=== PATIENT | female | born 1975 | race Two or more races ===

== ENCOUNTER 2020-03-10 12:48 | Outpatient (REF) | payer MEDICAID, SELFPAY ==
--- NOTE | 2020-03-10 | US_ITS ---
EXAMINATION:US pelvic complete, US transvaginal CLINICAL INFORMATION: Reason for Exam PMB / fibroids COMPARISON: No priors available. LMP: Postmenopausal 2019 FINDINGS: UTERUS: The uterus is anteverted. Size: 8.7 x 2.9 x 6.1 cm. Uterine mass: Intramural uterine mass likely fibroid 2.1 x 2.2 x 2.8 cm, second mass likely fibroid 2.7 x 1.2 x 2.4 cm. Cervix: Grossly unremarkable. Endometrium: No ultrasound evidence of endometrial lesion. endometrial thickness measures 0.2 cm ADNEXA: Normal Right ovary: Normal in size. Left ovary: Normal in size. FREE FLUID: Trace amount of free fluid. OTHER FINDINGS: None IMPRESSION: 1. Fibroid uterus. 2 uterine masses likely fibroids measuring up to 2.8 and 2.7 cm. 2. Endometrium is normal 0.2 cm.
== END 2020-03-10 12:49 | disposition home or self-care (01) ==
LOC: HO.US 12:48
PROVIDERS: Visit Provider Advanced Practice Midwife
DX: N92.4 Excessive bleeding in the premenopausal period (principal)
CPT/HCPCS: 76830; 76856

== ENCOUNTER → 2020-03-24 09:49 | Outpatient (BNVA) | payer MEDICAID, SELFPAY | PROVIDERS: PCP Pediatrics; Visit Provider Advanced Practice Midwife | DX: N95.0 Postmenopausal bleeding (principal); D25.9 Leiomyoma of uterus, unspecified; N89.8 Other specified noninflammatory disorders of vagina | CPT/HCPCS: 99212 ==

== ENCOUNTER → 2020-04-16 10:10 | Outpatient (BNVA) | payer MEDICAID, SELFPAY | PROVIDERS: Visit Provider Orthopaedic Surgery | DX: S83.242D Other tear of medial meniscus, current injury, left knee, subsequent encounter (principal) | CPT/HCPCS: 99212 ==

== ENCOUNTER 2020-06-16 06:53 | Day surgery (SDC) | payer MEDICAID, SELFPAY ==
[2020-06-10 12:13] VITALS: BMI 35.5
--- NOTE | 2020-06-15 08:35 | P.CONAN_ITS ---
Documented by User: Annel Howard 06/15/20 08:35 HPI - Anesthesia Eval Consult details Narrative: 44yo F for Knee Arthroscopy COUNTS INCLUDE 234 BEDS AT THE [facility] Past Medical History Medical History Arthritis Depression GERD (gastroesophageal reflux disease) Hypothyroidism Family History Family History Father TIA (transient ischemic attack) Surgical History Surgical History History of carpal tunnel release Hx of section Social History Social History Alcohol intake: never Smoking Status: Never smoker Advance Directives: No Advance Directives Information Provided: No Advance Directives on File: No Current occupational status: disabled Current occupation: Left Handed Gender identity: female Meds Allergies Allergy/AdvReac Type Severity Reaction Status Date / Time No Known Allergies Allergy Verified 06/10/20 12:11 Home Medications Medication Instructions Recorded Confirmed Type pantoprazole 40 mg tablet,delayed 40 mg PO DAILY tab 04/16/20 06/10/20 History release duloxetine [Cymbalta] 60 mg PO DAILY 06/10/20 06/10/20 History gabapentin 300 mg PO BID 06/10/20 06/10/20 History levothyroxine [Tirosint] 112 mcg PO DAILY 06/10/20 06/10/20 History Exam Exam Date and Time: June 15, 2020 0835 Height,Weight and Vital Signs: Height 5 ft 6 in Weight 99.79 kg Assessment and Plan Assessment Anesthesia Assessment: Chart Reviewed Documented by User: Ilya Nelson MD 06/16/20 07:47 COUNTS INCLUDE 234 BEDS AT THE [facility] Past Medical History Medical History Arthritis Depression GERD (gastroesophageal reflux disease) Hypothyroidism Family History Family History Father TIA (transient ischemic attack) Surgical History Surgical History History of carpal tunnel release Hx of section Social History Social History Alcohol intake: never Smoking Status: Never smoker Advance Directives: No Advance Directives Information Provided: No Advance Directives on File: No Current occupational status: disabled Current occupation: Left Handed Gender identity: female Meds Allergies Allergy/AdvReac Type Severity Reaction Status Date / Time No Known Allergies Allergy Verified 06/10/20 12:11 Home Medications Medication Instructions Recorded Confirmed Type pantoprazole 40 mg tablet,delayed 40 mg PO DAILY tab 04/16/20 06/10/20 History release duloxetine [Cymbalta] 60 mg PO DAILY 06/10/20 06/10/20 History gabapentin 300 mg PO BID 06/10/20 06/10/20 History levothyroxine [Tirosint] 112 mcg PO DAILY 06/10/20 06/10/20 History Exam Airway Mallampati Class: III TM Dist: >3cm Neck ROM: Full Loose/Missing/Broken Teeth: No Heart: RRR Lungs: NL Other: AO Assessment and Plan Assessment Anesthesia Assessment: Anesthesia Plan Discussed and Chart Reviewed Final Anesthetic Review NPO: Yes ASA Class: III Final Preanesthetic Review: No Changes in Pt Med Stat, Meds/Allgs Chart Reviewed, Consent Obtained/Reviewed and Anes Risks/Benef Reviewed Patient Risk: Intermediate Procedure Risk: Low Anesthetic Plan Anesthetic Plan: GA Disposition: Standard PACU
[2020-06-16] VITALS (10 sets, daily range): BP systolic 116–135; BP diastolic 76–87; PULSE 68–82; RESP 12–18; TEMP 36.2; O2SAT 95–99
[2020-06-16 07:14] LABS: UPreg QC Valid YES; Urine Pregnancy NEGATIVE (NEGATIVE)
--- NOTE | 2020-06-16 07:20 | MHC.SHP ---
Pre-Procedural Eval Section A The patient is an INPATIENT: No Changes since office visit: Yes Patient answered all questions; No Cold of Flu in the past 2 weeks, No New Medical Problems and No Changes in Medication The History & Physical has been completed within 30 days and I have reviewed it.: Yes Section B Chief Complaint: Medial Meniscus Tear Allergies: Allergies Allergy/AdvReac Type Severity Reaction Status Date / Time No Known Allergies Allergy Verified 06/10/20 12:11 Plan I have reviewed the history and physical and performed a pertinent physical examination on my patient. No changes have occurred unless specified.
[2020-06-16] MEDS: HYDROmorphone HCl 0.5 MG/0.5 ML SYRINGE 0.25 MG IVPUSH ×2 (09:15→09:20)
[2020-06-16] MEDS: Acetaminophen 325 MG TABLET 650 MG PO (09:16)
[2020-06-16] MEDS: oxyCODONE HCl Immed Release 5 MG TABLET PO (09:16)
--- NOTE | 2020-06-16 09:20 | P.BOP_ITS ---
Brief Operative Note Date of Service: 06/16/20 Pre-op diagnosis: left knee mmt Post-op diagnosis: same Procedure: left knee partial medial meniscectomy Implants: none Surgeon: Willian Irene MD Anesthesia: GETA and local [place] Supervisor: Olga Luke Estimated blood loss (mL): 0 Tourniquet time (min): 19 IV fluids (mL): 500 Pathology: none sent Condition: stable Disposition: PACU
--- NOTE | 2020-06-16 10:09 | HO.POSTANES ---
Post Anesthesia Evaluation Post Anesthesia Evaluation Vital Signs: Vital Signs Temp Pulse Resp BP Pulse Ox 06/16/20 09:49 97.1 F 70 18 99 06/16/20 09:40 69 16 135/87 96 06/16/20 09:25 72 16 116/78 96 06/16/20 09:20 68 16 131/79 98 06/16/20 09:15 82 18 127/81 98 06/16/20 09:10 75 16 124/78 95 06/16/20 09:05 72 18 133/81 96 06/16/20 09:00 68 14 121/76 98 06/16/20 08:55 97.1 F 69 12 129/78 97 06/16/20 07:18 97.2 F 76 16 132/85 99 Anesthesia: General LMA Mental Status: Awake Pain Control: Satisfactory Nausea/Vomiting: None Hydration: Adequate Anesthesia-Related Issues: No Anes. Related Issues
--- NOTE | 2020-06-18 13:48 | OP_ITS ---
SURGEON: Willian Irene MD INDICATIONS: 44-year-old woman with a painful medial meniscus tear, refractory to conservative measures, who was consented to undergo operative intervention. PREOPERATIVE DIAGNOSIS: Left knee medial meniscus tear. POSTOPERATIVE DIAGNOSIS: Left knee medial meniscus tear. PROCEDURE PERFORMED: Left knee partial medial meniscectomy. ESTIMATED BLOOD LOSS: None. COMPLICATIONS: ANESTHESIA: General and local. ASSISTANTS: SPECIMENS: TOURNIQUET TIME: 19 minutes. FLUIDS: 500. PROCEDURE IN DETAIL: The patient was brought to the operating room, placed supine on the operative table and prepped and draped in standard sterile fashion. Time-out was called to identify proper site, proper procedure, proper surgeon. IV antibiotics per weight were administered. I began by exsanguinating the limb and insufflating tourniquet to 300 mmHg. I then made a standard anterolateral stab incision and placed my blunt trocar atraumatically into the patellofemoral joint. I insufflated the joint and placed my 30-degree arthroscope. She had an old injury to the medial patellar facet with fibrocartilage and no evidence of acute inflammation. Gutters were clean. I descended into the medial compartment, where I made by medial portal under direct visualization. She had an obvious tear of the posterior horn of the medial meniscus. I used a combination of biter, shaver, and cautery to remove the unstable edges. I removed approximately 30% of the volume of the posterior horn. Cartilaginous surfaces were pristine. ACL was intact. In the lateral compartment, there was a pristine cartilage, meniscus, and surfaces. Once I had completed my meniscectomy, I removed all instrumentation. Portals were closed with nylon, and I injected 30 mL of 0.25% Marcaine with epinephrine in the joint and the soft tissue portals. The patient was then extubated and brought to recovery room in stable condition. There were no known complications. ENGLISH TUTOR: ALE Longoria. MD ENOCH Mooney/MICHAEL / [phone]
== END 2020-06-16 11:00 | disposition home or self-care (01) ==
PROVIDERS: Nurse Practitioner; Visit Provider Orthopaedic Surgery
PROC: (CPT 29870; principal; 2020-06-16 08:30)
DX: S83.242A Other tear of medial meniscus, current injury, left knee, initial encounter (principal); X58.XXXA Exposure to other specified factors, initial encounter; F32.9 Major depressive disorder, single episode, unspecified; Y93.9 Activity, unspecified; Y92.9 Unspecified place or not applicable; Y99.8 Other external cause status; M47.816 Spondylosis without myelopathy or radiculopathy, lumbar region; Z79.899 Other long term (current) drug therapy
CPT/HCPCS: 29881; 81025; J0171; J0690; J1100; J1170; J2250; J2405; J3010

== ENCOUNTER 2020-06-25 09:03 | Outpatient (REF) | payer MEDICAID, SELFPAY | END 2020-06-25 09:04 | disposition home or self-care (01) | LOC: HO.HAP 09:03 | PROVIDERS: Visit Provider Pediatrics | DX: Z46.1 Encounter for fitting and adjustment of hearing aid (principal); H90.3 Sensorineural hearing loss, bilateral | CPT/HCPCS: 92593; 99499; V5266 ==

== ENCOUNTER → 2020-07-01 13:16 | Outpatient (BNVA) | payer MEDICAID, SELFPAY | PROVIDERS: Visit Provider Physician Assistant | DX: Z13.89 Encounter for screening for other disorder (principal) | CPT/HCPCS: 99212 ==

== ENCOUNTER 2020-07-05 10:19 | Outpatient (REF) | payer MEDICAID, SELFPAY ==
--- NOTE | ~2020-07-05 | MR_ITS ---
EXAMINATION: MR LUMBAR SPINE WITHOUT CONTRAST CLINICAL INFORMATION: Lower back pain, difficulty walking. Bilateral leg weakness, numbness, and pain, right greater than left. Lumbar radiculopathy. COMPARISON: None. TECHNIQUE: MRI of the lumbar spine was obtained using routine sequences without contrast. FINDINGS: VERTEBRAL BODIES AND PARASPINAL STRUCTURES: The lumbar lordosis is maintained. Minimal grade 1 retrolisthesis of L5 on S1. No acute fracture. No loss of vertebral body height. Loss of intervertebral disc height with disc desiccation at T12-L1 and L5-S1. Modic type II degenerative endplate changes at L5-S1. No abnormal marrow signal. The visualized paraspinal soft tissues are unremarkable. CONUS MEDULLARIS AND CAUDA EQUINA: Normal, terminating at the level of L2. SPINAL LEVELS: T12-L1: Small left paracentral disc protrusion which measures 0.9 cm in ML dimension and partially effaces the ventral thecal sac. No significant central canal or neural foraminal stenosis. L1-L2: No significant disc bulge. No central canal or neural foraminal stenosis. L2-L3: Mild degenerative disc disease with small anterior endplate osteophytes. Bilateral facet arthropathy without significant central canal or neural foraminal stenosis. L3-L4: No significant disc bulge. Bilateral facet arthropathy and thickening of the ligamentum flavum with mild bilateral neural foraminal stenosis. L4-L5: Shallow left subarticular disc protrusion which contacts the exiting left L4 nerve root. Bilateral facet arthropathy and thickening of the ligamentum flavum with mild left neural foraminal stenosis. L5-S1: Minimal grade 1 retrolisthesis of L5 on S1 with a shallow broad-based disc bulge, asymmetric to the right. This appears to contact the exiting right S1 nerve root. Bilateral facet arthropathy with moderate right and [id number] left neural foraminal stenosis. MR/MR lumbar spine wo con IMPRESSION: 1. Degenerative disc disease with minimal grade 1 retrolisthesis of L5 on S1. Broad-based disc bulge, asymmetric to the right which appears to contact the exiting right S1 nerve root. Bilateral facet arthropathy with moderate right and iqij-so-bjgrhofd left neural foraminal stenosis. 2. L4-L5 shallow left subarticular disc protrusion which contacts the exiting left L4 nerve root. Bilateral facet arthropathy and thickening of the ligamentum flavum with mild left neural foraminal stenosis. 3. L3-L4 bilateral facet arthropathy and thickening of the ligamentum flavum with mild bilateral neural foraminal stenosis. 4. T12-L1 small left paracentral disc protrusion which partially effaces the ventral thecal sac. No significant central canal or neural foraminal stenosis.
== END 2020-07-05 10:20 | disposition home or self-care (01) ==
LOC: HO.MRI 10:19
PROVIDERS: Visit Provider Pediatrics
DX: M54.16 Radiculopathy, lumbar region (principal)
CPT/HCPCS: 72148

== ENCOUNTER 2020-07-21 09:27 | Outpatient (REF) | payer MEDICAID, SELFPAY ==
[2020-07-22 17:01] LABS: C. trachomatis RNA TMA NOT DETECTED (NOT DETECTED); N. gonorrhoeae RNA TMA NOT DETECTED (NOT DETECTED)
[2020-07-24 06:37] LABS: HPV mRNA E6/E7 rflx Not Detected (Not Detected)
== END 2020-07-21 09:28 | disposition home or self-care (01) ==
LOC: HO.LAB 09:27
PROVIDERS: Visit Provider Advanced Practice Midwife
DX: Z01.411 Encounter for gynecological examination (general) (routine) with abnormal findings (principal); Z11.51 Encounter for screening for human papillomavirus (HPV); R82.90 Unspecified abnormal findings in urine; E66.9 Obesity, unspecified; Z68.36 Body mass index [BMI] 36.0-36.9, adult; Z20.2 Contact with and (suspected) exposure to infections with a predominantly sexual mode of transmission
CPT/HCPCS: 36415; 81003; 87491; 87591; 87624; 88142

== ENCOUNTER 2020-07-23 10:43 | Outpatient (REF) | payer MEDICAID, SELFPAY ==
--- NOTE | ~2020-07-23 | MM_ITS ---
EXAMINATION: MM DIAGNOSTIC DIGITAL BREAST TOMOSYNTHESIS, LEFT CLINICAL INFORMATION: Left breast architecture distortion The lifetime risk of breast cancer based on the Tyrer-Cuzick Model is 14.7%. COMPARISON: Mammography: December 19, 2019 and studies dating back to July 16, 2017 TECHNIQUE: Digital breast tomosynthesis is performed in both the craniocaudal and mediolateral oblique views along with computer-aided detection (CAD). Synthesized 2D images are generated from the tomosynthesis. FINDINGS: There are scattered areas of fibroglandular density (ACR BI-RADS breast composition Category b). There is a stable region of architectural distortion seen on craniocaudal view medially. No associated suspicious calcifications identified. Results are provided to the patient at time of visit by the technologist. MM/MM tomosynthesis diagnostic LT IMPRESSION: There are no significant changes from prior study. ASSESSMENT: BI-RADS 2: Benign RECOMMENDATION: Routine annual mammography screening, due in 6 months. This patient's information was entered into a reminder system with a target due date for their next mammogram.
== END 2020-07-23 10:44 | disposition home or self-care (01) ==
LOC: HO.MAMMO 10:43
PROVIDERS: PCP Pediatrics; Visit Provider Pediatrics
DX: N64.89 Other specified disorders of breast (principal)
CPT/HCPCS: 77061; 77065

== ENCOUNTER 2021-01-20 10:51 | Outpatient (REF) | payer MEDICAID, SELFPAY ==
--- NOTE | ~2021-01-20 | MM_ITS ---
EXAMINATION: MM SCREENING DIGITAL BREAST TOMOSYNTHESIS, BILATERAL CLINICAL INFORMATION: Screening. Asymptomatic. The lifetime risk of breast cancer based on the Tyrer-Cuzick Model is 13.8%. COMPARISON: Mammography: 07/23/2020 and studies dating back to 07/16/2017. TECHNIQUE: Digital breast tomosynthesis is performed in both the craniocaudal and mediolateral oblique views along with computer-aided detection (CAD). Synthesized 2D images are generated from the tomosynthesis. FINDINGS: The breasts are heterogeneously dense, which may obscure small masses (ACR BI-RADS breast composition Category c). There is a stable parenchymal pattern of the right breast with no new abnormal dominant mass or suspicious grouping of microcalcifications. Within the left breast, there is a stable region of architectural distortion medially. Laterally, approximately 6 cm from nipple, there is a region of questioned spiculated density for which I do not definitely see a correlate on mediolateral oblique projection. Recommend spot compression tomosynthesis. MM/MM tomosynthesis screening BI IMPRESSION: 1. Stable region of architectural distortion seen about the medial aspect of the left breast. 2. Question density with irregular margins about the lateral aspect of the left breast for which spot compression view is recommended. ASSESSMENT: BI-RADS 0: Incomplete - Need Additional Imaging Evaluation RECOMMENDATION: 1. Additional views of the left breast 2. Targeted ultrasound if warranted after review of the additional views. 3. Radiology department staff will contact the patient for additional imaging. This patient's information was entered into a reminder system with a target due date for their next mammogram.
== END 2021-01-20 10:52 | disposition home or self-care (01) ==
LOC: HO.MAMMO 10:51
PROVIDERS: PCP Pediatrics; Visit Provider Pediatrics
DX: Z12.31 Encounter for screening mammogram for malignant neoplasm of breast (principal)
CPT/HCPCS: 77063; 77067

== ENCOUNTER 2021-02-03 13:54 | Outpatient (REF) | payer MEDICAID, SELFPAY ==
--- NOTE | ~2021-02-03 | MM_ITS ---
EXAMINATION: MM DIAGNOSTIC DIGITAL BREAST TOMOSYNTHESIS, LEFT CLINICAL INFORMATION: Recall from screening for question of new architectural changes mid outer left breast on CC view. COMPARISON: Mammography: 01/20/2021, 07/23/2020, 12/19/2019 TECHNIQUE: Digital breast tomosynthesis is performed. 2D images are generated from the tomosynthesis. The following views are obtained: 3-D spot CC x2, 3-D rolled CC x2. FINDINGS: The breasts are heterogeneously dense, which may obscure small masses (ACR BI-RADS breast composition Category c). Breast tissue composition borders on average fibroglandular. The additional views show no architectural abnormality in the area recent concern mid outer left breast. There is no interval developing density or mass. Results are discussed with the patient at time of visit. MM/MM tomosynthesis added views L IMPRESSION: Additional views show no architectural abnormality or developing density in the area of recent concern mid outer left breast. No significant changes from prior studies. ASSESSMENT: BI-RADS 1: Negative RECOMMENDATION: Routine annual mammography screening. This patient's information was entered into a reminder system with a target due date for their next mammogram.
== END 2021-02-03 13:55 | disposition home or self-care (01) ==
LOC: HO.MAMMO 13:54
PROVIDERS: Visit Provider Pediatrics
DX: R92.2 Inconclusive mammogram (principal)
CPT/HCPCS: 77061; 77065

== ENCOUNTER 2021-02-11 10:18 | Outpatient (REF) | payer MEDICAID, SELFPAY ==
--- NOTE | 2021-02-11 16:37 | MHC.AU.AHA ---
Adult Audiological Evaluation Date of Visit: 02/11/21 Chair Car Attendant Used: [place]er- In Person Reason for Appointment: Audiological re-evaluation due to concern for decreased hearing. Ms. Mayo has a known bilateral sensorineural hearing loss and uses hearing aids binaurally. She feels her hearing has decreased and she has had to put more effort into hearing and listening lately. She notes difficulty understanding speech in background noise. Previous Hearing Test Results: [facility] [place], 02/06/2019- Mild to moderate sensorineural hearing loss bilaterally. 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: [employer] Model: Eltechs M50-312 Serial Number: [id number] Battery Size: 312 Repair Warranty: 05/07/2022 Loss and Damage Warranty: 05/07/2022 Dispensed By: [facility] Date of Fittin02/20/2019 Hearing Instrument History- Left Ear: Tile Presser: [employer] Model: AudeStratopy M50-312 Serial Number: [id number] Battery Size: 312 Warranty: 05/07/2022 Loss and Damage Warranty: 05/07/2022 Dispensed By: [facility] Date of Fittin02/20/2019 Otoscopy: Right Ear: Unremarkable Left Ear: Unremarkable Tympanometry: Tympanometry performed due to: To assess integrity of the middle ear system Right Ear: Normal Middle Ear System (Type A) Left Ear: Normal Middle Ear System (Type A) Hearing Evaluation: Transducer(s) Used: Insert Earphones, Bone Conduction Method: Conventional Audiometry Stimuli Used: Pure Tones Right Ear: Description of Hearing: Normal hearing at 250 Hz, sloping to a mild sensorineural hearing loss from 500-6000 Hz, and a moderate hearing loss at 8000 Hz. Left Ear: Description of Hearing: Mild sensorineural hearing loss from 250-6000 Hz and a moderate hearing loss at 8000 Hz. Speech Recognition Threshold (SRT): Method Used: Recorded Lists Stimuli Used: Spondee Words Right Ear: 35 dBHL Left Ear: 35 dBHL Word Discrimination: Method: Recorded Lists Word Lists Used: Lista Bisil?bica (H[place] Konger) Right Ear: 92% at 75 dBHL Left Ear: 100% at 75 dBHL Comparison: Compared to the most recent evaluation: Hearing is stable. Recommendations: Audiological re-evaluation in one year. Hearing aid maintenance performed today. Hearing aid(s) reprogrammed with updated test results. Diagnosis: Primary Diagnosis: H90.3 Bilateral Sensorineural Hearing Loss Services Performed: Comprehensive Audiological Evaluation (CPT 82617) Tympanometry (CPT 61086) Signature: Provider: Jami Keyes, CCC-A
== END 2021-02-11 10:19 | disposition home or self-care (01) ==
LOC: HO.SH 10:18
PROVIDERS: Visit Provider Pediatrics
DX: Z46.1 Encounter for fitting and adjustment of hearing aid (principal); H90.3 Sensorineural hearing loss, bilateral
CPT/HCPCS: 92557; 92567; 92593

== ENCOUNTER → 2021-05-26 09:16 | Outpatient (BNVA) | payer MEDICAID, SELFPAY | PROVIDERS: PCP Pediatrics; Visit Provider Orthopaedic Surgery | DX: Z98.890 Other specified postprocedural states (principal) | CPT/HCPCS: 99212 ==

== ENCOUNTER 2021-07-27 09:27 | Outpatient (REF) | payer MEDICAID, SELFPAY ==
[2021-07-27 14:38] LABS: CT PCR NOT DETECTED (Not Detect.); NG PCR NOT DETECTED (Not Detect.)
== END 2021-07-27 09:28 | disposition home or self-care (01) ==
LOC: HO.LAB 09:27
PROVIDERS: Visit Provider Advanced Practice Midwife
DX: Z01.419 Encounter for gynecological examination (general) (routine) without abnormal findings (principal); Z20.2 Contact with and (suspected) exposure to infections with a predominantly sexual mode of transmission
CPT/HCPCS: 87491; 87591

== ENCOUNTER 2021-09-08 14:56 | Outpatient (REF) | payer MEDICAID, SELFPAY | END 2021-09-08 14:57 | disposition home or self-care (01) | LOC: HO.HAP 14:56 | PROVIDERS: Visit Provider Pediatrics | DX: Z13.89 Encounter for screening for other disorder (principal) ==

== ENCOUNTER → 2021-09-21 07:30 | Outpatient (BNVA) | payer MEDICAID, SELFPAY | PROVIDERS: PCP Pediatrics; Referring Provider Pediatrics; Visit Provider Physician Assistant | DX: Z01.818 Encounter for other preprocedural examination (principal); K21.9 Gastro-esophageal reflux disease without esophagitis; Z79.899 Other long term (current) drug therapy | CPT/HCPCS: 99202 ==

== ENCOUNTER 2021-09-29 10:24 | Outpatient (REF) | payer MEDICAID, SELFPAY | END 2021-09-29 10:25 | disposition home or self-care (01) | LOC: HO.HAP 10:24 | PROVIDERS: Visit Provider Pediatrics | DX: Z46.1 Encounter for fitting and adjustment of hearing aid (principal); H90.3 Sensorineural hearing loss, bilateral | CPT/HCPCS: V5266 ==

== ENCOUNTER 2021-10-06 07:42 | Outpatient (REF) | payer MEDICAID, SELFPAY ==
--- NOTE | ~2021-10-06 | XR_ITS ---
EXAMINATION: XR pelvis 1-2V, XR hip LT min 2V CLINICAL INFORMATION: Reason for Exam M25.559 - Pain in unspecified hip COMPARISON: None. TECHNIQUE: Single AP view of the pelvis and AP and frog-leg lateral views of the left FINDINGS: No acute fracture or dislocation. Femoral heads are spherical. Small bilateral acetabular marginal osteophytes. Mild sacroiliac arthrosis and degenerative change of the symphysis pubis. No suspicious osseous lesions. Soft tissues unremarkable. XR/XR pelvis 1-2V IMPRESSION: Mild bilateral acetabular marginal osteophytosis
--- NOTE | ~2021-10-06 | XR_ITS ---
EXAMINATION: XR pelvis 1-2V, XR hip LT min 2V CLINICAL INFORMATION: Reason for Exam M25.559 - Pain in unspecified hip COMPARISON: None. TECHNIQUE: Single AP view of the pelvis and AP and frog-leg lateral views of the left FINDINGS: No acute fracture or dislocation. Femoral heads are spherical. Small bilateral acetabular marginal osteophytes. Mild sacroiliac arthrosis and degenerative change of the symphysis pubis. No suspicious osseous lesions. Soft tissues unremarkable. XR/XR hip LT min 2V IMPRESSION: Mild bilateral acetabular marginal osteophytosis
== END 2021-10-06 07:43 | disposition home or self-care (01) ==
LOC: HO.HOSX 07:42
PROVIDERS: Visit Provider Physician Assistant
DX: M25.552 Pain in left hip (principal); M54.32 Sciatica, left side; M76.899 Other specified enthesopathies of unspecified lower limb, excluding foot
CPT/HCPCS: 72170; 73502; 99202

== ENCOUNTER → 2021-12-30 13:00 | Outpatient (BNVA) | payer MEDICAID, SELFPAY | PROVIDERS: PCP Pediatrics; Visit Provider Advanced Practice Midwife | DX: N95.1 Menopausal and female climacteric states (principal) | CPT/HCPCS: 99212 ==

== ENCOUNTER 2022-02-02 14:51 | Outpatient (REF) | payer MEDICAID, SELFPAY | END 2022-02-02 14:52 | disposition home or self-care (01) | LOC: HO.HAP 14:51 | PROVIDERS: Visit Provider Pediatrics | DX: Z46.1 Encounter for fitting and adjustment of hearing aid (principal); H90.3 Sensorineural hearing loss, bilateral | CPT/HCPCS: V5266 ==

== ENCOUNTER 2022-02-03 11:20 | Outpatient (REF) | payer MEDICAID, SELFPAY ==
--- NOTE | ~2022-02-03 | MM_ITS ---
EXAMINATION: MM SCREENING DIGITAL BREAST TOMOSYNTHESIS, BILATERAL CLINICAL INFORMATION: Screening. Asymptomatic. The lifetime risk of breast cancer based on the Tyrer-Cuzick Model is 8%. COMPARISON: Mammography: 02/03/2021, 01/20/2021, 07/23/2020, 12/19/2019, 06/04/2019, 11/25/2018, 11/16/2018, 07/16/2017; targeted left breast ultrasound 11/25/2018. TECHNIQUE: Digital breast tomosynthesis is performed in both the craniocaudal and mediolateral oblique views along with computer-aided detection (CAD). Synthesized 2D images are generated from the tomosynthesis. FINDINGS: The breasts are heterogeneously dense, which may obscure small masses (ACR BI-RADS breast composition Category c). Breast tissue composition borders on average fibroglandular. There are no significant masses, abnormal calcifications, or other abnormalities. Parenchymal pattern is similar to prior studies. There is no developing density or architectural abnormality. Intramammary node again seen posterior upper outer left breast. The axilla and skin contours are unremarkable. No significant changes. MM/MM tomosynthesis screening BI IMPRESSION: No significant changes from prior studies. ASSESSMENT: BI-RADS 2: Benign RECOMMENDATION: Routine annual mammography screening. This patient's information was entered into a reminder system with a target due date for their next mammogram.
== END 2022-02-03 11:21 | disposition home or self-care (01) ==
LOC: HO.MAMMO 11:20
PROVIDERS: PCP Pediatrics; Visit Provider Pediatrics
DX: Z12.31 Encounter for screening mammogram for malignant neoplasm of breast (principal)
CPT/HCPCS: 77063; 77067

== ENCOUNTER 2022-07-21 10:11 | Day surgery (SDC) | payer MEDICAID, SELFPAY ==
[2022-03-07 12:45] VITALS: BMI 37.3
[2022-07-21 11:36] VITALS: BP 133/83; PULSE 70; RESP 18; TEMP 36.7; O2SAT 100
--- NOTE | 2022-07-21 11:39 | MHC.SHP ---
Pre-Procedural Eval Section A Date of Service: 07/21/22 The patient is an INPATIENT: No The History & Physical has been completed within 30 days and I have reviewed it.: No Section B Chief Complaint: screening,reflux Details of Present Illness: Colon cancer screening, GERD, nausea Relevant Family History (Specify if Yes): Yes Relevant Social History: None Present Medications: see Short Stay Collaborative assessment Medical History: Significant History (Arthritis Depression GERD (gastroesophageal reflux disease) Hypothyroidism Obesity with body mass index (BMI) of 30.0 to 39.9) History of Previous Operations: Relevant previous surgery/procedure and date(s) (History of carpal tunnel release History of endoscopy Hx of section) Allergies: Allergies Allergy/AdvReac Type Severity Reaction Status Date / Time No Known Allergies Allergy Verified 07/19/22 16:16 Review of Systems Sugical H&P ROS: Negative: Constitution, Cardiovascular and Respiratory and Yes, Specify: Gastrointestinal (GERD) Exam Surgical H&P Exam: Normal: Heart, Normal: Lungs, Normal: Extremities and Normal: Abdomen Plan Diagnosis/Plan: Unchanged I have reviewed the history and physical and performed a pertinent physical examination on my patient. No changes have occurred unless specified. Time Spent With Patient Time: Total time managing care of this patient today ____ minutes.
--- NOTE | 2022-07-21 11:52 | P.BOP_ITS ---
Brief Operative Note Date of Service: 07/21/22 Pre-op diagnosis: colon cancer screening, GERD, nausea Post-op diagnosis: other (GERD, gastritis, gastric polyps, diverticulosis) Procedure: FLEXIBLE TRANSORAL UPPER GASTROINTESTINAL ENDOSCOPY WITH BIOPSIES AND COLONOSCOPY TILL CECUM Surgeon: Robert Rosas MD Anesthesia: MAC Was an Insurance Account Representative used for this Procedure?: Yes Insurance Account Representative: Kip Wilkerson Estimated blood loss (mL): 1 Pathology: other (A) BX Gastric Antrum (R/O H.Pylori) B) BX Gastric Antrum Nodule C) Gastric Polyp) Condition: stable Disposition: PACU
[2022-07-21 11:53] LABS: UPreg QC Valid YES; Urine Pregnancy NEGATIVE (NEGATIVE)
--- NOTE | 2022-07-21 11:53 | W.PM.OPN ---
Operative Note Operative Note Date of Service: 07/21/22 Narrative: Pre-op diagnosis: colon cancer screening, GERD, nausea Post-op diagnosis:?other (GERD, gastritis, gastric polyps, diverticulosis) Surgeon: Robert Rosas MD Anesthesia:?MAC FLEXIBLE TRANSORAL UPPER GASTROINTESTINAL ENDOSCOPY WITH BIOPSIES AND COLONOSCOPY TILL CECUM UPPER ENDOSCOPY Consent: Indications for the procedure and potential complications of bleeding, perforation, reaction to medications and missed diagnosis were discussed with the patient and informed consent was obtained. Instrument: Olympus GIF H 190 mid size upper endoscope Monitoring: Vital signs and clinical assessment, continuous EKG monitoring, Pulse oximetry, Carbon Dioxide monitoring and blood pressure monitoring were done throughout the procedure. Procedure: The patient was placed in the left lateral decubitis position and pre-procedure medications were administered and a bite block was placed. The endoscope was inserted into the mouth and advanced under direct vision to the third part of duodenum. A careful inspection was made as the upper endoscope was withdrawn including a retroflexed examination of the proximal stomach; Findings and interventions are described below. Findings: Larynx: Normal Esophagus: GE junction at 36 cms. No esophagitis or Davis's. Stomach: Mild gastric erythema. Antral biopsies were obtained to check for H pylori. A 3-4 mm benign appearing nodule in the antrum - biopsied. A few 3-4 mm benign appearing polyps in the gastric body - biopsied Grade 2 flap valve on retroflexed examination of the cardia. Duodenum: Normal bulb and descending duodenum Intervention: Biopsies as noted above COLONOSCOPY PROCEDURE NOTE Consent: Indications for the procedure and potential complications of bleeding, perforation, reaction to medications and missed diagnosis were discussed with the patient and informed consent was obtained. Instrument: Olympus PCF H 190 L variable stiffness pediatric colonoscope Monitoring: Vital signs and clinical assessment, intermittent blood pressure monitoring, continuous EKG monitoring, Pulse oximetry and Carbon Dioxide monitoring were done throughout the procedure. Colon withdrawl time was 14 minutes. Procedure: The patient was placed in the left lateral decubitis position and pre-procedure medications were administered. After a digital rectal examination of the ano-rectum, the video colonoscope was inserted into the rectum and advanced through the colon to the cecum. The colonoscope was slowly withdrawn in a retrograde panoramic fashion and the colon mucosa was carefully examined including a retroflexed view of the rectum. Findings and interventions are described below. Procedure Difficulty: : Without difficulty Findings: Terminal Ileum: Not evaluated Cecum: Normal Ascending Colon: Normal Transverse Colon: Normal Descending Colon: Normal Sigmoid Colon: Moderate diverticulosis Rectum: Normal Ano-rectum: Normal Colon preparation: Good Impression and Post Procedure Diagnosis: Endoscopy Findings: STOMACH: Mild gastric erythema. Antral biopsies were obtained to check for H pylori. A 3-4 mm benign appearing nodule in the antrum - biopsied. A few 3-4 mm benign appearing polyps in the gastric body - biopsied Colonoscopy Findings: No polyps were detected Moderate diverticulosis seen in the sigmoid colon Plan: Await pathology results Patient has an appointment on 08/03/22 in the [facility] with ALE King . Repeat Colonoscopy in 5 years (pt reports her Mon has a hx of colon polyps). Above findings were reviewed with the patient and GERD, gastric polyps and diverticulosis handouts were given in the discharge area
[2022-07-21 12:48] VITALS: BP 112/77; PULSE 66; RESP 17; TEMP 36.2; O2SAT 99
--- NOTE | 2022-07-21 12:49 | HO.ANESPROP2 ---
HPI - Anesthesia Eval Consult details Narrative: morbidly obesept for endo and colon screen PMFSH Active Problems Active Problems: All Active Problems (Updated 03/07/22 @ 12:45 by Kristan Shaw RN) Uterine fibroid (Acute) S/P left knee arthroscopy (Acute) Encounter for screening colonoscopy (Acute) Sciatica of left side (Acute) Hip flexor tendonitis (Acute) GERD (gastroesophageal reflux disease) (Acute) Past Medical History Medical History Arthritis Depression GERD (gastroesophageal reflux disease) History of COVID-19 Hypothyroidism Obesity with body mass index (BMI) of 30.0 to 39.9 Family History Family History Father TIA (transient ischemic attack) Maternal Aunt Stomach cancer Vaginal cancer Maternal Aunt Vaginal cancer Mother Vaginal cancer Family history of problems with anesthesia: No Surgical History Surgical History (Updated 03/07/22 @ 12:45 by Kristan Shaw RN) History of carpal tunnel release History of endoscopy History of meniscectomy of left knee Hx of section Social History Social History Household Members: Family Alcohol intake: never Patient Tobacco Use Status: Former Tobacco user Use of substances other than those prescribed or required for medical reasons: No Are you DNR?: No Advance Directives: No Advance Directives Information Provided: Yes Current occupational status: disabled Current occupation: Left Handed Gender identity: Female Meds Allergies Allergy/AdvReac Type Severity Reaction Status Date / Time No Known Allergies Allergy Verified 07/19/22 16:16 Home Medications Medication Instructions Recorded Confirmed Last Taken Type pantoprazole 40 mg tablet,delayed 40 mg PO DAILY 04/16/20 03/07/22 Unknown History release (Protonix) gabapentin 300 mg tablet 300 mg PO BID 06/10/20 03/07/22 Unknown History levothyroxine 112 mcg capsule 112 mcg PO DAILY 06/10/20 03/07/22 06/16/20 06:30 History (Tirosint) bupropion HCl 300 mg 24 hr tablet, 300 mg PO QAM 07/21/20 03/07/22 Unknown History extended release (Wellbutrin XL) hydroxyzine pamoate 25 mg capsule 25 mg PO BID PRN Anxiety 07/27/21 03/07/22 Unknown History aripiprazole 2 mg tablet 4 mg PO DAILY 09/21/21 03/07/22 Unknown History escitalopram oxalate 20 mg tablet 20 mg PO DAILY 09/21/21 03/07/22 Unknown History sumatriptan succinate 50 mg tablet 0 mg PO 10/06/21 Unknown History albuterol sulfate 2.5 mg/3 mL mg inhalation Q4H 12/30/21 Unknown History (0.083 %) solution for nebulization amlodipine 5 mg tablet 1 tab PO DAILY 03/07/22 03/07/22 Unknown History Exam Exam Date and Time: July 21, 2022 1249 Height,Weight and Vital Signs: Height 5 ft 6 in Weight 104.78 kg Last Vital Signs Temp 98.1 F 07/21/22 11:36 Pulse 70 07/21/22 11:36 Resp 18 07/21/22 11:36 BP 133/83 07/21/22 11:36 Pulse Ox 100 07/21/22 11:36 O2 Del Method 07/21/22 11:36 Pertinent Lab Results Pertinent Lab Results: Laboratory Tests 07/21/22 11:05 Urine Test NEGATIVE Airway Mallampati Class: II TM Dist: >3cm Neck ROM: Full Heart: rrr Lungs: cta Assessment and Plan Assessment Anesthesia Assessment: Anesthesia Plan Discussed and Chart Reviewed Final Anesthetic Review Family History of Problems with Anesthesia: No NPO: Yes ASA Class: II Final Preanesthetic Review: No Changes in Pt Med Stat, Meds/Allgs Chart Reviewed, Consent Obtained/Reviewed and Anes Risks/Benef Reviewed Patient Risk: Low Procedure Risk: Low Anesthetic Plan Anesthetic Plan: MAC: Disposition: Standard PACU
[2022-07-21 13:03] VITALS: BP 125/74; PULSE 74; RESP 18; TEMP 36.7; O2SAT 99
== END 2022-07-21 13:47 | disposition home or self-care (01) ==
PROVIDERS: Anesthesiology; PCP Pediatrics; Visit Provider Internal Medicine Gastroenterology
PROC: (CPT 45378; principal; 2022-07-21 11:40)
DX: Z12.11 Encounter for screening for malignant neoplasm of colon (principal); K57.30 Diverticulosis of large intestine without perforation or abscess without bleeding; K21.9 Gastro-esophageal reflux disease without esophagitis; K29.50 Unspecified chronic 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; K31.7 Polyp of stomach and duodenum; E66.9 Obesity, unspecified; Z68.37 Body mass index [BMI] 37.0-37.9, adult; E03.9 Hypothyroidism, unspecified; F32.A Depression, unspecified; Z79.899 Other long term (current) drug therapy
CPT/HCPCS: 45378; 43239; 81025; 88305; 88342

== ENCOUNTER → 2022-08-03 10:25 | Outpatient (BNVA) | payer MEDICAID, SELFPAY | PROVIDERS: PCP Pediatrics; Visit Provider Physician Assistant | DX: K57.30 Diverticulosis of large intestine without perforation or abscess without bleeding (principal); K21.9 Gastro-esophageal reflux disease without esophagitis; D13.1 Benign neoplasm of stomach; Z79.899 Other long term (current) drug therapy; Z83.71 Family history of colonic polyps | CPT/HCPCS: 99212 ==

== ENCOUNTER 2022-09-04 14:43 | Outpatient (REF) | payer MEDICAID, SELFPAY | END 2022-09-04 14:44 | disposition home or self-care (01) | LOC: HO.HAP 14:43 | PROVIDERS: Visit Provider Pediatrics | DX: Z46.1 Encounter for fitting and adjustment of hearing aid (principal); H90.3 Sensorineural hearing loss, bilateral | CPT/HCPCS: V5266 ==

== ENCOUNTER 2022-11-03 08:12 | Outpatient (REF) | payer MEDICAID, SELFPAY ==
[2022-11-03 14:12] LABS: CT PCR NOT DETECTED (Not Detect.); NG PCR NOT DETECTED (Not Detect.)
[2022-11-04 14:51] LABS: BV Int Neg Control Negative (Negative); BV Int Pos Control Positive (Positive)
== END 2022-11-03 08:13 | disposition home or self-care (01) ==
LOC: HO.LNP 08:12
PROVIDERS: PCP Pediatrics; Visit Provider Advanced Practice Midwife
DX: N95.0 Postmenopausal bleeding (principal)
CPT/HCPCS: 0353U; 87480; 87510; 87660; 99212

== ENCOUNTER 2022-11-15 10:44 | Outpatient (REF) | payer MEDICAID, SELFPAY ==
--- NOTE | ~2022-11-15 | US_ITS ---
EXAMINATION: US PELVIS CLINICAL INFORMATION: Postmenopausal bleeding COMPARISON: 03/10/2020 TECHNIQUE: Ultrasound of the pelvis is performed using both transabdominal and transvaginal transducers along with Doppler. Transvaginal imaging is performed due to inadequate visualization transabdominally. FINDINGS: Uterus: The uterus is anteverted and measures 6.9 x 4.6 x 4.4 cm. The IUD and fibroids seen in the lower uterine segment measured 2.3 x 2.2 x 2.6 cm, growing mildly since previous study in the body measured 1.3 x 1.3 x 1.5 cm, diminished in size since previous study, there is a fundal subserosal new measured 1.4 x 1.3 x 1.1 cm. The double wall endometrial thickness is 0.2 mm. The uterus is smooth in contour and has normal myometrial echogenicity. No visible fibroid. Adnexa: Both ovaries are visualized. There is normal color flow to the adnexa. There is no ovarian torsion. There is no pelvic ascites or fluid collection. Right ovary measures 2.2 x 1.1 x 1.2 cm. With a volume of 1.5 mL Left ovary measures 2.0 x 2.1 x 1.4 cm. With a volume of 3.1 mL US/US pelvic and transvaginal IMPRESSION: Small uterine fibroids
== END 2022-11-15 10:45 | disposition home or self-care (01) ==
LOC: HO.US 10:44
PROVIDERS: PCP Pediatrics; Visit Provider Advanced Practice Midwife
DX: N95.0 Postmenopausal bleeding (principal)
CPT/HCPCS: 76830; 76856

== ENCOUNTER 2022-12-08 14:34 | Outpatient (AMB) | payer MEDICAID, SELFPAY ==
[2022-12-08 14:37] VITALS: BP 106/58; BMI 29.4
--- NOTE | 2022-12-08 14:37 | MHC.OFFVIS ---
Intake Vital Signs 12/08/22 14:37 Height 5 ft 6 in Weight 182 lb BMI 29.4 BP 106/58 L Intake Visit Reasons: EMB/US Follow up/45 mins Intake Note: The patient agreed to use of a senior medical billing specialist during this encounter. Scribed for JUNAID Lopez by Tejal Moore senior medical billing specialist, on 12/08/2022 at 3:00 pm EST Welding Machine Operator/Tender Required: Yes Welding Machine Operator/Tender Language: Vessel Specialist Name: Sherry Information Interpreted: non-clinical & clinical Pairer Odds: Pairer Odds Present (Sherry) Allergies No Known Allergies Allergy (Verified 12/08/22 14:45) Is last menstrual period known: No Patient : No HPI HPI Comments History of Present Illness Details She presents to discuss test results secondary to PMB. Reported 2 weeks of bleeding in October after stopping HRT. Her provider [place] prescribing HRT. Denies any bleeding since that one episode. She denies having an IUD. [facility] Medical History Arthritis Depression GERD (gastroesophageal reflux disease) History of COVID-19 Hypothyroidism Obesity with body mass index (BMI) of 30.0 to 39.9 PMB (postmenopausal bleeding) Surgical History History of carpal tunnel release History of endoscopy History of meniscectomy of left knee Hx of section Family History Father TIA (transient ischemic attack) Maternal Aunt Stomach cancer Vaginal cancer Maternal Aunt Vaginal cancer Mother Vaginal cancer Social History Household Members: Family Alcohol intake: never Patient Tobacco Use Status: Former Tobacco user Current occupational status: disabled Current occupation: Left Handed Gender identity: Female Female Reproductive History Menstrual Date of last pap smear: 07/22/20 (negative) Review of Systems Const All systems reviewed & are unremarkable except as noted in HPI and below Physical Exam Vital Signs: Last Vital Signs BP 106/58 L 12/08/22 14:37 BMI result Body Mass Index 29.4 Const General: cooperative, healthy appearing, no acute distress, well developed and alert Results AMB Test Urine AMB Test Urine Negative Last Edit by KAYLAH Frye on 12/08/22 14:49 Results Reviewed Results Reviewed: Laboratory Last Values [facility]st Clinic Negative 12/08/22 14:49 Laboratory Tests 01/16/19 15:50 FSH 63.8 11/15/22 US FINDINGS: Uterus: The uterus is anteverted and measures 6.9 x 4.6 x 4.4 cm.? The IUD and fibroids seen in the lower uterine segment measured 2.3 x 2.2 x 2.6 cm, growing mildly since previous study in the body measured 1.3 x 1.3 x 1.5 cm, diminished in size since previous study, there is a fundal subserosal new measured 1.4 x 1.3 x 1.1 cm. The double wall endometrial thickness is 0.2 mm.? The uterus is smooth in contour and has normal myometrial echogenicity. No visible fibroid. Adnexa: Both ovaries are visualized. There is normal color flow to the adnexa. There is no ovarian torsion.? There is no pelvic ascites or fluid collection. Right ovary measures 2.2 x 1.1 x 1.2 cm. With a volume of 1.5 mL Left ovary measures 2.0 x 2.1 x 1.4 cm. With a volume of 3.1 mL IMPRESSION: Small uterine fibroids Assessment & Plan Assessment & Plan (1) Uterine fibroid: Code(s): D25.9 - Leiomyoma of uterus, unspecified Qualifiers: Uterine leiomyoma location: unspecified location Qualified Code(s): D25.9 - Leiomyoma of uterus, unspecified Plan: Reviewed test results with patient. Discussed possible PMB due to discontinuing HRT, other causes. Counseled on fibroids. Leiomyoma: common pelvic neoplasm. Differential diagnosis-may include leiomyosarcoma which is a rare uterine sarcoma 3-7/100,000, difficult to distinguish from fibroids on ultrasound from uterine sarcoma's. Unlikely any single test will have a highly positive predictive value. Hysterectomy is not recommended for sole purpose of excluding malignant neoplasm. Recommended MD consult for new onset fibroid-subserosal, possible hysteroscopy/EMB. Contact office with any bleeding for sooner evaluation. All of her questions and concerns were addressed to the best of my ability and she is agreeable to plan of care. RTO for MD consult. (2) Encounter to discuss test results: Code(s): Z71.2 - Person consulting for explanation of examination or test findings Orders: Orders AMB HCG Urine Test Today Z32.02 - Encounter for test, result negative Coding Level of Care Code Est Pt Level 3 (79800) Diagnoses Uterine fibroid D25.9 Uterine leiomyoma location: unspecified location Encounter to discuss test results Z71.2
== END 2022-12-08 15:42 | disposition home or self-care (01) ==
LOC: HO.HWS 14:34
PROVIDERS: PCP Pediatrics; Visit Provider Advanced Practice Midwife
DX: D25.9 Leiomyoma of uterus, unspecified (principal); Z71.2 Person consulting for explanation of examination or test findings; Z32.02 Encounter for pregnancy test, result negative
CPT/HCPCS: 99213

== ENCOUNTER → 2022-12-08 14:34 | Outpatient (BNVA) | payer MEDICAID, SELFPAY | PROVIDERS: PCP Pediatrics; Visit Provider Advanced Practice Midwife | DX: Z71.2 Person consulting for explanation of examination or test findings (principal); D25.9 Leiomyoma of uterus, unspecified | CPT/HCPCS: 81025; 99213 ==

== ENCOUNTER 2023-01-15 11:17 | Outpatient (AMB) | payer MEDICAID, SELFPAY ==
--- NOTE | 2023-01-15 11:18 | A.OFFVIS_ITS ---
Intake Vital Signs 01/15/23 11:20 Height 5 ft 6 in Weight 180 lb 12.465 oz BMI 29.2 BP 118/74 Intake Visit Reasons: Fibroids/PMB consults per Tatiana Farm Product Purchaser Required: Yes Farm Product Purchaser Language: Fertilizer Processing Supervisor Name: Sherry ADRIAN Information Interpreted: non-clinical & clinical Server Security Administrator: Server Security Administrator Present (Sherry ADRIAN) Accompanied by: Self / Same As Patient Allergies No Known Allergies Allergy (Verified 01/15/23 11:21) Post menopausal: Yes HPI HPI Comments History of Present Illness Details Presenting referred from Tatiana Graff CNM. The patient had an episode of postmenopausal bleeding after which ultrasound was done. No other complaints no pelvic pressure, pain any other additional episodes of postmenopausal bleeding. Pelvic ultrasound done in 11/17 showed the following compared to previous ultrasound done in 2019 Uterus: The uterus is anteverted and measures 6.9 x 4.6 x 4.4 cm.? The IUD and fibroids seen in the lower uterine segment measured 2.3 x 2.2 x 2.6 cm, growing mildly since previous study in the body measured 1.3 x 1.3 x 1.5 cm, diminished in size since previous study, there is a fundal subserosal new measured 1.4 x 1.3 x 1.1 cm. The double wall endometrial thickness is 0.2 mm.? The uterus is smooth in contour and has normal myometrial echogenicity. ? No visible fibroid. Adnexa: Both ovaries are visualized. There is normal color flow to the adnexa. There is no ovarian torsion.? There is no pelvic ascites or fluid collection. Right ovary measures 2.2 x 1.1 x 1.2 cm. With a volume of 1.5 mL Left ovary measures 2.0 x 2.1 x 1.4 cm. With a volume of 3.1 mL PFSH Medical History Arthritis Depression GERD (gastroesophageal reflux disease) History of COVID-19 Hypothyroidism Obesity with body mass index (BMI) of 30.0 to 39.9 PMB (postmenopausal bleeding) Surgical History History of carpal tunnel release History of endoscopy History of meniscectomy of left knee Hx of section Family History Father TIA (transient ischemic attack) Maternal Aunt Stomach cancer Vaginal cancer Maternal Aunt Vaginal cancer Mother Vaginal cancer Social History Household Members: Family Alcohol intake: never Patient Tobacco Use Status: Former Tobacco user Current occupational status: disabled Current occupation: Left Handed Gender identity: Female Review of Systems Const All systems reviewed & are unremarkable except as noted in HPI and below Reports as per HPI and Reports no additional complaints GI Reports no additional complaints Reports no additional complaints Physical Exam Vital Signs: Last Vital Signs BP 118/74 01/15/23 11:20 BMI result Body Mass Index 29.2 Assessment & Plan Assessment & Plan (1) PMB (postmenopausal bleeding): Code(s): N95.0 - Postmenopausal bleeding Plan: Discussed with the patient the results of the pelvic ultrasound showing an endometrial stripe thickness of 2 mm. Explained to the patient with an endometrial stripe of 4 mm &/or less, there is a high negative predictive value in detecting endometrial pathology including endometrial hyperplasia, polyps or malignancy. Therefore, there is no indication for endometrial sampling. Discussed with the patient the sensitivity, specificity, and positive and the negative predictive value of using ultrasound in detecting endometrial pathology. The patient was instructed to call if bleeding recurs, will proceed with endometrial sampling out endometrial pathology. All questions were answered and the patient verbalized understanding and agreed with the plan. (2) Uterine fibroid: Code(s): D25.9 - Leiomyoma of uterus, unspecified Qualifiers: Uterine leiomyoma location: unspecified location Qualified Code(s): D25.9 - Leiomyoma of uterus, unspecified Plan: Discussed with the patient the findings on pelvic ultrasound & the risk of myosarcoma; discussed with the patient the options of treatment including expectant management versus hysterectomy; the pros and cons, risks benefits of each approach were discussed with the patient including the fact that in cases of myosarcoma, surgical treatment can lead to early diagnosis and positively affects the prognosis; after further discussion, the patient decided to proceed with expectant management. Will repeat pelvic ultrasound in 3 my. Instructions given to patient to call in case any of the following occurs: pressure symptoms, abnormal uterine bleeding, pelvic pain; and to schedule an ultrasound follow-up appointment for reassessment . All questions answered, the patient verbalized understanding and agreed with the plan . (3) IUD migration: Code(s): T83.32XA - Displacement of intrauterine contraceptive device, initial encounter Plan: Discussed with the patient the report mentioning that the IUD is in the lower segment of the uterus, the patient gives history of no IUD insertion, review of the technical sheet of the ultrasound report there is no mention of any IUD present, suspect dictation her, message was sent to the Radiology Department through the human resources designate for the radiologist to review the ultrasound amend the report in case IUD is not present in the lower segment of the uterus as suspected. Orders: Orders US pelvic and transvaginal Today D25.9 - Leiomyoma of uterus, unspecified Coding Level of Care Code Est Pt Level 3 (27580) Diagnoses PMB (postmenopausal bleeding) N95.0 Uterine fibroid D25.9 Uterine leiomyoma location: unspecified location IUD migration T83.32XA
[2023-01-15 11:20] VITALS: BP 118/74; BMI 29.2
== END 2023-01-15 11:48 | disposition home or self-care (01) ==
LOC: HO.HWS 11:17
PROVIDERS: PCP Pediatrics; Visit Provider Obstetrics & Gynecology
DX: N95.0 Postmenopausal bleeding (principal); D25.9 Leiomyoma of uterus, unspecified; T83.32XA Displacement of intrauterine contraceptive device, initial encounter
CPT/HCPCS: 99213

== ENCOUNTER → 2023-01-15 11:17 | Outpatient (BNVA) | payer MEDICAID, SELFPAY | PROVIDERS: PCP Pediatrics; Visit Provider Obstetrics & Gynecology | DX: D25.9 Leiomyoma of uterus, unspecified (principal); N95.0 Postmenopausal bleeding | CPT/HCPCS: 99212 ==

== ENCOUNTER 2023-02-27 10:19 | Outpatient (REF) | payer MEDICAID, SELFPAY | END 2023-02-27 10:20 | disposition home or self-care (01) | LOC: HO.MAMMO 10:19 | PROVIDERS: PCP Pediatrics; Visit Provider Pediatrics | DX: Z12.31 Encounter for screening mammogram for malignant neoplasm of breast (principal) | CPT/HCPCS: 77063; 77067 ==

== ENCOUNTER → 2023-02-27 10:30 | Outpatient (BNV) | payer MEDICAID, SELFPAY | PROVIDERS: PCP Pediatrics; Visit Provider Radiology Diagnostic Radiology | DX: Z12.31 Encounter for screening mammogram for malignant neoplasm of breast (principal) | CPT/HCPCS: 77063; 77067 ==

== ENCOUNTER 2023-04-12 11:39 | Outpatient (REF) | payer MEDICAID, SELFPAY ==
[2023-04-12 14:26] LABS: MANUAL DIFF FLAG NO
[2023-04-12 14:34] LABS: Basophils Percent Auto 0.8 % (0-2); Eosinophils Absolute Auto 0.2 X10*3/uL (0.0-0.4); Eosinophils Percent Auto 4.2 % (0-4); Hematocrit 38.6 % (37.0-47.0); Hemoglobin 12.9 g/dl (12.0-16.0); Imm Gran Abs Auto 0.01 X10*3/uL (0.00-0.03); Imm Gran Pct Auto 0.2 % (0.0-0.4); Lymphocytes Absolute Auto 1.8 X10*3/uL (1.2-4.9); Lymphocytes Percent Auto 33.8 % (20-40); Mean Corpuscular HGB Conc 33.4 g/dl (31.0-35.0); Mean Corpuscular Hemoglobin 31.4 pg (27.0-33.0); Mean Corpuscular Volume 93.9 fL (80.0-98.0); Mean Platelet Volume 10.8 fL (9.4-12.3); Monocytes Absolute Auto 0.4 X10*3/uL (0.1-1.2); Monocytes Percent Auto 7.5 % (2-11); Neutrophils Absolute Auto 2.8 x10*3/uL (2.0-8.3); Neutrophils Percent Auto 53.5 % (45-73); Platelet Count 311 X10*3/uL (160-400); Red Blood Count 4.11 X10*6/uL (4.20-5.50); Red Cell Distribution Width 12.5 % (11.0-16.0); White Blood Count 5.2 X10*3/uL (4.8-10.8)
[2023-04-12 14:49] LABS: Alanine Aminotransferase 42 U/L (0-31); Albumin Level 4.1 g/dL (3.5-5.0); Alkaline Phosphatase 84 U/L (39-117); Anion Gap 11 (12-20); Aspartate Amino Transferase 35 U/L (5-31); Bilirubin Direct 0.2 mg/dL (0.0-0.5); Bilirubin Total 0.4 mg/dL (0.0-1.0); Blood Urea Nitrogen 14 mg/dL (9-16); Calcium 9.2 mg/dL (8.4-10.2); Carbon Dioxide 28 mmol/L (22-29); Chloride 106 mmol/L (96-108); Estimated Glomerular Filt Rate > 60; Glucose Random 79 mg/dL (60-115); Potassium 3.9 mmol/L (3.3-5.1); Sodium 141 mmol/L (135-145); Total Protein 6.8 g/dL (6.5-8.0)
[2023-04-12 15:00] LABS: Syphilis Screen Nonreactive (Nonreactive)
[2023-04-12 15:04] LABS: TSH reflex Free T4 0.83 uIU/mL (0.32-4.0); Vitamin D 25-OH Total 58.8 ng/mL (>30)
[2023-04-12 15:08] LABS: Vitamin B12 1528 pg/mL (200-900)
== END 2023-04-12 11:40 | disposition home or self-care (01) ==
LOC: HO.CHCLDS 11:39
PROVIDERS: Visit Provider Pediatrics
DX: Z01.84 Encounter for antibody response examination (principal); R41.3 Other amnesia; Z98.84 Bariatric surgery status
CPT/HCPCS: 36415; 80048; 80076; 82306; 82607; 84443; 85025; 86780

== ENCOUNTER 2023-04-13 10:46 | Outpatient (REF) | payer MEDICAID, SELFPAY ==
--- NOTE | ~2023-04-13 | US_ITS ---
EXAMINATION: US PELVIS CLINICAL INFORMATION: Leiomyomatous uterus. Unknown last menstrual period. COMPARISON: 11/15/2022. TECHNIQUE: Ultrasound of the pelvis is performed using both transabdominal and transvaginal transducers along with Doppler. Transvaginal imaging is performed due to inadequate visualization transabdominally. FINDINGS: The uterus is anteverted, heterogeneous and measures 6.1 x 3.7 x 4.2 cm, volume 49.6 mL. A 1.6 x 1.2 x 1.5 cm hypoechoic lesion in the cervix, previously 2.3 x 2.2 x 2.6 cm. Right uterine 1.5 x 1.1 x 1.5 cm fibroid, similar in size. 0.4 x 0.4 x 0.5 cm possible small left fibroid. Endometrial thickness is 0.2 cm. Nabothian cysts present. No significant free fluid in the cul-de-sac. Right ovary measures 2.4 x 1.3 x 1.4 cm, volume 2.3 mL. Left ovary measures 2.0 x 1.5 x 1.9 cm, volume 3.0 mL. Bilateral ovaries are unremarkable. US/US pelvic and transvaginal IMPRESSION: 1. Enlarged fibroid uterus. 2. Endometrial thickness is 0.2 cm. Limited visualization of endometrium due to fibroids. 3. Unremarkable bilateral ovaries. 4. No significant free fluid.
== END 2023-04-13 10:47 | disposition home or self-care (01) ==
LOC: HO.US 10:46
PROVIDERS: PCP Pediatrics; Visit Provider Obstetrics & Gynecology
DX: D25.9 Leiomyoma of uterus, unspecified (principal)
CPT/HCPCS: 76830; 76856

== ENCOUNTER 2023-04-26 10:24 | Outpatient (AMB) | payer MEDICAID, SELFPAY ==
--- NOTE | 2023-04-26 10:24 | A.OFFVIS_ITS ---
Intake Vital Signs 04/26/23 10:26 Height 5 ft 6 in Weight 180 lb 12.465 oz BMI 29.2 BP 110/76 Intake Visit Reasons: US Follow up Drug Abuse Program Coordinator Required: Yes Drug Abuse Program Coordinator Language: Boarder Machine Name: Sherry ADRIAN Information Interpreted: non-clinical & clinical Allergies No Known Allergies Allergy (Verified 04/26/23 10:27) Post menopausal: Yes HPI HPI Comments History of Present Illness Details Presenting for follow-up. Addendum was added to the previous ultrasound report done in 11/17 , it states the following: . Addendum: In the body of the report IUD is in mistake. The sentence supposed to be: There are 3 uterine fibroids seen, such as in the lower uterine segment measured 2.3 x 2.2 x 2.6 cm, growing mildly since previous study, in the body measured 1.3 x 1.3 x 1.5 cm, diminished in size since previous study, and there is new fundal subserosal fibroid new measured 1.4 x 1.3 x 1.1 cm. Repeat ultrasound done in 04/19 showed the following: The uterus is anteverted, heterogeneous and measures 6.1 x 3.7 x 4.2 cm, volume 49.6 mL. A 1.6 x 1.2 x 1.5 cm hypoechoic lesion in the cervix, previously 2.3 x 2.2 x 2.6 cm. Right uterine 1.5 x 1.1 x 1.5 cm fibroid, similar in size. 0.4 x 0.4 x 0.5 cm possible small left f ibroid. Endometrial thickness is 0.2 cm. Nabothian cysts present. No significant free fluid in the cul-de-sac. Right ovary measures 2.4 x 1.3 x 1.4 cm, volume 2.3 mL. Left ovary measures 2.0 x 1.5 x 1.9 cm, volume 3.0 mL. Bilateral ovaries are unremarkable. The patient is doing well with no complaints no pelvic pain or pressure or vaginal bleed PENDING SALE TO [facility] Medical History PMB (postmenopausal bleeding) History of COVID-19 Obesity with body mass index (BMI) of 30.0 to 39.9 Depression Arthritis GERD (gastroesophageal reflux disease) Hypothyroidism Surgical History History of meniscectomy of left knee History of endoscopy History of carpal tunnel release Hx of section Family History Father TIA (transient ischemic attack) Maternal Aunt Stomach cancer Vaginal cancer Maternal Aunt Vaginal cancer Mother Vaginal cancer Social History Household Members: Family Alcohol intake: never Patient Tobacco Use Status: Former Tobacco user Current occupational status: disabled Current occupation: Left Handed Gender identity: Female Review of Systems Const All systems reviewed & are unremarkable except as noted in HPI and below Reports as per HPI and Reports no additional complaints GI Reports no additional complaints Reports no additional complaints Physical Exam Vital Signs: Last Vital Signs BP 110/76 04/26/23 10:26 BMI result Body Mass Index 29.2 Assessment & Plan Assessment & Plan (1) IUD migration: Code(s): T83.32XA - Displacement of intrauterine contraceptive device, initial encounter Plan: Discussed with the patient the addendum corrected report of previous ultrasound done in 11/17 mentioning that there is no IUD seen. The patient was reassured. (2) Uterine fibroid: Code(s): D25.9 - Leiomyoma of uterus, unspecified Qualifiers: Uterine leiomyoma location: unspecified location Qualified Code(s): D25.9 - Leiomyoma of uterus, unspecified Plan: Discussed with the patient the results the ultrasound, myoma size are stable in size. Discussed with the patient the risk of myosarcoma; discussed with the patient the options of treatment including expectant management versus hysterectomy; the pros and cons, risks benefits of each approach were discussed with the patient including the fact that in cases of myosarcoma, surgical treatment can lead to early diagnosis and positively affects the prognosis; after further discussion, the patient decided to proceed with expectant management. Will repeat pelvic ultrasound periodically. Instructions given to patient to call in case any of the following occurs: pressure symptoms, abnormal uterine bleeding, pelvic pain; and to schedule a future office follow-up appointment for reassessment and to order a repeat ultrasound . All questions answered, the patient verbalized understanding and agreed with the plan . Coding Level of Care Code Est Pt Level 3 (27849) Diagnoses IUD migration T83.32XA Uterine leiomyoma, unspecified location D25.9 Uterine leiomyoma location: unspecified location
[2023-04-26 10:26] VITALS: BP 110/76; BMI 29.2
== END 2023-04-26 10:39 | disposition home or self-care (01) ==
PROVIDERS: PCP Pediatrics; Visit Provider Obstetrics & Gynecology
DX: T83.32XA Displacement of intrauterine contraceptive device, initial encounter (principal); D25.9 Leiomyoma of uterus, unspecified
CPT/HCPCS: 99213

== ENCOUNTER → 2023-04-26 10:27 | Outpatient (BNVA) | payer MEDICAID, SELFPAY | PROVIDERS: PCP Pediatrics; Visit Provider Obstetrics & Gynecology | DX: D25.9 Leiomyoma of uterus, unspecified (principal); T83.32XD Displacement of intrauterine contraceptive device, subsequent encounter | CPT/HCPCS: 99212 ==

== ENCOUNTER 2023-05-15 11:21 | Outpatient (REF) | payer MEDICAID, SELFPAY ==
[2023-05-15 15:08] LABS: Alanine Aminotransferase 79 U/L (0-31); Albumin Level 4.2 g/dL (3.5-5.0); Alkaline Phosphatase 98 U/L (39-117); Aspartate Amino Transferase 52 U/L (5-31); Bilirubin Direct 0.2 mg/dL (0.0-0.5); Bilirubin Total 0.4 mg/dL (0.0-1.0)
[2023-05-16 04:41] LABS: HBS Num1 6.36 mIU/mL (0-7.99); HBc Num1 0.11 S/CO (0.00-0.79); HBsAGNum1 0.32 S/CO (0.00-0.99); Hepatitis B Core Antibody Nonreactive (Nonreactive); Hepatitis B Surface Antigen Negative (Negative); ~HepC Num1 0.16 S/CO (0.00-0.79); ~Hepatitis A Antibody IgM Nonreactive (Nonreactive); ~Hepatitis B Surface Antibody NONREACTIVE (Nonreactive); ~Hepatitis C Antibody Nonreactive (Nonreactive)
== END 2023-05-15 11:22 | disposition home or self-care (01) ==
LOC: HO.CHCLDS 11:21
PROVIDERS: Visit Provider Pediatrics
DX: R74.8 Abnormal levels of other serum enzymes (principal)
CPT/HCPCS: 36415; 80076; 86704; 86706; 86709; 86803; 87340

== ENCOUNTER 2023-06-05 13:05 | Outpatient (AMB) | payer MEDICAID, SELFPAY ==
[2023-06-05 14:04] VITALS: BP 94/60; BMI 29.0
--- NOTE | 2023-06-05 14:04 | A.OFFVIS_ITS ---
Intake Vital Signs 06/05/23 14:04 Height 5 ft 6 in Weight 180 lb BMI 29.0 BP 94/60 Intake Visit Reasons: Annual/ 30min Behavioral Modification Assistant Required: Yes Behavioral Modification Assistant Language: Transport Pilot Name: Roxy [email or web address] Information Interpreted: non-clinical & clinical Powder Press Operator: Powder Press Operator Present (Mervatyn) Allergies No Known Allergies Allergy (Verified 06/05/23 14:07) Is last menstrual period known: No Post menopausal: Yes HPI HPI Comments History of Present Illness Details She is a premenopausal woman presenting for annual examination. Doing well with no concerns. She tries to eat healthy and stays active with exercise. Regular monthly menses. Currently is not sexually active. She denies vaginal itching and irritation. STI screening offered; she accepts, cultures only, no bloodwork. Denies family history of breast, ovarian or colon cancer. Last pap smear 2020, negative. Mammogram: 2022. LMP approximately 2011. [facility] Medical History PMB (postmenopausal bleeding) History of COVID-19 Obesity with body mass index (BMI) of 30.0 to 39.9 Depression Arthritis GERD (gastroesophageal reflux disease) Hypothyroidism Surgical History (Updated 06/05/23 @ 14:11 by KAYLAH Frye) Hx of gastric bypass History of meniscectomy of left knee History of endoscopy History of carpal tunnel release Hx of section Family History Father TIA (transient ischemic attack) Maternal Aunt Stomach cancer Vaginal cancer Maternal Aunt Vaginal cancer Mother Vaginal cancer Social History Household Members: Family Alcohol intake: never Patient Tobacco Use Status: Former Tobacco user Current occupational status: disabled Current occupation: Left Handed Gender identity: Female Female Reproductive History Menstrual Age of Menarche: 9 control method: none Total pregnancies: 2 Full term: 2 Number of Living Children: 2 Date of last pap smear: 07/22/20 (negative) Date of Mammogram: 02/27/23 Review of Systems Const All systems reviewed & are unremarkable except as noted in HPI and below Reports as per HPI Eyes Reports no additional complaints ENT Reports no additional complaints Card Reports no additional complaints Resp Reports no additional complaints GI Reports as per HPI and Reports no additional complaints Reports as per HPI Musc Reports no additional complaints Skin/Breast Reports as per HPI Neuro Reports no additional complaints Psych Reports no additional complaints Endo Reports no additional complaints Skinny/Lymph Reports no additional complaints Aller/Immun Reports no additional complaints Physical Exam Vital Signs: Last Vital Signs BP 94/60 06/05/23 14:04 BMI result Body Mass Index 29.0 Const General: cooperative, healthy appearing, no acute distress, well developed and alert Orientation/consciousness: patient oriented x3 HEENT Head: Yes normal to inspection Eyes General: appearance normal, both eyes and all related structures Neck Neck: Yes normal visual inspection Thyroid: Thyroid normal Chest Chest palpation & inspection: normal inspection of the chest and other (no puckering, dimpling, peau de orange, retraction, discharge, masses) Breast/axilla inspection: normal inspection of the breasts Breast/axilla palpation: normal palpation of the breasts Resp Effort & Inspection: normal respiratory effort GI Inspection: Yes normal to inspection Palpation (GI): Soft to palpation Rectal Exam - Female: deferred General: Yes bladder normal to palpation External Female Exam: normal external appearance and normal appearance of the urethra Speculum Exam - Vagina: normal appearance of the vagina, normal palpation, normal vaginal discharge (Thick pale yellow) and vagina atrophic Speculum Exam - Cervix: normal appearance of the cervix and normal palpation Bimanual exam- vagina & uterus: normal bimanual exam, normal palpation, uterine size normal, bladder normal to palpation, normal palpation and non-tender Bimanual Exam- Adnexa, other: no masses Skin General skin exam: no rashes or lesions noted Rashes: no rashes Neuro General: patient oriented x3 Cognition (Neuro): normal cognition Extrem General: Yes normal to inspection Psych Attitude: cooperative Thought process: Normal thought process present Assessment & Plan Assessment & Plan (1) Encounter for well woman exam with routine gynecological exam: Code(s): Z01.419 - Encounter for gynecological examination (general) (routine) without abnormal findings (2) Vaginal discharge: Code(s): N89.8 - Other specified noninflammatory disorders of vagina Plan Discussed: Current recommendations for pap smears per ASCCP guidelines. Breast awareness and periodic breast exams. Maintain a healthy lifestyle including a well balanced diet and routine exercise. Call with any postmenopausal bleeding for urgent workup. Mammogram yearly. Colonoscopy >45, or at risk sooner. All of her questions and concerns were addressed to the best of my ability. RTO in one year for annual explosive operator bomb examination. This note is constructed using voice recognition software. While every effort has been made to ensure accuracy, locum tenens psychiatrist errors may have been included. Coding Level of Care Code Est Pt Prev Care 40-64y(10435) Diagnoses Encounter for well woman exam with routine gynecological exam Z01.419 Vaginal discharge N89.8
== END 2023-06-05 14:28 | disposition home or self-care (01) ==
LOC: HO.HWS 13:05
PROVIDERS: PCP Pediatrics; Visit Provider Advanced Practice Midwife
DX: Z01.419 Encounter for gynecological examination (general) (routine) without abnormal findings (principal); N89.8 Other specified noninflammatory disorders of vagina
CPT/HCPCS: 99396

== ENCOUNTER 2023-06-05 13:05 | Outpatient (REF) | payer MEDICAID, SELFPAY ==
[2023-06-06 03:30] LABS: CT PCR NOT DETECTED (Not Detect.); NG PCR NOT DETECTED (Not Detect.)
[2023-06-06 09:53] LABS: BV Int Neg Control Negative (Negative); BV Int Pos Control Positive (Positive)
== END 2023-06-05 13:06 | disposition home or self-care (01) ==
LOC: HO.LNP 13:05
PROVIDERS: PCP Pediatrics; Visit Provider Advanced Practice Midwife
DX: Z01.419 Encounter for gynecological examination (general) (routine) without abnormal findings (principal); N89.8 Other specified noninflammatory disorders of vagina
CPT/HCPCS: 0353U; 87480; 87510; 87660; 99396

== ENCOUNTER 2023-06-15 07:45 | Outpatient (REF) | payer MEDICAID, SELFPAY ==
--- NOTE | ~2023-06-15 | US_ITS ---
EXAMINATION: US ABDOMEN LIMITED CLINICAL INFORMATION: Elevated liver enzymes. Evaluate liver disease. COMPARISON: None available. TECHNIQUE: Real-time imaging of the right upper quadrant abdominal viscera. Limited visualization due to bowel gas. FINDINGS: PANCREAS: Limited visualization of pancreatic tail and head. Imaged portion of pancreatic body is unremarkable. LIVER: Borderline mild hepatic parenchymal heterogeneity and echogenicity, could be associated with hepatocellular disease/hepatic steatosis, and substantially limits visualization. Correlation with liver function tests, and clinical exam recommended, to determine further management. GALLBLADDER: No gallstones. Gallbladder wall thickness of 0.28 cm. COMMON BILE DUCT: Imaged portion of common duct measures 0.6 cm in diameter. RIGHT KIDNEY: Mild fullness right renal pelvis. No renal calculi. Limited visualization. The kidney measures 10.8 cm in maximum dimension. FREE FLUID: None. US/US abdomen limited IMPRESSION: 1. Borderline mild hepatic parenchymal heterogeneity and echogenicity could be associated with hepatocellular disease/hepatic steatosis and substantially limits visualization. Correlation with liver function tests and clinical exam recommended to determine further management. 2. Mild fullness right renal pelvis. No renal calculi. Limited visualization. CT urogram without intravenous contrast could be considered for further evaluation, if clinically indicated.
== END 2023-06-15 07:46 | disposition home or self-care (01) ==
LOC: HO.US 07:45
PROVIDERS: PCP Pediatrics; Visit Provider Pediatrics
DX: R74.8 Abnormal levels of other serum enzymes (principal)
CPT/HCPCS: 76705

== ENCOUNTER 2023-07-24 08:33 | Outpatient (REF) | payer MEDICAID, SELFPAY ==
--- NOTE | 2023-07-24 09:48 | MHC.AU.HA3 ---
Hearing Instrument Follow-Up- Binaural Date of Visit: 07/24/23 Aligning Checker Used: [facility] in-person. Right Ear: Make, Model, Color, Serial Number: [id number] Cut And Print Machine Operator Repair Warranty: 05/07/2022 Cut And Print Machine Operator Loss and Damage Warranty: 05/07/2022 [facility] Service Plan: none Battery Size: 312 Shaper Set Up Operator/Slim Tube: Size 1M Earmold/Dome/CShell/SlimTip: Type of Wax Guard: Cerushield Dispensed By: [facility] Date of Fittin02/20/2019 Left Ear: Make, Model, Color, Serial Number: [id number] Cut And Print Machine Operator Repair Warranty: 05/07/2022 Cut And Print Machine Operator Loss and Damage Warranty: 05/07/2022 [facility] Service Plan: none Battery Size: 312 Shaper Set Up Operator/Slim Tube: 1 M Earmold/Dome/CShell/SlimTip: Type of Wax Guard: Cerushield Dispensed By: [facility] Date of Fittin02/20/2019 Follow-Up Summary: Here for evaluation. Cleaned and checked aids, replaced domes, wax guards, tails. Mics had notable debris. Listening check positive after cleaning. Recommendations: Recommendations: Hearing instrument follow-up or maintenance as needed. Diagnosis Code(s): Primary Diagnosis: H90.3 Bilateral Sensorineural Hearing Loss Signature: Provider: Artie Hagen, [facility]
== END 2023-07-24 08:34 | disposition home or self-care (01) ==
LOC: HO.SH 08:33
PROVIDERS: Visit Provider Pediatrics
DX: H90.3 Sensorineural hearing loss, bilateral (principal)
CPT/HCPCS: 92552; 92556; 92593; 99499

== ENCOUNTER 2023-08-08 09:32 | Outpatient (REF) | payer MEDICAID, SELFPAY ==
[2023-08-08 14:18] LABS: MANUAL DIFF FLAG NO
[2023-08-08 14:22] LABS: Basophils Absolute Auto 0.1 X10*3/uL (0.0-0.2); Eosinophils Absolute Auto 0.2 X10*3/uL (0.0-0.4); Eosinophils Percent Auto 3.1 % (0-4); Hematocrit 37.6 % (37.0-47.0); Hemoglobin 12.5 g/dl (12.0-16.0); Imm Gran Abs Auto 0.01 X10*3/uL (0.00-0.03); Imm Gran Pct Auto 0.2 % (0.0-0.4); Lymphocytes Absolute Auto 1.6 X10*3/uL (1.2-4.9); Lymphocytes Percent Auto 30.8 % (20-40); Mean Corpuscular HGB Conc 33.2 g/dl (31.0-35.0); Mean Corpuscular Hemoglobin 31.4 pg (27.0-33.0); Mean Corpuscular Volume 94.5 fL (80.0-98.0); Mean Platelet Volume 10.6 fL (9.4-12.3); Monocytes Absolute Auto 0.4 X10*3/uL (0.1-1.2); Monocytes Percent Auto 6.8 % (2-11); Neutrophils Percent Auto 58.1 % (45-73); Platelet Count 290 X10*3/uL (160-400); Red Blood Count 3.98 X10*6/uL (4.20-5.50); Red Cell Distribution Width 12.6 % (11.0-16.0); White Blood Count 5.1 X10*3/uL (4.8-10.8)
[2023-08-08 15:06] LABS: Estimated Average Glucose 103 mg/dL; Hemoglobin A1c % 5.2 % (<6.0)
[2023-08-08 15:16] LABS: Insulin 4 uU/mL (2-29); TSH reflex Free T4 1.57 uIU/mL (0.32-4.0)
[2023-08-08 15:21] LABS: Magnesium 1.9 mg/dL (1.6-2.6)
[2023-08-09 12:45] LABS: Follicle Stimulating Hormone 87.7 mIU/mL
[2023-08-14 00:18] LABS: Estradiol Ultra Sensitive 3 pg/mL
== END 2023-08-08 09:33 | disposition home or self-care (01) ==
LOC: HO.CHCLDS 09:32
PROVIDERS: Visit Provider Pediatrics
DX: R42 Dizziness and giddiness (principal)
CPT/HCPCS: 36415; 82670; 83001; 83036; 83525; 83735; 84443; 85025

== ENCOUNTER 2023-08-21 10:23 | Outpatient (REF) | payer MEDICAID, SELFPAY ==
[2023-08-21 14:42] LABS: C Reactive Protein < 0.04 mg/dL (< or = 0.50); Rheumatoid Factor < 13.0 IU/mL (<15.0); Uric Acid 3.4 mg/dL (2.4-5.7)
[2023-08-21 16:07] LABS: Erythrocyte Sedimentation Rate 4 MM/HR (0-20)
== END 2023-08-21 10:24 | disposition home or self-care (01) ==
LOC: HO.CHCLDS 10:23
PROVIDERS: Visit Provider Pediatrics
DX: M25.50 Pain in unspecified joint (principal)
CPT/HCPCS: 36415; 84550; 85652; 86140; 86431

== ENCOUNTER 2023-10-17 11:31 | Emergency (ER) | payer MEDICAID, SELFPAY ==
--- NOTE | ~2023-10-17 | CT_ITS ---
[facility]#: [id number] : 1975 Name: Saundra Mayo PID: [id number] EXAMINATION: CT ABDOMEN AND PELVIS WITHOUT CONTRAST CLINICAL INFORMATION: Flank pain COMPARISON: Ultrasound abdomen 06/15/2023 TECHNIQUE: Multidetector volumetric imaging was performed from the superior aspect of the liver through the pubic symphysis without intravenous contrast. Sagittal and coronal reformatted images were obtained on the technologist's workstation. This CT examination was performed using dose optimization techniques as appropriate, variously including the following: *Automated exposure control *Adjustment of mA and/or kV according to patient size (this includes techniques or standardized protocols for targeted exams where dose is matched to indication/reason for exam; i.e. extremities or head) *Use of iterative reconstruction technique DLP: 408 mGy-cm FINDINGS: LUNG BASES: The visualized lung bases are unremarkable. LIVER, GALLBLADDER, AND BILIARY TREE: The liver is normal in size, shape, and attenuation. No focal hepatic lesion or biliary ductal dilatation is present. The gallbladder is unremarkable with no evidence of radiopaque gallstones, gallbladder wall thickening, or obvious pericholecystic inflammatory changes. PANCREAS: Unremarkable. SPLEEN: Unremarkable. ADRENAL GLANDS: Unremarkable. KIDNEYS AND URETERS: The kidneys are normal in size, shape, and attenuation. No hydronephrosis, hydroureter, or calculi seen. No perinephric stranding. BLADDER: Unremarkable. GASTROINTESTINAL TRACT: Status post gastric bypass. The small and large bowel are otherwise unremarkable. The appendix is most likely normal but there is certainly no evidence of appendicitis. ABDOMINAL WALL: No significant hernia is appreciated. LYMPH NODES: No retroperitoneal lymphadenopathy. VASCULAR: Unremarkable. PELVIC VISCERA: The uterus and adnexa are unremarkable. OSSEOUS STRUCTURES: Mild degenerative changes are present in the spine. There is grade 1 retrolisthesis of L5 upon S1. CT/CT abdomen pelvis wo IV con IMPRESSION: A cause for the patient's flank pain has not been found. No renal calculi are seen. Incidental findings as described above. Fleischner guidelines were followed.
[2023-10-17 11:36] VITALS: BP 110/71; PULSE 66; RESP 16; TEMP 37; O2SAT 100; BMI 23.9
--- NOTE | 2023-10-17 11:42 | ED.GENADULT ---
HPI - General Adult General Chief complaint: Back Pain/Injury Stated complaint: whole R side in pain and back pain Time Seen by Provider: 10/17/23 12:16 Source: patient and court interpreter (all interactions with this patient were facilitated with an [facility] japanese interpreter) Mode of arrival: ambulatory Limitations: language barrier (all interactions with this patient were facilitated with an [facility] japanese interpreter) History of Present Illness ED Provider: Shannan Guadalupe PA-C HPI narrative: Patient is a 48 year old assigned female at with a history of GERD presenting to the emergency department today with right flank pain. Patient states that over the last few days she has had right sided flank pain that is not improving. Patient denies any dizziness, lightheadedness, abdominal pain, nausea, vomiting, fever, chills, blurry vision, double vision, loss of vision, chest pain, difficulty breathing, shortness of breath, back pain, night sweats, pain with urination, increased urinary frequency, increased urinary urgency, blood in her urine or stool, syncope or a near syncopal episode, recent trauma or falls, bowel incontinence, bladder incontinence, bowel retention, bladder retention, or any other complaints at this time. Onset (ago): day(s) Location: right (flank) Severity: mild Severity scale (1-10): 3 Quality: aching and dull Pain Consistency: constant Relieving factors: none Exacerbating factors: none Associated symptoms: denies other symptoms Treatments prior to arrival: none Related Data Home Medications ?Medication ?Instructions ?Recorded ?Confirmed pantoprazole 40 mg tablet,delayed 40 mg PO DAILY 04/16/20 03/07/22 release (Protonix) levothyroxine 112 mcg capsule 112 mcg PO DAILY 06/10/20 03/07/22 (Tirosint) bupropion HCl 300 mg 24 hr tablet, 300 mg PO QAM 07/21/20 03/07/22 extended release (Wellbutrin XL) hydroxyzine pamoate 25 mg capsule 25 mg PO BID PRN Anxiety 07/27/21 03/07/22 aripiprazole 2 mg tablet 4 mg PO DAILY 09/21/21 03/07/22 escitalopram oxalate 20 mg tablet 20 mg PO DAILY 09/21/21 03/07/22 sumatriptan succinate 50 mg tablet 0 mg PO 10/06/21 amlodipine 5 mg tablet 1 tab PO DAILY 03/07/22 03/07/22 Previous Rx's ?Medication ?Instructions ?Recorded metronidazole 500 mg tablet 500 mg PO BID 7 days #14 tabs 06/06/23 Allergies Allergy/AdvReac Type Severity Reaction Status Date / Time No Known Allergies Allergy Verified 10/17/23 11:37 Review of Systems Constitutional: Constitutional: Reports no additional constitutional complaints, Denies chills, Denies fever(s) and Denies night sweats Eyes: Eyes: Reports no additional eye complaints, Denies blurry vision, Denies change in vision, Denies diplopia, Denies eye discharge, Denies loss of vision and Denies eye pain ENT: Denies dizziness Cardiovascular: Cardiovascular: Reports no additional cardiovascular complaints, Denies chest pain, Denies lightheadedness, Denies Loss of Consciousness and Denies dyspnea Respiratory: Respiratory: Reports no additional respiratory complaints and Denies dyspnea Gastrointestinal: Gastrointestinal: Reports no additional gastrointestinal complaints, Denies abdominal pain, Denies melena, Denies hematochezia, Denies change in bowel habits and Denies change in stool character Genitourinary: Genitourinary: Denies hematuria, Denies urinary frequency, Denies dysuria, Denies urinary incontinence, Denies urinary hesitancy and Denies urinary urgency Comments: right flank pain Musculoskeletal: Musculoskeletal: Reports no additional musculoskeletal complaints, Denies numbness and Denies tingling Neurologic: Denies dizziness, Denies loss of vision, Denies numbness and Denies tingling Psychiatric: Psychiatric: Reports no additional psychiatric complaints Endocrine: Endocrine: Reports no additional endocrine complaints Hematologic/Lymphatic: Hematologic/Lymphatic: Reports no additional hematologic/lymphatic complaints Allergic/Immunologic: Allergic/Immunologic: Reports no additional allergic/immunologic complaints [facility] Past Medical History Attestation statement: The following information was validated with the patient. Source: old records reviewed and nursing notes reviewed Medical History PMB (postmenopausal bleeding) History of COVID-19 Obesity with body mass index (BMI) of 30.0 to 39.9 Depression Arthritis GERD (gastroesophageal reflux disease) Hypothyroidism Surgical History Hx of gastric bypass History of meniscectomy of left knee History of endoscopy History of carpal tunnel release Hx of section Family History Family History Father TIA (transient ischemic attack) Maternal Aunt Stomach cancer Vaginal cancer Maternal Aunt Vaginal cancer Mother Vaginal cancer Social History Social History Household Members: Family Alcohol intake: never Patient Tobacco Use Status: Former Tobacco user Advance Directives: No Current occupational status: disabled Current occupation: Left Handed Gender identity: Female Physical Exam ED Vital Signs: Vital Signs - 24 hr 10/17/23 11:36 10/17/23 12:37 10/17/23 18:45 Temperature 98.6 F 97 F 98.9 F Pulse Rate 66 66 58 Respiratory Rate 16 18 18 Blood Pressure 110/71 103/71 113/77 Pulse Oximetry 100 97 Oxygen Delivery Method Room Air Room Air Oxygen Flow Rate 100 10/17/23 20:11 Temperature 98.9 F Pulse Rate 58 Respiratory Rate 18 Blood Pressure 113/77 Pulse Oximetry 97 Oxygen Delivery Method Room Air Oxygen Flow Rate BMI result Body Mass Index 23.9 Const General: cooperative, no acute distress, alert and awake Nutritional Appearance: well nourished Orientation/consciousness: patient oriented x3 Limitations: no limitations HENMT Head: Yes normal to inspection and Yes atraumatic Ears: hearing grossly normal bilaterally and external ears normal General nose exam: Normal external nose present, no nasal discharge noted and no epistaxis Face and sinus: Yes normal facial exam, No abrasion and No laceration Mouth: Normal oral and palatal mucosa present, no drooling and no muffled voice Eyes General: appearance normal, both eyes and all related structures Periorbital: periorbital findings normal Eyelids: Yes eyelids normal Conjunctivae: conjunctivae normal Pupils: Equal, round and reactive pupils present EOM: EOMs intact bilaterally Neck Neck: Yes normal visual inspection, Yes full ROM and Yes no lymphadenopathy Chest Chest palpation & inspection: normal inspection of the chest Resp Effort & Inspection: normal respiratory effort and able to speak in complete sentences GI Inspection: Yes normal to inspection Neuro General: patient oriented x3 and moves all extremities Cranial nerves: Yes Equal, round and reactive pupils present Cognition (Neuro): normal cognition Motor exam (neuro): 5/5 motor strength present throughout Sensory Exam: Normal double simultaneous stimulation for sensation Coordination: [id number] test normal Extrem General: Yes normal to inspection, Yes full ROM and Yes capillary refill normal Psych Appearance: grossly normal Mental Status: mental status grossly normal Affect: normal affect Attitude: cooperative Thought process: Normal thought process present Thought content: Normal thought content present Insight: Good insight present (Psych) Course Course Course Narrative: RME- 48 year old female presents for evaluation of right armpain, right hip pain, and right lower back pain. She reports getting injections in her right arm 2 weeks ago and she believes this did not help Medications Administered Discontinued Medications Generic Name Dose Route Start Last Admin Trade Name Rayray PRN Reason Stop Dose Admin Sodium Chloride 1,000 mls @ 999 mls/hr 10/17/23 13:45 10/17/23 14:01 Ns IV 10/17/23 14:45 999 mls/hr .Q1H1M ALONZO Administration Ketorolac Tromethamine 15 mg 10/17/23 13:32 10/17/23 14:01 Ketorolac Tromethamine 15 Mg/Ml Vial IVPUSH 10/17/23 13:33 15 mg ONCE ONE Administration Medical Decision Making Medical Decision Making [facility] Narrative: Patient is a 48 year old assigned female at with a history of GERD and gastric bypass presenting to the emergency department today with right sided flank pain. Patient's physical exam was unremarkable. Patient's blood work was unremarkable. Patient's urine showed calcium oxalate crystal but was otherwise unremarkable. Patient's abdomen/pelvis CT showed no acute process. I explained my physical exam findings as well as all test results to the patient. I answered all questions asked by the patient. Patient received IV fluids and toradol which she stated helped her symptoms significantly. I stressed the importance of the patient taking her medication as prescribed. I stressed the importance of the patient following up with her primary care provider. I stressed the importance of the patient returning to the emergency department immediately if her symptoms were to worsen or if she were to develop any dizziness, shortness of breath, difficulty breathing, chest pain, blurry vision, loss of vision, nausea, vomiting, abdominal pain, fever, chills, back pain, or any other complaints. Patient verbalized agreement and understanding with this treatment plan and discharge. Differential Diagnosis Differential Diagnoses: The differential diagnosis associated with the presentation includes Flank pain Kidney stone Passing of kidney stone UTI Admission/Observation Consideration of admission/observation: Escalation of care including admission/observation considered Patient would have been admitted to the hospital had her work up had any findings where hospital admission was appropriate and her clinical presentation warranted hospital admission. Lab Data [facility] Lab Attestation statement: I reviewed the patient's lab results. My interpretation of these results are in the MDM Rationale portion of this note. 10/17/23 12:37 10/17/23 12:37 Labs: Lab Results 10/17/23 10/17/23 Range/Units 12:37 12:43 WBC 6.9 (4.8-10.8) X10*3/uL RBC 4.22 (4.20-5.50) X10*6/uL Hgb 13.1 (12.0-16.0) g/dl Hct 40.5 (37.0-47.0) % MCV 96.0 (80.0-98.0) fL MCH 31.0 (27.0-33.0) pg MCHC 32.3 (31.0-35.0) g/dl RDW 12.7 (11.0-16.0) % Plt Count 290 (160-400) X10*3/uL MPV 10.0 (9.4-12.3) fL Immature Gran % (Auto) 0.1 (0.0-0.4) % Neut % (Auto) 59.5 (45-73) % Lymph % (Auto) 30.8 (20-40) % [place] % (Auto) 6.2 (2-11) % Eos % (Auto) 2.2 (0-4) % Baso % (Auto) 1.2 (0-2) % Lymph # (Auto) 2.1 (1.2-4.9) X10*3/uL [place] # (Auto) 0.4 (0.1-1.2) X10*3/uL Eos # (Auto) 0.2 (0.0-0.4) X10*3/uL Baso # (Auto) 0.1 (0.0-0.2) X10*3/uL Abs Immat Gran (auto) 0.01 (0.00-0.03) X10*3/uL Absolute Neuts (auto) 4.1 (2.0-8.3) x10*3/uL Absolute Nucleated RBC 0.000 (0.0-0.012) X10*3/uL Nucleated RBC % (auto) 0.0 (0.0-0.2) /100WBC Sodium 141 (135-145) mmol/L Potassium 4.1 (3.3-5.1) mmol/L Chloride 104 (96-108) mmol/L Carbon Dioxide 28 (22-29) mmol/L Anion Gap 13 (12-20) BUN 17 H (9-16) mg/dL Creatinine 0.91 (0.5-1.4) mg/dL Estim Creat Clear Calc 69.2 Estimated GFR > 60 Random Glucose 85 (60-115) mg/dL Calcium 9.7 (8.4-10.2) mg/dL Total Bilirubin 0.4 (0.0-1.0) mg/dL AST 35 H (5-31) U/L ALT 47 H (0-31) U/L Alkaline Phosphatase 91 (39-117) U/L Total Protein 7.2 (6.5-8.0) g/dL Albumin 4.4 (3.5-5.0) g/dL Urine Color Yellow Urine Appearance Clear Urine pH 5.5 (5.0-9.0) Ur Specific [place] 1.025 (1.005-1.025) Urine Protein Negative (Neg-Trace) mg/dL Urine Glucose (UA) Negative (Negative) mg/dL Urine Ketones Trace (Negative) mg/dL Urine Blood Negative (Negative) Urine Nitrite Negative (Negative) Ur Leukocyte Esterase Trace H (Negative) Urine RBC 0-2 (0-2) /HPF Urine WBC 0-5 (0-5) /HPF Ur Squamous Epith Cells 0-2 (0-2) /HPF Calcium Oxalate Crystal Present Urine Bacteria None Seen (None Seen) Hyaline Casts 0-2 (0-2) /LPF Independent Interpretation I performed an independent interpretation of an: CT Scan Interpretation: My interpretation is in agreement with the radiologist's impression of this imaging study. EXAMINATION: CT ABDOMEN AND PELVIS WITHOUT CONTRAST CLINICAL INFORMATION: Flank pain COMPARISON: Ultrasound abdomen 06/15/2023 TECHNIQUE: Multidetector volumetric imaging was performed from the superior aspect of the liver through the pubic symphysis without intravenous contrast. Sagittal and coronal reformatted images were obtained on the technologist's workstation. This CT examination was performed using dose optimization techniques as appropriate, variously including the following: *Automated exposure control *Adjustment of mA and/or kV according to patient size (this includes techniques or standardized protocols for targeted exams where dose is matched to indication/reason for exam; i.e. extremities or head) *Use of iterative reconstruction technique DLP: 408 mGy-cm FINDINGS: LUNG BASES: The visualized lung bases are unremarkable. LIVER, GALLBLADDER, AND BILIARY TREE: The liver is normal in size, shape, and attenuation. No focal hepatic lesion or biliary ductal dilatation is present. The gallbladder is unremarkable with no evidence of radiopaque gallstones, gallbladder wall thickening, or obvious pericholecystic inflammatory changes. PANCREAS: Unremarkable. SPLEEN: Unremarkable. ADRENAL GLANDS: Unremarkable. KIDNEYS AND URETERS: The kidneys are normal in size, shape, and attenuation. No hydronephrosis, hydroureter, or calculi seen. No perinephric stranding. BLADDER: Unremarkable. GASTROINTESTINAL TRACT: Status post gastric bypass. The small and large bowel are otherwise unremarkable. The appendix is most likely normal but there is certainly no evidence of appendicitis. ABDOMINAL WALL: No significant hernia is appreciated. LYMPH NODES: No retroperitoneal lymphadenopathy. VASCULAR: Unremarkable. PELVIC VISCERA: The uterus and adnexa are unremarkable. OSSEOUS STRUCTURES: Mild degenerative changes are present in the spine. There is grade 1 retrolisthesis of L5 upon S1. CT/CT abdomen pelvis wo IV con IMPRESSION: A cause for the patient's flank pain has not been found. No renal calculi are seen. Incidental findings as described above. Fleischner guidelines were followed. Dictated By: Roger Santos MD Signed By: Electronically signed by Roger Santos MD 10/17/23 0855 Radiology Impression Discussion of test interpretation with radiology: I have reviewed the radiologist's reading. Critical Care Time Critical Care Time Critical Care Time: Yes Total Critical Care Time: 61 Attestation: I spent 61 minutes of Critical Care Time with this patient. This does not include time spent on separately reported billable procedures. Discharge Plan Discharge Clinical Impression: Acute flank pain Patient Disposition: Home, Self-Care Instructions: Flank Pain (ED) Additional Instructions: Follow up with your primary care provider. Return to the emergency department immediately if your symptoms worsen or if you develop any dizziness, shortness of breath, difficulty breathing, chest pain, blurry vision, loss of vision, nausea, vomiting, abdominal pain, fever, chills, back pain, or any other complaints. Prescriptions: No Action metronidazole 500 mg tablet 500 mg PO BID 7 Days Qty: 14 0RF levothyroxine [Tirosint] 112 mcg Capsule 112 mcg PO DAILY amlodipine 5 mg tablet 1 tab PO DAILY pantoprazole [Protonix] 40 mg tablet,delayed release (DR/EC) 40 mg PO DAILY bupropion HCl [Wellbutrin XL] 300 mg tablet extended release 24 hr 300 mg PO QAM hydroxyzine pamoate 25 mg capsule 25 mg PO BID PRN (Reason: Anxiety) sumatriptan succinate 50 mg tablet 0 mg PO aripiprazole 2 mg tablet 4 mg PO DAILY escitalopram oxalate 20 mg tablet 20 mg PO DAILY Referrals: Zeinab Carey MD [Primary Care Provider] - Stand Alone Forms: Work/School Release Interventions: ED Discharge Assessment Last Done: 10/17/23 20:11 Discharge Date/Time: 10/17/23 20:12 Print Language: Argentine
[2023-10-17 12:37] VITALS: BP 103/71; PULSE 66; RESP 18; TEMP 36.1; O2SAT 97
[2023-10-17 12:40] LABS: MANUAL DIFF FLAG NO
[2023-10-17 12:45] LABS: Basophils Absolute Auto 0.1 X10*3/uL (0.0-0.2); Basophils Percent Auto 1.2 % (0-2); Eosinophils Absolute Auto 0.2 X10*3/uL (0.0-0.4); Eosinophils Percent Auto 2.2 % (0-4); Hematocrit 40.5 % (37.0-47.0); Hemoglobin 13.1 g/dl (12.0-16.0); Imm Gran Abs Auto 0.01 X10*3/uL (0.00-0.03); Imm Gran Pct Auto 0.1 % (0.0-0.4); Lymphocytes Absolute Auto 2.1 X10*3/uL (1.2-4.9); Lymphocytes Percent Auto 30.8 % (20-40); Mean Corpuscular HGB Conc 32.3 g/dl (31.0-35.0); Monocytes Absolute Auto 0.4 X10*3/uL (0.1-1.2); Monocytes Percent Auto 6.2 % (2-11); Neutrophils Absolute Auto 4.1 x10*3/uL (2.0-8.3); Neutrophils Percent Auto 59.5 % (45-73); Platelet Count 290 X10*3/uL (160-400); Red Blood Count 4.22 X10*6/uL (4.20-5.50); Red Cell Distribution Width 12.7 % (11.0-16.0); White Blood Count 6.9 X10*3/uL (4.8-10.8)
[2023-10-17 13:01] LABS: Alanine Aminotransferase 47 U/L (0-31); Albumin Level 4.4 g/dL (3.5-5.0); Alkaline Phosphatase 91 U/L (39-117); Anion Gap 13 (12-20); Aspartate Amino Transferase 35 U/L (5-31); Bilirubin Total 0.4 mg/dL (0.0-1.0); Blood Urea Nitrogen 17 mg/dL (9-16); Calcium 9.7 mg/dL (8.4-10.2); Carbon Dioxide 28 mmol/L (22-29); Chloride 104 mmol/L (96-108); Creatinine Clr Calc Pharmacy 69.2; Estimated Glomerular Filt Rate > 60; Glucose Random 85 mg/dL (60-115); Potassium 4.1 mmol/L (3.3-5.1); Sodium 141 mmol/L (135-145); Total Protein 7.2 g/dL (6.5-8.0)
[2023-10-17 13:01] LABS: Appearance Urine Clear; Color Urine Yellow; Glucose Urine UA Negative (Negative); Leukocyte Esterase Urine Trace (Negative); Nitrite Urine Negative (Negative); PH 5.5 (5.0-9.0); Specific Gravity - Urine 1.025 (1.005-1.025); UMIC TRIGGER UACC YES; Urine Blood Negative (Negative); Urine Ketones Trace mg/dL (Negative); Urine Protein Negative (Neg-Trace)
[2023-10-17 13:15] LABS: Bacteria Urine None Seen (None Seen); Calcium Oxalate Crystals Urine Present; Hyaline Casts Urine 0-2 /LPF (0-2); RBC Urine 0-2 /HPF (0-2); Squamous Epithelial Cell Urine 0-2 /HPF (0-2); WBC Urine 0-5 /HPF (0-5)
[2023-10-17] MEDS: Ketorolac Tromethamine 15 MG/ML VIAL IVPUSH (14:01)
[2023-10-17] MEDS: 0.9 % Sodium Chloride 1,000 ML 999 ML IV (14:01)
[2023-10-17 18:45] VITALS: BP 113/77; PULSE 58; RESP 18; TEMP 37.2
[2023-10-17 20:11] VITALS: BP 113/77; PULSE 58; RESP 18; TEMP 37.2; O2SAT 97
== END 2023-10-17 20:12 | disposition home or self-care (01) ==
PROVIDERS: Physician Assistant Medical; Emergency Provider Emergency Medicine; PCP Pediatrics
DX: R10.9 Unspecified abdominal pain (principal); K21.9 Gastro-esophageal reflux disease without esophagitis; E03.9 Hypothyroidism, unspecified; Z79.899 Other long term (current) drug therapy
CPT/HCPCS: 36415; 74176; 80053; 81001; 81003; 85025; 96374; 99284; J1885

== ENCOUNTER 2023-10-31 12:11 | Outpatient (REF) | payer MEDICAID, SELFPAY ==
--- NOTE | ~2023-10-31 | US_ITS ---
EXAMINATION: US THYROID CLINICAL INFORMATION: History of thyroid nodules. COMPARISON: None available. TECHNIQUE: Linear transducer francis-scale and color Doppler examination with attention to the region of the thyroid. FINDINGS: SIZE: Measurements of the thyroid lobes and nodules are given in sagittal, anteroposterior and transverse dimensions respectively. Right Thyroid Lobe: 3.7 x 1.9 x 1.4 cm, volume 4.8 mL. Parenchyma: The gland echotexture is homogeneous. Thyroid vascularity is increased. Left Thyroid Lobe: 3.6 x 1.6 x 1.3 cm, volume 3.7 mL. Parenchyma: The gland echotexture is homogeneous. Thyroid vascularity is increased. Isthmus: 0.19 cm in maximum AP dimension. No focal thyroid nodule is seen. NODES: No lymphadenopathy is seen in the tissue surrounding the thyroid gland. US/US thyroid IMPRESSION: Unremarkable examination. ACR TI-RADS RECOMMENDATION REFERENCE: Ultrasound-guided fine-needle aspiration, followup ultrasound, no further follow up. * TR1 (0 point) and TR2 (2 points): No FNA or follow up. * TR3 (3 points): FNA if more than or equal to 2.5 cm in maximum dimension, followup ultrasound in 1, 3 and 5 years if 1.5 to 2.4 cm in maximum dimension. * TR4 (4-6 points): FNA if more than or equal to 1.5 cm in maximum dimension, followup ultrasound in 1, 2, 3 and 5 years if 1 to 1.4 cm in maximum dimension. * TR5 (more than or equal to 7 points): FNA if more than or equal to 1 cm in maximum dimension, followup ultrasound every year for 5 years if 0.5 to 0.9 cm in maximum dimension. * TR3, TR4 or TR5 nodules that are below the size threshold for followup receive no follow up.
== END 2023-10-31 12:12 | disposition home or self-care (01) ==
LOC: HO.US 12:11
PROVIDERS: PCP Pediatrics; Visit Provider Pediatrics
DX: E04.1 Nontoxic single thyroid nodule (principal); E03.9 Hypothyroidism, unspecified
CPT/HCPCS: 76536

== ENCOUNTER 2023-12-25 07:37 | Outpatient (REF) | payer MEDICAID, SELFPAY ==
--- NOTE | ~2023-12-25 | CT_ITS ---
EXAMINATION: CT HEAD WITHOUT CONTRAST CLINICAL INFORMATION: History of multiple head trauma, current memory impairment. Hsgi-tcto-hgd female. COMPARISON: None available. TECHNIQUE: Contiguous axial imaging was performed from the skull base to vertex without intravenous administration of contrast. This CT examination was performed using dose optimization techniques as appropriate, variously including the following: *Automated exposure control *Adjustment of mA and/or kV according to patient size (this includes techniques or standardized protocols for targeted exams where dose is matched to indication/reason for exam; i.e. extremities or head) *Use of iterative reconstruction technique DLP: 771 mGy-cm FINDINGS: There is no evidence of intracranial hemorrhage or extra-axial fluid collection. There is no mass effect, or edema. No CT evidence of acute territorial infarct. Ventricles, sulci, and cisterns are normal in size and configuration for patient age. No hydrocephalus. No midline shift. No significant white matter abnormalities. Empty sella noted. Mild atheromatous calcification of the bilateral carotid siphons. Globes and orbital contents image normally. No extracranial soft tissue abnormalities. The paranasal sinuses, mastoid air cells, and tympanic cavities are normally aerated. No suspicious bony abnormalities. No fractures are appreciated. CT/CT head/brain wo IV con IMPRESSION: 1. No acute intracranial abnormalities. 2. No CT sequela of trauma identified.
== END 2023-12-25 07:38 | disposition home or self-care (01) ==
LOC: HO.CT 07:37
PROVIDERS: Visit Provider Pediatrics
DX: R41.3 Other amnesia (principal); Z87.828 Personal history of other (healed) physical injury and trauma
CPT/HCPCS: 70450

== ENCOUNTER → 2023-12-25 07:39 | Outpatient (BNV) | payer MEDICAID, SELFPAY | PROVIDERS: Visit Provider Radiology Diagnostic Radiology | DX: R41.3 Other amnesia (principal) | CPT/HCPCS: 70450 ==

== ENCOUNTER 2024-02-04 13:13 | Outpatient (AMB) | payer MEDICAID, SELFPAY ==
--- NOTE | 2024-02-04 13:28 | A.OFFVIS_ITS ---
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 Present Allergies No Known Allergies Allergy (Verified 02/04/24 13:31) Medication List - Last Reconciled 02/04/24 by Charley Cochran CNM escitalopram oxalate 20 mg PO DAILY hydroxyzine pamoate 25 mg PO BID PRN levothyroxine (Tirosint) 112 mcg PO DAILY pantoprazole (Protonix) 40 mg PO DAILY Is last menstrual period known: No Post menopausal: Yes HPI HPI vag discharge: Details: Is a problem visit she called today because she had some vaginal discharge that looked a little greenish when she wiped additionally she had sex this morning which was disclosed during the exam and it hurt and she suspects it was that. She said she was on Prempro before and was discontinued off of it she had been on it for 4 or 5 years originally from a doctor in [place]. It did sort of help with her menopausal symptoms she does complain of lots of dryness with relations and it hurts. She used water-based lubricant that she gotten the drug store but it burned at her vagina. She lost a lot a weight from gastric bypass surgery that she had done at [facility]. She says she eats very well and she takes calcium for her bones does exercise. [facility] Medical History PMB (postmenopausal bleeding) History of COVID-19 Obesity with body mass index (BMI) of 30.0 to 39.9 Depression Arthritis GERD (gastroesophageal reflux disease) Hypothyroidism Surgical History Hx of gastric bypass History of meniscectomy of left knee History of endoscopy History of carpal tunnel release Hx of section Family History Father TIA (transient ischemic attack) Maternal Aunt Stomach cancer Vaginal cancer Maternal Aunt Vaginal cancer Mother Vaginal cancer Social History Household Members: Family Alcohol intake: never Patient Tobacco Use Status: Former Tobacco user Current occupational status: disabled Current occupation: Left 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 Vagina is also atrophic cervix pink somewhat atrophic as well no abnormal discharge seen whatsoever testing done for gonorrhea chlamydia trichomoniasis Claire and Gardnerella. Suspect that there will be no abnormal findings and the the greenish discharge is resulting from tinge of blood from the abrasions. Results Reviewed Results Reviewed: I reviewed previous visits with BM and MZ previous ultrasounds previous findings of fibroids previous Pap smear from 2020 which was negative. Additionally there was a plan to do an endometrial biopsy last year and she had some postmenopausal bleeding but that did not happen and she has not had any bleeding since. Assessment & Plan Assessment & Plan (1) Dyspareunia in female: Code(s): N94.10 - Unspecified dyspareunia Category: Medical (2) Post-menopausal atrophic vaginitis: Code(s): N95.2 - Postmenopausal atrophic vaginitis Category: Medical Plan Discussed her history and her past use of the Prempro and the effects of hormones and the risks which is why she was discontinued. Discussed her postmenopausal vaginal atrophy and the symptoms and the dryness and discomfort with intercourse. Discussed water-based lubricants in other natural possible solutions. Discussed that these changes are in fact normal though they are very uncomfortable. Testing done for infections and normal mykel as noted suspect nothing will be found I recommend just plain cool water and pelvic rest for least a week before attempting again at her own discretion. Discussed possible use of vaginal estrogen cream but when records were again reviewed and there have been a question of postmenopausal bleeding last year that did not get further investigated I am declining to prescribe this. Orders: Orders CT NG by PCR Today N89.8 - Other specified noninflammatory disorders of vagina Bacterial Vaginosis Panel Today N89.8 - Other specified noninflammatory disorders of vagina Coding Level of Care Code Est Pt Level 3 (65280) Diagnoses Dyspareunia in female N94.10 Post-menopausal atrophic vaginitis N95.2
[2024-02-04 13:30] VITALS: BP 100/60; BMI 24.9
== END 2024-02-04 14:36 | disposition home or self-care (01) ==
PROVIDERS: Visit Provider Advanced Practice Midwife
DX: N94.10 Unspecified dyspareunia (principal); N95.2 Postmenopausal atrophic vaginitis
CPT/HCPCS: 99213

== ENCOUNTER 2024-02-04 13:13 | Outpatient (REF) | payer MEDICAID, SELFPAY ==
[2024-02-05 06:01] LABS: CT PCR NOT DETECTED (Not Detect.); NG PCR NOT DETECTED (Not Detect.)
[2024-02-05 10:31] LABS: Bacterial Vaginosis PCR NEGATIVE (Negative); Candida Group PCR NOT DETECTED (Not Detect); Candida glab krusei PCR NOT DETECTED (Not Detect); Trichomonas vaginalis PCR NOT DETECTED (Not Detect)
== END 2024-02-04 13:14 | disposition home or self-care (01) ==
LOC: HO.LAB 13:13
PROVIDERS: Visit Provider Advanced Practice Midwife
DX: N94.10 Unspecified dyspareunia (principal); N95.2 Postmenopausal atrophic vaginitis
CPT/HCPCS: 0352U; 87491; 87591; 99212

== ENCOUNTER 2024-03-01 07:32 | Emergency (ER) | payer MEDICAID, SELFPAY ==
[2024-03-01 07:32] VITALS: BP 103/71; PULSE 62; RESP 18; TEMP 36.8; O2SAT 100; BMI 24.6
--- NOTE | 2024-03-01 08:41 | ED_ITS ---
HPI - General Adult General Chief complaint: General Medical Stated complaint: headache Time Seen by Provider: 03/01/24 08:41 Source: patient Mode of arrival: ambulatory Limitations: no limitations History of Present Illness ED Provider: brittnee SALEEM narrative: Patient has no history of migraine complaining of sharp electric-like pain on the left temporal area for last 4- 5 days light sensitivity no nausea no vomiting no head injury patient does have history of same headache for several months seen PCP head CT scan which was negative plan for MRI no history of migraines does have poor sleep with increased stress Related Data Home Medications ?Medication ?Instructions ?Recorded ?Confirmed pantoprazole 40 mg tablet,delayed 40 mg PO DAILY 04/16/20 02/04/24 release (Protonix) levothyroxine 112 mcg capsule 112 mcg PO DAILY 06/10/20 02/04/24 (Tirosint) hydroxyzine pamoate 25 mg capsule 25 mg PO BID PRN Anxiety 07/27/21 02/04/24 escitalopram oxalate 20 mg tablet 20 mg PO DAILY 09/21/21 02/04/24 Previous Rx's ?Medication ?Instructions ?Recorded [id number] 1 tab PO Q6H PRN haeadace #20 tabs 03/01/24 50 mg-325 mg-40 mg tablet sumatriptan succinate 50 mg tablet 50 mg PO Q2H PRN migraine headache 03/01/24 (Imitrex) #10 tabs Allergies Allergy/AdvReac Type Severity Reaction Status Date / Time No Known Allergies Allergy Verified 03/01/24 07:37 Review of Systems Review of Systems: Yes all other systems are reviewed and are negative PMFSH Past Medical History Medical History PMB (postmenopausal bleeding) History of COVID-19 Obesity with body mass index (BMI) of 30.0 to 39.9 Depression Arthritis GERD (gastroesophageal reflux disease) Hypothyroidism Surgical History Hx of gastric bypass History of meniscectomy of left knee History of endoscopy History of carpal tunnel release Hx of section Family History Family History Father TIA (transient ischemic attack) Maternal Aunt Stomach cancer Vaginal cancer Maternal Aunt Vaginal cancer Mother Vaginal cancer Social History Social History Household Members: Family Alcohol intake: never Patient Tobacco Use Status: Former Tobacco user Smoked in Last 30 Days: No Use of substances other than those prescribed or required for medical reasons: No Advance Directives: No Advance Directives Information Provided: No Do you have a plan to hurt others: No Plan Current occupational status: disabled Current occupation: Left Handed Gender identity: Female Physical Exam ED Vital Signs: Vital Signs - 24 hr 03/01/24 07:32 03/01/24 09:36 Temperature 98.3 F Pulse Rate 62 53 Respiratory Rate 18 16 Blood Pressure 103/71 106/62 Pulse Oximetry 100 98 Oxygen Delivery Method Room Air Room Air BMI result Body Mass Index 24.6 Appearance: Alert. Oriented X3. No acute distress. Eyes: PERRLA, No Nystagmus ENT: Pharynx normal. Oral Mucosa moist no temporal artery tenderness Neck: Normal inspection. Neck supple. CVS: Normal heart rate and rhythm. Pulses normal. Respiratory: No respiratory distress. Equal air entry bilateral, no wheezing/rales/rhonchi Abdomen: Soft and nontender. Bowel sounds are present, no mass palpable, no CVA tenderness Skin: Skin warm and dry. Normal skin color. Normal skin turgor. Extremities: No lower extremity edema. No calf tenderness Neuro: Oriented X 3. No motor deficit. No sensory deficit.No cerebellar signs , cranial nerves II-XII intact Medications Administered Discontinued Medications Generic Name Dose Route Start Last Admin Trade Name Freq PRN Reason Stop Dose Admin Sumatriptan Succinate 6 mg 03/01/24 08:52 03/01/24 09:34 Sumatriptan Succinate 6 Mg/0.5 Ml Vial SUBCUT 03/01/24 08:53 6 mg ONCE ONE Administration Medical Decision Making Medical Decision Making MDM Narrative: Patient felt better after Imitrex likely patient has complex migraine discharge patient home on Imitrex and to Fioricet also will give a prescription for lorazepam because patient has a unable to sleep lately Discharge Plan Discharge Clinical Impression: Headache, migraine Patient Disposition: Home, Self-Care Instructions: Migraine Headache (ED) Additional Instructions: Likely have migraine headache Take Imitrex 1 tablet at onset of headache may repeat in 2 hours not more than 2 tablets in 24 hours Take Fioricet 1 tablet every 6 hours as needed Prescriptions: New sumatriptan succinate [Imitrex] 50 mg tablet 50 mg PO Q2H PRN (Reason: migraine headache) Qty: 10 0RF Rx Instructions: do not exceed 2 doses per 24 hrs ephceyoies-seisxyrtdgfzx-lpyt 50-325-40 mg tablet 1 tab PO Q6H PRN (Reason: haeadace) Qty: 20 0RF No Action levothyroxine [Tirosint] 112 mcg Capsule 112 mcg PO DAILY pantoprazole [Protonix] 40 mg tablet,delayed release (DR/EC) 40 mg PO DAILY hydroxyzine pamoate 25 mg capsule 25 mg PO BID PRN (Reason: Anxiety) escitalopram oxalate 20 mg tablet 20 mg PO DAILY Print Language: Ukrainian
[2024-03-01] MEDS: SUMAtriptan succinate 6 MG/0.5 ML VIAL SUBCUT (09:34)
[2024-03-01 09:36] VITALS: BP 106/62; PULSE 53; RESP 16; O2SAT 98
[2024-03-01 10:30] VITALS: BP 128/77; PULSE 53; RESP 16; TEMP -17.7; TEMP 0; O2SAT 99
== END 2024-03-01 10:31 | disposition home or self-care (01) ==
PROVIDERS: Emergency Provider Internal Medicine; PCP Pediatrics
DX: G43.909 Migraine, unspecified, not intractable, without status migrainosus (principal)
CPT/HCPCS: 96372; 99284; J3030

== ENCOUNTER 2024-03-05 10:15 | Outpatient (REF) | payer MEDICAID, SELFPAY ==
--- NOTE | ~2024-03-05 | MM_ITS ---
EXAMINATION: MM SCREENING DIGITAL BREAST TOMOSYNTHESIS, BILATERAL CLINICAL INFORMATION: Screening. Asymptomatic. COMPARISON: Mammography: Comparison is made with available priors TECHNIQUE: Digital breast mammography with tomosynthesis is performed in both the craniocaudal and mediolateral oblique views along with computer-aided detection (CAD). FINDINGS: The breasts are heterogeneously dense, which may obscure small masses (ACR BI-RADS breast composition Category c). There are no significant masses, abnormal calcifications, or other abnormalities. MM/MM tomosynthesis screening BI IMPRESSION: No mammographic evidence of malignancy. ASSESSMENT: BI-RADS BI-RADS 1 - Negative RECOMMENDATION: Routine annual mammography screening. 1 year F/U This examination should not preclude the clinical evaluation of a suspicious palpable abnormality. This patient's information was entered into a reminder system with a target due date for their next mammogram. Electronically signed by: Lenore Daniels DO 03/17/2024 05:58 PM EDT
== END 2024-03-05 10:16 | disposition home or self-care (01) ==
LOC: HO.MAMMO 10:15
PROVIDERS: PCP Pediatrics; Visit Provider Pediatrics
DX: Z12.31 Encounter for screening mammogram for malignant neoplasm of breast (principal)
CPT/HCPCS: 77063; 77067

== ENCOUNTER → 2024-03-05 10:30 | Outpatient (BNV) | payer MEDICAID, SELFPAY | PROVIDERS: PCP Pediatrics; Visit Provider Internal Medicine | DX: Z12.31 Encounter for screening mammogram for malignant neoplasm of breast (principal) | CPT/HCPCS: 77063; 77067 ==

== ENCOUNTER → 2024-03-15 12:41 | Outpatient (BNV) | payer MEDICAID, SELFPAY | PROVIDERS: PCP Pediatrics; Visit Provider Radiology Diagnostic Radiology | DX: G44.029 Chronic cluster headache, not intractable (principal) | CPT/HCPCS: 70553 ==

== ENCOUNTER 2024-03-15 12:50 | Outpatient (REF) | payer MEDICAID, SELFPAY ==
--- NOTE | ~2024-03-15 | MR_ITS ---
EXAMINATION: MR BRAIN WITHOUT AND WITH CONTRAST CLINICAL INFORMATION: Chronic headache. Dizziness. COMPARISON: No prior MRI. Correlated to CT dated December 25, 2023. TECHNIQUE: Multiplanar, multisequence MRI of the brain was obtained before and after the intravenous administration of 6.5 mL gadolinium without reported immediate complications. FINDINGS: Submitted for interpretation on April 29, 2024. No restricted diffusion. No acute intracranial hemorrhage, mass effect, midline shift, hydrocephalus or herniation. Sr-white matter differentiation is normal. Posterior cranial fossa contents demonstrated no acute intracranial hemorrhage or mass effect. Nonspecific hyperintense T2 FLAIR signal foci deep white matter both hemispheres, supratentorial compartment. Sellar/suprasellar region demonstrated CSF prominence of the sella likely related to diaphragmatic sellae sufficiency. Prominence of the CSF Meckel's cave more conspicuous on the left side. Craniocervical junction is intact and normal. No signal abnormality or enhancing lesion at the cochlear or vestibular components, 8th cranial nerves. Flow-void signal within the main cerebral vessels is normal. Polypoid mucosal thickening, maxillary sinuses and mucosal thickening of the ethmoid air cells and sphenoid sinus. No enhancing lesion within the intra-axial or the extra-axial compartment of the cranium. MR/MR head/brain wo/w con IMPRESSION: No enhancing mass. No acute brain abnormality. Polypoid paranasal sinus disease. Recommend direct inspection.. Electronically signed by: Zain Hawk MD 04/29/2024 03:44 PM ELÍAS
[2024-03-15] MEDS: gadobutroL 7.5 ML VIAL IVPUSH (14:13)
== END 2024-03-15 12:51 | disposition home or self-care (01) ==
LOC: HO.MRI 12:50
PROVIDERS: PCP Pediatrics; Visit Provider Pediatrics
DX: G44.029 Chronic cluster headache, not intractable (principal); R42 Dizziness and giddiness; R41.3 Other amnesia
CPT/HCPCS: 70553; A9585

== ENCOUNTER 2024-03-25 12:13 | Outpatient (REF) | payer MEDICAID, SELFPAY | END 2024-03-25 12:14 | disposition home or self-care (01) | LOC: HO.HAP 12:13 | PROVIDERS: Visit Provider Pediatrics | DX: Z46.1 Encounter for fitting and adjustment of hearing aid (principal); H90.3 Sensorineural hearing loss, bilateral | CPT/HCPCS: V5266 ==

== ENCOUNTER 2024-07-07 10:02 | Outpatient (REF) | payer MEDICAID, SELFPAY ==
--- OUTSIDE RECORDS SUMMARY | 2024-07-07 11:55 | XMS_ITS | Encounter Summary ---
Author Organization [employer] Address [address] [facility] [address] [place] [address] Care Team Providers Care Acoustical Carpenter Name Role Phone Zeinab Carey MD Primary Care Provider [phone] Reason for Visit * Reason Onset Date Comments Results 09/05/2023 Encounter Details Date Type Department Care Team ([facility] st Contact Info) Description 09/05/2023 Telephone [facility] [address] [place] [address] Zeinab Carey MD [address] [place] [address] Results Social History Tobacco Use Types Packs/Day [...] pt requesting lab results. Please contact at [phone] documented in this encounter Plan of Treatment Upcoming Encounters Date Type Department Care Team (Late st Contact Info) Description 07/16/2024 9:00 AM EST Telemedicine [facility] [address] [place] [address] Zeinab Carey MD [address] [place] [address] documented as of this encounter Visit Diagnoses Not on filedocumented in this encounter Additional Health Concerns Assessment Noted Time PHQ-9 Depression Total Score: 8 05/15/20 23 11:18 AM EST documented as of this encounter Care Teams Acoustical Carpenter Relationship Specialty Start Date End Date Zeinab Carey MD [address] [place] [address] PCP - General Family Medicine 05/16/17 documented as of this encounter
--- OUTSIDE RECORDS SUMMARY | 2024-07-07 11:55 | XMS_ITS | Encounter Summary ---
Author Organization [employer] Address [address] [facility] [address] [place] [address] Care Team Providers Care Senior Cost Analyst Name Role Phone Zeinab Carey MD Primary Care Provider [phone] Reason for Visit * Reason Onset Date Comments Appointment Request 09/07/2023 Encounter Details Date Type Department Care Team ([facility] st Contact Info) Description 09/07/2023 Telephone [facility] [address] [place] [address] Zeinab Carey MD [address] [place] [address] Appointment Request Social History Tobacco Use Types [...] Description 07/16/2024 9:00 AM EST Telemedicine [facility] [address] [place] [address] Zeinab Carey MD [address] [place] [address] documented as of this encounter Visit Diagnoses Not on filedocumented in this encounter Additional Health Concerns Assessment Noted Time PHQ-9 Depression Total Score: 8 05/15/20 23 11:18 AM EST documented as of this encounter Care Teams Senior Cost Analyst Relationship Specialty Start Date End Date Zeinab Carey MD [address] [place] [address] PCP - General Family Medicine 05/16/17 documented as of this encounter
--- OUTSIDE RECORDS SUMMARY | 2024-07-07 11:55 | XMS_ITS | Encounter Summary ---
Author Organization [employer] Address 75 [facility] [address] [place] [address] Care Team Providers Care Lint Cleaner Name Role Phone Zeinab Carey MD Primary Care Provider [phone] Reason for Visit * Reason Onset Date Comments Referral 06/27/2023 Encounter Details Date Type Department Care Team ([facility] st Contact Info) Description 06/27/[address] [facility] MED[facility]INE [address] [place] [address] Zeinab Carey MD 505 [place] [address] Referral Social History Tobacco Use Types Packs/Day [...] advise. Pt is requesting a referral to [facility] for thyroid management. * Telephone Encounter - Catherine Fitch - 06/27/2023 3:34 PM EST Fax number [phone] * Telephone Encounter - Catherine Ficth - 06/27/2023 3:32 PM EST Tc from pt requesting a new referral for [facility] at [address] [place] [address]. documented in this encounter Plan of Treatment Upcoming Encounters Date Type Department Care Team (Late st Contact Info) Description 07/16/2024 9:[address] [facility] MED & PEDS 505 [place] [address] Zeinab Carey MD [address] [place] [address] documented as of this encounter Visit Diagnoses Not on filedocumented in this encounter Additional Health Concerns Assessment Noted Time PHQ-9 Depression Total Score: 8 05/15/20 23 11:18 AM EST documented as of this encounter Care Teams Lint Cleaner Relationship Specialty Start Date End Date Zeinab Carey MD [address] [place] [address] PCP - General Family Medicine 05/16/17 documented as of this encounter
--- OUTSIDE RECORDS SUMMARY | 2024-07-07 11:55 | XMS_ITS | Encounter Summary ---
Author Organization [employer] Address [address] [place] [address] Care Team Providers Care Telegraphic Service Dispatcher Name Role Phone Zeinab Carey MD Primary Care Provider [phone] Reason for Visit * Reason Onset Date Comments Results 04/27/2023 Encounter Details Date Type Department Care Team ([facility] st Contact Info) Description 04/27/2023 Telephone [facility] MEDICINE [address] [place] [address] Zeinab Carey MD 505 [place] [address] Results Social History Tobacco Use Types Packs/Day [...] Info) Description 07/16/2024 9:00 AM EST Telemedicine [facility] MED & PEDS 505 [place] [address] Zeinab Carey MD 505 [place] [address] documented as of this encounter Visit Diagnoses Not on filedocumented in this encounter Additional Health Concerns Assessment Noted Time PHQ-9 Depression Total Score: 17 023 10:03 AM EST documented as of this encounter Care Teams Telegraphic Service Dispatcher Relationship Specialty Start Date End Date Zeinab Carey MD [address] [place] [address] PCP - General Family Medicine 05/16/17 documented as of this encounter
--- OUTSIDE RECORDS SUMMARY | 2024-07-07 11:55 | XMS_ITS | Clinical Summary ---
Author Organization [employer] Address 75 [facility] 7 [place] [address] Care Team Providers Care Salesperson Hearing Aids Name Role Phone Zeinab Carey MD Primary Care Provider [phone] Allergies No known active allergies Medications SUMAtriptan [...] MOUTH TWICE A DAY NEEDED SIG IN [place] 3 Active escitalopram (Lexapro) 20 MG tablet TAKE 1 1/2 TABLET BY MOUTH ONCE A DAY SIG IN [place] 3 Active buPROPion XL (Wellbutrin XL) 150 MG 24 hr tablet TAKE 1 TABLET BY MOUTH ONCE A DAY TAKE WITH 300MG XL DOSE TOTAL 450MG XL 3 Active buPROPion XL (Wellbutrin XL) 300 MG 24 hr tablet TAKE 1 TABLET BY MOUTH ONCE A DAY SIG IN [place] 3 Active lidocaine-priloc west (Emla) 2.5-2.5 % [...] Department Care Team Description 06/30/2024 Orders Only [facility] MED & PEDS [address] [place] [address] ProviderLou MD 06/25/2024 Telephone [facility] MED & PEDS [address] [place] [address] Zeinab Carey MD Nurse Triage 05/13/2024 9:45 AM EST Office Visit [facility] MED & PEDS [address] [place] [address] Zeinab Carey MD Acquired hypothyroidism (Primary Dx); Bariatric surgery status; Dietary counseling; Exercise counseling; Memory deficit 05/13/2024 Travel 04/30/2024 Telephone [facility] [address] [place] [address] Zeinab Carey MD Results 04/18/2024 Refill [facility] MED [facility] PEDS [address] [place] [address] Zeinab Carey MD Chronic superficial gastritis without [...] Upcoming Encounters Date Type Department Care Team ([facility] st Contact Info) Description 07/16/2024 9:00 AM EST Telemedicine [facility] MED & PEDS 505 [place] [address] Zeinab Carey MD 505 [place] [address] Health Maintenance Due Date Last Done Comments [...] EDT Narrative 03/17/2024 6:01 PM EDT ? [facility] ? [address] ?[place] [address] ? Mammography Report ? Signed ? Patient: GaelSaundra Gomez ?MR#: M ?? [id number] ? : 1975 ?Acct:[id number] ? Age/Sex: 48 / F ?ADM Date: 03/05/ ? Loc: HO.MAMMO ? Attending Dr: Zeinab Carey MD ? Ordering Physician: Zeinab Carey MD ?Results: 1Ne ?? gative ? Date of Service: 03/05/24 ?Follow Up: 1 Year From Orig ?? inal Mammogram ? Procedure(s): MM tomosynthesis screening BI ?? Accession Number(s): [id number] ? cc: Zeinab Carey MD ? EXAMINATION: [...] DD/ 1025 ? TD/TT: 03/05/24 1035 ? Shuttle Fitting Supervisor: ? Procedure Note Chanelle, Jack - 03/17/2024 [facility] [address] [place] [address] Mammography Report Signed Patient: Saundra MayoMR#: [id number] : 1975Acct:[id number] Age/Sex: 48 / FADM Date: 03/05/24 Loc: HO.MAMMO Attending Dr: Zeinab Carey MD Ordering Physician: Zeinab Carey MDResults: 1Ne gative Date of Service: 03/05/24Follow Up: 1 Year From Orig ina Mammogram Procedure(s): MM tomosynthesis screening BI Accession Number(s): [id number] cc: Zeinab Carey MD EXAMINATION: MM SCREENING [...] 03/17/24 1758 DD/ 1025 TD/TT: 03/05/24 1035 Shuttle Fitting Supervisor: us Zeinab Carey MD IMG BI PROCEDURES Edited Resu lt - Final * Hepatitis A,B,C Profile (05/15/2023 11:12 AM EST) Hepatitis A IgM Nonreactive Nonreactive [facility] Comment:IgM antibodies to ANDERSEN V not detected; does not exclude earlyacute or recovered HAV infection. ~Hepatitis B Surface Antibody NONREACTIVE Nonreactive [facility] Comment:Nonreactive: < 8.00 mIU/mL Hepatitis B Core Antibody Nonreactive Nonreactive [facility] Hepatitis C Antibody Nonreactive Nonreactive [facility] Comment:Antibodies to HCV no t detected; does not exclude early acuteHCV infection. Hepatitis B Surface Ag Negative Negative [facility] Blood Venous blood specimen / Unknown 05/15/2023 11:12 AM EST 05/15/2023 2:20 PM EST us Zeinab Carey MD LAB BLOOD ORDERABLES Final Re sult [facility] [address] [place] [phone] * HIV 1/2 ANTIGEN/ANTIBODY,FOURTH GENERATION W/RFL (02/06/2022 9:57 AM EDT) [facility] HIV-1/2 ANTIGEN AND ANTIBODIES, 4TH GENERATION W/ REFLEX NON-REACT HARRY NON-REACT HARRY [facility] Comment: HIV-1 antigen and HIV-1/HIV-2 [...] ? For additional information please refer to http://education.[employer]/faq/MQK752 (This link is being provided for informational/ educational purposes only.) ? The performance of this assay has not been clinically validated in patients less than 2 years old. ?? 02/06/2022 9:57 AM EDT us Tarik Sommers MD LAB BLOOD ORDERABL ES Final Result Performing Organization Address [facility] [address]/[facility] Co de Phone Number [facility] [address] [place] [address], * (ABNORMAL) LIPID PANEL, STANDARD (02/06/2022 9:57 [...] ?? Abimael GONZALES et al. JUAN. 2013;310(19): 1029-4835 ?? (http://education.[employer]/faq/RSB410) Non-HDL Cholesterol 125 <130 mg/dL (calc) [facility] Comment: For patients with diabetes plus 1 major ASCVD risk ?? factor, treating to a non-HDL-C goal of <100 mg/dL ?? (LDL-C of <70 mg/dL) is considered a therapeutic ?? option. Triglycerides 178(H) <150 mg/dL [facility] 02/06/2022 9:57 AM EDT Tarik Sommers MD LAB BLOOD ORDERABL ES Final Result Performing Organization Address [facility] Co de Phone Number [facility] [address] [place] [address], [place] * Hm Pap Smear (07/21/2020) Pap Negative for intraephithelial lesion or malignancy Negative for intraephithelial lesion or malignancy, Other HPV Undetected Undetected, Indeterminate, Quantitative, Not Detected Historical Provider HEALTH MAINTENANCE Final Result from Last 3 Months or Most Recently Relevant to Health Maintenance Insurance [facility] C3 Care Teams Salesperson Hearing Aids Relationship Specialty Start Date End Date Zeinab Carey MD [address] [place] [address] PCP - General Family Medicine 05/16/17
--- OUTSIDE RECORDS SUMMARY | 2024-07-07 11:55 | XMS_ITS | Encounter Summary ---
Author Organization [employer] Address 75 [facility] [place] [address] Care Team Providers Care Loft Worker Apprentice Name Role Phone Zeinab Carey MD Primary Care Provider [phone] Reason for Visit * Reason Onset Date Comments Results 03/26/2024 Encounter Details Date Type Department Care Team ([facility] st Contact Info) Description 03/26/2024 Telephone [facility] MED[facility]INE [address] [place] [address] Zeinab Carey MD 505 [place] [address] Results Social History Tobacco Use Types Packs/Day [...] results: Labs Date when done: 03/15/24 Facility: [facility] Labs documented in this encounter Plan of Treatment Upcoming Encounters Date Type Department Care Team (Late st Contact Info) Description 07/16/2024 9:00 AM EST Telemedicine [facility] MED & PEDS [address] [place] [address] Zeinab Carey MD [address] [place] [address] documented as of this encounter Visit Diagnoses Not on filedocumented in this encounter Additional Health Concerns Assessment Noted Time PHQ-9 Depression Total Score: 8 05/15/20 23 11:18 AM EST documented as of this encounter Care Teams Loft Worker Apprentice Relationship Specialty Start Date End Date Zeinab Carey MD [address] [place] [address] PCP - General Family Medicine 05/16/17 documented as of this encounter
--- OUTSIDE RECORDS SUMMARY | 2024-07-07 11:55 | XMS_ITS | Clinical Summary ---
Author Organization [facility] Address [address] [place] [address] Phone Care Team Providers Care Shaping Machine Operator Name Role Phone Zeinab Carey MD Primary Care Provider [phone] Allergies No known active allergies Medications ondansetron [...] EST - 06/28/2024 4:12 AM EST Emergency [facility] Emergency [address] [place] [address] Discharge Disposition: Left Against Medical [...] AM EDT Office Visit Bariatric Surgery - [place] [address] [facility] [address] [place] [phone] Omer Saha MD [address] [facility] [address] [place] [address] Health Maintenance Due Date Last Done Comments [...] GEMUSE QTc 426 ms GEMUSE P Wave [place] 53 degrees GEMUSE R [place] 19 degrees GEMUSE T [place] 39 degrees GEMUSE ECG Interpretation Sinus bradycardia [...] Maintenance Insurance MEDICAID - [place] Care Teams Shaping Machine Operator Relationship Specialty Start Date End Date Zeinab Carey MD [address] [place] [address] PCP - General 07/29/21
--- OUTSIDE RECORDS SUMMARY | 2024-07-07 11:55 | XMS_ITS | Encounter Summary ---
Author Organization [employer] Address 75 [facility] [address] [place] [address] Care Team Providers Care Scuba Diving Instructor Name Role Phone Zeinab Carey MD Primary Care Provider [phone] Reason for Visit * Reason Onset Date Comments Results 08/20/2023 Encounter Details Date Type Department Care Team ([facility] st Contact Info) Description 08/20/2023 Telephone [facility] MEDICINE [address] [place] [address] Zeinab Carey MD 505 [place] [address] Results Social History Tobacco Use Types Packs/Day [...] included. Message Received: Today MD Chris Cumm[facility] Med & Peds Nurses Caller: Unspecified (Today, [...] for permission to call back with the card cleaner line and patient agreed. TC placed to patient via [facility] Steam Train Driver and patient explained that she has recently had pain throughout her body, including in her joints and at the surgical site from recent gastric bypass. She is also getting frequent headaches. She states that she has had insomnia and worsening pain with head aches for about one week. Denies other symptoms. Agreeable to [facility] appointment for tomorrow, 08/21/23. Scheduled for 10:20am. Advised to go to ED sooner if her symptoms worsen and/or she develops othernew symptoms, such as fever, etc. Expressed understanding. Routing to PCP so she is aware and for review. Tc from pt requesting lab results. Please contact at [phone] Cambodian * Telephone Encounter - Sheri Fallon - 08/20/2023 10:09 AM EDT Tc from pt requesting lab results. Please contact at [phone] Cambodian documented in this encounter Plan of Treatment Upcoming Encounters Date Type Department Care Team ([facility] st Contact Info) Description 07/16/2024 9:00 AM EST Telemedicine [facility] MED & PEDS [address] [place] [address] Zeinab Carey MD 505 [place] [address] documented as of this encounter Visit Diagnoses Not on filedocumented in this encounter Additional Health Concerns Assessment Noted Time PHQ-9 Depression Total Score: 8 05/15/20 23 11:18 AM EST documented as of this encounter Care Teams Scuba Diving Instructor Relationship Specialty Start Date End Date Zeinab Carey MD 505 [place] [address] PCP - General Family Medicine 05/16/17 documented as of this encounter
--- OUTSIDE RECORDS SUMMARY | 2024-07-07 11:55 | XMS_ITS | Encounter Summary ---
Author Organization [employer] Address 75 [facility] 7 [place] [address] Care Team Providers Care Assembler Gold Frame Name Role Phone Zeinab Carey MD Primary Care Provider [phone] Reason for Visit * Reason Onset Date Comments ER Follow-up 10/18/2023 Encounter Details Date Type Department Care Team ([facility] st Contact Info) Description 10/18/2023 Telephone [facility] MEDICINE 230 [place] [address] Zeinab Carey MD [address] [place] [address] ER Follow-up Social History Tobacco Use Types [...] ED visit on : Date: 10/17/23 Hospital: [facility] Seen for: back pain, pt states has pain and would like sick visit for today. Called pt via [employer] supervisor aircraft maintenance [phone] Jemal. Pt. States that she was in the [facility] ED 10/17/23 for back pain. Pain is [...] note to clinical care coordinators to get [facility] ED note from 10/17/23 in pt. Chart [...] ED visit on : Date: 10/17/23 Hospital: [facility] Seen for: back pain, pt states has pain and would like sick visit for today. Patient advised will forward to team nurse for follow up. Please contact at [phone] Yakut documented in this encounter Plan of Treatment Upcoming Encounters Date Type Department Care Team ([facility] st Contact Info) Description 07/16/2024 9:00 AM EST Telemedicine [facility] MED & PEDS 505 [place] [address] Zeinab Carey MD [address] [place] [address] documented as of this encounter Visit Diagnoses Not on filedocumented in this encounter Additional Health Concerns Assessment Noted Time PHQ-9 Depression Total Score: 8 05/15/20 23 11:18 AM EST documented as of this encounter Care Teams Assembler Gold Frame Relationship Specialty Start Date End Date Zeinab Carey MD [address] [place] [address] PCP - General Family Medicine 05/16/17 documented as of this encounter
--- OUTSIDE RECORDS SUMMARY | 2024-07-07 11:55 | XMS_ITS | Encounter Summary ---
Author Organization [employer] Address 75 [facility] 7 [place] [address] Care Team Providers Care Electrolytic De Scaler Name Role Phone Zeinab Carey MD Primary Care Provider [phone] Reason for Visit * Reason Onset Date Comments Medication Question 10/24/2023 Referral 10/24/2023 Encounter Details Date Type Department Care Team ([facility] st Contact Info) Description 10/24/2023 Telephone [facility] MEDICINE [address] [place] [address] Zeinab Carey MD 505 [place] [address] Medication Question; Referral Social History Tobacco Use [...] and would like to be sent to [address] [place] [address] and is request for a stronger medication than the cyclobenzaprine (Flexeril) 10 MG tablet patient stated this medication is not helping with pain documented in this encounter Plan of Treatment Upcoming Encounters Date Type Department Care Team (Late st Contact Info) Description 07/16/2024 9:00 AM EST Telemedicine [facility] MED & PEDS 505 [place] [address] Zeinab Carey MD [address] [place] [address] documented as of this encounter Visit Diagnoses Not on filedocumented in this encounter Additional Health Concerns Assessment Noted Time PHQ-9 Depression Total Score: 8 05/15/20 23 11:18 AM EST documented as of this encounter Care Teams Electrolytic De Scaler Relationship Specialty Start Date End Date Zeinab Carey MD 505 [place] [address] PCP - General Family Medicine 05/16/17 documented as of this encounter
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
--- OUTSIDE RECORDS SUMMARY | 2024-07-07 11:55 | XMS_ITS | Encounter Summary ---
Author Organization [employer] Address 75 [facility] 7 [place] [address] Care Team Providers Care Forest Biometrics Professor Name Role Phone Zeinab Carey MD Primary Care Provider [phone] Reason for Visit * Reason Onset Date Comments Nurse Triage 06/25/2024 Encounter Details Date Type Department Care Team ([facility] st Contact Info) Description 06/25/2024 Telephone [facility] MED & PEDS [address] [place], [place] [phone] Zeinab Carey MD 505 [place] [address] Nurse Triage Social History Tobacco Use Types [...] 06/25/2024 10:50 AM EST Triage call [place] [facility] [id number] Jose. Called x2, unable to make connectiion. [...] Info) Description 07/16/2024 9:00 AM EST Telemedicine [facility] MED & PEDS [address] [place] [address] Zeinab Carey MD [address] [place] [address] documented as of this encounter Visit Diagnoses Not on filedocumented in this encounter Additional Health Concerns Assessment Noted Time PHQ-9 Depression Total Score: 8 05/15/20 23 11:18 AM EST documented as of this encounter Care Teams Forest Biometrics Professor Relationship Specialty Start Date End Date Zeinab Carey MD [address] [place] [address] PCP - General Family Medicine 05/16/17 documented as of this encounter
--- OUTSIDE RECORDS SUMMARY | 2024-07-07 11:55 | XMS_ITS | Encounter Summary ---
Author Organization [employer] Address [address] [facility] [address] 7[address] [place] [address] Care Team Providers Care Emergency Management Consultant Name Role Phone Zeinab Carey MD Primary Care Provider [phone] Encounter Details Date Type Department Care Team ([facility] st Contact Info) Description 06/30/2024 Orders Only [facility] CHC MED & PEDS [address] [place] [address] ProviderLou MD Social History Tobacco Use Types [...] Info) Description 07/16/2024 9:00 AM EST Telemedicine [facility] CHC MED & PEDS 505 [place] [address] Zeinab Carey MD 505 [place] [address] documented as of this encounter Procedures Procedure [...] documented as of this encounter Care Teams Emergency Management Consultant Relationship Specialty Start Date End Date Zeinab Carey MD 505 [place] [address] PCP - General Family Medicine 05/16/17 documented as of this encounter
--- OUTSIDE RECORDS SUMMARY | 2024-07-07 11:55 | XMS_ITS | Encounter Summary ---
Author Organization [employer] Address 75 [facility] [address] [place] [address] Care Team Providers Care Sheet Combining Operator Name Role Phone Zeinab Carey MD Primary Care Provider [phone] Reason for Visit * Reason Onset Date Comments Results 06/26/2023 Encounter Details Date Type Department Care Team ([facility] st Contact Info) Description 06/26/2023 Telephone [facility] MEDICINE [address] [place] [address] Zeinab Carey MD 505 [place] [address] Results Social History Tobacco Use Types Packs/Day [...] Pt also informed of referral placement to [facility] Endo but advised on wait list. Pt verbalized understanding and agrees with plan. * Telephone Encounter - Petra Pagan RN - 06/27/2023 4:13 PM EST Please review pt US results and advise. * Telephone Encounter - Allan Quiroz - 06/26/2023 10:28 AM EST TC from pt requesting call back regarding Results. Type of results: Sonogram Date when done: 06/15 Facility: [facility] documented in this encounter Plan of Treatment Upcoming Encounters Date Type Department Care Team ([facility] st Contact Info) Description 07/16/2024 9:00 AM EST Telemedicine [facility] MED & PEDS [address] [place] [address] Zeinab Carey MD [address] [place], [place] [phone] documented as of this encounter Visit Diagnoses Not on filedocumented in this encounter Additional Health Concerns Assessment Noted Time PHQ-9 Depression Total Score: 8 05/15/20 23 11:18 AM EST documented as of this encounter Care Teams Sheet Combining Operator Relationship Specialty Start Date End Date Zeinab Carey MD [address] [place] [address] PCP - General Family Medicine 05/16/17 documented as of this encounter
--- OUTSIDE RECORDS SUMMARY | 2024-07-07 11:56 | XMS_ITS | Encounter Summary ---
Author Organization [employer] Address 75 [facility] 7 [place] [address] Care Team Providers Care Ladler Name Role Phone Zeinab Carey MD Primary Care Provider [phone] Reason for Visit * Reason Onset Date Comments Request For Order(s) 10/30/2023 Encounter Details Date Type Department Care Team ([facility] Contact Info) Description 10/30/2023 Telephone [facility] MED & PEDS [address] [place] [address] Zeinab Carey MD [address] [place] [address] Request For Order(s) Social History Tobacco Use [...] surgery. Please contact pt for questions/clarification at [phone] documented in this encounter Plan of Treatment Upcoming Encounters Date Type Department Care Team ([facility] st Contact Info) Description 07/16/2024 9:00 AM EST Telemedicine [facility] MED & PEDS [address] [place] [address] Zeinab Carey MD [address] [place] [address] documented as of this encounter Visit Diagnoses Not on filedocumented in this encounter Additional Health Concerns Assessment Noted Time PHQ-9 Depression Total Score: 8 05/15/20 23 11:18 AM EST documented as of this encounter Care Teams Ladler Relationship Specialty Start Date End Date Zeinab Carey MD [address] [place] [address] PCP - General Family Medicine 05/16/17 documented as of this encounter
--- OUTSIDE RECORDS SUMMARY | 2024-07-07 11:56 | XMS_ITS | Encounter Summary ---
Author Organization [employer] Address 75 [facility] 7 [place] [address] Care Team Providers Care Senior Reservoir Engineer Name Role Phone Zeinab Carey MD Primary Care Provider Reason for Visit * Reason Onset Date Comments Referral 10/29/2023 Encounter Details Date Type Department Care Team ([facility] st Contact Info) Description 10/29/2023 Telephone [facility] MED & PEDS [address] [place], [place] [phone] Zeinab Carey MD [address] [place] [address] Referral Social History Tobacco Use Types Packs/Day [...] regards to referral. Please contact pt at [phone] * Telephone Encounter - Sruthi Rodriguez - 10/29/2023 12:43 PM EDT Tc from pt requesting a referral to neurologist. Pt states forgetfulness is becoming more consistent and would like testing. Please contact pt at [phone] (Equatorial Guinean) documented in this encounter Plan of Treatment Upcoming Encounters Date Type Department Care Team (Late st Contact Info) Description 07/16/2024 9:00 AM EST Telemedicine [facility] MED & PEDS [address] [place], [place] [phone] Zeinab Carey MD [address] [place] [address] documented as of this encounter Visit Diagnoses Not on filedocumented in this encounter Additional Health Concerns Assessment Noted Time PHQ-9 Depression Total Score: 8 05/15/20 23 11:18 AM EST documented as of this encounter Care Teams Senior Reservoir Engineer Relationship Specialty Start Date End Date Zeinab Carey MD [address] [place] [address] PCP - General Family Medicine 05/16/17 documented as of this encounter
--- OUTSIDE RECORDS SUMMARY | 2024-07-07 11:56 | XMS_ITS | Encounter Summary ---
Author Organization [employer] Address 75 [facility] [place] [address] Care Team Providers Care Marketing Area Manager Name Role Phone Zeinab Carey MD Primary Care Provider [phone] Reason for Visit * Reason Onset Date Comments Results 01/18/2024 Encounter Details Date Type Department Care Team ([facility] st Contact Info) Description 01/18/2024 Telephone [facility] MEDICINE [address] [place] [address] Zeinab Carey MD [address] [place] [address] Results Social History Tobacco Use Types Packs/Day [...] CT Scan Date when done: 12/05 Facility: [facility] documented in this encounter Plan of Treatment Upcoming Encounters Date Type Department Care Team (Late st Contact Info) Description 07/16/2024 9:00 AM EST Telemedicine [facility] MED & PEDS [address] [place] [address] Zeinab Carey MD [address] [place] [address] documented as of this encounter Visit Diagnoses Not on filedocumented in this encounter Additional Health Concerns Assessment Noted Time PHQ-9 Depression Total Score: 8 05/15/20 11:18 AM EST documented as of this encounter Care Teams Marketing Area Manager Relationship Specialty Start Date End Date Zeinab Carey MD [address] [place] [address] PCP - General Family Medicine 05/16/17 documented as of this encounter
--- OUTSIDE RECORDS SUMMARY | 2024-07-07 11:56 | XMS_ITS | Encounter Summary ---
Author Organization [employer] [facility] Address [address] [place] [address] Care Team Providers Care Pocket Creaser Name Role Phone Zeinab Carey MD Primary Care Provider [phone] Reason for Referral * Imaging (Routine) - Closed Specialty Diagnoses / Procedures Referred By Contac t Referred To Contact Radiology Diagnoses Thyroid nodule Acquired hypothyroidism Procedures US Thyroid Zeinab Carey MD [address] [place] [address] Phone: tel: fax: [address] Phone: tel: fax: Referral ID Status Reason Start Date Expiration Date Visits Re quested Visits Authorized [id number] Closed 10/24/2023 10/23/2024 1 1 Encounter Details Date Type Department Care Team (Late st Contact Info) Description 10/24/2023 Orders Only [facility] MED & PEDS [address] [place] [address] Zeinab Carey MD [address] [place], [place] [phone] Thyroid nodule (Primary Dx); Acquired hypothyroidism Social [...] Upcoming Encounters Date Type Department Care Team ([facility] st Contact Info) Description 07/16/2024 9:00 AM EST Telemedicine [facility] MED & PEDS [address] [place] [address] Zeinab Carey MD [address] [place] [address] documented as of this encounter Procedures Procedure Name Priority Date/Time Associated Diagnosis Comments US THYROID Routine 10/31/2023 12:38 PM EDT Thyroid nodule Acquired hypothyroidism documented in this encounter Results * US Thyroid (10/31/2023 12:38 PM EDT) Anatomical Region Laterality Modality Head, Neck Ultrasound 10/31/2023 12:3 8 PM EDT Narrative 11/23/2023 12:26 PM EDT ? [facility] ?[address] ?[place] [address] ? Ultrasound Report ? Signed ? Patient: Gael,Saundra ?MR#: [id number] ?? [birth year] ? : 1975 ?Acct:[id number] ? Age/Sex: 48 / F ?ADM Date: 10/31/23 ? Loc: HO.US ? Attending Dr: Zeinab Carey MD ? Ordering Physician: Zeinab Carey MD ?? Date of Service: 10/31/23 ?? Procedure(s): US thyroid ?? Accession Number(s): [id number] ? cc: Zeinab Carey MD ? EXAMINATION: [...] 1222 ? DD/ 1238 ? TD/TT: ? Fish Conservationist: TRUNG ? Procedure Note Chanelle, Image - 11/23/2023 [place] [address] Ultrasound Report Signed Patient: Lesvia Mayo#: [id number] [birth year] : 1975Acct:[id number] Age/Sex: 48 / FADM Date: 10/31/23 Loc: HO.US Attending Dr: Zeinab Carey MD Ordering Physician: Zeinab Carey MD Date of Service: 10/31/23 Procedure(s): US thyroid Accession Number(s): [id number] cc: Zeinab Carey MD EXAMINATION: US THYROID [...] in OV> 11/23/23 1222 DD/ 1238 TD/TT: Fish Conservationist: TRUNG us Zeinab Carey MD IMG US PROCEDURES Final Resul t documented in this encounter Visit Diagnoses Diagnosis Thyroid nodule- Primary Nontoxic uninodular goiter Acquired hypothyroidism Unspecified hypothyroidism documented in this encounter Additional Health Concerns Assessment Noted Time PHQ-9 Depression Total Score: 8 05/15/20 23 11:18 AM EST documented as of this encounter Care Teams Pocket Creaser Relationship Specialty Start Date End Date Zeinab Carey MD [address] [place] [address] PCP - General Family Medicine 05/16/17 documented as of this encounter
--- OUTSIDE RECORDS SUMMARY | 2024-07-07 11:56 | XMS_ITS | Encounter Summary ---
Author Organization [employer] Address 75 [facility] 7 [place] [address] Care Team Providers Care Library Manager Name Role Phone Zeinab Carey MD Primary Care Provider [phone] Encounter Details Date Type Department Care Team (Late st Contact Info) Description 01/11/2024 Orders Only [facility] [address] [place] [address] ProviderLou MD Social History Tobacco Use Types [...] t he electric, gas, oil or water [employer] threatened to shut off services in your [...] Description 07/16/2024 9:00 AM EST Telemedicine [facility] MED & PEDS [address] [place] [address] Zeinab Carey MD [address] [place] [address] documented as of this encounter Procedures Procedure [...] documented as of this encounter Care Teams Library Manager Relationship Specialty Start Date End Date Zeinab Carey MD [address] [place] [address] PCP - General Family Medicine 05/16/17 documented as of this encounter
--- OUTSIDE RECORDS SUMMARY | 2024-07-07 11:56 | XMS_ITS | Encounter Summary ---
Author Organization [employer] Address [address] [place] [address] Care Team Providers Care Electrician Helper Automotive Name Role Phone Zeinab Carey MD Primary Care Provider [phone] Reason for Visit * Reason Onset Date Comments MR ORDER 10/23/2023 Encounter Details Date Type Department Care Team ([facility] st Contact Info) Description 10/23/2023 Telephone [facility] MEDICINE [address] [place] [address] Zeinab Carey MD [address] [place] [address] MR ORDER Social History Tobacco Use Types [...] 07/16/2024 9:00 AM EST Telemedicine [facility] MED & PEDS [address] [place] [address] Zeinab Carey MD [address] [place] [address] documented as of this encounter Visit Diagnoses Not on filedocumented in this encounter Additional Health Concerns Assessment Noted Time PHQ-9 Depression Total Score: 8 05/15/20 23 11:18 AM EST documented as of this encounter Care Teams Electrician Helper Automotive Relationship Specialty Start Date End Date Zeinab Carey MD [address] [place] [address] PCP - General Family Medicine 05/16/17 documented as of this encounter
[2024-07-08 06:03] LABS: CT PCR NOT DETECTED (Not Detect.); NG PCR NOT DETECTED (Not Detect.)
[2024-07-08 13:14] LABS: Bacterial Vaginosis PCR NEGATIVE (Negative); Candida Group PCR NOT DETECTED (Not Detect); Candida glab krusei PCR NOT DETECTED (Not Detect); Trichomonas vaginalis PCR NOT DETECTED (Not Detect)
== END 2024-07-07 10:03 | disposition home or self-care (01) ==
LOC: HO.LAB 10:02
PROVIDERS: PCP Pediatrics; Visit Provider Advanced Practice Midwife
DX: Z01.419 Encounter for gynecological examination (general) (routine) without abnormal findings (principal); N89.8 Other specified noninflammatory disorders of vagina; Z20.2 Contact with and (suspected) exposure to infections with a predominantly sexual mode of transmission; N94.10 Unspecified dyspareunia
CPT/HCPCS: 81515; 87491; 87591; 99396; 99459

== ENCOUNTER 2024-07-07 10:02 | Outpatient (AMB) | payer MEDICAID, SELFPAY ==
[2024-07-07 10:06] VITALS: BP 118/70; BMI 25.8
--- NOTE | 2024-07-07 10:06 | A.OFFVIS_ITS ---
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: No Information Interpreted: clinical only Mother'S Helper: Mother'S Helper Present Allergies No Known Allergies Allergy (Verified 07/07/24 10:07) Medication List - Last Reconciled 07/07/24 by Charley Cochran CNM bupropion HCl SR (Wellbutrin SR) 200 mg PO BID ehtzsdnbzt-chyltuaivorbh-xdgy 50-325-40 mg 1 tab PO Q6H PRN escitalopram oxalate 20 mg PO DAILY hydroxyzine pamoate 25 mg PO BID PRN levothyroxine 125 mcg PO DAILY pantoprazole (Protonix) 40 mg PO DAILY sumatriptan succinate (Imitrex) 50 mg PO Q2H PRN Post menopausal: Yes (2016) 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 It still is uncomfortable when she does have sex she only somewhat recently became sexually active and that was the complaint at the visit last January. In the past there had been notations of postmenopausal bleeding and it had been recommended to her that she really needed to have an endometrial biopsy but she did not pursue that and she has had no bleeding since for at least a couple of years. She had been on hormones for HRT in the past as well but they had been discontinued for medical reasons. Her health is good otherwise and she is up-to-date on her mammogram she gets them in february. Her primary care provider's here at the [facility]. [facility] Medical History PMB (postmenopausal bleeding) History of COVID-19 Obesity with body mass index (BMI) of 30.0 to 39.9 Depression Arthritis GERD (gastroesophageal reflux disease) Hypothyroidism Surgical History Hx of gastric bypass History of meniscectomy of left knee History of endoscopy History of carpal tunnel release Hx of section Family History Father TIA (transient ischemic attack) Maternal Aunt Stomach cancer Vaginal cancer Maternal Aunt Vaginal cancer Mother Vaginal cancer Social History Household Members: Family Alcohol intake: never Patient Tobacco Use Status: Former Tobacco user Current occupational status: disabled Current occupation: Left Handed Gender identity: Female Female Reproductive History Menstrual Age of Menarche: 9 control method: none Total pregnancies: 2 Full term: 2 Date of last pap smear: 07/21/20 (negative) History of abnormal pap smear: No Date of Mammogram: 03/05/24 (neg.) Physical Exam Vital Signs: Last Vital Signs BP 118/70 07/07/24 10:06 BMI result Body Mass Index 25.8 Const General: healthy appearing, comfortable, no acute distress, well developed and alert Nutritional Appearance: average body habitus Orientation/consciousness: patient oriented x3 Limitations: no limitations HEENT Head: Yes normocephalic Neck Neck: Yes normal visual inspection Chest Chest palpation & inspection: normal inspection of the chest Breast/axilla inspection: normal inspection of the breasts and normal inspection of the axillae Breast/axilla palpation: normal palpation of the breasts and normal palpation of the axillae Resp Effort & Inspection: normal respiratory effort GI Inspection: Yes normal to inspection, No Abdominal wall edema and No distended Palpation (GI): Soft to palpation and nontender Other: Normal external exam vagina is pink slightly moist healthy appearing but it does tear even with the stretch of the small Paul speculum tiny streaks of blood where it stretched torn during the exam mildly friable with Q-tips for testing. No abnormal discharge seen. Atrophic changes only. Cervix nulliparous pink smooth healthy appearing as noted above uterus small midposition mobile nontender difficult for patient to do Kegel but once she figured it out she had good tone. General: Yes bladder normal to palpation External Female Exam: normal external appearance and normal appearance of the urethra Speculum Exam - Vagina: normal appearance of the vagina, normal palpation and normal vaginal discharge Speculum Exam - Cervix: normal appearance of the cervix, normal palpation and nontender Bimanual exam- vagina & uterus: normal bimanual exam, normal palpation, uterine size normal, bladder normal to palpation, consistency normal, normal palpation, uterine mobility normal, uterine shape normal, No Cervical tenderness present, non-tender and no cervical motion tenderness Bimanual Exam- Adnexa, other: normal adnexae, no masses, normal and No adnexal tenderness Neuro General: patient oriented x3 Results Reviewed Results Reviewed: Name: Saundra Mayo Age/Sex: 45/F Attending: Tatiana Graff CNM : 1975 Submitted by: Tatiana Graff CNM Copies to: MR #: [id number] Status: DEP REF Collected: 07/21/20 Location: .LAB Received: 07/22/20 Interpretation Satisfactory for evaluation. No endocervical cells seen. Negative for intraepithelial lesion or malignancy. HPV mRNA E6/E7: NOT DETECTED This assay detects E6/E7 viral messenger RNA (mRNA) from 14 high-risk HPV types (16, 18, 31, 33, 35, 39, 45, 51, 52, 56, 58, 59, 66, 68) HPV testing performed by [facility], [place], [place]. See reference laboratory portion of the EMR for entire report. Clinical Information LMP: menopausal Previous PAP test: yrs, WNL Material Received ThinPrep Cervical Electronically Signed By: Rosey Benitez 07/26/20 1227 The Pap Test is a screening procedure with the inherent possibility of both false negative and false positive results. Results should be interpreted in the context of historic and current clinical findings. Reliability of the Pap Test is enhanced by performing the test on a regular repetitive basis. Patient: Saundra Mayo Age/Sex: 45/F MR#: [id number] Page 1 of 1 Assessment & Plan Assessment & Plan (1) Dyspareunia in female: Code(s): N94.10 - Unspecified dyspareunia Category: Medical (2) Post-menopausal atrophic vaginitis: Code(s): N95.2 - Postmenopausal atrophic vaginitis Category: Medical (3) Well woman exam with routine gynecological exam: Code(s): Z01.419 - Encounter for gynecological examination (general) (routine) without abnormal findings Category: Medical (4) Encounter for screening examination for sexually transmitted disease: Code(s): Z11.3 - Encounter for screening for infections with a predominantly sexual mode of transmission Category: Medical (5) Cervical cancer screening: Code(s): Z12.4 - Encounter for screening for malignant neoplasm of cervix Category: Medical Plan -----Discussed in this visit the following: healthy balanced diet, regular and consistent exercise, getting recommended health screens, doing the best she can for her particular health concerns, kegel exercises, pap smear screening and followup recommendations, mammography screening and SBE, normal changes in cycles in her life stage--- . Discussed postmenopausal changes as evident today with the mild stretching of the vaginal mucosa with the thin Paul speculum showed the patient with a mirror how even that mild stretching tore the mucosa today discussed how the mixing of a couple of drops of blood with any vaginal discharge can turn green as it dries on underwear. Discussed that unfortunately the vaginal atrophic changes are what comes with the menopausal changes discussed the order based dasd-mss-wqeyhtp lubrication that she is using an some of them do help more than others she is also taking vitamin supplements for menopausal support discussed the need to check ingredients but these in general are multivitamin formulas. Discussed her other history that her hormones had been discontinued for some reason and that unless she was willing to investigate and do the testing that was recommended in the past it would not be something that I would be prescribing. Discussed that currently she has not had any abnormal bleeding and the discoloration to the discharge might very well be simply because of the atrophic changes and stretching and micro tears of the vagina. Discussed ways of ameliorating the malodor that sometimes occurs after intercourse and suggested that some women find success with occasional use of a boric acid capsule after intercourse but she would have to see and I would not recommend frequent use. RTC 1 year Orders: Orders CT NG by PCR Today N89.8 - Other specified noninflammatory disorders of vagina, Z20.2 - Contact with and (suspected) exposure to infections with a predominantly sexual mode of transmission Bacterial Vaginosis Panel Today N89.8 - Other specified noninflammatory disorders of vagina Coding Level of Care Code Est Pt Prev Care 40-64y(05889) Diagnoses Dyspareunia in female N94.10 Post-menopausal atrophic vaginitis N95.2 Well woman exam with routine gynecological exam Z01.419 Encounter for screening examination for sexually transmitted disease Z11.3 Cervical cancer screening Z12.4
--- OUTSIDE RECORDS SUMMARY | 2024-07-07 10:53 | XMS_ITS | Encounter Summary ---
Author Organization [employer] Address [address] [place] [address] Care Team Providers Care Forge Shop Machine Repairer Name Role Phone Zeinab Carey MD Primary Care Provider [phone] Encounter Details Date Type Department Care Team ([facility] st Contact Info) Description 06/30/2024 Orders Only [facility] [address] [place] [address] ProviderLou MD Social History Tobacco Use Types Packs/Day Years Used Date Smoking Tobacco: Never Passive Smoke Exposure: Never Smokeless Tobacco: Never Depression Answer Date Recorded Patient Health Questionnaire-9 Score 8 05/15/2023 Patient Health Questionnaire-9 Score 8 05/15/2023 Last PHQ-9: Questionnaire Data Not on file 1 07/16/2022 Housing Stability Answer Date Recorded What is your housing situation today? I have bensonmanuel lee 02/12/[address] you li ve. Do you have problems with any of the following? None of the above 02/12/2024 Food Insecurity Answer Date Recorded Within the past 12 months, y ou worried that your food would run out before you got money to buy more: Often true 02/12/2024 Within the past 12 months,th e food you bought just didn't last and you didn't have enough money to get more: Often true Transportation Answer Date Recorded In the past 12 months, has l ack of transportation kept you from medical appts, meetings, work or from getting things needed for daily living? Yes, it has kept me from medical appointments or getting medications. 02/12/2024 Utilities Answer Date Recorded In the past 12 months, has t he electric, gas, oil or water company threatened to shut off services in your home? No 02/12/2024 Depression Answer Date Recorded Patient Health Questionnaire-2 Score 3 05/15/2023 Internet Access Answer Date Recorded Internet Access Q1 Yes 02/12/2024 Internet Access Q2 Not on file 02/12/2024 Comments Unknown Sex and Gender Information Value Date Recorded Sex Assigned at Female 03/27/2022 10:32 AM EDT Legal Sex Female 10:32 AM EDT Gender Identity Female 03/27/2022 10:32 AM EDT Sexual Orientation Straight 03/27/2022 10 :32 AM EDT documented as of this encounter Plan of Treatment Upcoming Encounters Date Type Department Care Team (Late st Contact Info) Description 07/16/2024 9:00 AM EST Telemedicine [facility] [address] [place] [address] Zeinab Carey MD [address] [place] [address] documented as of this encounter Procedures Procedure Name Priority Date/Time Associated Diagnosis Comments ECG 12-LEAD Routine 06/27/2024 12:04 PM EST documented in this encounter Results * ECG 12 lead (06/27/2024 12:04 PM EST) us Historical Provider ECG ORDERABLES Final Res ult documented in this encounter Visit Diagnoses Not on filedocumented in this encounter Additional Health Concerns Assessment Noted Time PHQ-9 Depression Total Score: 8 05/15/20 23 11:18 AM EST documented as of this encounter Care Teams Forge Shop Machine Repairer Relationship Specialty Start Date End Date Zeinab Carey MD [address] [place] [address] PCP - General Family Medicine 05/16/17 documented as of this encounter
--- OUTSIDE RECORDS SUMMARY | 2024-07-07 10:53 | XMS_ITS | Encounter Summary ---
Author Organization [employer] Address [address] [facility] [address] [facility] [place] [address] Care Team Providers Care Parcel Post Clerk Name Role Phone Zeinab Carey MD Primary Care Provider [phone] Reason for Visit * Reason Onset Date Comments Results 03/26/2024 Encounter Details Date Type Department Care Team ([facility] st Contact Info) Description 03/26/2024 Telephone [facility] MED[facility]INE [address] [place] [address] Zeinab Carey MD [address] [place] [address] Results Social History Tobacco Use Types Packs/Day Years Used Date Smoking Tobacco: Never Passive Smoke Exposure: Never Smokeless Tobacco: Never Depression Answer Date Recorded Patient Health Questionnaire-9 Score 8 05/15/2023 Patient Health Questionnaire-9 Score 8 05/15/2023 Last PHQ-9: Questionnaire Data Not on file 1 07/16/2022 Housing Stability Answer Date Recorded What is your housing situation today? I have benson lee 02/12/[address] you [...] AM EDT documented as of this encounter Miscellaneous Notes * Telephone Encounter - Petra Pagan RN - 03/26/2024 4:03 PM EDT Labs ordered by bariatric surgeon Dr Saha. No records found for labs he ordered. Pt needs to contact ordering provider. * Telephone Encounter - Valdemar Rutherford - 03/26/2024 9:40 AM EDT TC from pt requesting call back regarding Results. Type of results: Labs Date when done: 03/15/24 [place] [facility] [place] documented in this encounter Plan of Treatment Upcoming Encounters Date Type Department Care Team (Late st Contact Info) Description 07/16/2024 9:00 AM EST Telemedicine [facility] [address] [place] [address] Zeinab Carey MD [address] [place] [address] documented as of this encounter Visit Diagnoses Not on filedocumented in this encounter Additional Health Concerns Assessment Noted Time PHQ-9 Depression Total Score: 8 05/15/20 23 11:18 AM EST documented as of this encounter Care Teams Parcel Post Clerk Relationship Specialty Start Date End Date Zeinab Carey MD [address] [place] [address] PCP - General Family Medicine 05/16/17 documented as of this encounter
--- OUTSIDE RECORDS SUMMARY | 2024-07-07 10:53 | XMS_ITS | Encounter Summary ---
Author Organization [employer] Address [address] [facility] [address] [place] [address] Care Team Providers Care Budget Clerk Name Role Phone Zeinab Carey MD Primary Care Provider [phone] Reason for Visit * Reason Onset Date Comments Nurse Triage 06/25/2024 Encounter Details Date Type Department Care Team ([facility] st Contact Info) Description 06/25/2024 Telephone [facility] MED & PEDS [address] [place], [place] [id number] Zeinab Carey MD [address] [place] [address] Nurse Triage Social History Tobacco Use Types Packs/Day Years [...] encounter Miscellaneous Notes * Telephone Encounter - Darleen Storey RN - 06/25/2024 10:50 AM EST Triage call [place] [facility] [place] [id number] Jose. Called x2, unable to make connectiion. * Telephone Encounter - Светлана Murray - 06/25/2024 9:41 AM EST Symptom: Back Pain,shoulder pain and hip pain - Not From Injury Outcome: Schedule an appointment to be seen within 3 days Reason: Caller denied all higher acuity questions The caller accepted this outcome. documented in this encounter Plan of Treatment Upcoming Encounters Date Type Department Care Team (Late st Contact Info) Description 07/16/2024 9:00 AM EST Telemedicine [facility]EDS [address] [place] [address] Zeinab Carey MD [address] [place] [address] documented as of this encounter Visit Diagnoses Not on filedocumented in this encounter Additional Health Concerns Assessment Noted Time PHQ-9 Depression Total Score: 8 05/15/20 23 11:18 AM EST documented as of this encounter Care Teams Budget Clerk Relationship Specialty Start Date End Date Zeinab Carey MD [address] [place] [address] PCP - General Family Medicine 05/16/17 documented as of this encounter
--- OUTSIDE RECORDS SUMMARY | 2024-07-07 10:54 | XMS_ITS | Encounter Summary ---
Author Organization [employer] Address [address] [facility] [address] [facility] [place] [address] Care Team Providers Care Bag Filler Machine Operator Name Role Phone Zeinab Carey MD Primary Care Provider [phone] Reason for Visit * Reason Onset Date Comments Appointment Request 09/07/2023 Encounter Details Date Type Department Care Team ([facility] st Contact Info) Description 09/07/2023 Telephone [facility] MEDICINE [address] [place] [address] Zeinab Carey MD [address] [place] [address] Appointment Request Social History Tobacco Use Types Packs/Day Years Used Date Smoking Tobacco: Never Passive Smoke Exposure: Never Smokeless Tobacco: Never Depression Answer Date Recorded Patient Health Questionnaire-9 Score 8 05/15/2023 Patient Health Questionnaire-9 Score 8 05/15/2023 Last PHQ-9: Questionnaire Data Not on file 1 07/16/2022 Housing Stability Answer Date Recorded What is your housing situation today? I have benson lee 03/18/[address] you li ve. Do you have problems with any of the following? None of the above 03/18/2023 Food Insecurity Answer Date Recorded Within the past 12 months, y ou worried that your food would run out before you got money to buy more: Never True 03/18/2023 Within the past 12 months,th e food you bought just didn't last and you didn't have enough money to get more: Never True Transportation Answer Date Recorded In the past 12 months, has l ack of transportation kept you from medical appts, meetings, work or from getting things needed for daily living? No 03/18/2023 Utilities Answer Date Recorded In the past 12 months, has t he electric, gas, oil or water company threatened to shut off services in your home? No 03/18/2023 Depression Answer Date Recorded Patient Health Questionnaire-2 Score 3 05/15/2023 Comments Unknown Sex and Gender Information Value Date Recorded Sex Assigned at Female 03/27/2022 10:32 AM EDT Legal Sex Female 10:32 AM EDT Gender Identity Female 03/27/2022 10:32 AM EDT Sexual Orientation Straight 03/27/2022 10 :32 AM EDT documented as of this encounter Miscellaneous Notes * Telephone Encounter - Catherine Fitch - 09/07/2023 10:59 AM EDT Tc from pt requesting appt with PCP stated wanted discuss joint pain. documented in this encounter Plan of Treatment Upcoming Encounters Date Type Department Care Team (Late st Contact Info) Description 07/16/2024 9:00 AM EST Telemedicine [facility] MED & PEDS [address] [place] [address] Zeinab Carey MD [address] [place] [address] documented as of this encounter Visit Diagnoses Not on filedocumented in this encounter Additional Health Concerns Assessment Noted Time PHQ-9 Depression Total Score: 8 05/15/20 23 11:18 AM EST documented as of this encounter Care Teams Bag Filler Machine Operator Relationship Specialty Start Date End Date Zeinab Carey MD [address] [place] [address] PCP - General Family Medicine 05/16/17 documented as of this encounter
--- OUTSIDE RECORDS SUMMARY | 2024-07-07 10:54 | XMS_ITS | Data Portability ---
Author Organization [facility] Pain Managem ent, PAIN OFFICE Address [address] [facility] [facility] [address] [place] [address] Care Team Providers Care Field Scout Name Role Phone MALENA TOMLIN Referring Provider LINDA DE LUNA Primary Care Provider Assessment Encounter Date Assessment Date Assessment LastModified by Organization Details LastModified Time 08/05/2020 08/05/2020 Saundra Mayo i s a 44 year old woman with complaints of low back pain radiating into right lower extremity with numbness. Her worse pain is in her low back and radiates into her right lower extremity for the past one month. She has done physical therapy with persistent pain. On exam, she has pain on flexion and a positive straight leg raising test on the right. MRI Lumbar spine shows degenerative disc disease with grade 1 retrolisthesis at L5-S1 . Broad based disc bulge , asymmetric to the right which appears to contact the existing right S1 nerve root . Bilateral facet arthropathy with moderate right and moderate left neural foraminal stenosis. Trial of Lumbar epidural steroid injections under fluoroscopic guidance was recommended. The risks and benefits of the procedure? ? ? were discussed in detail. She wishes to proceed. An appointment has been booked for the same. She needs a pickup driver on the day of the procedure. I will start her on Lyrica 75 mg bid. She also has neck pain radiating into right upper extremity. MRI shows moderate central canal stenosis at C6-7 level. I do not recommend a trial of cervical epidural steroid injection under fluoroscopic guidance. I have advised her to follow up with Dr. Bravo. [email or web address] Not available 08/05/2020 15:59:13 08/11/2020 08/11/2020 Saundra Mayo i s a 44 year old woman with complaints of low back pain radiating into right lower extremity with numbness. Her worse pain is in her low back and radiates into her right lower extremity for the past one month. She has done physical therapy with persistent pain. On exam, she has pain on flexion and a positive straight leg raising test on the right. MRI Lumbar spine shows degenerative disc disease with grade 1 retrolisthesis at L5-S1 . Broad based disc bulge , asymmetric to the right which appears to contact the existing right S1 nerve root . Bilateral facet arthropathy with moderate right and moderate left neural foraminal stenosis. She is here for a trial of Lumbar epidural steroid injections under fluoroscopic guidance . The risks and benefits of the procedure? ? ? were discussed in detail. She wishes to proceed. She needs to follow up in four weeks. [email or web address] Not available 08/11/2020 11:33:55 09/06/2020 09/06/2020 Saundra Mayo i s a 44 year old woman with complaints of low back pain radiating into right lower extremity with numbness. Her worse pain is in her low back and radiates into her right lower extremity for the past one month. She has done physical therapy with persistent pain. On exam, she has pain on flexion and a positive straight leg raising test on the right. MRI Lumbar spine shows degenerative disc disease with grade 1 retrolisthesis at L5-S1 . Broad based disc bulge , asymmetric to the right which appears to contact the existing right S1 nerve root . Bilateral facet arthropathy with moderate right and moderate left neural foraminal stenosis. She is here for a follow up after a trial of Lumbar epidural steroid injections under fluoroscopic guidance . She reports good pain benefit which is ongoing. She is having cervical spine surgery with Dr. Bravo and will call if she has return of pain. [email or web address] Not available 09/06/2020 11:21:47 01/19/2021 01/19/2021 Saundra Mayo i s a 45 year old woman with complaints of low back pain radiating into right lower extremity with numbness. Her worse pain is in her low back and radiates into her right lower extremity for the past one month. She has done physical therapy with persistent pain. On exam, she has pain on flexion and a positive straight leg raising test on the right. MRI Lumbar spine shows degenerative disc disease with grade 1 retrolisthesis at L5-S1 . Broad based disc bulge , asymmetric to the right which appears to contact the existing right S1 nerve root . Bilateral facet arthropathy with moderate right and moderate left neural foraminal stenosis. She is here for a Lumbar epidural steroid injections under fluoroscopic guidance . The risks and benefits of the procedure? ? ? were discussed in detail. She wishes to proceed. She needs to follow up in four weeks. [email or web address] Not available 01/19/2021 14:58:37 02/28/2021 02/28/2021 Saundra Mayo i s a 45 year old woman with complaints of low back pain radiating into right lower extremity with numbness. Her worse pain is in her low back and radiates into her right lower extremity for the past one month. She has done physical therapy with persistent pain. On exam, she has pain on flexion and a positive straight leg raising test on the right. MRI Lumbar spine shows degenerative disc disease with grade 1 retrolisthesis at L5-S1 . Broad based disc bulge , asymmetric to the right which appears to contact the existing right S1 nerve root . Bilateral facet arthropathy with moderate right and moderate left neural foraminal stenosis. She is here for a follow up after a trial of Lumbar epidural steroid injections under fluoroscopic guidance . She reports good pain benefit which is ongoing. Repeat Lumbar epidural steroid injection in three months under fluoroscopic guidance was recommended. The risks and benefits of the procedure were discussed in detail. She wishes to proceed. An appointment has been booked for the same. She needs a pickup driver on the day of the procedure. I also recommend physical therapy [email or web address] Not available 02/28/2021 09:55:17 Plan of Treatment Reminders Order Date Submit Date Provider Last Modified By Organization Details Last Modified Time Details Appointments None recorded. Lab None recorded. Referral physical therapist referral 2020 021 SERGO Not available 15:24:38 Procedures None recorded. Surgeries None recorded. Imaging None recorded. Medication Orders Lyrica 75 mg capsule 2020 021 [email or web address] [facility] #[id number], [address] [place], [address], 11:06:49 Patient TargetsNo targets recorded. Patient Instructions Encounter Date Encounter Id Patient Instructions Last Modified By Organization Details Last Modified Time 08/05/2020 [id number] She was advised against bed rest lasting longer than four days and to continue activities as tolerated. [email or web address] Not available 08/05/2020 15:56:57 Reason for Referral Physical Therapist Referral for Lumbosacral radiculopathy Referring Physician: Alba Fermin, Pain Management, Encounter Date: 02/28/2021 Problems Name Problem SNOMED Code Status Onset Date Resolution Date Notes Provider Name and Address Organization Details Recorded Time Degeneration of lumbar intervertebral disc 15601707 Active Alba manjarrez MD [address] [facility] [address], [place], [address], [place] [facility] 13:04:51 Lumbosacral radiculopathy 1412924 Active Alba manjarrez MD [address] [facility] , [address], [place], [address], [place] [facility] 16:34:00 Problem Notes None recorded. Procedures Surgical History Date Name Laterality Status Provider Name and Address Organization Details Recorded Time 01/20/20 21 Lumbar Epidural steroid injection under fluoroscopic guidance completed Alba Fermin MD [address] [facility] , [address], [place], [address], [place] [facility] 01/19/2021 14:57:24 08/12/19 21 Lumbar Epidural steroid injection under fluoroscopic guidance completed Alba Fermin MD [address] [facility] , [address], [place], [address], [place] [facility] 08/11/2020 11:32:05 classical section completed Alba Fermin MD [address] [facility] [facility] [address], [place], [address], [place] [facility] 05/31/2020 13:23:56 Carpal tunnel surgery completed Alba Fermin MD [address] [facility] , [address], [place], [address], [place] [facility] 05/31/2020 13:24:50 Imaging Results None recorded. Procedure Notes None recorded. Medical Equipment None Reported. Allergies No known drug allergies Medications Name Sig Start Date Stop Date Status Note LastModified by Organization Details LastModified Time m cal5 ketoprofen 10% APPLY 3 TO 5 GRAMS (3-5 PUMPS) TOPICALLY TO AFFECTED AREA TWICE A DAY 09/06 completed Not Available Not Available Not Available m nathan ketoprofen 10% pain APPLY 4-5 GRAMS (4-5 PUMPS) TOPICALLY TO AFFECTED AREA TWICE DAILY 09/06 completed Not Available Not Available Not Available cyclobenzap rine 10 mg tablet TAKE 1 TABLET BY MOUTH EVERY 8 HOURS FOR MUSCLE SPASMS active Not Available Not Available No t Available trazodone 50 mg tablet TAKE 1 TABLET BY MOUTH EVERY DAY 09/06 completed Not Available Not Available Not Available hydrocodone 5 mg-acetamin ophen 325 mg tablet TAKE 1 TABLET BY MOUTH EVERY 8 HOURS 09/06 completed Not Available Not Available Not Available metronidazo le 0.75 % (37.5 mg/5 gram) vaginal gel INSERT 1 APPLICATO RFUL VAGINALLY FOR 5 DAYS 09/06 completed Not Available Not Available Not Available terconazole 0.8 % vaginal cream 1 APPICATIO N VAGINALLY AT BEDTIME FOR 3 DAYS active Not Available Not Available No t Available sumatriptan 50 mg tablet TAKE 1 TABLET BY MOUTH AFTER ONSET OF MIGRAINE ATTACK. MAY REPEAT IN 2 HOURS NEEDED. active Not Available Not Available No t Available tramadol 50 mg tablet TAKE 1 2 TABLETS BY MOUTH EVERY 6 HOURS NEEDED FOR PAIN. MAX 8 TABS/DAY active Not Available Not Available No t Available acetaminoph en 500 mg tablet active Not Available Not Available Not Available levothyroxi ne 100 mcg tablet TAKE 1 TABLET BY MOUTH EVERY DAY 05/31 completed Not Available Not Available Not Available pantoprazol e 40 mg tablet,juan yed release TAKE 1 TABLET BY MOUTH EVERY DAY active Not Available Not Available No t Available gabapentin 300 mg capsule TAKE 1 CAPSULE BY MOUTH TWICE A DAY 08/05 completed Not Available Not Available Not Available lorazepam 1 mg tablet TAKE 1 TABLET BY MOUTH TWICE A DAY NEEDED AVOID COMBING WITH PRESCRIPT ION PAIN MEDS OR ALCOHOL active Not Available Not Available No t Available ibuprofen 600 mg tablet 05/31 completed Not Available Not Available Not Available methylpredn isolone 4 mg tablets in a dose pack TAKE 6 TABLETS ON DAY 1 DIRECTED ON PACKAGE AND DECREASE BY 1 TAB EACH DAY FOR A TOTAL OF 6 DAYS 02/28 completed Not Available Not Available Not Available levothyroxi ne 112 mcg tablet TAKE 1 TABLET BY MOUTH EVERY DAY active Not Available Not Available No t Available amoxicillin 875 mg-potassiu m clavulanate 125 mg tablet TAKE 1 TABLET BY MOUTH TWICE A DAY FOR 10 DAYS 05/31 completed Not Available Not Available Not Available oxycodone 5 mg tablet TAKE 1 TO 2 TABLETS BY MOUTH EVERY 6 HOURS NEEDED FOR SEVERE PAIN 02/28 completed Not Available Not Available Not Available escitalopra m 10 mg tablet TAKE 1 TABLET BY MOUTH EVERY DAY 02/28 completed Not Available Not Available Not Available escitalopra m 20 mg tablet TAKE 1 TABLET BY MOUTH EVERY DAY active Not Available Not Available No t Available Prempro 0.45 mg-1.5 mg tablet TAKE 1 TABLET BY MOUTH EVERY DAY active Not Available Not Available No t Available bupropion HCl XL 300 mg 24 hr tablet, extended release TAKE 1 TABLET BY MOUTH EVERY DAY active Not Available Not Available No t Available bupropion HCl XL 150 mg 24 hr tablet, extended release TAKE 1 TABLET BY MOUTH EVERY DAY 05/31 completed Not Available Not Available Not Available duloxetine 20 mg capsule,del ayed release TAKE 1 CAPSULE BY MOUTH EVERY DAY 09/06 completed Not Available Not Available Not Available duloxetine 30 mg capsule,del ayed release TAKE 1 CAPSULE BY MOUTH EVERY DAY 08/05 completed Not Available Not Available Not Available duloxetine 60 mg capsule,del ayed release TAKE 1 CAPSULE BY MOUTH EVERY DAY 09/06 completed Not Available Not Available Not Available Lyrica 75 mg capsule Take 1 capsule twice a day by oral route for 30 days. 09/06 completed Not Available Not Available Not Available Tirosint 112 mcg capsule TAKE 1 CAPSULE BY MOUTH EVERY DAY active Not Available Not Available No t Available Vitals Date Recorded Body height Heart rate Oxygen saturation Oxygen saturation in Arterial blood by Pulse oximetry Systolic blood pressure Diastolic blood pressure Provider Name and Address Organization Details Last Updated DateTime 1 167.64 cm 77 /min 95 % 95 % 128 mm[Hg] 68 mm[Hg] Lina Andrade [place] - [facility] 1 09:56:11 Date Recorded Body mass index (BMI) Body weight Provider Name and Address Organization Details Last Updated DateTime 08/05/2020 35.5 kg/m2 86955.32 g Alba Fermin MD [address] , [address], [place], [address], [place] [facility] 08/05/2020 10:28:17 Date Recorded Body height Heart rate Oxygen saturation Oxygen saturation in Arterial blood by Pulse oximetry Systolic blood pressure Diastolic blood pressure Provider Name and Address Organization Details Last Updated DateTime 1 167.64 cm 82 /min 98 % 98 % 141 mm[Hg] 92 mm[Hg] Taco O'Sulliva n [place] - [facility] 11:01:26 Date Recorded Body height Heart rate Oxygen saturation Oxygen saturation in Arterial blood by Pulse oximetry Systolic blood pressure Diastolic blood pressure Provider Name and Address Organization Details Last Updated DateTime 1 167.64 cm 70 /min 99 % 99 % 138 mm[Hg] 77 mm[Hg] Lina Andrade [place] - [facility] 11:13:32 Date Recorded Body height Heart rate Oxygen saturation Oxygen saturation in Arterial blood by Pulse oximetry Systolic blood pressure Diastolic blood pressure Provider Name and Address Organization Details Last Updated DateTime 1 167.64 cm 68 /min 99 % 99 % 138 mm[Hg] 83 mm[Hg] Taco Cheney'Sulliva n [place] - [facility] 13:03:51 Date Recorded Body height Body mass index (BMI) Body weight Heart rate Oxygen saturation Oxygen saturation in Arterial blood by Pulse oximetry Systolic blood pressure Diastolic blood pressure Provider Name and Address Organization Details Last Updated DateTime 1 167.64 cm 35.5 kg/m2 01091.3 2 g 65 /min 99 % 99 % 126 mm[Hg] 81 mm[Hg] Alba manjarrez MD [address] , [address], [place], [address], [place] [facility] 09:51:59 Social History Question Answer Notes LastModified by Organizat ion Details LastModified Time Tobacco Smoking Status Never Smoker Alba Fermin MD [address] , [address], [place], [address], [facility] Pain Management 05/31/2020 13:22:16 What Is Your Level Of Alcohol Consumption? None Information not available 05/31/2020 Which Illicit Or Recreational Drugs Have You Used? None Information not available 05/31/2020 Education 4 Year [employer] Information not available 05/31/2020 What Is Your Occupation? 0 Not Working Information not available 05/31/2020 Live Alone Or With Others? With Others With Children Information not available 05/31/2020 Marital Status Single Informati on not available 05/31/2020 Sex: Unknown Functional Status None recorded. Mental Status None recorded. Family History Relationship Description Onset Age of this Age Resolved Age Notes LastModified by Organization Details LastModified Time Mother Arthritis [email or web address] Not avail able 05/31/2020 13:20:31 Mother Endometrial carcinoma [email or web address] Not available 08/2020 13:21:32 Mother Malignant tumor of colon [email or web address] Not available 08/2020 13:22:01 Maternal Aunt Malignant neoplasm of skin [email or web address] Not available 08/2020 13:20:59 Medical History Condition Response Fibromyalgia Y Arthritis Y Depression Y Hypothyroidism Y Gynecological HistoryNo gynecological history recorded. Obstetrics History GPAL:G 0 P 0 0 0 0 Past Encounters Encounter ID Performer Location Encounter Start Date Encounter Closed Date Diagnosis/Indication Diagnosis SNOMED-CT Code Diagnosis ICD10 Code Diagnosis Note [id number] Alba Fermin MD PAIN OFFICE [address] [facility] [place] [address] 05/31/2020 13:00:06 06/09/2020 14:01:06 Degeneration of lumbar intervertebral disc 50107671 M51.36 Lumbosacra l radiculopathy 1529866 M54.17 [id number] Alba Fermin MD PAIN OFFICE [address] [place] [address] 08/05/2020 09:46:02 08/05/2020 16:06:45 Lumbosacral radiculopathy 8418985 M54.17 Degenerati on of lumbar intervertebral disc 40580967 M51.36 [id number] Alba Fermin MD [facility] PAIN OFFICE [address] [facility] [place] [address] 08/11/2020 10:53:36 08/11/2020 15:31:14 Lumbosacral radiculopathy 4225591 M54.17 Degenerati on of lumbar intervertebral disc 12690222 M51.36 [id number] Alba Fermin MD [facility] PAIN OFFICE [address] [facility] [place] [address] 09/06/2020 11:00:03 09/06/2020 11:22:45 Lumbosacral radiculopathy 7473913 M54.17 Degenerati on of lumbar intervertebral disc 57362521 M51.36 [id number] Alba Fermin MD [facility] PAIN OFFICE [address] [facility] [place] [address] 01/19/2021 13:00:43 01/19/2021 15:00:32 Lumbosacral radiculopathy 6785266 M54.17 Degenerati on of lumbar intervertebral disc 78553335 M51.36 [id number] Alba Fermin MD [facility] PAIN OFFICE [address] [facility] [place] [address] 02/28/2021 09:18:31 02/28/2021 10:35:25 Lumbosacral radiculopathy 8858916 M54.17 Degenerati on of lumbar intervertebral disc 83219037 M51.36 Health Concerns Section Related Observation LastModified by Organization Detai ls LastModified Time None Recorded Concern Status LastModified by Organization Details LastModified Time None Recorded Advance Directives Directive None Recorded Payers Encounter Date Sequence Insurance Name Policy Number Policy Cardenas Covered Member ID Cardenas Member ID Guarantor Name 08/05/2020 1 [place] [id number] Saundra Mayo 08/11/2020 1 [place] Saundra Mayo [id number] Saundra Mayo 09/06/2020 1 [place]undra Mayo [id number] Saundra Mayo 01/19/2021 1 [place] [facility] Saundra Mayo [id number] Saundra Andradez 02/28/2021 1 [place] [facility] Saundra Mayo [id number] Saundra Andradez Notes Date Note Type Note Provider Name and Address Organization Details Recorded Time 08/05/2020 text/html This is a follow up. She is complaining of low back pain radiating into right lower extremity. MRI Lumbar spine shows degenerative disc disease with grade 1 retrolisthesis at L5-S1 . Broad based disc bulge , asymmetric to the right which appears to contact the existing right S1 nerve root . Bilateral facet arthropathy with moderate right and moderate left neural foraminal stenosis.She is also complaining of neck pain radiating into right upper extremity. She has seen Dr. Bravo, neurosurgeon at [facility] and had a MRI cervical spine which shows C6-C7: Concentric disc osteophyte complex with left paracentral protrusion, along with right greater than left uncovertebral spurring. Moderate central stenosis. Mild right and no significant left neural foraminal narrowing. She has had physical therapy with no pain benefit. Alba Fermin MD [address] [place] [address], [place], [address], [facility] Pain Management 08/06/2020 08:36:35 08/11/2020 text/html She is here for a trial of lumbar epidural steroid injection under fluoroscopic guidance. Alba Fermin MD [address] [facility] [address] [facility] [address], [place], [address], [facility] Pain Management 08/12/2020 08:42:07 09/06/2020 text/html She is here for a follow up after a lumbar epidural steroid injection under fluoroscopic guidance. She reports 90% pain relief which is ongoing. She is walking better and has been walking one mile a day or more. She is complaining of occasionally achiness in her low back . She has no history of bladder or bowel incontinence.She is having neck surgery with Dr. Bravo on 09/09/2020. Alba Fermin MD [address] [place] [address] [address], [place], [address], [place] - [facility] 09/07/2020 10:03:30 01/19/2021 text/html She is here for a lumbar epidural steroid injection under fluoroscopic guidance. Alba Fermin MD [address] [facility] , [address], [place], [address], [facility] - Pain Management 01/20/2021 08:54:35 02/28/2021 text/html She is here for a follow up after a lumbar epidural steroid injection under fluoroscopic guidance. She reports 90% pain relief which is ongoing. She is walking better and has been walking one mile a day or more. She is complaining of occasionally achiness in her low back . She has no history of bladder or bowel incontinence.She is S/P ACDF with Dr. Bravo on 09/09/2020 and is doing well. Cold days causing her pain in her neck but no arm pain. Alba Fermin MD [address] [facility] , [address], [place], [address], [facility] - Pain Management 03/01/2021 08:55:58 OBGyn Episode No OBEpisode recorded.
--- OUTSIDE RECORDS SUMMARY | 2024-07-07 10:54 | XMS_ITS | Encounter Summary ---
Author Organization [employer] Address [address] [facility] [address] [place] [address] Care Team Providers Care Front Counter Attendant Name Role Phone Zeinab Carey MD Primary Care Provider [phone] Reason for Visit * Reason Onset Date Comments Referral 06/27/2023 Encounter Details Date Type Department Care Team ([facility] st Contact Info) Description 06/27/2023 Telephone [facility] MEDIC[facility] [address] [place] [address] Zeinab Carey MD [address] [place] [address] Referral Social History Tobacco Use Types Packs/Day Years [...] Telephone Encounter - Petra Pagan RN - 06/27/2023 4:14 PM EST Please review and advise. Pt is requesting a referral to [facility] for thyroid management. * Telephone Encounter - Catherine Fitch - 06/27/2023 3:34 PM EST Fax number [phone] * Telephone Encounter - Catherine Fitch - 06/27/2023 3:32 PM EST Tc from pt requesting a new referral for [facility] at [address] [place] [address]. documented in this encounter Plan of Treatment Upcoming Encounters Date Type Department Care Team (Late st Contact Info) Description 07/16/2024 9:00 AM EST Telemedicine [facility] [address] [place] [address] Zeinab Carey MD [address] [place] [address] documented as of this encounter Visit Diagnoses Not on filedocumented in this encounter Additional Health Concerns Assessment Noted Time PHQ-9 Depression Total Score: 8 05/15/20 23 11:18 AM EST documented as of this encounter Care Teams Front Counter Attendant Relationship Specialty Start Date End Date Zeinab Carey MD [address] [place] [address] PCP - General Family Medicine 05/16/17 documented as of this encounter
--- OUTSIDE RECORDS SUMMARY | 2024-07-07 10:54 | XMS_ITS | Encounter Summary ---
Author Organization [employer] Address 75 [facility] [place] [address] Care Team Providers Care Scuba Diving Teacher Name Role Phone Zeinab Carey MD Primary Care Provider [phone] Reason for Visit * Reason Onset Date Comments Results 06/26/2023 Encounter Details Date Type Department Care Team ([facility] st Contact Info) Description 06/26/2023 Telephone [facility] MEDICINE [address] [place] [address] Zeinab Carey MD [address] [place] [address] Results Social History Tobacco Use Types Packs/Day [...] Telephone Encounter - Petra Pagan RN - 06/28/2023 9:41 AM EST Returned call to pt regarding message below. Pt informed of US results and PCP recommendations. Pt also informed of referral placement to [facility] Endo but advised on wait list. Pt verbalized understanding and agrees with plan. * Telephone Encounter - Petra Pagan RN - 06/27/2023 4:13 PM EST Please review pt US results and advise. * Telephone Encounter - Allan Quiroz - 06/26/2023 10:28 AM EST TC from pt requesting call back regarding Results. Type of results: Sonogram Date when done: 06/15 Facility: [facility] documented in this encounter Plan of Treatment Upcoming Encounters Date Type Department Care Team ([facility] st Contact Info) Description 07/16/2024 9:00 AM EST Telemedicine [facility] MED & PEDS [address] [place] [address] Zeinab Carey MD [address] [place], [place] [phone] documented as of this encounter Visit Diagnoses Not on filedocumented in this encounter Additional Health Concerns Assessment Noted Time PHQ-9 Depression Total Score: 8 05/15/20 23 11:18 AM EST documented as of this encounter Care Teams Scuba Diving Teacher Relationship Specialty Start Date End Date Zeinab Carey MD [address] [place] [address] PCP - General Family Medicine 05/16/17 documented as of this encounter
--- OUTSIDE RECORDS SUMMARY | 2024-07-07 10:54 | XMS_ITS | Encounter Summary ---
Author Organization [employer] Address [address] [place] [address] Care Team Providers Care Web Communications Specialist Name Role Phone Zeinab Carey MD Primary Care Provider [phone] Reason for Visit * Reason Onset Date Comments Results 04/27/2023 Encounter Details Date Type Department Care Team ([facility] st Contact Info) Description 04/27/2023 Telephone [facility] MEDICINE [address] [place] [address] Zeinab Carey MD [address] [place] [address] Results Social History Tobacco Use Types Packs/Day Years Used Date Smoking Tobacco: Never Passive Smoke Exposure: Never Smokeless Tobacco: Never Depression Answer Date Recorded Patient Health Questionnaire-9 Score 17 06/01/2022 Housing Stability Answer Date Recorded What is your housing situation today? I have bensonmanuel lee 03/18/[address] you [...] Date Recorded Patient Health Questionnaire-2 Score 3 06/01/2022 Comments Unknown Sex and Gender Information Value Date Recorded Sex Assigned at Female 03/27/2022 10:32 AM EDT Legal Sex Female 10:32 AM EDT Gender Identity Female 03/27/2022 10:32 AM EDT Sexual Orientation Straight 03/27/2022 10 :32 AM EDT documented as of this encounter Miscellaneous Notes * Telephone Encounter - Petra Pagan RN - 04/30/2023 1:06 PM EST Returned call to pt regarding message below. Pt informed of normal blood work and to f/u with PCP as scheduled on 05/15/23 * Telephone Encounter - Gilmar Gooden RN - 04/27/2023 12:20 PM EST Pt requesting lab results from 04/12/23. Please review and advise nurse's. Thanks. * Telephone Encounter - Catherine Fitch - 04/27/2023 11:09 AM EST Tc from pt requesting a call back in regards results on labs done 04/12/2023 documented in this encounter Plan of Treatment Upcoming Encounters Date Type Department Care Team (Late st Contact Info) Description 07/16/2024 9:00 AM EST Telemedicine [facility] MED & PEDS [address] [place] [address] Zeinab Carey MD [address] [place] [address] documented as of this encounter Visit Diagnoses Not on filedocumented in this encounter Additional Health Concerns Assessment Noted Time PHQ-9 Depression Total Score: 17 023 10:03 AM EST documented as of this encounter Care Teams Web Communications Specialist Relationship Specialty Start Date End Date Zeinab Carey MD [address] [place] [id number] PCP - General Family Medicine 05/16/17 documented as of this encounter
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
--- OUTSIDE RECORDS SUMMARY | 2024-07-07 10:55 | XMS_ITS | Encounter Summary ---
Author Organization [employer] Address [address] [place] [address] Care Team Providers Care Feeder Operator Name Role Phone Zeinab Carey MD Primary Care Provider [phone] Reason for Visit * Reason Onset Date Comments MR ORDER 10/23/2023 Encounter Details Date Type Department Care Team ([facility] st Contact Info) Description 10/23/2023 Telephone [facility] MEDICINE [address] [place] [address] Zeinab Carey MD [address] [place] [address] MR ORDER Social History Tobacco Use Types Packs/Day Years [...] * Telephone Encounter - Catherine Fitch - 10/23/2023 3:43 PM EDT Tc from pt requesting MRI order due to back pain. Seen for this last . documented in this encounter Plan of Treatment Upcoming Encounters Date Type Department Care Team (Late st Contact Info) Description 07/16/2024 9:00 AM EST Telemedicine [facility] MED & PEDS [address] [place] [address] Zeinab Carey MD [address] [place] [address] documented as of this encounter Visit Diagnoses Not on filedocumented in this encounter Additional Health Concerns Assessment Noted Time PHQ-9 Depression Total Score: 8 05/15/20 23 11:18 AM EST documented as of this encounter Care Teams Feeder Operator Relationship Specialty Start Date End Date Zeinab Carey MD [address] [place] [address] PCP - General Family Medicine 05/16/17 documented as of this encounter
--- OUTSIDE RECORDS SUMMARY | 2024-07-07 10:55 | XMS_ITS | Encounter Summary ---
Author Organization [employer] Address 75 [facility] 7 [place] [address] Care Team Providers Care Bench Assembly Inspector Name Role Phone Zeinab Carey MD Primary Care Provider [phone] Reason for Visit * Reason Onset Date Comments Medication Question 10/24/2023 Referral 10/24/2023 Encounter Details Date Type Department Care Team ([facility] st Contact Info) Description 10/24/2023 Telephone [facility] MEDICINE [address] [place] [address] Zeinab Carey MD [address] [place] [address] Medication Question; Referral Social History Tobacco Use Types Packs/Day [...] encounter Miscellaneous Notes * Telephone Encounter - Allan Quiroz - 10/24/2023 10:15 AM EDT Tc from patient calling to request a referral for Endocrinology and would like to be sent to [address] [place] [address] and is request for a stronger medication than the cyclobenzaprine (Flexeril) 10 MG tablet patient stated this medication is not helping with pain documented in this encounter Plan of Treatment Upcoming Encounters Date Type Department Care Team (Late st Contact Info) Description 07/16/2024 9:00 AM EST Telemedicine [facility] MED & PEDS [address] [place] [address] Zeinab Carey MD [address] [place] [address] documented as of this encounter Visit Diagnoses Not on filedocumented in this encounter Additional Health Concerns Assessment Noted Time PHQ-9 Depression Total Score: 8 05/15/20 23 11:18 AM EST documented as of this encounter Care Teams Bench Assembly Inspector Relationship Specialty Start Date End Date Zeinab Carey MD [address] [place] [address] PCP - General Family Medicine 05/16/17 documented as of this encounter
--- OUTSIDE RECORDS SUMMARY | 2024-07-07 10:55 | XMS_ITS | Encounter Summary ---
Author Organization [facility] Address [address] [place] [address] Care Team Providers Care Beater Room Supervisor Name Role Phone Zeinab Carey MD Primary Care Provider Reason for Referral * Imaging (Routine) - Closed Specialty Diagnoses / Procedures Referred By Contac t Referred To Contact Radiology Diagnoses Thyroid nodule Acquired hypothyroidism Procedures US Thyroid Zeinab Carey MD [address] [place] [address] Phone: tel: fax: [address] Phone: tel: fax: Referral ID Status Reason Start Date Expiration Date Visits Re quested Visits Authorized [id number] Closed 10/24/2023 10/23/2024 1 1 Encounter Details Date Type Department Care Team (Late st Contact Info) Description 10/24/2023 Orders Only [facility] MED & PEDS [address] [place] [address] Zeinab Carey MD [address] [place], [place] [phone] Thyroid nodule (Primary Dx); Acquired hypothyroidism Social History Tobacco Use Types Packs/Day Years [...] Upcoming Encounters Date Type Department Care Team ([facility] st Contact Info) Description 07/16/2024 9:00 AM EST Telemedicine [facility] MED & PEDS [address] [place] [address] Zeinab Carey MD [address] [place] [address] documented as of this encounter Procedures Procedure Name Priority Date/Time Associated Diagnosis Comments US THYROID Routine 10/31/2023 12:38 PM EDT Thyroid nodule Acquired hypothyroidism documented in this encounter Results * US Thyroid (10/31/2023 12:38 PM EDT) Anatomical Region Laterality Modality Head, Neck Ultrasound 10/31/2023 12:3 8 PM EDT Narrative 11/23/2023 12:26 PM EDT ? [facility] ?[address] ?[place] [address] ? Ultrasound Report ? Signed ? Patient: Gael,Saundra ?MR#: [id number] ?? 05 ? : 1975 ?Acct:[id number] ? Age/Sex: 48 / F ?ADM Date: 10/31/23 ? Loc: HO.US ? Attending Dr: Zeinab Carey MD ? Ordering Physician: Zeinab Carey MD ?? Date of Service: 10/31/23 ?? Procedure(s): US thyroid ?? Accession Number(s): [id number] ? cc: Zeinab Carey MD ? EXAMINATION: ?? US THYROID ? CLINICAL INFORMATION: ?? History of thyroid nodules. ? COMPARISON: ?? None available. ? TECHNIQUE: ?? Linear transducer francis-scale and color Doppler examination with ?? attention to the region of the thyroid. ? FINDINGS: ? SIZE: Measurements of the thyroid lobes and nodules are given in ?? sagittal, anteroposterior and transverse dimensions respectively. ? Right Thyroid Lobe: 3.7 x 1.9 x 1.4 cm, volume 4.8 mL. ?? Parenchyma: The gland echotexture is homogeneous. Thyroid vascularity ?? is increased. ? Left Thyroid Lobe: 3.6 x 1.6 x 1.3 cm, volume 3.7 mL. ?? Parenchyma: The gland echotexture is homogeneous. Thyroid vascularity ?? is increased. ? Isthmus: 0.19 cm in maximum AP dimension. ? No focal thyroid nodule is seen. ? NODES: No lymphadenopathy is seen in the tissue surrounding the thyroid ?? gland. ? US/US thyroid ?? IMPRESSION: ?? Unremarkable examination. ? ACR TI-RADS RECOMMENDATION REFERENCE: ?? Ultrasound-guided fine-needle aspiration, followup ultrasound, no ?? further follow up. ? * TR1 (0 point) and TR2 (2 points): No FNA or follow up. ? * TR3 (3 points): FNA if more than or equal to 2.5 cm in maximum ?? dimension, followup ultrasound in 1, 3 and 5 years if 1.5 to 2.4 cm in ?? maximum dimension. ? * TR4 (4-6 points): FNA if more than or equal to 1.5 cm in maximum ?? dimension, followup ultrasound in 1, 2, 3 and 5 years if 1 to 1.4 cm in ?? maximum dimension. ? * TR5 (more than or equal to 7 points): FNA if more than or equal to 1 ?? cm in maximum dimension, followup ultrasound every year for 5 years if ?? 0.5 to 0.9 cm in maximum dimension. ? * TR3, TR4 or TR5 nodules that are below the size threshold for ?? followup receive no follow up. ? Dictated By: ?Emmanuel Aldrich MD ? Signed By: ?<Electronically signed by Emmanuel Aldrich MD in OV> ? 11/23/23 1222 ? DD/ 1238 ? TD/TT: ? Rotary Engine Assembler: TRUNG ? Procedure Note Chanelle, Image - 11/23/2023 [place] [address] Ultrasound Report Signed Patient: Lesvia Mayo#: [id number] [birth year] : 1975Acct:[id number] Age/Sex: 48 / FADM Date: 10/31/23 Loc: HO.US Attending Dr: Zeinab Carey MD Ordering Physician: Zeinab Carey MD Date of Service: 10/31/23 Procedure(s): US thyroid Accession Number(s): [id number] cc: Zeinab Carey MD EXAMINATION: US THYROID CLINICAL INFORMATION: History of thyroid nodules. COMPARISON: None available. TECHNIQUE: Linear transducer francis-scale and color Doppler examination with attention to the region of the thyroid. FINDINGS: SIZE: Measurements of the thyroid lobes and nodules are given in sagittal, anteroposterior and transverse dimensions respectively. Right Thyroid Lobe: 3.7 x 1.9 x 1.4 cm, volume 4.8 mL. Parenchyma: The gland echotexture is homogeneous. Thyroid vascularity is increased. Left Thyroid Lobe: 3.6 x 1.6 x 1.3 cm, volume 3.7 mL. Parenchyma: The gland echotexture is homogeneous. Thyroid vascularity is increased. Isthmus: 0.19 cm in maximum AP dimension. No focal thyroid nodule is seen. NODES: No lymphadenopathy is seen in the tissue surrounding the thyroid gland. US/US thyroid IMPRESSION: Unremarkable examination. ACR TI-RADS RECOMMENDATION REFERENCE: Ultrasound-guided fine-needle aspiration, followup ultrasound, no further follow up. * TR1 (0 point) and TR2 (2 points): No FNA or follow up. * TR3 (3 points): FNA if more than or equal to 2.5 cm in maximum dimension, followup ultrasound in 1, 3 and 5 years if 1.5 to 2.4 cm in maximum dimension. * TR4 (4-6 points): FNA if more than or equal to 1.5 cm in maximum dimension, followup ultrasound in 1, 2, 3 and 5 years if 1 to 1.4 cm in maximum dimension. * TR5 (more than or equal to 7 points): FNA if more than or equal to 1 cm in maximum dimension, followup ultrasound every year for 5 years if 0.5 to 0.9 cm in maximum dimension. * TR3, TR4 or TR5 nodules that are below the size threshold for followup receive no follow up. Dictated By: Emmanuel Aldrich MD Signed By: <Electronically signed by Emmanuel Aldrich MD in OV> 11/23/23 1222 DD/ 1238 TD/TT: Rotary Engine Assembler: TRUNG us Zeinab Carey MD IMG US PROCEDURES Final Resul t documented in this encounter Visit Diagnoses Diagnosis Thyroid nodule- Primary Nontoxic uninodular goiter Acquired hypothyroidism Unspecified hypothyroidism documented in this encounter Additional Health Concerns Assessment Noted Time PHQ-9 Depression Total Score: 8 05/15/20 23 11:18 AM EST documented as of this encounter Care Teams Beater Room Supervisor Relationship Specialty Start Date End Date Zeinab Carey MD [address] [place] [address] PCP - General Family Medicine 05/16/17 documented as of this encounter
--- OUTSIDE RECORDS SUMMARY | 2024-07-07 10:55 | XMS_ITS | Encounter Summary ---
Author Organization [employer] Address 75 [facility] [place] [address] Care Team Providers Care Tool Dispatcher Name Role Phone Zeinab Carey MD Primary Care Provider [phone] Reason for Visit * Reason Onset Date Comments Results 01/18/2024 Encounter Details Date Type Department Care Team ([facility] st Contact Info) Description 01/18/2024 Telephone [facility] MEDICINE [address] [place] [address] Zeinab Carey MD [address] [place] [address] Results Social History Tobacco Use Types Packs/Day [...] * Telephone Encounter - Allan Quiroz - 01/18/2024 9:34 AM EDT TC from pt requesting call back regarding Results. Type of results: CT Scan Date when done: 12/05 Facility: [facility] documented in this encounter Plan of Treatment Upcoming Encounters Date Type Department Care Team (Late st Contact Info) Description 07/16/2024 9:00 AM EST Telemedicine [facility] MED & PEDS [address] [place] [address] Zeinab Carey MD [address] [place] [address] documented as of this encounter Visit Diagnoses Not on filedocumented in this encounter Additional Health Concerns Assessment Noted Time PHQ-9 Depression Total Score: 8 05/15/20 11:18 AM EST documented as of this encounter Care Teams Tool Dispatcher Relationship Specialty Start Date End Date Zeinab Carey MD [address] [place] [address] PCP - General Family Medicine 05/16/17 documented as of this encounter
--- OUTSIDE RECORDS SUMMARY | 2024-07-07 10:55 | XMS_ITS | Encounter Summary ---
Author Organization [employer] Address [address] [facility] 7 [place] [address] Care Team Providers Care Gas Brazer Name Role Phone Zeinab Carey MD Primary Care Provider [phone] Reason for Visit * Reason Onset Date Comments Request For Order(s) 10/30/2023 Encounter Details Date Type Department Care Team ([facility] Contact Info) Description 10/30/2023 Telephone [facility] MED & PEDS [address] [place] [address] Zeinab Carey MD [address] [place] [address] Request For Order(s) Social History Tobacco Use Types Packs/Day Years [...] encounter Miscellaneous Notes * Telephone Encounter - Wing Kody RN - 11/27/2023 3:00 PM EDT Please advise, pt walked in requesting for status of MRI of C-spine and referral to [facility] originally requested on 11/01. * Telephone Encounter - Sruthi Rodriguez - 11/27/2023 11:13 AM EDT Tc from pt requesting calling in regards to message above. * Telephone Encounter - Petra Pagan RN - 11/22/2023 1:20 PM EDT Awaiting response from PCP regarding request. * Telephone Encounter - Светлана Murray - 11/22/2023 10:01 AM EDT Tc from pt requesting status regarding last messages . Pt would like to schedule an appt. * Telephone Encounter - Sheri Fallon - 11/13/2023 2:56 PM EDT Tc from pt requesting status for CT scan and referral. Please see previous notes. * Telephone Encounter - Sruthi Rodriguez - 10/30/2023 4:02 PM EDT Tc from pt requesting a CT scan to cervical spine. Was advised by office of MD ricardo Bravo to requesting a CT scan. States he is the MD who performed cervical spine surgery. Please contact pt for questions/clarification at [phone] documented in this encounter Plan of Treatment Upcoming Encounters Date Type Department Care Team ([facility] st Contact Info) Description 07/16/2024 9:00 AM EST Telemedicine [facility] MED & PEDS [address] [place] [address] Zeinab Carey MD [address] [place] [address] documented as of this encounter Visit Diagnoses Not on filedocumented in this encounter Additional Health Concerns Assessment Noted Time PHQ-9 Depression Total Score: 8 05/15/20 23 11:18 AM EST documented as of this encounter Care Teams Gas Brazer Relationship Specialty Start Date End Date Zeinab Carey MD [address] [place] [address] PCP - General Family Medicine 05/16/17 documented as of this encounter
--- OUTSIDE RECORDS SUMMARY | 2024-07-07 10:55 | XMS_ITS | Clinical Summary ---
Author Organization [facility] Address [address] [place] [address] Phone Care Team Providers Care Cabinet Finisher Name Role Phone Zeinab Carey MD Primary Care Provider [phone] Allergies No known active allergies Medications ondansetron ODT (ZOFRAN-ODT) 4 mg disintegrating tablet Ondansetron 4 MG FILM Take 4 mg by mouth every 8 hours as needed (nausea). 08/19/19 23 Active hydrOXYzine HCL (ATARAX) 25 mg tablet Take 25 mg by mouth 3 times daily as needed. Active pantoprazole (PROTONIX) 40 mg EC tablet pantoprazole 40 mg tablet,delayed release TAKE 1 TABLET BY MOUTH EVERY DAY Active levothyroxine (SYNTHROID, LEVOTHROID) 112 mcg tablet levothyroxine 112 mcg tablet TAKE 1 TABLET BY MOUTH EVERY DAY Active estrogen, conjugated,-medrox yPROGESTERone (PREMPRO) 0.45-1.5 mg per tablet Prempro 0.45 mg-1.5 mg tablet TAKE 1 TABLET BY MOUTH EVERY DAY Active BUPROPION HCL ORAL Take by mouth. Active SUMAtriptan (IMITREX) 50 mg tablet sumatriptan 50 mg tablet TAKE 1 TABLET BY MOUTH AFTER ONSET OF MIGRAINE ATTACK. MAY REPEAT IN 2 HOURS NEEDED. Active gabapentin (NEURONTIN) 300 mg capsule Take 300 mg by mouth 2 times daily. Active traMADoL (ULTRAM) 50 mg tablet tramadol 50 mg tablet TAKE 1 2 TABLETS BY MOUTH EVERY 6 HOURS NEEDED FOR PAIN. MAX 8 TABS/DAY Active escitalopram (LEXAPRO) 20 mg tablet escitalopram 20 mg tablet TAKE 1 TABLET BY MOUTH EVERY DAY Active naproxen (NAPROSYN) 500 mg tablet Take 500 mg by mouth 2 times daily (with meals). Active Encounters Date Type Department Care Team Description 06/27/2024 10:12 PM EST - 06/28/2024 4:12 AM EST Emergency [facility] Emergency [address] [place] [address] Discharge Disposition: Left Against Medical Advice from Last 3 Months Surgical History Surgery Date Site/Laterality Comments CERVICAL DISC SURGERY Medical History Medical History Date Comments Thyroid activity decreased Social History Tobacco Use Types Packs/Day Years [...] on file Sexual Orientation Not on file Obstetrics History Last Filed Vital Signs Vital Sign Reading [...] Mass Index 25.02 06/27/2024 10:40 PM EST Plan of Treatment Upcoming Encounters Date Type Department Care Team (Late st Contact Info) Description 09/04/2024 10:15 AM EDT Office Visit Bariatric Surgery - [place] [address] [facility] [address] [place] [id number] Omer Saha MD [address] [facility] [address] [facility] [address] [place] [address] Health Maintenance Due Date Last Done Comments Breast Cancer Screening 1973 Cervical Cancer Screening: Pap Smear 1994 DTaP,Tdap,and Td Vaccines (2 - Td or Tdap) 06/14/2017 05/17/2017 Colorectal Cancer Screening: Colonoscopy 05/07/2022 Hepatitis C Screening 05/07/2022 Social Influencers of Health Screening 05/07/2022 Pneumococcal Vaccine: 50+ Years (1 of 1 - PCV) 2023 COVID-19 Vaccine (4 - season) 2024 07/05/2022, 11/10/2020, 10/13/2020 Depression Screening 05/15/2024 05/15/2023 Zoster Vaccines (2 of 2) 07/08/2024 05/13/2024 Cholesterol Screening (Lipid Panel) 03/06/2029 03/06/2024, 03/06/2024, 02/06/2022 HIV Screening Completed 02/06/2022 Hepatitis B Vaccines Completed 09/13/2023, 06/21/2023, 05/24/2023 Influenza Vaccine Completed 02/29/2024, , 03/03/2021, Additional history exists HIB Vaccines Aged Out No longer eligi ble based on patient's age to complete this topic HPV Vaccines Aged Out No longer eligi ble based on patient's age to complete this topic Hepatitis A Vaccines Aged Out No long er eligible based on patient's age to complete this topic IPV Vaccines Aged Out No longer eligi ble based on patient's age to complete this topic MMR Vaccines Aged Out No longer eligi ble based on patient's age to complete this topic Meningococcal ACWY Vaccine Aged Out N o longer eligible based on patient's age to complete this topic Meningococcal B Vacine Aged Out No lo nger eligible based on patient's age to complete this topic Pneumococcal Vaccine: Pediatrics (0 to 5 Years) and At-Risk Patients (6 to 64 Years) Aged Out No longer eligible based on patient's age to complete this topic RSV Immunization Patients Under 20 months Aged Out No longer eligible based on patient's age to complete this topic Varicella Vaccines Aged Out No longer eligible based on patient's age to complete this topic Procedures Procedure Name Priority Date/Time Associated Diagnosis Comments ECG 12-LEAD STAT 06/27/2024 10:34 PM EST ECG ANNOTATED 06/27/2024 LIPID PANEL Routine 03/06/2024 from Last 3 Months or Most Recently Relevant to Health Maintenance Results * ECG 12 lead (06/27/2024 10:34 PM EST) Ventricular Rate ECG 56 BPM GEMUSE Atrial Rate 56 BPM GEMUSE P-R Interval 126 ms GEMUSE QRS Duration 80 ms GEMUSE Q-T Interval 442 ms GEMUSE QTc 426 ms GEMUSE P Wave [place] 53 degrees GEMUSE R [place] 19 degrees GEMUSE T [place] 39 degrees GEMUSE ECG Interpretation Sinus bradycardia Otherwise normal ECG When compared with ECG of 14-AUG-2022 09:58, No significant change was found Confirmed by JACQUE AMBROSIO ([id number]) on 06/29/2024 2:29:04 PM GEMUSE 06/27/2024 10:3 4 PM EST 06/29/2024 2:29 PM EST Johnson Stewart DO ECG ORDERABLES Final Result GEMUSE * ECG-Annotated (06/27/2024) Provider Onbase MD ECG ORDERABLES Final Result * Lipid panel (03/06/2024) LDL/HDL Ratio 2 0 - 4 Triglycerides 64 0 - 150 mg/dL Cholesterol 147 0 - 200 mg/dL HDL 65 >=40 mg/dL LDL Cholesterol 70 0 - 100 mg/dL Blood Venous blood specimen / Unknown Historical Provider LAB BLOOD ORDERABLES Emili l Result from Last 3 Months or Most Recently Relevant to Health Maintenance Insurance MEDICAID - [place] Care Teams Cabinet Finisher Relationship Specialty Start Date End Date Zeinab Carey MD [address] [place] [address] PCP - General 07/29/21
--- OUTSIDE RECORDS SUMMARY | 2024-07-07 10:55 | XMS_ITS | Encounter Summary ---
Author Organization [employer] Address [address] [facility] [address] [place] [address] Care Team Providers Care Neck Band Maker Name Role Phone Zeinab Carey MD Primary Care Provider [phone] Reason for Visit * Reason Onset Date Comments Results 08/20/2023 Encounter Details Date Type Department Care Team ([facility] st Contact Info) Description 08/20/2023 Telephone [facility] MEDICINE [address] [place] [address] Zeinab Carey MD [address] [place] [address] Results Social History Tobacco Use Types Packs/Day [...] encounter Miscellaneous Notes * Telephone Encounter - Gabbie Gregory RN - 08/20/2023 3:26 PM EDT Images from the original note were not included. Message Received: Today MD Chris Cummingsyoke [facility] P[facility] Nurses Caller: Unspecified (Today, 10:09 AM) Please let her know that her labs are stable.Her hemoglobin is slightly lower 12.5 from 12.9 but this isnt low enough to cause dizziness and is normal as she has lost lots of weight after bariatric surgery.She can start taking a multivitamin daily if she would like.Thanks TC placed to patient regarding above message from PCP. Patient expressed understanding of lab results. Patient then asked for a f/u visit with PCP and began speaking in detail about not being able tosleep and having pain throughout her whole body for the past week. Asked for permission to call back with the copy coordinator line and patient agreed. TC placed to patient via [facility] [employer] and patient explained that she has recently had pain throughout her body, including in her joints and at the surgical site from recent gastric bypass. She is also getting frequent headaches. She states that she has had insomnia and worsening pain with head aches for about one week. Denies other symptoms. Agreeable to [facility] appointment for tomorrow, 08/21/23. Scheduled for 10:20am. Advised to go to ED sooner if her symptoms worsen and/or she develops othernew symptoms, such as fever, etc. Expressed understanding. Routing to PCP so she is aware and for review. Tc from pt requesting lab results. Please contact at [phone] Armenian * Telephone Encounter - Sheri Fallon - 08/20/2023 10:09 AM EDT Tc from pt requesting lab results. Please contact at [phone] Armenian documented in this encounter Plan of Treatment Upcoming Encounters Date Type Department Care Team ([facility] st Contact Info) Description 07/16/2024 9:00 AM EST Telemedicine [facility] MED & PEDS [address] [place] [address] Zeinab Carey MD [address] [place] [address] documented as of this encounter Visit Diagnoses Not on filedocumented in this encounter Additional Health Concerns Assessment Noted Time PHQ-9 Depression Total Score: 8 05/15/20 23 11:18 AM EST documented as of this encounter Care Teams Neck Band Maker Relationship Specialty Start Date End Date Zeinab Carey MD [address] [place] [address] PCP - General Family Medicine 05/16/17 documented as of this encounter
--- OUTSIDE RECORDS SUMMARY | 2024-07-07 10:55 | XMS_ITS | Encounter Summary ---
Author Organization [employer] Address [address] [facility] [address] [place] [address] Care Team Providers Care Doctor Chiropractic Name Role Phone Zeinab Carey MD Primary Care Provider Reason for Visit * Reason Onset Date Comments Results 09/05/2023 Encounter Details Date Type Department Care Team ([facility] st Contact Info) Description 09/05/2023 Telephone [facility] MEDICINE [address] [place] [address] Zeinab Carey MD [address] [place] [address] Results Social History Tobacco Use Types Packs/Day [...] Telephone Encounter - Petra Pagan RN - 09/07/2023 10:39 AM EDT TC X1 to inform of normal lab results. LVM to return call PRN. * Telephone Encounter - Sheri Fallon - 09/05/2023 11:23 AM EDT Tc from pt requesting lab results. Please contact at [phone] documented in this encounter Plan of Treatment Upcoming Encounters Date Type Department Care Team (Late st Contact Info) Description 07/16/2024 9:00 AM EST Telemedicine [facility] MED & PEDS [address] [place] [address] Zeinab Carey MD [address] [place] [address] documented as of this encounter Visit Diagnoses Not on filedocumented in this encounter Additional Health Concerns Assessment Noted Time PHQ-9 Depression Total Score: 8 05/15/20 23 11:18 AM EST documented as of this encounter Care Teams Doctor Chiropractic Relationship Specialty Start Date End Date Zeinab Carey MD [address] [place] [address] PCP - General Family Medicine 05/16/17 documented as of this encounter
--- OUTSIDE RECORDS SUMMARY | 2024-07-07 10:55 | XMS_ITS | Clinical Summary ---
Author Organization [employer] Address [address] [facility] 7 [place] [address] Care Team Providers Care Audit Senior Associate Name Role Phone Zeinab Carey MD Primary Care Provider [phone] Allergies No known active allergies Medications SUMAtriptan (Imitrex) 50 MG tabletIndication s:Chronic superficial 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,Chronic migraine without aura without status migrainosus, not intractable TAKE 1 TABLET BY ORAL ROUTE ONCE WITH FLUIDS EARLY POSSIBLE AFTER THE ONSET OF A MIGRAINE ATTACK MAY REPEAT AFTER 2 HOURS IF HEADACHE RETURNS, NOT TO EXCEED 200MG IN 24HRS NEEDED 9 tablet 3 3 Active hydrOXYzine pamoate (Vistaril) 25 MG capsule TAKE 1 CAPSULE BY MOUTH TWICE A DAY NEEDED SIG IN ROMANIAN 3 Active escitalopram (Lexapro) 20 MG tablet TAKE 1 1/2 TABLET BY MOUTH ONCE A DAY SIG IN ROMANIAN 3 Active buPROPion XL (Wellbutrin XL) 150 MG 24 hr tablet TAKE 1 TABLET BY MOUTH ONCE A DAY TAKE WITH 300MG XL DOSE TOTAL 450MG XL 3 Active buPROPion XL (Wellbutrin XL) 300 MG 24 hr tablet TAKE 1 TABLET BY MOUTH ONCE A DAY SIG IN ROMANIAN 3 Active lidocaine-priloc west (Emla) 2.5-2.5 % cream Apply prn topically to affected area tid as needed 60 g 2 4 Active acetaminophen (Tylenol) 500 MG tablet Take 1 tablet (500 mg) by mouth every 6 (six) hours if needed for mild pain. 90 tablet 2 4 Active cyclobenzaprine (Flexeril) 10 MG tablet Take 1 tablet (10 mg) by mouth 3 times daily. 30 tablet 4 Active Diclofenac Sodium 1 % gel Apply topically to affected area bid prn pain 100 g 5 4 Active Tirosint 125 MCG capsule TAKE 1 CAPSULE (125 MCG) BY MOUTH BEFORE BREAKFAST. 30 capsule 5 4 Active pantoprazole (ProtoNix) 40 MG EC tabletIndication s:Chronic superficial 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,Chronic migraine without aura without status migrainosus, not intractable TAKE 1 TABLET BY MOUTH EVERY DAY 90 tablet 1 4 Active butalbital-aceta minophen-caffein e 50-325-40 MG tablet TAKE 1 TAB ORALLY EVERY 6 HOURS NEEDED FOR HEADACHE 4 Active ibuprofen 600 MG tablet TOME MELISSA TABLETA POR V A ORAL FUENTES VECES AL D A CUANDO SEA NECESARIO PARA EL DOLOR 4 Active Active Problems Problem Noted Date Diagnosed Date Trigger finger of left thumb 09/18/2023 Lumbosacral radiculopathy 06/01/2022 Degeneration of lumbar intervertebral disc 05/31 Acquired hypothyroidism 05/31/2022 Thyroid nodule 05/31/2022 Class 2 obesity 05/31/2022 Obesity 05/31/2022 Tear of medial meniscus of knee 02/28/2018 Gastritis 06/29/2017 Recurrent anxiety 05/17/2017 Encounters Date Type Department Care Team Description 06/30/2024 Orders Only [facility] [address] [place] [address] ProviderLou MD 06/25/2024 Telephone [facility] [address] [place] [address] Zeinab Carey MD Nurse Triage 05/13/2024 9:45 AM EST Office Visit [facility] [address] [place] [address] Zeinab Carey MD Acquired hypothyroidism (Primary Dx); Bariatric surgery status; Dietary counseling; Exercise counseling; Memory deficit 05/13/2024 Travel 04/30/2024 Telephone [facility] [address] [place] [address] Zeinab Carey MD Results 04/18/2024 Refill [facility] [address] [place] [address] Zeinab Carey MD Chronic superficial 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; Chronic migraine without aura without status migrainosus, not intractable from Last 3 Months Immunizations Name Administration Dates Next Due Hep B, adult 09/13/2023,06/21/2023,05/24/2023 Influenza injectable quadriv alent IIV4 with preservative 06/26/2019,05/17/2017 Influenza injectable quadriv alent preservative free 04/12/2023,03/03/2021 Influenza, seasonal, injecta ble, preservative free 02/29/2024 Moderna Covid-19 Vaccine 6+ Bivalent 07/05/2022 Tdap 05/17/2017 Zoster, Recombinant 05/13/2024 Social History Tobacco Use Types Packs/Day Years Used Date Smoking Tobacco: Never Passive Smoke Exposure: Never Smokeless Tobacco: Never Tobacco Cessation:Counseling Given: Not Answered Depression Answer Date Recorded Patient Health Questionnaire-9 [...] Orientation Straight 03/27/2022 10 :32 AM EDT Last Filed Vital Signs Vital Sign Reading Time Taken Comments Blood Pressure 120/74 05/13/2024 9:37 AM EST Pulse 62 05/13/2024 9:37 AM EST Temperature 36.1 ??C (97 ??F) 05/13/2024 9:37 AM EST Respiratory Rate 16 05/13/2024 9:37 AM EST Oxygen Saturation 98% 05/13/2024 9:37 AM EST Inhaled Oxygen Concentration - - Weight 70.8 kg (156 lb) 05/13/2024 9:37 AM EST Height 167.6 cm (5' 6 ) 05/13/2024 9:37 AM EST Body Mass Index 25.18 05/13/2024 9:37 AM EST Plan of Treatment Upcoming Encounters Date Type Department Care Team ([facility] st Contact Info) Description 07/16/2024 9:00 AM EST Telemedicine [facility] [address] [place] [address] Zeinab Carey MD [address] [place] [address] Health Maintenance Due Date Last Done Comments CT Colonography 1973 Colonoscopy 1973 Colorectal Cancer Screening 1973 FIT DNA/Cologuard 1973 FIT 1973 FOBT 1973 Sigmoidoscopy 1973 Alcohol/Substance Use Screening 1985 Family Planning (PISQ) 1988 Pneumococcal Vaccine: 50+ Years (1 of 1 - PCV) 2023 COVID-19 Vaccine ( season) 2024 07/05/2022, 11/10/2020, 10/13/2020 Depression Screening 05/15/2024 05/15/2023, 05/15/20 23 Zoster Vaccines (2 of 2) 07/08/2024 05/13/2024 SDOH Screening 02/11/2025 02/12/2024 Tobacco Screening 05/13/2025 05/13/2024 Cervical Cancer Screening 07/21/2025 HPV/Cotest 07/21/2025 07/21/2020 Pap Smear 07/21/2025 07/21/2020 Mammogram 03/05/2026 03/05/2024, 1007/2022, 02/03/2022, Additional history exists Lipid Panel 02/06/2027 02/06/2022 DTaP/Tdap/Td Vaccines (2 - Td or Tdap) 05/17/2027 05/17/2017 RSV Patients and Patients Aged 60 years or older (1 - 1-dose 75+ series) 2048 HIV Screening Completed 02/06/2022 Hepatitis C Screening Completed 05/15/2023, 022 Hepatitis B Vaccines Completed 09/13/2023, 06/21/2023, 05/24/2023 [...] patient's age to complete this topic Meningococcal Vaccine Aged Out No curly kayleigh eligible based on patient's age to complete this topic RSV under 20 months Aged Out No longe r eligible based on patient's age to complete this topic Rotavirus Vaccines Aged Out No longer eligible based on patient's age to complete this topic Procedures Procedure Name Priority Date/Time Associated Diagnosis Comments ECG 12-LEAD Routine 06/27/2024 12:04 PM EST BI MAMMOGRAM SCREENING TOMOSYNTHESIS BILATERAL Routine 03/05/2024 10:25 AM EDT HEPATITIS PANEL, GENERAL Routine 05/15/2023 11:12 AM EST Elevated liver enzymes HIV 1/2 ANTIGEN/ANTIBODY, FOURTH GENERATION W/RFL Routine 02/06/2022 9:57 AM EDT LIPID PANEL, STANDARD Routine 02/06/2022 9:57 AM EDT HM PAP/HPV Routine 07/21/2020 from Last 3 Months or Most Recently Relevant to Health Maintenance Results * ECG 12 lead (06/27/2024 12:04 PM EST) us Historical Provider ECG ORDERABLES Final Res ult * BI Mammogram Screening Tomosynthesis Bilateral (03/05/2024 10:25 AM EDT) Anatomical Region Laterality Modality Breast Bilateral Mammography 03/05/2024 10:2 5 AM EDT Narrative 03/17/2024 6:01 PM EDT ? [facility] [place] ? [address] ?[place] [address] ? Mammography Report ? Signed ? Patient: GaelSaundra Gomez ?MR#: M ?? [id number] ? : 1975 ?Acct:[id number] ? Age/Sex: 48 / F ?ADM Date: 03/05/ ? Loc: HO.MAMMO ? Attending Dr: Zeinab Carey MD ? Ordering Physician: Zeinab Carey MD ?Results: 1Ne ?? gative ? Date of Service: 03/05/24 ?Follow Up: 1 Year From Orig ?? inal Mammogram ? Procedure(s): MM tomosynthesis screening BI ?? Accession Number(s): [id number] ? cc: Zeinab Carey MD ? EXAMINATION: ?? MM SCREENING DIGITAL BREAST TOMOSYNTHESIS, BILATERAL ? CLINICAL INFORMATION: ? Screening. Asymptomatic. ? COMPARISON: ?? Mammography: Comparison is made with available priors ? TECHNIQUE: ?? Digital breast mammography with tomosynthesis is performed in both the ?? craniocaudal and mediolateral oblique views along with computer-aided ?? detection (CAD). ? FINDINGS: ?? The breasts are heterogeneously dense, which may obscure small masses ?? (ACR BI-RADS breast composition Category c). ? There are no significant masses, abnormal calcifications, or other ?? abnormalities. ? MM/MM tomosynthesis screening BI ?? IMPRESSION: ?? No mammographic evidence of malignancy. ? ASSESSMENT: ? BI-RADS BI-RADS 1 - Negative ? RECOMMENDATION: ?? Routine annual mammography screening. ? 1 year F/U ? This examination should not preclude the clinical evaluation of a ?? suspicious palpable abnormality. ? This patient's information was entered into a reminder system with a ?? target due date for their next mammogram. ? Electronically signed by: ??Lenore Daniels DO ??03/17/2024 05:58 PM EDT ?? RP ? Dictated By: ?Lenore Daniels DO ? Signed By: ?<Electronically signed by Lenore Daniels, DO in OV> ? 03/17/24 1758 ? DD/ 1025 ? TD/TT: 03/05/24 1035 ? Communications Technologist: ? Procedure Note Chanelle, Jack - 03/17/2024 [facility] [address] [place] [address] Mammography Report Signed Patient: Saundra MayoMR#: M [id number] : 1975Acct:[id number] Age/Sex: 48 / FADM Date: 03/05/24 Loc: HO.MAMMO Attending Dr: Zeinab Carey MD Ordering Physician: Zeinab Carey MDResults: 1Ne gative Date of Service: 03/05/24Follow Up: 1 Year From Orig ina Mammogram Procedure(s): MM tomosynthesis screening BI Accession Number(s): [id number] cc: Zeinab Carey MD EXAMINATION: MM SCREENING DIGITAL BREAST TOMOSYNTHESIS, BILATERAL CLINICAL INFORMATION: Screening. Asymptomatic. COMPARISON: Mammography: Comparison is made with available priors TECHNIQUE: Digital breast mammography with tomosynthesis is performed in both the craniocaudal and mediolateral oblique views along with computer-aided detection (CAD). FINDINGS: The breasts are heterogeneously dense, which may obscure small masses (ACR BI-RADS breast composition Category c). There are no significant masses, abnormal calcifications, or other abnormalities. MM/MM tomosynthesis screening BI IMPRESSION: No mammographic evidence of malignancy. ASSESSMENT: BI-RADS BI-RADS 1 - Negative RECOMMENDATION: Routine annual mammography screening. 1 year F/U This examination should not preclude the clinical evaluation of a suspicious palpable abnormality. This patient's information was entered into a reminder system with a target due date for their next mammogram. Electronically signed by: Lenore Daniels DO 03/17/2024 05:58 PM EDT Dictated By: Lenore Daniels DO Signed By: <Electronically signed by Lenore Daniels DO in OV> 03/17/24 1758 DD/ 1025 TD/TT: 03/05/24 1035 Communications Technologist: us Zeinab Carey MD IMG BI PROCEDURES Edited Resu lt - Final * Hepatitis A,B,C Profile (05/15/2023 11:12 AM EST) Hepatitis A IgM Nonreactive Nonreactive [facility] Comment:IgM antibodies to ANDERSEN V not detected; does not exclude earlyacute or recovered HAV infection. ~Hepatitis B Surface Antibody NONREACTIVE Nonreactive [facility] Comment:Nonreactive: < 8.00 mIU/mL Hepatitis B Core Antibody Nonreactive Nonreactive [facility] Hepatitis C Antibody Nonreactive Nonreactive [facility] Comment:Antibodies to HCV no t detected; does not exclude early acuteHCV infection. Hepatitis B Surface Ag Negative Negative [facility] Blood Venous blood specimen / Unknown 05/15/2023 11:12 AM EST 05/15/2023 2:20 PM EST us Zeinab Carey MD LAB BLOOD ORDERABLES Final Re sult [facility] [address] [place] [phone] * HIV 1/2 ANTIGEN/ANTIBODY,FOURTH GENERATION W/RFL (02/06/2022 9:57 AM EDT) [facility] HIV-1/2 ANTIGEN AND ANTIBODIES, 4TH GENERATION W/ REFLEX NON-REACT HARRY NON-REACT HARRY [facility] Comment: HIV-1 antigen and HIV-1/HIV-2 antibodies were not detected. There is no laboratory evidence of HIV infection. ?? PLEASE NOTE: This information has been disclosed to you from records whose confidentiality may be protected by state law. ??If your state requires such protection, then the state law prohibits you from making any further disclosure of the information without the specific written consent of the person to whom it pertains, or as otherwise permitted by law. A general authorization for the release of medical or other information is NOT sufficient for this purpose. ? For additional information please refer to http://education.[facility].Hactus/faq/DLE735 (This link is being provided for informational/ educational purposes only.) ? The performance of this assay has not been clinically validated in patients less than 2 years old. ?? 02/06/2022 9:57 AM EDT us Tarik Sommers MD LAB BLOOD ORDERABL ES Final Result Performing Organization Address [facility] Co de Phone Number [facility] [address] [place] [address], * (ABNORMAL) LIPID PANEL, STANDARD (02/06/2022 9:57 AM EDT) Chol/HDLC Ratio 4.1 <5.0 (calc) [facility] Cholesterol, Total 165 <200 mg/dL [facility] HDL Cholesterol 40(L) > OR = 50 mg/dL [facility] LDL Cholesterol 98 mg/dL (calc) [facility] Comment: Reference range: <100 ?? Desirable range <100 mg/dL for primary prevention; ?? <70 mg/dL for patients with CHD or diabetic patients ?? with > or = 2 CHD risk factors. ?? LDL-C is now calculated using the Sammi ?? calculation, which is a validated novel method providing ?? better accuracy than the Friedewald equation in the ?? estimation of LDL-C. ?? Abimael GONZALES et al. JUAN. 2013;310(19): 9356-7146 ?? (http://education.[employer].com/faq/XXO452) Non-HDL Cholesterol 125 <130 mg/dL (calc) [facility] Comment: For patients with diabetes plus 1 major ASCVD risk ?? factor, treating to a non-HDL-C goal of <100 mg/dL ?? (LDL-C of <70 mg/dL) is considered a therapeutic ?? option. Triglycerides 178(H) <150 mg/dL [facility] 02/06/2022 9:57 AM EDT Tarik Sommers MD LAB BLOOD ORDERABL ES Final Result Performing Organization Address [facility] Co de Phone Number [facility] [address] [place] [address], [place] * Hm Pap Smear (07/21/2020) Pap Negative for intraephithelial lesion or malignancy Negative for intraephithelial lesion or malignancy, Other HPV Undetected Undetected, Indeterminate, Quantitative, Not Detected Historical Provider HEALTH MAINTENANCE Final Result from Last 3 Months or Most Recently Relevant to Health Maintenance Insurance [facility] C3 Care Teams Audit Senior Associate Relationship Specialty Start Date End Date Zeinab Carey MD [address] [place] [phone] PCP - General Family Medicine 05/16/17
--- OUTSIDE RECORDS SUMMARY | 2024-07-07 10:55 | XMS_ITS | Encounter Summary ---
Author Organization [employer] Address [address] [facility] 7 [place] [address] Care Team Providers Care Oil Speculator Name Role Phone Zeinab Carey MD Primary Care Provider [phone] Reason for Visit * Reason Onset Date Comments ER Follow-up 10/18/2023 Encounter Details Date Type Department Care Team ([facility] st Contact Info) Description 10/18/2023 Telephone [facility] [address] [place] [address] Zeinab Carey MD [address] [place] [address] ER Follow-up Social History Tobacco Use Types Packs/Day Years [...] encounter Miscellaneous Notes * Telephone Encounter - Cristal Tena RN - 10/18/2023 9:29 AM EDT Patient calling to report ED visit on : Date: 10/17/23 Hospital: [facility] Seen for: back pain, pt states has pain and would like sick visit for today. Called pt via [employer] synthetic plasterer [phone] Jemal. Pt. States that she was in the [facility] ED 10/17/23 for back pain. Pain is located on her lower back on right hip area and pain radiates down right leg. Right knee feels weak and she has been having buckling of leg and weakness when walking. Pt. Right hand thumb also gets stiff and she cannot move it. Pt. States that ED did a CT scan. CT scan showed constipation and a inflammation. Last BM was today this am. Pt. Did have a hard BM this am. Pt. Will mention that to PCP as well. Will send this note to clinical care coordinators to get [facility] ED note from 10/17/23 in pt. Chart and also result of CT scan done as well on 10/17/23. Protocol Used: Hip Pain (Adult) Protocol-Based Disposition: Go to Office or Video Visit Now Positive Triage Questions: * Severe pain (e.g., excruciating, unable to do any normal activities) * Numbness in a leg or foot (i.e., loss of sensation) * All higher-acuity triage questions were negative Care Advice Discussed: * Reassurance and Education - Hip Pain * Pain Medicines * Reassurance and Education - Muscle Strain * Reassurance and Education - Overuse * Use a Cold Pack for Pain * Use Heat After 48 Hours for Pain * Telephone Encounter - Sheri Fallon - 10/18/2023 9:04 AM EDT Patient calling to report ED visit on : Date: 10/17/23 Hospital: [facility] Seen for: back pain, pt states has pain and would like sick visit for today. Patient advised will forward to team nurse for follow up. Please contact at [phone] Wolof documented in this encounter Plan of Treatment Upcoming Encounters Date Type Department Care Team ([facility] st Contact Info) Description 07/16/2024 9:00 AM EST Telemedicine [facility] [address] [place] [address] Zeinab Carey MD [address] [place] [address] documented as of this encounter Visit Diagnoses Not on filedocumented in this encounter Additional Health Concerns Assessment Noted Time PHQ-9 Depression Total Score: 8 05/15/20 23 11:18 AM EST documented as of this encounter Care Teams Oil Speculator Relationship Specialty Start Date End Date Zeinab Carey MD [address] [place] [address] PCP - General Family Medicine 05/16/17 documented as of this encounter
--- OUTSIDE RECORDS SUMMARY | 2024-07-07 10:55 | XMS_ITS | Encounter Summary ---
Author Organization [employer] Address [address] [facility] 7 [place] [address] Care Team Providers Care [place]anau Support Worker Name Role Phone Zeinab Carey MD Primary Care Provider [phone] Reason for Visit * Reason Onset Date Comments Referral 10/29/2023 Encounter Details Date Type Department Care Team ([facility] st Contact Info) Description 10/29/[address] [facility] [address] [place], [place] [phone] Zeinab Carey MD [address] [place] [address] Referral Social History Tobacco Use Types Packs/Day [...] Encounter - Wing Kody RN - 11/27/2023 3:01 PM EDT Repeated request to PCP in other message chain. * Telephone Encounter - Sruthi Rodriguez - 11/27/2023 11:12 AM EDT Tc from pt requesting status in regards to referral. Please contact pt at [phone] * Telephone Encounter - Sruthi Rodriguez - 10/29/2023 12:43 PM EDT Tc from pt requesting a referral to neurologist. Pt states forgetfulness is becoming more consistent and would like testing. Please contact pt at [phone] (Kazakh) documented in this encounter Plan of Treatment Upcoming Encounters Date Type Department Care Team (Late st Contact Info) Description 07/16/2024 9:00 AM EST Telemedicine [facility] [address] [place], [place] [phone] Zeinab Carey MD [address] [place] [address] documented as of this encounter Visit Diagnoses Not on filedocumented in this encounter Additional Health Concerns Assessment Noted Time PHQ-9 Depression Total Score: 8 05/15/20 23 11:18 AM EST documented as of this encounter Care Teams Whanau Support Worker Relationship Specialty Start Date End Date Zeinab Carey MD [address] [place] [address] PCP - General Family Medicine 05/16/17 documented as of this encounter
--- OUTSIDE RECORDS SUMMARY | 2024-07-07 10:55 | XMS_ITS | Encounter Summary ---
Author Organization [employer] Address [address] [facility] 7 [place] [address] Care Team Providers Care Insurance Territory Manager Name Role Phone Zeinab Carey MD Primary Care Provider [phone] Encounter Details Date Type Department Care Team (Late st Contact Info) Description 01/11/2024 Orders Only [facility] [address] [place] [address] ProviderLou MD Social History Tobacco Use Types [...] t he electric, gas, oil or water [employer] threatened to shut off services in your [...] Info) Description 07/16/2024 9:00 AM EST Telemedicine [facility] [address] [place] [address] Zeinab Carey MD [address] [place] [address] documented as of this encounter Procedures Procedure Name Priority Date/Time Associated Diagnosis Comments AUDITORY FUNCTION TESTS Routine 07/24/2023 11:41 AM EST documented in this encounter Results * Auditory function tests (07/24/2023 11:41 AM EST) us Historical Provider AUDIOLOGY SERVICES ORDERA BLES Final Result documented in this encounter Visit Diagnoses Not on filedocumented in this encounter Additional Health Concerns Assessment Noted Time PHQ-9 Depression Total Score: 8 05/15/20 23 11:18 AM EST documented as of this encounter Care Teams Insurance Territory Manager Relationship Specialty Start Date End Date Zeinab Carey MD [address] [place] [address] PCP - General Family Medicine 05/16/17 documented as of this encounter
== END 2024-07-07 11:10 | disposition home or self-care (01) ==
PROVIDERS: PCP Pediatrics; Visit Provider Advanced Practice Midwife
DX: N94.10 Unspecified dyspareunia (principal); N95.2 Postmenopausal atrophic vaginitis; Z01.419 Encounter for gynecological examination (general) (routine) without abnormal findings; Z11.3 Encounter for screening for infections with a predominantly sexual mode of transmission; Z12.4 Encounter for screening for malignant neoplasm of cervix
CPT/HCPCS: 99396; 99459

== ENCOUNTER 2024-08-06 11:54 | Outpatient (REF) | payer MEDICAID, SELFPAY ==
--- OUTSIDE RECORDS SUMMARY | 2024-08-06 13:59 | XMS_ITS | Encounter Summary ---
Author Organization [employer] Address 75 [facility] 7t [place] [address] Care Team Providers Care Pneudraulic Systems Mechanic Name Role Phone Zeinab Carey MD Primary Care Provider [phone] Encounter Details Date Type Department Care Team (Late st Contact Info) Description 07/07/2024 Orders Only GENERIC EXTERNAL DATA DEPARTMENT Provider, Generic External Data Social History Tobacco Use Types Packs/Day Years [...] as of this encounter Plan of Treatment Not on file documented as of this encounter Procedures Procedure Name Priority Date/Time Associated Diagnosis Comments BACTERIAL VAGINOSIS PANEL Routine 07/07/2024 12:00 AM EST CHLAMYDIA/N. GONORRHOEAE RNA, TMA, UROGENITAL Routine 07/07/2024 12:00 AM EST documented in this encounter Results * Bacterial Vaginosis (07/07/2024 12:00 AM EST) TRICHOMONAS VAGINALIS DETECTION BY PCR NOT DETECTED Not Detect [facility] BACTERIAL VAGINOSIS DETECTION BY PCR NEGATIVE Negative [facility] Comment:The BV organism targ ets of the Xpert Xpress MVP test can becommensal in women; Xpert Xpress MVP positive results forbacterial vaginosis should be considered in conjunction withother clinical and patient information to determine thedisease status. Organisms that are not detected by the XpertXpress MVP test have also been reported to be associatedwith BV and aerobic vaginitis.The Xpert Xpress MVP test performance has not been evaluatedin patients under the age of 14. CLAIRE GROUP DETECTION BY PCR NOT DETECTED Not Detect [facility] Claire glab krusei PCR NOT DETECTED Not Detect [facility] 07/07/2024 07/07/2024 us Generic External Data Provider LAB MICROBIOLOGY - GENERAL ORDERABLES Final Result [facility] [address] [place] [phone] * Chlamydia/N. Gonorrhoeae RNA, TMA, Urogenitial (07/07/2024 12:00 AM EST) CT PCR NOT DETECTED Not Detect. [facility] Comment:A not detected test result does not exclude the possibilityof infection because test results can be affected byimproper specimen collection, concurrent antibiotic therapy,or the number of organisms in the specimen which may bebelow the sensitivity of the test. As with many diagnostictests, results from the Xpert CT/NG assay should beinterpreted in conjunction with other laboratory andclinical data available to the clinician.Xpert CT/NG performance has not been evaluated in patientsless than 14 years of age. The assay should not be used forthe evaluationof suspected sexual abuse or for other medico-legalindications. Additional testing is recommended in anycircumstance when false positive or false negative resultscould lead to adverse medical, social or psychologicalconsequences. NG PCR NOT DETECTED Not Detect. [facility] Comment:A not detected test result does not exclude the possibilityof infection because test results can be affected byimproper specimen collection, concurrent antibiotic therapy,or the number of organisms in the specimen which may bebelow the sensitivity of the test. As with many diagnostictests, results from the Xpert CT/NG assay should beinterpreted in conjunction with other laboratory andclinical data available to the clinician.Xpert CT/NG performance has not been evaluated in patientsless than 14 years of age. The assay should not be used forthe evaluationof suspected sexual abuse or for other medico-legalindications. Additional testing is recommended in anycircumstance when false positive or false negative resultscould lead to adverse medical, social or psychologicalconsequences. 07/07/2024 07/07/2024 Narrative [facility] - 07/08/2024 6:03 AM EST Vaginal us Generic External Data Provider LAB MICROBIOLOGY - GENERAL ORDERABLES Final Result [facility] [address] [place] [phone] [phone] documented in this encounter Visit Diagnoses Not on filedocumented in this encounter Additional Health Concerns Assessment Noted Time PHQ-9 Depression Total Score: 8 05/15/20 23 11:18 AM EST documented as of this encounter Care Teams Pneudraulic Systems Mechanic Relationship Specialty Start Date End Date Zeinab Carey MD 505 [facility] [place] [address] PCP - General Family Medicine 05/16/17 documented as of this encounter
--- OUTSIDE RECORDS SUMMARY | 2024-08-06 13:59 | XMS_ITS | Encounter Summary ---
Author Organization [employer] Address [address] [facility] [address] 7[address] [place] [address] Care Team Providers Care Tube Inspector Name Role Phone Zeinab Carey MD Primary Care Provider [phone] Encounter Details Date Type Department Care Team ([facility] st Contact Info) Description 06/30/2024 Orders Only [facility] CH[facility] MED & PEDS [address] [place] [address] ProviderLou MD Social History Tobacco Use Types [...] documented as of this encounter Care Teams Tube Inspector Relationship Specialty Start Date End Date Zeinab Carey MD [address] [place] [address] PCP - General Family Medicine 05/16/17 documented as of this encounter
--- OUTSIDE RECORDS SUMMARY | 2024-08-06 13:59 | XMS_ITS | Clinical Summary ---
Author Organization [facility] Address [address] [place] [address] Phone Care Team Providers Care Upholsterer Inside Name Role Phone Zeinab Carey MD Primary Care Provider [phone] Allergies No known active allergies Medications ondansetron [...] EST - 06/28/2024 4:12 AM EST Emergency [facility] Emergency [address] [place] [address] Discharge Disposition: Left Against Medical [...] AM EDT Office Visit Bariatric Surgery - [place] [address] [facility] [address] [place] [phone] Omer Saha MD [address] [facility] [address] [place] [address] Health Maintenance Due Date Last Done Comments Breast Cancer Screening 1975 Cervical Cancer Screening: Pap Smear 1994 Colorectal Cancer Screening: Colonoscopy 05/07/2022 Hepatitis C Screening 05/07/2022 Social Influencers of Health Screening 05/07/2022 Pneumococcal Vaccine: 50+ Years (1 of 1 - PCV) 2023 COVID-19 Vaccine (4 - season) 2024 07/05/2022, 11/10/2020, 10/13/2020 Depression Screening 05/15/2024 05/15/2023 Zoster Vaccines (2 of 2) 07/08/2024 05/13/2024 DTaP,Tdap,and Td Vaccines (2 - Td or Tdap) 05/17/2027 05/17/2017 Cholesterol Screening (Lipid Panel) 03/06/2029 03/06/2024, 03/06/2024, [...] GEMUSE QTc 426 ms GEMUSE P Wave [place] 53 degrees GEMUSE R [place] 19 degrees GEMUSE T [place] 39 degrees GEMUSE ECG Interpretation Sinus bradycardia [...] Maintenance Insurance MEDICAID - [place] Care Teams Upholsterer Inside Relationship Specialty Start Date End Date Zeinab Carey MD [address] [place] [address] PCP - General 07/29/21
--- OUTSIDE RECORDS SUMMARY | 2024-08-06 13:59 | XMS_ITS | Encounter Summary ---
Author Organization [employer] Address 75 [facility] 7 [place] [address] Care Team Providers Care Director Of Perioperative Services Name Role Phone Zeinab Carey MD Primary Care Provider [phone] Reason for Visit * Reason Onset Date Comments Medication Question 10/24/2023 Referral 10/24/2023 Encounter Details Date Type Department Care Team ([facility] st Contact Info) Description 10/24/2023 Telephone [facility] MEDICINE [address] [place] [address] Zeinab Carey MD [address] [place] [address] Medication Question; Referral Social History Tobacco Use [...] would like to be sent to [address] [place] [address] and is request for a stronger medication than the cyclobenzaprine (Flexeril) 10 MG tablet patient stated this medication is not helping with pain documented in this encounter Plan of Treatment Not on file documented as of this encounter Visit Diagnoses Not on filedocumented in this encounter Additional Health Concerns Assessment Noted Time PHQ-9 Depression Total Score: 8 05/15/20 23 11:18 AM EST documented as of this encounter Care Teams Director Of Perioperative Services Relationship Specialty Start Date End Date Zeinab Carey MD [address] [place] [address] PCP - General Family Medicine 05/16/17 documented as of this encounter
--- OUTSIDE RECORDS SUMMARY | 2024-08-06 13:59 | XMS_ITS | Encounter Summary ---
Author Organization [employer] Address 75 [facility] [address] [place] [address] Care Team Providers Care Farm Service Consultant Name Role Phone Zeinab Carey MD Primary Care Provider [phone] Reason for Visit * Reason Onset Date Comments Results 03/26/2024 Encounter Details Date Type Department Care Team ([facility] st Contact Info) Description 03/26/2024 Telephone [facility] MEDICINE [address] [place] [address] Zeinab Carey MD [address] [place] [address] Results Social History Tobacco Use Types Packs/Day [...] results: Labs Date when done: 03/15/24 Facility: [facility] Labs documented in this encounter Plan of Treatment Not on file documented as of this encounter Visit Diagnoses Not on filedocumented in this encounter Additional Health Concerns Assessment Noted Time PHQ-9 Depression Total Score: 8 05/15/20 23 11:18 AM EST documented as of this encounter Care Teams Farm Service Consultant Relationship Specialty Start Date End Date Zeinab Carey MD [address] [place] [address] PCP - General Family Medicine 05/16/17 documented as of this encounter
--- OUTSIDE RECORDS SUMMARY | 2024-08-06 13:59 | XMS_ITS | Encounter Summary ---
Author Organization [employer] Address 75 [facility] 7 [place] [address] Care Team Providers Care Event Staff Name Role Phone Zeinab Carey MD Primary Care Provider Reason for Visit * Reason Onset Date Comments Request For Order(s) 10/30/2023 Encounter Details Date Type Department Care Team ([facility] Contact Info) Description 10/30/2023 Telephone [facility] MED & PEDS [address] [place] [address] Zeinab Carey MD [address] [place] [address] Request For Order(s) Social History Tobacco Use [...] surgery. Please contact pt for questions/clarification at [phone] documented in this encounter Plan of Treatment Not on file documented as of this encounter Visit Diagnoses Not on filedocumented in this encounter Additional Health Concerns Assessment Noted Time PHQ-9 Depression Total Score: 8 05/15/20 23 11:18 AM EST documented as of this encounter Care Teams Event Staff Relationship Specialty Start Date End Date Zeinab Carey MD [address] [place] [address] PCP - General Family Medicine 05/16/17 documented as of this encounter
--- OUTSIDE RECORDS SUMMARY | 2024-08-06 13:59 | XMS_ITS | Encounter Summary ---
Author Organization [employer] Address 75 [facility] 7 [place] [address] Care Team Providers Care Switch Adjuster Name Role Phone Zeinab Carey MD Primary Care Provider [phone] Reason for Visit * Reason Onset Date Comments Nurse Triage 06/25/2024 Encounter Details Date Type Department Care Team ([facility] st Contact Info) Description 06/25/2024 Telephone [facility] MED & PEDS [address] [place], [place] [phone] Zeinab Carey MD [address] [place] [address] Nurse Triage Social History Tobacco Use Types [...] 06/25/2024 10:50 AM EST Triage call with [facility] [place] [id number] Jose. Called x2, unable to make connectiion. [...] documented as of this encounter Care Teams Switch Adjuster Relationship Specialty Start Date End Date Zeinab Carey MD [address] [place] [address] PCP - General Family Medicine 05/16/17 documented as of this encounter
--- OUTSIDE RECORDS SUMMARY | 2024-08-06 13:59 | XMS_ITS | Encounter Summary ---
Author Organization [employer] Address [address] [facility] 7 [place] [address] Care Team Providers Care Graduate Fellow Name Role Phone Zeinab Carey MD Primary Care Provider [phone] Reason for Visit * Reason Onset Date Comments Nurse Triage 07/29/2024 Encounter Details Date Type Department Care Team ([facility] st Contact Info) Description 07/29/2024 Telephone [facility] MED & PEDS [address] [place] [address] Zeinab Carey MD [address] [place] [address] Nurse Triage Social History Tobacco Use Types [...] encounter Miscellaneous Notes * Telephone Encounter - Monserrat Ramirez RN - 08/04/2024 12:30 PM EDT TC to patient for PRN FU. No answer. Left message to return call to office. * Telephone Encounter - Giovana Drummond RN - 07/29/2024 2:03 PM EST Sent to team for [facility] ER status check PRN. * Telephone Encounter - Giovana Drummond RN - 07/29/2024 1:54 PM EST No equipment cleaner needed as this senior technical writer speaks Mongolian. Call returned to Saundra Mayo to triage below. Reports having ANDERSEN, dizziness. Pt reports not calling regarding BP, calling regarding HR on apple watch. Per pt had a low HR of 53bpm registered on apple watch today at 1pm. Per pt onset of lower HR readings x 1 week. Per pt had similar readings 1 month ago. Per pt had left arm pain and left chest pain that lasted less than 5 mins today. Per pt does report having lightheadedness. Pt has also had ANDERSEN and nausea. These sx started today as well. Pt alert, speaking in clear sentences. Pt on tx for hypothyroidism. Pt advised of disposition, agrees to seek [facility] ER now for evaluation of sx. Protocol Used: Heart Rate and Heartbeat Questions (Adult) Protocol-Based Disposition: Go to ED Now Positive Triage Question: * Feeling weak or lightheaded (e.g., woozy, feeling like they might faint) * All higher-acuity triage questions were negative Care Advice Discussed: * Reassurance and Education - Palpitations and Extra Heartbeats * Avoid Caffeine * Reasons To Call Back - Chest pain, lightheadedness or difficulty breathing occurs - You become worse * Telephone Encounter - Светлана Murray - 07/29/2024 1:46 PM EST Symptom: Low Blood Pressure - Caller Reports Outcome: Schedule a same-day appointment or talk to a nurse or provider today Reason: Caller denied all higher acuity questions The caller accepted this outcome. Pt has dizziness,headache weak documented in this encounter Plan of Treatment Not on file documented as of this encounter Visit Diagnoses Not on filedocumented in this encounter Additional Health Concerns Assessment Noted Time PHQ-9 Depression Total Score: 8 05/15/20 23 11:18 AM EST documented as of this encounter Care Teams Graduate Fellow Relationship Specialty Start Date End Date Zeinab Carey MD [address] [place] [id number] PCP - General Family Medicine 05/16/17 documented as of this encounter
--- OUTSIDE RECORDS SUMMARY | 2024-08-06 13:59 | XMS_ITS | Encounter Summary ---
Author Organization [employer] Address [address] [facility] [address] 7[address] [place] [address] Care Team Providers Care King Maker Name Role Phone Zeinab Carey MD Primary Care Provider [phone] Encounter Details Date Type Department Care Team (Latest Contact Info) Description 07/16/2024 Travel Social History Tobacco Use Types Packs/Day Years [...] documented as of this encounter Care Teams King Maker Relationship Specialty Start Date End Date Zeinab Carey MD [address] [place] [address] PCP - General Family Medicine 05/16/17 documented as of this encounter
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
--- OUTSIDE RECORDS SUMMARY | 2024-08-06 13:59 | XMS_ITS | Encounter Summary ---
Author Organization [employer] Address [address] [facility] [address] 7[address] [place] [address] Care Team Providers Care Extermination Inspector Name Role Phone Zeinab Carey MD Primary Care Provider [phone] Encounter Details Date Type Department Care Team (Latest Contact Info) Description 08/06/2024 Travel Social History Tobacco Use Types Packs/Day [...] documented as of this encounter Care Teams Extermination Inspector Relationship Specialty Start Date End Date Zeinab Carey MD [address] [place] [address] PCP - General Family Medicine 05/16/17 documented as of this encounter
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
--- OUTSIDE RECORDS SUMMARY | 2024-08-06 13:59 | XMS_ITS | Encounter Summary ---
Author Organization [employer] Address [address] [place] [address] Care Team Providers Care Manager Farm Name Role Phone Zeinab Carey MD Primary Care Provider [phone] Reason for Visit * Reason Onset Date Comments Results 04/27/2023 Encounter Details Date Type Department Care Team ([facility] st Contact Info) Description 04/27/2023 Telephone [facility] MEDICINE [address] [place] [address] Zeinab Carey MD [address] [place] [address] Results Social History Tobacco Use Types Packs/Day [...] documented as of this encounter Care Teams Manager Farm Relationship Specialty Start Date End Date Zeinab Carey MD [address] [place] [address] PCP - General Family Medicine 05/16/17 documented as of this encounter
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
--- OUTSIDE RECORDS SUMMARY | 2024-08-06 13:59 | XMS_ITS | Encounter Summary ---
Author Organization [employer] Address [address] [facility] [place] [address] Care Team Providers Care Underground Mine Machinery Mechanic Name Role Phone Zeinab Carey MD Primary Care Provider [phone] Reason for Visit * Reason Onset Date Comments Appointment Request 09/07/2023 Encounter Details Date Type Department Care Team ([facility] st Contact Info) Description 09/07/2023 Telephone [facility] MEDICINE [address] [place] [address] Zeinab Carey MD [address] [place] [address] Appointment Request Social History Tobacco Use Types [...] documented as of this encounter Care Teams Underground Mine Machinery Mechanic Relationship Specialty Start Date End Date Zeinab Carey MD [address] [place] [address] PCP - General Family Medicine 05/16/17 documented as of this encounter
--- OUTSIDE RECORDS SUMMARY | 2024-08-06 13:59 | XMS_ITS | Data Portability ---
Author Organization [facility] Pain Managem ent, PAIN OFFICE Address [address] [facility] [address] [place] [address] Care Team Providers Care Sow Manager Name Role Phone MALENA TOMLIN Referring Provider [...] booked for the same. She needs a truck driver flatbed on the day of the procedure. I [...] booked for the same. She needs a truck driver flatbed on the day of the procedure. I [...] Lyrica 75 mg capsule 2020 021 [email or web address] [facility]/Pharmacy #[id number], [address] [facility] [place], [address], 11:06:49 Patient TargetsNo targets recorded. Patient Instructions Encounter Date Encounter Id Patient Instructions Last Modified By Organization Details Last Modified Time 08/05/2020 [id number] She was advised against bed rest lasting [...] Recorded Time Degeneration of lumbar intervertebral disc 75821642 Active Alba manjarrez MD [address] [facility] [address], [place], [address], [place] [facility] 13:04:51 Lumbosacral radiculopathy 2564001 Active Alba manjarrez MD [address] [facility] , [address], [place], [address], [place] [facility] 16:34:00 Problem Notes None recorded. Procedures Surgical History Date Name Laterality Status Provider Name and Address Organization Details Recorded Time 01/20/20 21 Lumbar Epidural steroid injection under fluoroscopic guidance completed Alba Fermin MD [address] [facility] , [address], [place], [address], [place] [facility] 01/19/2021 14:57:24 08/12/19 21 Lumbar Epidural steroid injection under fluoroscopic guidance completed Alba Fermin MD [address] [facility] , [address], [place], [address], [place] [facility] 08/11/2020 11:32:05 classical section completed Alba Fermin MD [address] [facility] , [address], [place], [address], [place] [facility] 05/31/2020 13:23:56 Carpal tunnel surgery completed Alba Fermin MD [address] [facility] , [address], [place], [address], [place] [facility] 05/31/2020 [...] Details Last Updated DateTime 08/05/2020 35.5 kg/m2 49751.32 g Alba Fermin MD [address] [employer] , [address], [place], [address], [place] [facility] 08/05/2020 10:28:17 Date Recorded Body height Heart rate Oxygen saturation Oxygen saturation in Arterial blood by Pulse oximetry Pain severity - 0-10 verbal numeric rating [Score] - Reported Systolic blood pressure Diastolic blood pressure Provider Name and Address Organization Details Last Updated DateTime 1 167.64 cm 82 /min 98 % 98 % 5 141 mm[Hg] 92 mm[Hg] Taco manjarrez [place] - [facility] 11:01:26 Date [...] saturation in Arterial blood by Pulse oximetry Pain severity - 0-10 verbal numeric rating [Score] - Reported Systolic blood pressure Diastolic blood pressure Provider Name and Address Organization Details Last Updated DateTime 1 167.64 cm 68 /min 99 % 99 % 10 138 mm[Hg] 83 mm[Hg] Taco manjarrez [place] [facility] 13:03:51 Date Recorded Body height Body mass index (BMI) Body weight Heart rate Oxygen saturation Oxygen saturation in Arterial blood by Pulse oximetry Pain severity - 0-10 verbal numeric rating [Score] - Reported Systolic blood pressure Diastolic blood pressure Provider Name and Address Organization Details Last Updated DateTime 1 167.64 cm 35.5 kg/m2 99031.3 2 g 65 /min 99 % 99 % 7 126 mm[Hg] 81 mm[Hg] Alba manjarrez MD [address] , [address], [place], [address], [place] [facility] 09:51:59 Social History Question Answer Notes LastModified by Organizat ion Details LastModified Time Tobacco Smoking Status Never Smoker Alba Fermin MD [address] , [address], [place], [address], [facility] Pain Management 05/31/2020 13:22:16 What Is [...] available 08/2020 13:20:59 Medical History Condition Response Arthritis Y Hypothyroidism Y Depression Y Fibromyalgia Y Gynecological HistoryNo gynecological history recorded. Obstetrics History GPAL:G 0 P 0 0 0 0 Past Encounters Encounter ID Performer Location Encounter Start Date Encounter Closed Date Diagnosis/Indication Diagnosis SNOMED-CT Code Diagnosis ICD10 Code Diagnosis Note [id number] Alba Fermin MD PAIN OFFICE [address] [facility] [place] [address] 05/31/2020 13:00:06 06/09/2020 14:01:06 Degeneration of lumbar intervertebral disc 77649072 M51.36 Lumbosacra l radiculopathy 1932680 M54.17 [id number] Alba Fremin MD PAIN OFFICE [address] [employer] [place] [address] 08/05/2020 09:46:02 08/05/2020 16:06:45 Lumbosacral radiculopathy 8144224 M54.17 Degenerati on of lumbar intervertebral disc 16117890 M51.36 [id number] Alba Fermin MD [facility] PAIN OFFICE [address] [place] [address] 08/11/2020 10:53:36 08/11/2020 15:31:14 Lumbosacral radiculopathy 9708579 M54.17 Degenerati on of lumbar intervertebral disc 93770801 M51.36 [id number] Alba Fermin MD [facility] PAIN OFFICE [address] [place] [address] 09/06/2020 11:00:03 09/06/2020 11:22:45 Lumbosacral radiculopathy 5421105 M54.17 Degenerati on of lumbar intervertebral disc 71337250 M51.36 [id number] Alba Fermin MD PAIN OFFICE [address] [place] [address] 01/19/2021 13:00:43 01/19/2021 15:00:32 Lumbosacral radiculopathy 7611721 M54.17 Degenerati on of lumbar intervertebral disc 24942896 M51.36 [id number] lAba Fermin MD [facility] PAIN OFFICE [address] [place] [address] 02/28/2021 09:18:31 02/28/2021 10:35:25 Lumbosacral radiculopathy 6523681 M54.17 Degenerati on of lumbar intervertebral disc 78932623 M51.36 Health Concerns Section Related Observation LastModified by Organization Detai ls LastModified Time None Recorded Concern Status LastModified by Organization Details LastModified Time None Recorded Advance Directives Directive None Recorded Payers Encounter Date Sequence Insurance Name Policy Number Policy Cardenas Covered Member ID Cardenas Member ID Guarantor Name 08/05/2020 1 [place] [facility] Saundra Mayo [id number] Saundra Mayo 08/11/2020 1 [place] [facility] Saundra Mayo [id number] Saundra Mayo 09/06/2020 1 [place] Saundra Mayo [id number] Saundra Mayo 01/19/2021 1 [place] Saundra Mayo [id number] Saundra Mayo 02/28/2021 1 [place] [facility] Saundra Mayo [id number] Saundra Mayo Notes Date Note Type Note Provider Name [...] She has seen Dr. Bravo, neurosurgeon at [facility] and had a MRI cervical spine which shows C6-C7: Concentric disc osteophyte complex with left paracentral protrusion, along with right greater than left uncovertebral spurring. Moderate central stenosis. Mild right and no significant left neural foraminal narrowing. She has had physical therapy with no pain benefit. Alba Fermin MD [address] [facility] , [address], [place], [address], [facility] - Pain Management 08/06/2020 08:36:35 08/11/2020 text/html She is here for a trial of lumbar epidural steroid injection under fluoroscopic guidance. Alba Fermin MD [address] [facility] , [address], [place], [address], [facility] - Pain Management 08/12/2020 08:42:07 09/06/2020 text/html She [...] Dr. Bravo on 09/09/2020. Alba Fermin MD [address] [facility] , [address], [place], [address], [facility] Pain Management 09/07/2020 10:03:30 01/19/2021 text/html She is here for a lumbar epidural steroid injection under fluoroscopic guidance. Alba Fermin MD [address] [facility] , [address], [place], [address], [facility] - Pain Management 01/20/2021 08:54:35 02/28/2021 text/html [...] no arm pain. Alba Fermin MD [address] [facility] , [address], [place], [address], [facility] Pain Management 03/01/2021 08:55:58 OBGyn Episode No OBEpisode recorded.
--- OUTSIDE RECORDS SUMMARY | 2024-08-06 13:59 | XMS_ITS | Encounter Summary ---
Author Organization [employer] Address [address] [facility] 7 [place] [address] Care Team Providers Care Kayak Maker Name Role Phone Zeinab Carey MD Primary Care Provider [phone] Reason for Visit * Reason Onset Date Comments Referral 10/29/2023 Encounter Details Date Type Department Care Team ([facility] st Contact Info) Description 10/29/2023 Telephone [facility] MED & PEDS [address] [place], [place] [phone] Zeinab Carey MD [address] [place] [address] Referral Social History Tobacco Use Types Packs/Day [...] regards to referral. Please contact pt at [phone] * Telephone Encounter - Sruthi Rodriguez - 10/29/2023 12:43 PM EDT Tc from pt requesting a referral to neurologist. Pt states forgetfulness is becoming more consistent and would like testing. Please contact pt at [phone] (Setswana) documented in this encounter Plan of Treatment Not on file documented as of this encounter Visit Diagnoses Not on filedocumented in this encounter Additional Health Concerns Assessment Noted Time PHQ-9 Depression Total Score: 8 05/15/20 23 11:18 AM EST documented as of this encounter Care Teams Kayak Maker Relationship Specialty Start Date End Date Zeinab Carey MD [address] [place] [address] PCP - General Family Medicine 05/16/17 documented as of this encounter
--- OUTSIDE RECORDS SUMMARY | 2024-08-06 13:59 | XMS_ITS | Encounter Summary ---
Author Organization [employer] Address [address] [facility] [address] [place] [address] Care Team Providers Care Web Services Architect Name Role Phone Zeinab Carey MD Primary Care Provider [phone] Reason for Visit * Reason Onset Date Comments Results 01/18/2024 Encounter Details Date Type Department Care Team ([facility] st Contact Info) Description 01/18/2024 Telephone [facility] MEDICINE [address] [place] [address] Zeinab Carey MD [address] [place] [address] Results Social History Tobacco Use Types Packs/Day [...] CT Scan Date when done: 12/05 Facility: [facility] documented in this encounter Plan of Treatment Not on file documented as of this encounter Visit Diagnoses Not on filedocumented in this encounter Additional Health Concerns Assessment Noted Time PHQ-9 Depression Total Score: 8 05/15/20 11:18 AM EST documented as of this encounter Care Teams Web Services Architect Relationship Specialty Start Date End Date Zeinab Carey MD [address] [place] [address] PCP - General Family Medicine 05/16/17 documented as of this encounter
--- OUTSIDE RECORDS SUMMARY | 2024-08-06 13:59 | XMS_ITS | Encounter Summary ---
Author Organization [employer] Address [address] [facility] 7 [place] [address] Care Team Providers Care Plastic Sewer Name Role Phone Zeinab Carey MD Primary Care Provider Encounter Details Date Type Department Care Team (Late st Contact Info) Description 01/11/2024 Orders Only [facility] [address] [place] [address] ProviderLou MD Social History Tobacco Use Types [...] EST) us Historical Provider AUDIOLOGY SERVICES ORDERA CANDICE Final Result documented in this encounter Visit Diagnoses Not on filedocumented in this encounter Additional Health Concerns Assessment Noted Time PHQ-9 Depression Total Score: 8 05/15/20 23 11:18 AM EST documented as of this encounter Care Teams Plastic Sewer Relationship Specialty Start Date End Date Zeinab Carey MD [address] [place] [address] PCP - General Family Medicine 05/16/17 documented as of this encounter
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
--- OUTSIDE RECORDS SUMMARY | 2024-08-06 13:59 | XMS_ITS | Encounter Summary ---
Author Organization [employer] Address [address] [facility] [address] [place] [address] Care Team Providers Care Inspector Tester Sorter Name Role Phone Zeinab Carey MD Primary Care Provider [phone] Reason for Visit * Reason Onset Date Comments Results 06/26/2023 Encounter Details Date Type Department Care Team ([facility] st Contact Info) Description 06/26/2023 Telephone [facility] MEDICINE [address] [place] [address] Zeinab Carey MD [address] [place] [address] Results Social History Tobacco Use Types Packs/Day [...] Pt also informed of referral placement to [facility] but advised on wait list. Pt verbalized understanding and agrees with plan. * Telephone Encounter - Petra Pagan RN - 06/27/2023 4:13 PM EST Please review pt US results and advise. * Telephone Encounter - Allan Quiroz - 06/26/2023 10:28 AM EST TC from pt requesting call back regarding Results. Type of results: Sonogram Date when done: 06/15 Facility: [facility] documented in this encounter Plan of Treatment Not on file documented as of this encounter Visit Diagnoses Not on filedocumented in this encounter Additional Health Concerns Assessment Noted Time PHQ-9 Depression Total Score: 8 05/15/20 23 11:18 AM EST documented as of this encounter Care Teams Inspector Tester Sorter Relationship Specialty Start Date End Date Zeinab Carey MD [address] [place] [address] PCP - General Family Medicine 05/16/17 documented as of this encounter
--- OUTSIDE RECORDS SUMMARY | 2024-08-06 13:59 | XMS_ITS | Encounter Summary ---
Author Organization [employer] Address [address] [place] [address] Care Team Providers Care Exhibitor Sales Name Role Phone Zeinab Carey MD Primary Care Provider [phone] Reason for Visit * Reason Onset Date Comments MR ORDER 10/23/2023 Encounter Details Date Type Department Care Team ([facility] st Contact Info) Description 10/23/2023 Telephone [facility] MEDICINE [address] [place] [address] Zeinab Carey MD 505 [place] [address] MR ORDER Social History Tobacco Use Types [...] documented as of this encounter Care Teams Exhibitor Sales Relationship Specialty Start Date End Date Zeinab Carey MD 505 [place] [address] PCP - General Family Medicine 05/16/17 documented as of this encounter
--- OUTSIDE RECORDS SUMMARY | 2024-08-06 13:59 | XMS_ITS | Encounter Summary ---
Author Organization [employer] Address 75 [facility] 7 [place] [address] Care Team Providers Care Tacking Stitch Remover Name Role Phone Zeinab Carey MD Primary Care Provider [phone] Reason for Visit * Reason Onset Date Comments Med Refill 08/05/2024 Encounter Details Date Type Department Care Team ([facility] st Contact Info) Description 08/05/2024 Refill [facility] MED & PEDS [address] [place] [address] Zeinab Carey MD 505 [place] [address] Social History Tobacco Use Types Packs/Day Years [...] * Telephone Encounter - Светлана Murray - 08/05/2024 11:19 AM EDT TC from pt requesting medication refill. Medications needing refill : Tirosint 125 MCG capsule To be sent to: [id number] [place], [place] - [address] AT [facility] documented in this encounter Plan of Treatment Not on file documented as of this encounter Visit Diagnoses Not on filedocumented in this encounter Additional Health Concerns Assessment Noted Time PHQ-9 Depression Total Score: 8 05/15/20 23 11:18 AM EST documented as of this encounter Care Teams Tacking Stitch Remover Relationship Specialty Start Date End Date Zeinab Carey MD [address] [place] [address] PCP - General Family Medicine 05/16/17 documented as of this encounter
--- OUTSIDE RECORDS SUMMARY | 2024-08-06 13:59 | XMS_ITS | Encounter Summary ---
Author Organization [facility] Address [address] [place] [id number] Care Team Providers Care Compliance Director Name Role Phone Zeinab Carey MD Primary Care Provider [phone] Reason for Referral * Imaging (Routine) - Closed Specialty Diagnoses / Procedures Referred By Contac t Referred To Contact Radiology Diagnoses Thyroid nodule Acquired hypothyroidism Procedures US Thyroid Zeinab Carey MD 505 [place] [address] Phone: tel: fax: [address] Phone: tel: fax: Referral ID Status Reason Start Date Expiration Date Visits Re quested Visits Authorized [id number] Closed 10/24/2023 10/23/2024 1 1 Encounter Details Date Type Department Care Team (Late st Contact Info) Description 10/24/2023 Orders Only [facility] CHC MED & PEDS [address] [place] [address] Zeinab Carey MD [address] [place], [place] [id number] Thyroid nodule (Primary Dx); Acquired hypothyroidism Social [...] EDT Narrative 11/23/2023 12:26 PM EDT ? [facility] ?[address] ?[place] [address] ? Ultrasound Report ? Signed ? Patient: Mayo,Saundra ?MR#: [id number] ?? 05 ? : 1975 ?Acct:[id number] ? Age/Sex: 48 / F ?ADM Date: 10/31/23 ? Loc: HO.US ? Attending Dr: Zeinab Carey MD ? Ordering Physician: Zeinab Carey MD ?? Date of Service: 10/31/23 ?? Procedure(s): US thyroid ?? Accession Number(s): [id number] ? cc: Zeinab Carey MD ? EXAMINATION: [...] 1222 ? DD/ 1238 ? TD/TT: ? Territory Account Representative: TRUNG ? Procedure Note Dontad, Image - 11/23/2023 [place] [address] Ultrasound Report Signed Patient: Lesvia Mayo#: [id number] [birth year] : 1975Acct:[id number] Age/Sex: 48 / FADM Date: 10/31/23 Loc: HO.US Attending Dr: Zeinab Carey MD Ordering Physician: Zeinab Carey MD Date of Service: 10/31/23 Procedure(s): US thyroid Accession Number(s): [id number] cc: Zeinab Carey MD EXAMINATION: US THYROID [...] in OV> 11/23/23 1222 DD/ 1238 TD/TT: Territory Account Representative: TRUNG Authorpreethi Provider Result Type Result Stat us Zeinab Carey MD IMG US PROCEDURES Final Resul t documented in this encounter Visit Diagnoses Diagnosis Thyroid nodule- Primary Nontoxic uninodular goiter Acquired hypothyroidism Unspecified hypothyroidism documented in this encounter Additional Health Concerns Assessment Noted Time PHQ-9 Depression Total Score: 8 05/15/20 23 11:18 AM EST documented as of this encounter Care Teams Compliance Director Relationship Specialty Start Date End Date Zeinab Carey MD [address] [place] [address] PCP - General Family Medicine 05/16/17 documented as of this encounter
--- OUTSIDE RECORDS SUMMARY | 2024-08-06 13:59 | XMS_ITS | Encounter Summary ---
Author Organization [employer] Address 75 [facility] [place] [address] Care Team Providers Care Digital Computer Systems Analyst Name Role Phone Zeinab Carey MD Primary Care Provider [phone] Reason for Visit * Reason Onset Date Comments Referral 06/27/2023 Encounter Details Date Type Department Care Team ([facility] st Contact Info) Description 06/27/2023 Telephone [facility] MEDICINE [address] [place] [address] Zeinab Carey MD 505 [place] [address] Referral Social History Tobacco Use Types Packs/Day [...] advise. Pt is requesting a referral to [facility] for thyroid management. * Telephone Encounter - Catherine Fitch - 06/27/2023 3:34 PM EST Fax number [phone] * Telephone Encounter - Catherine Fitch - 06/27/2023 3:32 PM EST Tc from pt requesting a new referral for [facility] at [address] [place] [address]. documented in this encounter Plan of Treatment Not on file documented as of this encounter Visit Diagnoses Not on filedocumented in this encounter Additional Health Concerns Assessment Noted Time PHQ-9 Depression Total Score: 8 05/15/20 23 11:18 AM EST documented as of this encounter Care Teams Digital Computer Systems Analyst Relationship Specialty Start Date End Date Zeinab Carey MD [address] [place] [address] PCP - General Family Medicine 05/16/17 documented as of this encounter
[2024-08-06 14:25] LABS: MANUAL DIFF FLAG NO
[2024-08-06 14:36] LABS: Basophils Absolute Auto 0.1 X10*3/uL (0.0-0.2); Basophils Percent Auto 1.3 % (0-2); Eosinophils Absolute Auto 0.2 X10*3/uL (0.0-0.4); Hematocrit 38.8 % (37.0-47.0); Hemoglobin 12.8 g/dl (12.0-16.0); Imm Gran Abs Auto 0.02 X10*3/uL (0.00-0.03); Imm Gran Pct Auto 0.4 % (0.0-0.4); Lymphocytes Absolute Auto 1.6 X10*3/uL (1.2-4.9); Lymphocytes Percent Auto 29.5 % (20-40); Mean Corpuscular Hemoglobin 31.1 pg (27.0-33.0); Mean Corpuscular Volume 94.2 fL (80.0-98.0); Mean Platelet Volume 10.5 fL (9.4-12.3); Monocytes Absolute Auto 0.4 X10*3/uL (0.1-1.2); Monocytes Percent Auto 7.5 % (2-11); Neutrophils Absolute Auto 3.1 x10*3/uL (2.0-8.3); Neutrophils Percent Auto 58.3 % (45-73); Platelet Count 315 X10*3/uL (160-400); Red Blood Count 4.12 X10*6/uL (4.20-5.50); White Blood Count 5.3 X10*3/uL (4.8-10.8)
[2024-08-06 15:00] LABS: Anion Gap 9 (12-20); Blood Urea Nitrogen 15 mg/dL (9-16); Calcium 9.5 mg/dL (8.4-10.2); Carbon Dioxide 30 mmol/L (22-29); Chloride 105 mmol/L (96-108); Estimated Glomerular Filt Rate > 60; Glucose Random 90 mg/dL (60-115); Magnesium 2.1 mg/dL (1.6-2.6); Potassium 4.5 mmol/L (3.3-5.1); Sodium 139 mmol/L (135-145)
[2024-08-06 15:15] LABS: TSH reflex Free T4 3.44 uIU/mL (0.32-4.0)
== END 2024-08-06 11:55 | disposition home or self-care (01) ==
LOC: HO.CHCLDS 11:54
PROVIDERS: Visit Provider Pediatrics
DX: R00.1 Bradycardia, unspecified (principal)
CPT/HCPCS: 36415; 80048; 83735; 84443; 85025

== ENCOUNTER 2024-08-11 10:32 | Outpatient (REF) | payer MEDICAID, SELFPAY ==
--- OUTSIDE RECORDS SUMMARY | 2024-08-11 11:54 | XMS_ITS | Encounter Summary ---
Author Organization [employer] Address [address] [facility] [address] 7t [place] [address] Care Team Providers Care Software Engineer Intern Name Role Phone Zeinab Carey MD Primary Care Provider [phone] Encounter Details Date Type Department Care Team ([facility] st Contact Info) Description 06/30/2024 Orders Only [facility] CHC MED & PEDS [address] [place] [address] Provider, MD Lou Social History Tobacco Use Types Packs/Day Years [...] Care Team (Late st Contact Info) Description 11/14/2024 9:00 AM EDT Office Visit [facility] MED & PEDS 505 [place] [address] Zeinab Carey MD 505 [place] [address] documented as of this encounter Procedures Procedure [...] documented as of this encounter Care Teams Software Engineer Intern Relationship Specialty Start Date End Date Zeinab aCrey MD 505 [place] [address] PCP - General Family Medicine 05/16/17 documented as of this encounter
--- OUTSIDE RECORDS SUMMARY | 2024-08-11 11:54 | XMS_ITS | Encounter Summary ---
Author Organization [employer] Address [address] [facility] [address] 7 [place] [address] Care Team Providers Care Undraped Artist Model Name Role Phone Zeinab Carey MD Primary Care Provider [phone] Reason for Visit * Reason Onset Date Comments Results 03/26/2024 Encounter Details Date Type Department Care Team ([facility] st Contact Info) Description 03/26/2024 Telephone [facility] MEDICINE 230 [place] [address] Zeinab Carey MD 505 [place] [address] Results Social History Tobacco Use Types Packs/Day [...] results: Labs Date when done: 03/15/24 Facility: [facility] documented in this encounter Plan of Treatment Upcoming Encounters Date Type Department Care Team ([facility] st Contact Info) Description 11/14/2024 9:00 AM EDT Office Visit [facility] CH[facility] MED & PEDS 505 [place] [address] Zeinab Carey MD 505 [place] [address] documented as of this encounter Visit Diagnoses Not on filedocumented in this encounter Additional Health Concerns Assessment Noted Time PHQ-9 Depression Total Score: 8 05/15/20 23 11:18 AM EST documented as of this encounter Care Teams Undraped Artist Model Relationship Specialty Start Date End Date Zeinab Carey MD [address] [place] [address] PCP - General Family Medicine 05/16/17 documented as of this encounter
--- OUTSIDE RECORDS SUMMARY | 2024-08-11 11:54 | XMS_ITS | Encounter Summary ---
Author Organization [employer] Address 75 [facility] 7t [place] [address] Care Team Providers Care Industrial Hygienist Name Role Phone Zeinab Carey MD Primary Care Provider [phone] Encounter Details Date Type Department Care Team ([facility] st Contact Info) Description 08/08/2024 Population Health Risk Score [facility] ([facility] Department 75 [facility] 7 [place] [id number] Provider, Population Health Generic Social History Tobacco Use Types Packs/Day Years Used Date Smoking Tobacco: Never Passive Smoke Exposure: Never Smokeless Tobacco: Never Depression Answer Date Recorded Patient Health Questionnaire-9 Score 8 05/15/2023 Patient Health Questionnaire-9 Score 8 05/15/2023 Last PHQ-9: Questionnaire Data Not on file 1 07/16/2022 Housing Stability Answer Date Recorded What is your housing situation today? I have benson jesus 02/12/[address] you li [...] Upcoming Encounters Date Type Department Care Team ([facility] st Contact Info) Description 11/14/2024 9:00 AM EDT Office Visit [facility] MED & PEDS 505 [place] [address] Zeinab Carey MD 505 [place] [address] documented as of this encounter Visit Diagnoses Not on filedocumented in this encounter Additional Health Concerns Assessment Noted Time PHQ-9 Depression Total Score: 8 05/15/20 23 11:18 AM EST documented as of this encounter Care Teams Industrial Hygienist Relationship Specialty Start Date End Date Zeinab Carey MD 505 [place] [address] PCP - General Family Medicine 05/16/17 documented as of this encounter
--- OUTSIDE RECORDS SUMMARY | 2024-08-11 11:54 | XMS_ITS | Encounter Summary ---
Author Organization [employer] Address [address] [facility] [address] 7 [place] [address] Care Team Providers Care Deck Mate Name Role Phone Zeinab Carey MD Primary Care Provider [phone] Encounter Details Date Type Department Care Team ([facility] st Contact Info) Description 08/06/2024 Orders Only [facility] CHC MED & PEDS 505 [place], [place] [phone] Zeinab Carey MD [address] [place] [address] Social History Tobacco Use Types Packs/Day Years Used Date Smoking Tobacco: Never Passive Smoke Exposure: Never Smokeless Tobacco: Never Depression Answer Date Recorded Patient Health Questionnaire-9 Score 8 05/15/2023 Patient Health Questionnaire-9 Score 8 05/15/2023 Last PHQ-9: Questionnaire Data Not on file 1 07/16/2022 Housing Stability Answer Date Recorded What is your housing situation today? I have benson ele 02/12/[address] you li [...] Upcoming Encounters Date Type Department Care Team ([facility] st Contact Info) Description 11/14/2024 9:00 AM EDT Office Visit [facility] MED & PEDS 505 [place] [address] Zeinab Carey MD [address] [place] [address] documented as of this encounter Visit Diagnoses Not on filedocumented in this encounter Additional Health Concerns Assessment Noted Time PHQ-9 Depression Total Score: 8 05/15/20 23 11:18 AM EST documented as of this encounter Care Teams Deck Mate Relationship Specialty Start Date End Date Zeinab Carey MD [address] [place] [address] PCP - General Family Medicine 05/16/17 documented as of this encounter
--- OUTSIDE RECORDS SUMMARY | 2024-08-11 11:54 | XMS_ITS | Encounter Summary ---
Author Organization [employer] Address 75 [facility] 7 [place] [address] Care Team Providers Care Sash Sticker Name Role Phone Zeinab Carey MD Primary Care Provider [phone] Reason for Visit * Reason Onset Date Comments Nurse Triage 06/25/2024 Encounter Details Date Type Department Care Team ([facility] st Contact Info) Description 06/25/2024 Telephone [facility] MED & PEDS 505 [place] [address] Zeinab Carey MD 505 [place] [address] Nurse Triage Social History Tobacco Use Types [...] 06/25/2024 10:50 AM EST Triage call with [facility] [place] [id number] Jose. Called x2, unable to make connectiion. [...] Description 11/14/2024 9:00 AM EDT Office Visit [facility] MED & PEDS 505 [place], [place] [phone] Zeinab Carey MD 505 [place] [address] documented as of this encounter Visit Diagnoses Not on filedocumented in this encounter Additional Health Concerns Assessment Noted Time PHQ-9 Depression Total Score: 8 05/15/20 23 11:18 AM EST documented as of this encounter Care Teams Sash Sticker Relationship Specialty Start Date End Date Zeinab Carey MD 505 [place] [address] PCP - General Family Medicine 05/16/17 documented as of this encounter
--- OUTSIDE RECORDS SUMMARY | 2024-08-11 11:55 | XMS_ITS | Encounter Summary ---
Author Organization [employer] Address [address] [facility] [address] 7t [place] [address] Care Team Providers Care Technology Sales Consultant Name Role Phone Zeinab Carey MD Primary Care Provider [phone] Encounter Details Date Type Department Care Team [...] Upcoming Encounters Date Type Department Care Team ([facility] st Contact Info) Description 11/14/2024 9:00 AM EDT Office Visit [facility] CHC MED & PEDS 505 [place] [address] Zeinab Carey MD 505 [place] [address] documented as of this encounter Visit Diagnoses Not on filedocumented in this encounter Additional Health Concerns Assessment Noted Time PHQ-9 Depression Total Score: 8 05/15/20 23 11:18 AM EST documented as of this encounter Care Teams Technology Sales Consultant Relationship Specialty Start Date End Date Zeinab Carey MD 505 [place] [address] PCP - General Family Medicine 05/16/17 documented as of this encounter
--- OUTSIDE RECORDS SUMMARY | 2024-08-11 11:55 | XMS_ITS | Encounter Summary ---
Author Organization [employer] Address [address] [facility] [address] 7 [place] [address] Care Team Providers Care Applied Biology Professor Name Role Phone Zeinab Carey MD Primary Care Provider [phone] Reason for Visit * Reason Onset Date Comments Referral 06/27/2023 Encounter Details Date Type Department Care Team ([facility] st Contact Info) Description 06/27/2023 Telephone [facility] MEDICINE [address] [place] [address] Zeinab Carey MD 505 [place] [address] Referral Social History Tobacco Use Types Packs/Day [...] advise. Pt is requesting a referral to [facility] for thyroid management. * Telephone Encounter - Catherine Fitch - 06/27/2023 3:34 PM EST Fax number [phone] * Telephone Encounter - Catherine Fitch - 06/27/2023 3:32 PM EST Tc from pt requesting a new referral for [facility] at [address] [place] [address]. documented in this encounter Plan of Treatment Upcoming Encounters Date Type Department Care Team (Late st Contact Info) Description 11/14/2024 9:00 AM EDT Office Visit [facility] CHC MED & PEDS 505 [place], [place] [phone] Zeinab Carey MD [address] [place], [place] [phone] documented as of this encounter Visit Diagnoses Not on filedocumented in this encounter Additional Health Concerns Assessment Noted Time PHQ-9 Depression Total Score: 8 12/19/20 23 11:18 AM EST documented as of this encounter Care Teams Applied Biology Professor Relationship Specialty Start Date End Date Zeinab Carey MD [address] [place] [address] PCP - General Family Medicine 05/16/17 documented as of this encounter
--- OUTSIDE RECORDS SUMMARY | 2024-08-11 11:55 | XMS_ITS | Encounter Summary ---
Author Organization [employer] Address [address] [facility] [address] 7 [place] [address] Care Team Providers Care Natural Resources Specialist Name Role Phone Zeinab Carey MD Primary Care Provider [phone] Reason for Visit * Reason Onset Date Comments Med Refill 08/05/2024 Encounter Details Date Type Department Care Team ([facility] st Contact Info) Description 08/05/2024 Refill [facility] MED & PEDS 505 [place] [address] Zeinab Carey MD 505 [place] [address] Social History Tobacco Use Types Packs/Day Years [...] 125 MCG capsule To be sent to: [facility] #[id number] [place], [place] - [address] AT [facility] documented in this encounter Plan of Treatment Upcoming Encounters Date Type Department Care Team (Late st Contact Info) Description 11/14/2024 9:00 AM EDT Office Visit [facility] MED & PEDS [address] [place] [address] Zeinab Carey MD 505 [place] [address] documented as of this encounter Visit Diagnoses Not on filedocumented in this encounter Additional Health Concerns Assessment Noted Time PHQ-9 Depression Total Score: 8 05/15/20 23 11:18 AM EST documented as of this encounter Care Teams Natural Resources Specialist Relationship Specialty Start Date End Date Zeinab Carey MD 505 [place] [address] PCP - General Family Medicine 05/16/17 documented as of this encounter
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
--- OUTSIDE RECORDS SUMMARY | 2024-08-11 11:55 | XMS_ITS | Encounter Summary ---
Author Organization [employer] Address [address] [facility] [address] 7 [place] [address] Care Team Providers Care Manager Educational Name Role Phone Zeinab Carey MD Primary Care Provider [phone] Encounter Details Date Type Department Care Team (Latest Contact Info) Description 07/16/2024 9:00 AM EST Telemedicine [facility] MED & PEDS [address] [place], [place] [phone] Zeinab Carey MD [address] [place] [address] Degeneration of intervertebral disc of lumbar region [...] is a 49 y/o female patient of [facility] seen via televisit due to recurrent back [...] Description 11/14/2024 9:00 AM EDT Office Visit [facility] MED & PEDS [address] [place] [address] Zeinab Carey MD [address] [place] [address] documented as of this encounter Visit Diagnoses Diagnosis Degeneration of intervertebral disc of lumbar region with discogenic back pain- Primary documented in this encounter Additional Health Concerns Assessment Noted Time PHQ-9 Depression Total Score: 8 05/15/20 23 11:18 AM EST documented as of this encounter Care Teams Manager Educational Relationship Specialty Start Date End Date Zeinab Carey MD [address] [place] [address] PCP - General Family Medicine 05/16/17 documented as of this encounter
--- OUTSIDE RECORDS SUMMARY | 2024-08-11 11:55 | XMS_ITS | Encounter Summary ---
Author Organization [employer] Address 75 [facility] 7 [place] [address] Care Team Providers Care Shift Foreman Name Role Phone Zeinab Carey MD Primary Care Provider [phone] Reason for Visit * Reason Onset Date Comments Results 04/27/2023 Encounter Details Date Type Department Care Team ([facility] Contact Info) Description 04/27/[address] [facility] MEDICINE [address] [place] [address] Zeinab Carey MD [address] [place] [address] Results Social History Tobacco Use Types Packs/Day [...] Description 11/14/2024 9:00 AM EDT Office Visit [facility] MED & PEDS [address] [place], [place] [phone] Zeinab Carey MD [address] [place] [address] documented as of this encounter Visit Diagnoses Not on filedocumented in this encounter Additional Health Concerns Assessment Noted Time PHQ-9 Depression Total Score: 17 023 10:03 AM EST documented as of this encounter Care Teams Shift Foreman Relationship Specialty Start Date End Date Zeinab Carey MD [address] [place] [address] PCP - General Family Medicine 05/16/17 documented as of this encounter
--- OUTSIDE RECORDS SUMMARY | 2024-08-11 11:55 | XMS_ITS | Data Portability ---
Author Organization [facility], PAIN OFFICE Address [address] [facility] [address] [place] [address] Care Team Providers Care Director Medical Economics Name Role Phone MALENA TOMLIN Referring Provider [...] booked for the same. She needs a ambulette driver on the day of the procedure. [...] booked for the same. She needs a ambulette driver on the day of the procedure. [...] Lyrica 75 mg capsule 2020 021 [email or web address] [facility][id number], [address] [facility] [place], [address], 11:06:49 Patient TargetsNo targets recorded. Patient Instructions Encounter Date Encounter Id Patient Instructions Last Modified By Organization Details Last Modified Time 08/05/2020 [id number] She was advised against bed rest lasting [...] Recorded Time Degeneration of lumbar intervertebral disc 79639326 Active Alba manjarrez MD [address] [facility] [address], [place], [address], [place] [facility] 13:04:51 Lumbosacral radiculopathy 0335017 Active Alba manjarrez MD [address] [facility] , [address], [place], [address], [place] [facility] 16:34:00 Problem Notes None recorded. Procedures Surgical History Date Name Laterality Status Provider Name and Address Organization Details Recorded Time 01/20/20 21 Lumbar Epidural steroid injection under fluoroscopic guidance completed Alba Fermin MD [address] [facility] , [address], [place], [address], [place] [facility] 01/19/2021 14:57:24 08/12/19 21 Lumbar Epidural steroid injection under fluoroscopic guidance completed Alba Fermin MD [address] [facility] , [address], [place], [address], [place] [facility] 08/11/2020 11:32:05 classical section completed Alba Fermin MD [address] [facility] [address], [place], [address], [place] [facility] 05/31/2020 13:23:56 Carpal tunnel surgery completed Alba Fermin MD [address] [facility] , [address], [place], [address], [place] [facility] 05/31/2020 [...] Details Last Updated DateTime 08/05/2020 35.5 kg/m2 72269.32 g Alba Fermin MD [address] [employer] , [address], [place], [address], [place] [facility] 08/05/2020 10:28:17 [...] Updated DateTime 1 167.64 cm 35.5 kg/m2 67303.3 2 g 65 /min 99 % 99 % 7 126 mm[Hg] 81 mm[Hg] Alba manjarrez MD [address] [employer] [facility] , [address], [place], [address], [place] [facility] 09:51:59 Social History Question Answer Notes LastModified by Organizat ion Details LastModified Time Tobacco Smoking Status Never Smoker Alba Fermin MD [address] [employer] , [address], [place], [address], [facility] Pain Management 05/31/2020 13:22:16 What Is [...] available 08/2020 13:20:59 Medical History Condition Response Depression Y Hypothyroidism Y Arthritis Y Fibromyalgia Y Gynecological HistoryNo gynecological history recorded. Obstetrics History GPAL:G 0 P 0 0 0 0 Past Encounters Encounter ID Performer Location Encounter Start Date Encounter Closed Date Diagnosis/Indication Diagnosis SNOMED-CT Code Diagnosis ICD10 Code Diagnosis Note [id number] Alba Fermin MD PAIN OFFICE [address] [facility] [place] [address] 05/31/2020 13:00:06 06/09/2020 14:01:06 Degeneration of lumbar intervertebral disc 84292546 M51.36 Lumbosacra l radiculopathy 9117584 M54.17 [id number] Alba Fermin MD PAIN OFFICE [address] [place] [address] 08/05/2020 09:46:02 08/05/2020 16:06:45 Lumbosacral radiculopathy 9698895 M54.17 Degenerati on of lumbar intervertebral disc 45756491 M51.36 [id number] Alba Fermin MD [facility] PA[facility] [address] [place] [address] 08/11/2020 10:53:36 08/11/2020 15:31:14 Lumbosacral radiculopathy 0289309 M54.17 Degenerati on of lumbar intervertebral disc 66076194 M51.36 [id number] Alba Fermin MD [facility] PAIN OFFICE [address] [place] [address] 09/06/2020 11:00:03 09/06/2020 11:22:45 Lumbosacral radiculopathy 7947467 M54.17 Degenerati on of lumbar intervertebral disc 73715346 M51.36 [id number] Alba Fermin MD PAIN OFFICE [address] [place] [address] 01/19/2021 13:00:43 01/19/2021 15:00:32 Lumbosacral radiculopathy 9620145 M54.17 Degenerati on of lumbar intervertebral disc 49280135 M51.36 [id number] Alba Fermin MD [facility] PAIN OFFICE [address] [place] [address] 02/28/2021 09:18:31 02/28/2021 10:35:25 Lumbosacral radiculopathy 6486208 M54.17 Degenerati on of lumbar intervertebral disc 93578868 M51.36 Health Concerns Section Related Observation LastModified by Organization Detai ls LastModified Time None Recorded Concern Status LastModified by Organization Details LastModified Time None Recorded Advance Directives Directive None Recorded Payers Encounter Date Sequence Insurance Name Policy Number Policy Cardenas Covered Member ID Cardenas Member ID Guarantor Name 08/05/2020 1 [place] [facility] Saundra Mayo [id number] Saundra Mayo 08/11/2020 1 [place] [facility] Saundra Mayo [id number] Saundra Mayo 09/06/2020 1 [place] Saundra Mayo [id number] Saundra Mayo 01/19/2021 1 [place] Saundra Mayo [id number] Saundra Mayo 02/28/2021 1 [place] [facility] Saundra Mayo [id number] Saundra Mayo Notes Date Note Type Note [...] She has seen Dr. Bravo, neurosurgeon at [facility] and had a MRI cervical spine which shows C6-C7: Concentric disc osteophyte complex with left paracentral protrusion, along with right greater than left uncovertebral spurring. Moderate central stenosis. Mild right and no significant left neural foraminal narrowing. She has had physical therapy with no pain benefit. Alba Fermin MD [address] [facility] , [address], [place], [address], [facility] - Pain Management 08/06/2020 08:36:35 08/11/2020 text/html She is here for a trial of lumbar epidural steroid injection under fluoroscopic guidance. Alba Fermin MD [address] [facility] , [address], [place], [address], [facility] - Pain Management 08/12/2020 08:42:07 09/06/2020 text/html [...] Bravo on 09/09/2020. Alba Fermin MD [address] [facility] , [address], [place], [address], [facility] Pain Management 09/07/2020 10:03:30 01/19/2021 text/html She is here for a lumbar epidural steroid injection under fluoroscopic guidance. Alba Fermin MD [address] [facility] , [address], [place], [address], [facility] - Pain Management 01/20/2021 08:54:35 02/28/2021 text/html [...] no arm pain. Alba Fermin MD [address] [facility] , [address], [place], [address], [facility] Pain Management 03/01/2021 08:55:58 OBGyn Episode No OBEpisode recorded.
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
--- OUTSIDE RECORDS SUMMARY | 2024-08-11 11:55 | XMS_ITS | Encounter Summary ---
Author Organization [employer] Address [address] [facility] [address] [place] [address] Care Team Providers Care Workforce Planning Analyst Name Role Phone Zeinab Carey MD Primary Care Provider [phone] Encounter Details Date Type Department Care Team [...] Upcoming Encounters Date Type Department Care Team ([facility] st Contact Info) Description 11/14/2024 9:00 AM EDT Office Visit [facility] CHC MED & PEDS [address] [place] [address] Zeinab Carey MD [address] [place] [address] documented as of this encounter Visit Diagnoses Not on filedocumented in this encounter Additional Health Concerns Assessment Noted Time PHQ-9 Depression Total Score: 8 05/15/20 23 11:18 AM EST documented as of this encounter Care Teams Workforce Planning Analyst Relationship Specialty Start Date End Date Zeinab Carey MD [address] [place] [address] PCP - General Family Medicine 05/16/17 documented as of this encounter
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
--- OUTSIDE RECORDS SUMMARY | 2024-08-11 11:55 | XMS_ITS | Clinical Summary ---
Author Organization [facility] Address [address] [place] [address] Phone Care Team Providers Care High School Biology Teacher Name Role Phone Zeinab Carey MD Primary Care Provider [phone] Allergies No known active allergies Medications ondansetron [...] Emergency [facility] Emergency [address] [place] [address] Discharge Disposition: Left Against Medical [...] AM EDT Office Visit Bariatric Surgery - [place] [address] [place] [phone] Omer Saha MD [address] [place] [address] Health Maintenance Due Date Last Done Comments [...] GEMUSE QTc 426 ms GEMUSE P Wave [place] 53 degrees GEMUSE R [place] 19 degrees GEMUSE T [place] 39 degrees GEMUSE ECG Interpretation Sinus bradycardia [...] Maintenance Insurance MEDICAID - [place] Care Teams High School Biology Teacher Relationship Specialty Start Date End Date Zeinab Carey MD [address] [place] [phone] PCP - General 07/29/21
--- OUTSIDE RECORDS SUMMARY | 2024-08-11 11:55 | XMS_ITS | Encounter Summary ---
Author Organization [employer] Address [address] [place] [address] Care Team Providers Care Plating Foreman Name Role Phone Zeinab Carey MD Primary Care Provider [phone] Reason for Visit * Reason Onset Date Comments Appointment Request 09/07/2023 Encounter Details Date Type Department Care Team ([facility] st Contact Info) Description 09/07/2023 Telephone [facility] [address] [place] [address] Zeinab Carey MD [address] [place] [address] Appointment Request Social History Tobacco Use Types [...] Description 11/14/2024 9:00 AM EDT Office Visit [facility] [address] [place] [address] Zeinab Carey MD [address] [place] [address] documented as of this encounter Visit Diagnoses Not on filedocumented in this encounter Additional Health Concerns Assessment Noted Time PHQ-9 Depression Total Score: 8 05/15/20 23 11:18 AM EST documented as of this encounter Care Teams Plating Foreman Relationship Specialty Start Date End Date Zeinab Carey MD [address] [place] [address] PCP - General Family Medicine 05/16/17 documented as of this encounter
--- OUTSIDE RECORDS SUMMARY | 2024-08-11 11:55 | XMS_ITS | Encounter Summary ---
Author Organization [employer] Address [address] [place] [address] Care Team Providers Care Cyber Security Engineer Name Role Phone Zeinab Carey MD Primary Care Provider [phone] Reason for Visit * Reason Onset Date Comments Results 06/26/2023 Encounter Details Date Type Department Care Team ([facility] st Contact Info) Description 06/26/2023 Telephone [facility] [address] [place] [address] Zeinab Carey MD [address] [place] [address] Results Social History Tobacco Use Types Packs/Day [...] Pt also informed of referral placement to [facility] but advised on wait list. Pt verbalized understanding and agrees with plan. * Telephone Encounter - Petra Pagan RN - 06/27/2023 4:13 PM EST Please review pt US results and advise. * Telephone Encounter - Allan Quiroz - 06/26/2023 10:28 AM EST TC from pt requesting call back regarding Results. Type of results: Sonogram Date when done: 06/15 Facility: [facility] documented in this encounter Plan of Treatment Upcoming Encounters Date Type Department Care Team ([facility] st Contact Info) Description 11/14/2024 9:00 AM EDT Office Visit [facility] [address] [place], [place] [phone] Zeinab Carey MD [address] [place], [place] [phone] documented as of this encounter Visit Diagnoses Not on filedocumented in this encounter Additional Health Concerns Assessment Noted Time PHQ-9 Depression Total Score: 8 05/15/20 23 11:18 AM EST documented as of this encounter Care Teams Cyber Security Engineer Relationship Specialty Start Date End Date Zeinab Carey MD [address] [place] [address] PCP - General Family Medicine 05/16/17 documented as of this encounter
--- OUTSIDE RECORDS SUMMARY | 2024-08-11 11:55 | XMS_ITS | Encounter Summary ---
Author Organization [employer] Address [address] [address] 7 [place] [address] Care Team Providers Care Scientific Glass Blower Name Role Phone Zeinab Carey MD Primary Care Provider [phone] Reason for Visit * Reason Onset Date Comments Nurse Triage 07/29/2024 Encounter Details Date Type Department Care Team ([facility] st Contact Info) Description 07/29/2024 Telephone [facility] [address] [place] [address] Zeinab Carey MD [address] [place] [address] Nurse Triage Social History Tobacco Use Types [...] 2:03 PM EST Sent to team for [facility] ER status check PRN. * Telephone Encounter - Giovana Drummond RN - 07/29/2024 1:54 PM EST No identifier horse needed as this junior copywriter speaks Malay. Call returned to Saundra Mayo to triage [...] Pt advised of disposition, agrees to seek [facility] ER now for evaluation of sx. Protocol [...] Description 11/14/2024 9:00 AM EDT Office Visit [facility] [address] [place] [address] Zeinab Carey MD [address] [place] [address] documented as of this encounter Visit Diagnoses Not on filedocumented in this encounter Additional Health Concerns Assessment Noted Time PHQ-9 Depression Total Score: 8 05/15/20 23 11:18 AM EST documented as of this encounter Care Teams Scientific Glass Blower Relationship Specialty Start Date End Date Zeinab Carey MD [address] [place] [address] PCP - General Family Medicine 05/16/17 documented as of this encounter
--- OUTSIDE RECORDS SUMMARY | 2024-08-11 11:56 | XMS_ITS | Encounter Summary ---
Author Organization [employer] Address [address] [facility] 7 [place] [address] Care Team Providers Care Hydraulic Assembler Name Role Phone Zeinab Carey MD Primary Care Provider [phone] Reason for Visit * Reason Onset Date Comments Request For Order(s) 10/30/2023 Encounter Details Date Type Department Care Team ([facility] st Contact Info) Description 10/30/[address] [facility] [address] [place], [place] [phone] Zeinab Carey MD [address] [place], [place] [phone] Request For Order(s) Social History Tobacco Use [...] Miscellaneous Notes * Telephone Encounter - Wing Koyd RN - 11/27/2023 3:00 PM EDT Please [...] surgery. Please contact pt for questions/clarification at [phone] documented in this encounter Plan of Treatment Upcoming Encounters Date Type Department Care Team ([facility] st Contact Info) Description 11/14/2024 9:00 AM EDT Office Visit [facility] [address] [place] [address] Zeinab Carey MD [address] [place] [address] documented as of this encounter Visit Diagnoses Not on filedocumented in this encounter Additional Health Concerns Assessment Noted Time PHQ-9 Depression Total Score: 8 05/15/20 23 11:18 AM EST documented as of this encounter Care Teams Hydraulic Assembler Relationship Specialty Start Date End Date Zeinab Carey MD [address] [place] [address] PCP - General Family Medicine 05/16/17 documented as of this encounter
--- OUTSIDE RECORDS SUMMARY | 2024-08-11 11:56 | XMS_ITS | Encounter Summary ---
Author Organization [employer] Address [address] [facility] 7 [place] [address] Care Team Providers Care Human Resources Assistant Manager Name Role Phone Zeinab Carey MD Primary Care Provider [phone] Encounter Details Date Type Department Care Team (Late st Contact Info) Description 01/11/2024 Orders Only [facility] [address] [place] [address] ProviderLou MD Social History Tobacco Use Types [...] [facility] [address] [place] [address] Zeinab Carey MD [address] [place] [address] documented as of this encounter Procedures Procedure Name Priority Date/Time Associated Diagnosis Comments AUDITORY FUNCTION TESTS Routine 07/24/2023 11:41 AM EST documented in this encounter Results * Auditory function tests (07/24/2023 11:41 AM EST) us Historical Provider AUDIOLOGY SERVICES ORDERJyoti BLES Final Result documented in this encounter Visit Diagnoses Not on filedocumented in this encounter Additional Health Concerns Assessment Noted Time PHQ-9 Depression Total Score: 8 05/15/20 23 11:18 AM EST documented as of this encounter Care Teams Human Resources Assistant Manager Relationship Specialty Start Date End Date Zeinab Carey MD [address] [place] [address] PCP - General Family Medicine 05/16/17 documented as of this encounter
--- OUTSIDE RECORDS SUMMARY | 2024-08-11 11:56 | XMS_ITS | Encounter Summary ---
Author Organization [employer] Address [address] [facility] 7 [place] [address] Care Team Providers Care Mental Measurements Teacher Name Role Phone Zeinab Carey MD Primary Care Provider [phone] Reason for Visit * Reason Onset Date Comments Results 01/18/2024 Encounter Details Date Type Department Care Team ([facility] Contact Info) Description 01/18/2024 Telephone [facility] MED[facility] [address] [place] [address] Zeinab Carey MD [address] [place] [address] Results Social History Tobacco Use Types Packs/Day [...] CT Scan Date when done: 12/05 Facility: [facility] documented in this encounter Plan of Treatment Upcoming Encounters Date Type Department Care Team (Late st Contact Info) Description 11/14/2024 9:00 AM EDT Office Visit [facility] [address] [place] [address] Zeinab Carey MD [address] [place] [address] documented as of this encounter Visit Diagnoses Not on filedocumented in this encounter Additional Health Concerns Assessment Noted Time PHQ-9 Depression Total Score: 8 05/15/20 23 11:18 AM EST documented as of this encounter Care Teams Mental Measurements Teacher Relationship Specialty Start Date End Date Zeinab Carey MD [address] [place] [address] PCP - General Family Medicine 05/16/17 documented as of this encounter
--- OUTSIDE RECORDS SUMMARY | 2024-08-11 11:56 | XMS_ITS | Encounter Summary ---
Author Organization [employer] Address [address] 7 [place] [address] Care Team Providers Care Adult Parole Officer Name Role Phone Zeinab Carey MD Primary Care Provider Reason for Visit * Reason Onset Date Comments Medication Question 10/24/2023 Referral 10/24/2023 Encounter Details Date Type Department Care Team ([facility] st Contact Info) Description 10/24/2023 Telephone [facility] MEDICINE [address] [place] [address] Zeinab Carey MD [address] [place] [address] Medication Question; Referral Social History Tobacco Use [...] and would like to be sent to [address] [place] [address] and is request for a stronger medication than the cyclobenzaprine (Flexeril) 10 MG tablet patient stated this medication is not helping with pain documented in this encounter Plan of Treatment Upcoming Encounters Date Type Department Care Team (Late st Contact Info) Description 11/14/2024 9:00 AM EDT Office Visit [facility] MED & PEDS [address] [place] [address] Zeinab Carey MD [address] [place] [address] documented as of this encounter Visit Diagnoses Not on filedocumented in this encounter Additional Health Concerns Assessment Noted Time PHQ-9 Depression Total Score: 8 05/15/20 23 11:18 AM EST documented as of this encounter Care Teams Adult Parole Officer Relationship Specialty Start Date End Date Zeinab Carey MD [address] [place] [address] PCP - General Family Medicine 05/16/17 documented as of this encounter
--- OUTSIDE RECORDS SUMMARY | 2024-08-11 11:56 | XMS_ITS | Encounter Summary ---
Author Organization [employer] Address [address] 7 [place] [address] Care Team Providers Care Fountain Roller Assembler Name Role Phone Zeinab Carey MD Primary Care Provider Reason for Visit * Reason Onset Date Comments MR ORDER 10/23/2023 Encounter Details Date Type Department Care Team ([facility] st Contact Info) Description 10/23/2023 Telephone [facility] MEDICINE [address] [place] [address] Zeinab Carey MD [address] [place] [address] MR ORDER Social History Tobacco Use Types [...] 11/14/2024 9:00 AM EDT Office Visit [facility] MED & PEDS [address] [place] [address] Zeinab Carey MD [address] [place] [address] documented as of this encounter Visit Diagnoses Not on filedocumented in this encounter Additional Health Concerns Assessment Noted Time PHQ-9 Depression Total Score: 8 05/15/20 23 11:18 AM EST documented as of this encounter Care Teams Fountain Roller Assembler Relationship Specialty Start Date End Date Zeinab Carey MD [address] [place] [address] PCP - General Family Medicine 05/16/17 documented as of this encounter
--- OUTSIDE RECORDS SUMMARY | 2024-08-11 11:56 | XMS_ITS | Encounter Summary ---
Author Organization [employer] Address [address] [facility] 7 [place] [address] Care Team Providers Care Public Health Sanitarian Technician Name Role Phone Zeinab Carey MD Primary Care Provider [phone] Reason for Referral * Imaging (Routine) - Closed Specialty Diagnoses / Procedures Referred By Contac t Referred To Contact Radiology Diagnoses Thyroid nodule Acquired hypothyroidism Procedures US Thyroid Zeinab Carey MD [address] [place] [address] Phone: tel: fax: [address] Phone: tel: fax: Referral ID Status Reason Start Date Expiration Date Visits Re quested Visits Authorized [id number] Closed 10/24/2023 10/23/2024 1 1 Encounter Details Date Type Department Care Team (Late st Contact Info) Description 10/24/2023 Orders Only [facility] MED & PEDS [address] [place] [address] Zeinab Carey MD [address] [place] [address] Thyroid nodule (Primary Dx); Acquired hypothyroidism Social [...] Description 11/14/2024 9:00 AM EDT Office Visit [facility] MED & PEDS [address] [place] [address] Zeinab Carey MD [address] [place], [place] [phone] documented as of this encounter Procedures Procedure Name Priority Date/Time Associated Diagnosis Comments US THYROID Routine 10/31/2023 12:38 PM EDT Thyroid nodule Acquired hypothyroidism documented in this encounter Results * US Thyroid (10/31/2023 12:38 PM EDT) Anatomical Region Laterality Modality Head, Neck Ultrasound 10/31/2023 12:3 8 PM EDT Narrative 11/23/2023 12:26 PM EDT ? [facility] ?[address] ?[place], [place] [address] ? Ultrasound Report ? Signed ? Patient: Saundra Mayo ?MR#: [id number] ?? 05 ? : 1975 ?Acct:[id number] ? Age/Sex: 48 / F ?ADM Date: 10/31/23 ? Loc: HO.US ? Attending Dr: Zeinab Carey MD ? Ordering Physician: Zeinab Carey MD ?? Date of Service: 10/31/23 ?? Procedure(s): US thyroid ?? Accession Number(s): [id number] ? cc: Zeinab Carey MD ? EXAMINATION: [...] 1222 ? DD/ 1238 ? TD/TT: ? Senior Technical Support Analyst: TRUNG ? Procedure Note Donclifter, Image - 11/23/2023 [place] [address] Ultrasound Report Signed Patient: Lesvia Mayo#: [id number] 05 : 1975Acct:[id number] Age/Sex: 48 / FADM Date: 10/31/23 Loc: HO.US Attending Dr: Zeinab Carey MD Ordering Physician: Zeinab Carey MD Date of Service: 10/31/23 Procedure(s): US thyroid Accession Number(s): [id number] cc: Zeinab Carey MD EXAMINATION: US THYROID [...] in OV> 11/23/23 1222 DD/ 1238 TD/TT: Senior Technical Support Analyst: TRUNG us Zeinab Carey MD IMG US PROCEDURES Final Resul t documented in this encounter Visit Diagnoses Diagnosis Thyroid nodule- Primary Nontoxic uninodular goiter Acquired hypothyroidism Unspecified hypothyroidism documented in this encounter Additional Health Concerns Assessment Noted Time PHQ-9 Depression Total Score: 8 05/15/20 23 11:18 AM EST documented as of this encounter Care Teams Public Health Sanitarian Technician Relationship Specialty Start Date End Date Zeinab Carey MD [address] [place] [address] PCP - General Family Medicine 05/16/17 documented as of this encounter
--- OUTSIDE RECORDS SUMMARY | 2024-08-11 11:56 | XMS_ITS | Encounter Summary ---
Author Organization [employer] Address [address] [facility] 7 [place] [address] Care Team Providers Care Recreation Director Name Role Phone Zeinab Carey MD Primary Care Provider [phone] Reason for Visit * Reason Onset Date Comments Referral 10/29/2023 Encounter Details Date Type Department Care Team ([facility] st Contact Info) Description 10/29/2023 Telephone [facility] MED & PEDS [address] [place] [address] Zeinab Carey MD [address] [place] [address] Referral Social History Tobacco Use Types Packs/Day [...] regards to referral. Please contact pt at [phone] * Telephone Encounter - Sruthi Rodriguez - 10/29/2023 12:43 PM EDT Tc from pt requesting a referral to neurologist. Pt states forgetfulness is becoming more consistent and would like testing. Please contact pt at [phone] (Korean) documented in this encounter Plan of Treatment Upcoming Encounters Date Type Department Care Team ([facility] st Contact Info) Description 11/14/2024 9:00 AM EDT Office Visit [facility] MED & PEDS [address] [place] [address] Zeinab Carey MD [address] [place], [place] [phone] documented as of this encounter Visit Diagnoses Not on filedocumented in this encounter Additional Health Concerns Assessment Noted Time PHQ-9 Depression Total Score: 8 05/15/20 23 11:18 AM EST documented as of this encounter Care Teams Recreation Director Relationship Specialty Start Date End Date Zeinab Carey MD [address] [place] [address] PCP - General Family Medicine 05/16/17 documented as of this encounter
== END 2024-08-11 10:33 | disposition home or self-care (01) ==
LOC: HO.SH 10:32
PROVIDERS: Visit Provider Pediatrics
DX: Z01.118 Encounter for examination of ears and hearing with other abnormal findings (principal); H90.3 Sensorineural hearing loss, bilateral
CPT/HCPCS: V5266

== ENCOUNTER 2024-08-21 10:04 | Outpatient (REF) | payer MEDICAID, SELFPAY ==
--- NOTE | 2024-08-21 15:58 | MHC.AU.HA3 ---
Hearing Instrument Follow-Up- Binaural Date of Visit: 08/21/24 Right Ear: Jose, Model, Color, Serial Number: [id number] Nuclear Equipment Sales Engineer Repair Warranty: 05/07/2022 Nuclear Equipment Sales Engineer Loss and Damage Warranty: 05/07/2022 [employer] Service Plan: none Battery Size: 312 Quarry Worker/Slim Tube: Size 1M Earmold/Dome/CShell/SlimTip: Type of Wax Guard: Cerushield Dispensed By: [employer] Date of Fittin02/20/2019 Left Ear: Make, Model, Color, Serial Number: [id number] Nuclear Equipment Sales Engineer Repair Warranty: 05/07/2022 Nuclear Equipment Sales Engineer Loss and Damage Warranty: 05/07/2022 [employer] Service Plan: none Battery Size: 312 Quarry Worker/Slim Tube: 1 M Earmold/Dome/CShell/SlimTip: Type of Wax Guard: Cerushield Dispensed By: [employer] Date of Fittin02/20/2019 Follow-Up Summary: Both aids dropped off with c/o static left. Found both with wax in receivers and debris in mics. Cleaned all, replaced wax guards, ran through dehumidifier. Still getting static left. Tried new hris administrator, did not solve. Sending out for repair. Right aid is currently stored in repair drawer . Recommendations: Recommendations: Patient will be contacted when materials have arrived. Recommendations (Other): Call to product picker. Diagnosis Code(s): Primary Diagnosis: H90.3 Bilateral Sensorineural Hearing Loss Signature: Provider: Artie Hagen, CCC-A
== END 2024-08-21 10:05 | disposition home or self-care (01) ==
LOC: HO.SH 10:04
PROVIDERS: Visit Provider Pediatrics
DX: Z13.89 Encounter for screening for other disorder (principal)

== ENCOUNTER → 2024-09-01 08:04 | Outpatient (REF) | payer MEDICAID, SELFPAY ==
--- OUTSIDE RECORDS SUMMARY | 2024-09-01 08:16 | XMS_ITS | Encounter Summary ---
Author Organization [employer] Address [address] [facility] 7 [place] [address] Care Team Providers Care Supervisor Cytogenetic Laboratory Name Role Phone Zeinab Carey MD Primary Care Provider [phone] Reason for Visit * Reason Onset Date Comments Nurse Triage 06/25/2024 Encounter Details Date Type Department Care Team ([facility] st Contact Info) Description 06/25/2024 Telephone [facility] MED & PEDS [address] [place] [address] Zeinab Carey MD [address] [place] [address] Nurse Triage Social History Tobacco Use Types [...] 06/25/2024 10:50 AM EST Triage call with [facility] [place] [id number] Jose. Called x2, unable to make connectiion. [...] 11/14/2024 9:00 AM EDT Office Visit [facility] MED & PEDS [address] [place], [place] [phone] Zeinab Carey MD [address] [place] [address] documented as of this encounter Visit Diagnoses Not on filedocumented in this encounter Additional Health Concerns Assessment Noted Time PHQ-9 Depression Total Score: 8 05/15/20 23 11:18 AM EST documented as of this encounter Care Teams Supervisor Cytogenetic Laboratory Relationship Specialty Start Date End Date Zeinab Carey MD [address] [place] [address] PCP - General Family Medicine 05/16/17 documented as of this encounter
--- OUTSIDE RECORDS SUMMARY | 2024-09-01 08:16 | XMS_ITS | Encounter Summary ---
Author Organization [employer] Address [address] [facility] [address] 7 [place] [address] Care Team Providers Care Fiber Technician Name Role Phone Zeinab Carey MD Primary Care Provider [phone] Reason for Visit * Reason Onset Date Comments Results 03/26/2024 Encounter Details Date Type Department Care Team ([facility] st Contact Info) Description 03/26/2024 Telephone [facility] MEDICINE [address] [place] [address] Zeinab Carey MD [address] [place] [address] Results Social History Tobacco Use Types Packs/Day [...] results: Labs Date when done: 03/15/24 Facility: [facility] documented in this encounter Plan of Treatment Upcoming Encounters Date Type Department Care Team ([facility] st Contact Info) Description 11/14/2024 9:00 AM EDT Office Visit [facility] MED & PEDS [address] [place] [address] Zeinab Carey MD [address] [place] [address] documented as of this encounter Visit Diagnoses Not on filedocumented in this encounter Additional Health Concerns Assessment Noted Time PHQ-9 Depression Total Score: 8 05/15/20 23 11:18 AM EST documented as of this encounter Care Teams Fiber Technician Relationship Specialty Start Date End Date Zeinab Carey MD [address] [place] [address] PCP - General Family Medicine 05/16/17 documented as of this encounter
--- OUTSIDE RECORDS SUMMARY | 2024-09-01 08:16 | XMS_ITS | Encounter Summary ---
Author Organization [employer] Address [address] [facility] 7 [place] [address] Care Team Providers Care Speech Correction Assistant Name Role Phone Zeinab Carey MD Primary Care Provider [phone] Reason for Visit * Reason Onset Date Comments Nurse Triage 08/11/2024 Encounter Details Date Type Department Care Team ([facility] st Contact Info) Description 08/11/2024 Telephone [facility] MED & PEDS [address] [place] [address] Zeinab Carey MD [address] [place] [address] Nurse Triage Social History Tobacco Use Types [...] encounter Miscellaneous Notes * Telephone Encounter - Giovana Drummond RN - 08/11/2024 12:29 PM EDT No parking garage manager needed as this technical publications writer speaks Russian. Call returned to Saundra Mayo to triage below. Reports having sx of dizziness and palpitations yesterday. Per pt lasted approx 5 mins. Per pt not with positional change. No sx today. Per pt no changes to meds. No OTC supplements. Denies any CP, SOB or ear pain. Mild ANDERSEN. Per pt has had similar sx in past. Pt states was referred by PCP to Cardiology for Holter monitor. Pt advised that referral sent to [facility]. Given contact number for [facility] Cards. Pt offered appt tomorrow with team provider. Pt states will call cardiology first. Pt advised of [facility] operating hours for today and tomorrow for exam should sx persist. PT advised to seek ER If Dizziness and palpitations recur. Pt agrees. Sent to PCP as FYI. Protocol Used: Dizziness (Adult) Protocol-Based Disposition: Go to ED/UCC Now (or to Office with PCP Approval) Positive Triage Question: * Extra heartbeats, irregular heart beating, or heart is beating very fast (i.e., palpitations ) * All higher-acuity triage questions were negative Care Advice Discussed: * Reassurance and Education - Dizziness From Not Drinking Enough Liquids * Drink Fluids * Lie Down and Rest * Cool Off * Prevention - Dizziness * Reasons To Call Back - After 2 hours of rest and fluids and you are still feeling dizzy - You pass out (faint) or are too weak to stand - You become worse * Telephone Encounter - Taryn Sepulveda - 08/11/2024 12:16 PM EDT Symptoms: Heartbeat Symptoms (Fast, Slow, or Irregular), Dizziness Outcome: Schedule a same-day appointment or talk to a nurse or provider today Reason: Caller denied all higher acuity questions The caller accepted this outcome. Pt reported this happened yesterday. No symptoms today. Contact pt at [phone] (german) documented in this encounter Plan of Treatment Upcoming Encounters Date Type Department Care Team (Late st Contact Info) Description 11/14/2024 9:00 AM EDT Office Visit [facility] MED & PEDS [address] [place] [address] Zeinab Carey MD [address] [place] [address] documented as of this encounter Visit Diagnoses Not on filedocumented in this encounter Additional Health Concerns Assessment Noted Time PHQ-9 Depression Total Score: 8 05/15/20 23 11:18 AM EST documented as of this encounter Care Teams Speech Correction Assistant Relationship Specialty Start Date End Date Zeinab Carey MD [address] [place] [address] PCP - General Family Medicine 05/16/17 documented as of this encounter
--- OUTSIDE RECORDS SUMMARY | 2024-09-01 08:16 | XMS_ITS | Encounter Summary ---
Author Organization [employer] Address [address] [facility] 7 [place] [address] Care Team Providers Care Telephone Order Supervisor Name Role Phone Zeinab Carey MD Primary Care Provider [phone] Reason for Visit * Reason Onset Date Comments Results 04/27/2023 Encounter Details Date Type Department Care Team ([facility] Contact Info) Description 04/27/2023 Telephone [facility] MEDICINE [address] [place] [address] Zeinab Carey MD [address] [place] [address] Results Social History Tobacco Use Types Packs/Day [...] Description 11/14/2024 9:00 AM EDT Office Visit [facility] MED & PEDS [address] [place], [place] [phone] Zeinab Carey MD [address] [place] [address] documented as of this encounter Visit Diagnoses Not on filedocumented in this encounter Additional Health Concerns Assessment Noted Time PHQ-9 Depression Total Score: 17 023 10:03 AM EST documented as of this encounter Care Teams Telephone Order Supervisor Relationship Specialty Start Date End Date Zeinab Carey MD [address] [place] [address] PCP - General Family Medicine 05/16/17 documented as of this encounter
--- OUTSIDE RECORDS SUMMARY | 2024-09-01 08:16 | XMS_ITS | Encounter Summary ---
Author Organization [employer] Address [address] [facility] [facility] [address] 7[address] [place] [address] Care Team Providers Care Striper Spray Gun Name Role Phone Zeinab Carey MD Primary Care Provider [phone] Encounter Details Date Type Department Care Team ([facility] st Contact Info) Description 06/30/2024 Orders Only [facility] MED & PEDS [address] [place] [address] Provider, MD Lou Social History Tobacco Use Types Packs/Day Years Used Date Smoking Tobacco: Never Passive Smoke Exposure: Never Smokeless Tobacco: Never Depression Answer Date Recorded Patient Health Questionnaire-9 Score 8 05/15/2023 Patient Health Questionnaire-9 Score 8 05/15/2023 Last PHQ-9: Questionnaire Data Not on file 1 07/16/2022 Housing Stability Answer Date Recorded What is your housing situation today? I have bensonmnauel lee 02/12/[address] you [...] 11/14/2024 9:00 AM EDT Office Visit [facility] MED & PEDS [address] [place] [address] Zeinab Carey MD [address] [place] [address] documented as of this encounter Procedures Procedure [...] documented as of this encounter Care Teams Striper Spray Gun Relationship Specialty Start Date End Date Zeinab Carey MD [address] [place] [address] PCP - General Family Medicine 05/16/17 documented as of this encounter
--- OUTSIDE RECORDS SUMMARY | 2024-09-01 08:17 | XMS_ITS | Encounter Summary ---
Author Organization [employer] Address [address] 7 [place] [address] Care Team Providers Care Inflatable Buildings Laminator Name Role Phone Zeinab Carey MD Primary Care Provider [phone] Reason for Visit * Reason Onset Date Comments Medication Question 10/24/2023 Referral 10/24/2023 Encounter Details Date Type Department Care Team ([facility] st Contact Info) Description 10/24/2023 Telephone [facility] MEDICINE [address] [place] [address] Zeinab Carey MD [address] [place] [address] Medication Question; Referral Social History Tobacco Use [...] and would like to be sent to [address] [place] [address] and is request for a stronger medication than the cyclobenzaprine (Flexeril) 10 MG tablet patient stated this medication is not helping with pain documented in this encounter Plan of Treatment Upcoming Encounters Date Type Department Care Team (Late st Contact Info) Description 11/14/2024 9:00 AM EDT Office Visit [facility] MED & PEDS [address] [place] [address] Zeinab Carey MD [address] [place] [address] documented as of this encounter Visit Diagnoses Not on filedocumented in this encounter Additional Health Concerns Assessment Noted Time PHQ-9 Depression Total Score: 8 05/15/20 23 11:18 AM EST documented as of this encounter Care Teams Inflatable Buildings Laminator Relationship Specialty Start Date End Date Zeinab Carey MD [address] [place] [address] PCP - General Family Medicine 05/16/17 documented as of this encounter
--- OUTSIDE RECORDS SUMMARY | 2024-09-01 08:17 | XMS_ITS | Encounter Summary ---
Author Organization [employer] Address [address] [facility] 7 [place] [address] Care Team Providers Care Velvet Weaver Name Role Phone Zeinab Carey MD Primary Care Provider [phone] Reason for Visit * Reason Onset Date Comments Results 06/26/2023 Encounter Details Date Type Department Care Team ([facility] st Contact Info) Description 06/26/2023 Telephone [facility] MEDICINE [address] [place] [address] Zeinab Carey MD [address] [place] [address] Results Social History Tobacco Use Types Packs/Day [...] Pt also informed of referral placement to [facility] but advised on wait list. Pt verbalized understanding and agrees with plan. * Telephone Encounter - Petra Pagan RN - 06/27/2023 4:13 PM EST Please review pt US results and advise. * Telephone Encounter - Allan Quiroz - 06/26/2023 10:28 AM EST TC from pt requesting call back regarding Results. Type of results: Sonogram Date when done: 06/15 Facility: [facility] documented in this encounter Plan of Treatment Upcoming Encounters Date Type Department Care Team ([facility] st Contact Info) Description 11/14/2024 9:00 AM EDT Office Visit [facility] MED & PEDS [address] [place], [place] [phone] Zeinab Carey MD [address] [place], [place] [phone] documented as of this encounter Visit Diagnoses Not on filedocumented in this encounter Additional Health Concerns Assessment Noted Time PHQ-9 Depression Total Score: 8 05/15/20 23 11:18 AM EST documented as of this encounter Care Teams Velvet Weaver Relationship Specialty Start Date End Date Zeinab Carey MD [address] [place] [address] PCP - General Family Medicine 05/16/17 documented as of this encounter
--- OUTSIDE RECORDS SUMMARY | 2024-09-01 08:17 | XMS_ITS | Encounter Summary ---
Author Organization [employer] Address [address] [facility] 7 [place] [address] Care Team Providers Care Glue Mill Operator Name Role Phone Zeinab Carey MD Primary Care Provider [phone] Reason for Visit * Reason Onset Date Comments PA 08/12/2024 Encounter Details Date Type Department Care Team ([facility] Contact Info) Description 08/12/2024 Telephone [facility] MED & PEDS [address] [place] [address] Zeinab Carey MD [address] [place] [address] PA Social History Tobacco Use Types Packs/Day Years [...] encounter Miscellaneous Notes * Telephone Encounter - Nancy Feliciano LPN - 08/13/2024 9:37 AM EDT No Pa needed card writer hand spoke with [facility] who ran the medication and paid , card writer hand informed pt, as pt request for medication to be changed to [facility] pharmacy. Tc from pt calling to inform a PA is needed for medication Tirosint 125 MCG capsule. * Telephone Encounter - Светлана Murray - 08/12/2024 11:07 AM EDT Tc from pt calling to inform a PA is needed for medication Tirosint 125 MCG capsule. documented in this encounter Plan of Treatment Upcoming Encounters Date Type Department Care Team ([facility] st Contact Info) Description 11/14/2024 9:00 AM EDT Office Visit [facility] MED & PEDS [address] [place] [address] Zeinab Carey MD [address] [place] [address] documented as of this encounter Visit Diagnoses Not on filedocumented in this encounter Additional Health Concerns Assessment Noted Time PHQ-9 Depression Total Score: 8 05/15/20 23 11:18 AM EST documented as of this encounter Care Teams Glue Mill Operator Relationship Specialty Start Date End Date Zeinab Carey MD [address] [place] [address] PCP - General Family Medicine 05/16/17 documented as of this encounter
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
--- OUTSIDE RECORDS SUMMARY | 2024-09-01 08:17 | XMS_ITS | Encounter Summary ---
Author Organization [employer] Address [address] [facility] 7 [place] [address] Care Team Providers Care School Psychological Examiner Name Role Phone Zeinab Carey MD Primary Care Provider [phone] Reason for Visit * Reason Onset Date Comments Request For Order(s) 10/30/2023 Encounter Details Date Type Department Care Team ([facility] st Contact Info) Description 10/30/2023 Telephone [facility] [address] [place], [place] [phone] Zeinab Carey MD [address] [place], [place] [phone] Request For Order(s) Social History Tobacco Use [...] surgery. Please contact pt for questions/clarification at [phone] documented in this encounter Plan of Treatment Upcoming Encounters Date Type Department Care Team ([facility] st Contact Info) Description 11/14/2024 9:00 AM EDT Office Visit [facility] PED[facility] [address] [place] [address] Zeinab Carey MD [address] [place] [address] documented as of this encounter Visit Diagnoses Not on filedocumented in this encounter Additional Health Concerns Assessment Noted Time PHQ-9 Depression Total Score: 8 05/15/20 23 11:18 AM EST documented as of this encounter Care Teams School Psychological Examiner Relationship Specialty Start Date End Date Zeinab Carey MD [address] [place] [address] PCP - General Family Medicine 05/16/17 documented as of this encounter
--- OUTSIDE RECORDS SUMMARY | 2024-09-01 08:17 | XMS_ITS | Encounter Summary ---
Author Organization [employer] Address [address] [facility] [address] 7 [place] [address] Care Team Providers Care Office Machine Inspector Name Role Phone Zeinab Carey MD Primary Care Provider [phone] Reason for Visit * Reason Onset Date Comments Appointment Request 09/07/2023 Encounter Details Date Type Department Care Team ([facility] st Contact Info) Description 09/07/2023 Telephone [facility] [address] [place] [address] Zeinab Carey MD [address] [place] [address] Appointment Request Social History Tobacco Use Types [...] 9:00 AM EDT Office Visit [facility] [address] [place] [address] Zeinab Carey MD [address] [place] [address] documented as of this encounter Visit Diagnoses Not on filedocumented in this encounter Additional Health Concerns Assessment Noted Time PHQ-9 Depression Total Score: 8 05/15/20 23 11:18 AM EST documented as of this encounter Care Teams Office Machine Inspector Relationship Specialty Start Date End Date Zeinab Carey MD [address] [place] [address] PCP - General Family Medicine 05/16/17 documented as of this encounter
--- OUTSIDE RECORDS SUMMARY | 2024-09-01 08:17 | XMS_ITS | Encounter Summary ---
Author Organization [employer] Address [address] [facility] 7 [place] [address] Care Team Providers Care Instrument Maintenance Supervisor Name Role Phone Zeinab Carey MD Primary Care Provider [phone] Reason for Visit * Reason Onset Date Comments Referral 10/29/2023 Encounter Details Date Type Department Care Team ([facility] st Contact Info) Description 10/29/2023 Telephone [facility] [address] [place] [address] Zeinab Carey MD [address] [place] [address] Referral Social History Tobacco Use Types Packs/Day [...] regards to referral. Please contact pt at [phone] * Telephone Encounter - Sruthi Rodriguez - 10/29/2023 12:43 PM EDT Tc from pt requesting a referral to neurologist. Pt states forgetfulness is becoming more consistent and would like testing. Please contact pt at [phone] (Monegasque) documented in this encounter Plan of Treatment Upcoming Encounters Date Type Department Care Team ([facility] st Contact Info) Description 11/14/2024 9:00 AM EDT Office Visit [facility] [address] [place] [address] Zeinab Carey MD [address] [place], [place] [phone] documented as of this encounter Visit Diagnoses Not on filedocumented in this encounter Additional Health Concerns Assessment Noted Time PHQ-9 Depression Total Score: 8 05/15/20 23 11:18 AM EST documented as of this encounter Care Teams Instrument Maintenance Supervisor Relationship Specialty Start Date End Date Zeinab Carey MD [address] [place] [address] PCP - General Family Medicine 05/16/17 documented as of this encounter
--- OUTSIDE RECORDS SUMMARY | 2024-09-01 08:17 | XMS_ITS | Encounter Summary ---
Author Organization [employer] Address [address] [facility] 7 [place] [address] Care Team Providers Care Nuclear Equipment Design Engineer Name Role Phone Zeinab Carey MD Primary Care Provider [phone] Reason for Visit * Reason Onset Date Comments Results 01/18/2024 Encounter Details Date Type Department Care Team ([facility] Contact Info) Description 01/18/2024 Telephone [facility] MED[facility]INE [address] [place] [address] Zeinab Carey MD [address] [place] [address] Results Social History Tobacco Use Types Packs/Day [...] CT Scan Date when done: 12/05 Facility: [facility] documented in this encounter Plan of Treatment Upcoming Encounters Date Type Department Care Team (Late st Contact Info) Description 11/14/2024 9:00 AM EDT Office Visit [facility] & [facility]EDS [address] [place] [address] Zeinab Carey MD [address] [place] [address] documented as of this encounter Visit Diagnoses Not on filedocumented in this encounter Additional Health Concerns Assessment Noted Time PHQ-9 Depression Total Score: 8 05/15/20 23 11:18 AM EST documented as of this encounter Care Teams Nuclear Equipment Design Engineer Relationship Specialty Start Date End Date Zeinab Carey MD [address] [place] [address] PCP - General Family Medicine 05/16/17 documented as of this encounter
--- OUTSIDE RECORDS SUMMARY | 2024-09-01 08:17 | XMS_ITS | Encounter Summary ---
Author Organization [employer] Address [address] [facility] 7 [place] [address] Care Team Providers Care Voucher Clerk Name Role Phone Zeinab Carey MD Primary Care Provider [phone] Reason for Visit * Reason Onset Date Comments MR ORDER 10/23/2023 Encounter Details Date Type Department Care Team ([facility] st Contact Info) Description 10/23/2023 Telephone [facility] MEDICINE [address] [place] [address] Zeinab Carey MD [address] [place] [address] MR ORDER Social History Tobacco Use Types [...] Description 11/14/2024 9:00 AM EDT Office Visit [facility]EDS [address] [place] [address] Zeinab Carey MD [address] [place] [address] documented as of this encounter Visit Diagnoses Not on filedocumented in this encounter Additional Health Concerns Assessment Noted Time PHQ-9 Depression Total Score: 8 05/15/20 23 11:18 AM EST documented as of this encounter Care Teams Voucher Clerk Relationship Specialty Start Date End Date Zeinab Carey MD [address] [place] [address] PCP - General Family Medicine 05/16/17 documented as of this encounter
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
--- OUTSIDE RECORDS SUMMARY | 2024-09-01 08:17 | XMS_ITS | Encounter Summary ---
Author Organization [employer] Address [address] [place] [address] Care Team Providers Care Staple Processing Machine Operator Name Role Phone Zeinab Carey MD Primary Care Provider [phone] Reason for Visit * Reason Onset Date Comments Referral 06/27/2023 Encounter Details Date Type Department Care Team ([facility] st Contact Info) Description 06/27/2023 Telephone [facility] MEDICINE [address] [place] [address] Zeinab Carey MD [address] [place] [address] Referral Social History Tobacco Use Types Packs/Day [...] advise. Pt is requesting a referral to [facility] for thyroid management. * Telephone Encounter - Catherine Fitch - 06/27/2023 3:34 PM EST Fax number [phone] * Telephone Encounter - Catherine Fitch - 06/27/2023 3:32 PM EST Tc from pt requesting a new referral for [facility] at [address] [place] [address]. documented in this encounter Plan of Treatment Upcoming Encounters Date Type Department Care Team (Late st Contact Info) Description 11/14/2024 9:00 AM EDT Office Visit [facility] PEDS [address] [place], [place] [phone] Zeinab Carey MD [address] [place], [place] [phone] documented as of this encounter Visit Diagnoses Not on filedocumented in this encounter Additional Health Concerns Assessment Noted Time PHQ-9 Depression Total Score: 8 12/19/20 23 11:18 AM EST documented as of this encounter Care Teams Staple Processing Machine Operator Relationship Specialty Start Date End Date Zeinab Carey MD [address] [place] [address] PCP - General Family Medicine 05/16/17 documented as of this encounter
--- OUTSIDE RECORDS SUMMARY | 2024-09-01 08:17 | XMS_ITS | Encounter Summary ---
Author Organization [employer] Address [address] [facility] 7 [place] [address] Care Team Providers Care Parking Manager Name Role Phone Zeinab Carey MD Primary Care Provider [phone] Reason for Referral * Imaging (Routine) - Closed Specialty Diagnoses / Procedures Referred By Contac t Referred To Contact Radiology Diagnoses Thyroid nodule Acquired hypothyroidism Procedures US Thyroid Zeinab Carey MD [address] [place] [address] Phone: tel: fax: [address] Phone: tel: fax: Referral ID Status Reason Start Date Expiration Date Visits Re quested Visits Authorized [id number] Closed 10/24/2023 10/23/2024 1 1 Encounter Details Date Type Department Care Team (Late st Contact Info) Description 10/24/2023 Orders Only [facility] [address] [place] [address] Zeinab Carey MD [address] [place] [address] Thyroid nodule (Primary Dx); Acquired hypothyroidism Social [...] Description 11/14/2024 9:00 AM EDT Office Visit [facility] MED & PEDS [address] [place] [address] Zeinab Carey MD [address] [place], [place] [id number] documented as of this encounter Procedures Procedure Name Priority Date/Time Associated Diagnosis Comments US THYROID Routine 10/31/2023 12:38 PM EDT Thyroid nodule Acquired hypothyroidism documented in this encounter Results * US Thyroid (10/31/2023 12:38 PM EDT) Anatomical Region Laterality Modality Head, Neck Ultrasound 10/31/2023 12:3 8 PM EDT Narrative 11/23/2023 12:26 PM EDT ? [facility] ?[address] ?[place], [place] [address] ? Ultrasound Report ? Signed ? Patient: Saundra Mayo ?MR#: [id number] ?? 05 ? : 1975 ?Acct:[id number] ? Age/Sex: 48 / F ?ADM Date: 10/31/23 ? Loc: HO.US ? Attending Dr: Zeinab Carey MD ? Ordering Physician: Zeinab Carey MD ?? Date of Service: 10/31/23 ?? Procedure(s): US thyroid ?? Accession Number(s): [id number] ? cc: Zeinab Carey MD ? EXAMINATION: [...] 1222 ? DD/ 1238 ? TD/TT: ? Oil Well Cable Tool Operator: TRUNG ? Procedure Note Donclifter, Image - 11/23/2023 [place] [address] Ultrasound Report Signed Patient: Lesvia Mayo#: [id number] 05 : 1975Acct:[id number] Age/Sex: 48 / FADM Date: 10/31/23 Loc: HO.US Attending Dr: Zeinab Carey MD Ordering Physician: Zeinab Carey MD Date of Service: 10/31/23 Procedure(s): US thyroid Accession Number(s): [id number] cc: Zeinab Carey MD EXAMINATION: US THYROID [...] receive no follow up. Dictated By: Emmanuel Aldirch MD Signed By: <Electronically signed by Emmanuel Aldrich MD in OV> 11/23/23 1222 DD/ 1238 TD/TT: Oil Well Cable Tool Operator: TRUNG us Zeinab Carey MD IMG US PROCEDURES Final Resul t documented in this encounter Visit Diagnoses Diagnosis Thyroid nodule- Primary Nontoxic uninodular goiter Acquired hypothyroidism Unspecified hypothyroidism documented in this encounter Additional Health Concerns Assessment Noted Time PHQ-9 Depression Total Score: 8 05/15/20 23 11:18 AM EST documented as of this encounter Care Teams Parking Manager Relationship Specialty Start Date End Date Zeinab Carey MD [address] [place] [address] PCP - General Family Medicine 05/16/17 documented as of this encounter
--- OUTSIDE RECORDS SUMMARY | 2024-09-01 08:17 | XMS_ITS | Clinical Summary ---
Author Organization [facility] Address [address] [place] [address] Phone Care Team Providers Care Supervisor Electronic Testing Name Role Phone Zeinab Carey MD Primary Care Provider [phone] Allergies No known active allergies Medications ondansetron [...] Emergency [facility] Emergency [address] [place] [address] Discharge Disposition: Left Against [...] AM EDT Office Visit Bariatric Surgery - [place] [address] [facility] [address] [place] [phone] Omer Saha MD [address] [facility] [address] [place] [address] Health Maintenance Due Date Last Done Comments [...] GEMUSE QTc 426 ms GEMUSE P Wave [place] 53 degrees GEMUSE R [place] 19 degrees GEMUSE T [place] 39 degrees GEMUSE ECG Interpretation Sinus bradycardia [...] Maintenance Insurance MEDICAID - [place] Care Teams Supervisor Electronic Testing Relationship Specialty Start Date End Date Zeinab Carey MD [address] [place] [address] PCP - General 07/29/21
--- OUTSIDE RECORDS SUMMARY | 2024-09-01 08:18 | XMS_ITS | Encounter Summary ---
Author Organization [employer] Address [address] [facility] 7 [place] [address] Care Team Providers Care Cargo Service Agent Name Role Phone Zeinab Carey MD Primary Care Provider [phone] Encounter Details Date Type Department Care Team (Late st Contact Info) Description 01/11/2024 Orders Only [facility] [address] [place] [address] ProviderLou MD Social History Tobacco Use Types [...] Description 11/14/2024 9:00 AM EDT Office Visit [facility] MED & PEDS 505 [place] [address] Zeinab Carey MD [address] [place] [address] documented as of this encounter Procedures Procedure [...] documented as of this encounter Care Teams Cargo Service Agent Relationship Specialty Start Date End Date Zeinab Carey MD [address] [place] [address] PCP - General Family Medicine 05/16/17 documented as of this encounter
== END ==
LOC: HO.CARD 08:04
PROVIDERS: PCP Pediatrics; Visit Provider Pediatrics
DX: R00.1 Bradycardia, unspecified (principal)
CPT/HCPCS: 93225

== ENCOUNTER 2024-10-31 11:24 | Outpatient (REF) | payer MEDICAID, SELFPAY ==
--- OUTSIDE RECORDS SUMMARY | 2024-10-31 12:09 | XMS_ITS | Encounter Summary ---
Author Organization [employer] Address [address] [place] [address] Care Team Providers Care Photographer Model Name Role Phone Zeinab Carey MD Primary Care Provider [phone] Reason for Visit * Reason Onset Date Comments Results 03/26/2024 Encounter Details Date Type Department Care Team ([facility] st Contact Info) Description 03/26/2024 Telephone [facility] MEDICINE [address] [place] [address] Zeinab Carey MD [address] [place] [address] Results Social History Tobacco Use Types Packs/Day [...] results: Labs Date when done: 03/15/24 Facility: [facility] Labs documented in this encounter Plan of Treatment Upcoming Encounters Date Type Department Care Team (Late st Contact Info) Description 11/14/2024 9:00 AM EDT Office Visit [facility] MED & PEDS [address] [place] [address] Zeinab Carey MD [address] [place] [address] documented as of this encounter Visit Diagnoses Not on filedocumented in this encounter Additional Health Concerns Assessment Noted Time PHQ-9 Depression Total Score: 8 05/15/20 23 11:18 AM EST documented as of this encounter Care Teams Photographer Model Relationship Specialty Start Date End Date Zeinab Carey MD [address] [place] [address] PCP - General Family Medicine 05/16/17 documented as of this encounter
== END 2024-10-31 11:25 | disposition home or self-care (01) ==
LOC: HO.SH 11:24
PROVIDERS: Visit Provider Pediatrics
DX: Z01.118 Encounter for examination of ears and hearing with other abnormal findings (principal); H90.3 Sensorineural hearing loss, bilateral
CPT/HCPCS: V5014; V5266

== ENCOUNTER 2025-02-05 11:03 | Outpatient (REF) | payer MEDICAID, SELFPAY ==
--- OUTSIDE RECORDS SUMMARY | 2025-02-05 15:22 | XMS_ITS | Clinical Summary ---
Author Organization [facility] Address [address] [place] [address] Phone Care Team Providers Care Pega Developer Name Role Phone Zeinab Carey MD Primary Care Provider [phone] Allergies No known active allergies Medications ondansetron [...] mouth 2 times daily (with meals). Active Surgical History Surgery Date Site/Laterality Comments CERVICAL [...] 60 06/27/2024 10:40 PM EST Temperature 36.6 C (97.8 F) 06/27/2024 10:40 PM EST Respiratory Rate 17 06/27/2024 10:40 PM EST Oxygen Saturation 98% 06/27/2024 10:40 PM EST Inhaled Oxygen Concentration - - Weight 70.3 kg (155 lb) 06/27/2024 10:40 PM EST Height 167.6 cm (5' 6 ) 06/27/2024 10:40 PM EST Body Mass Index 25.02 06/27/2024 10:40 PM EST Plan of Treatment Upcoming Encounters Date Type Department Care Team (Late st Contact Info) Description 06/23/2025 8:15 AM EST Office Visit Bariatric Surgery - [address] [place] [address] Omer Saha MD [address] [place] [address] Health Maintenance Due Date Last Done Comments Breast Cancer Screening 1975 Cervical Cancer Screening: Pap Smear 1994 Colorectal Cancer Screening: Colonoscopy 05/07/2022 Hepatitis C Screening 05/07/2022 Social Influencers of Health Screening 05/07/2022 Pneumococcal Vaccine: 50+ Years (1 of 1 - PCV) 2023 Depression Screening 05/28/2024 Zoster Vaccines (2 of 2) 07/08/2024 05/13/2024 COVID-19 Vaccine (4 - season) 2025 07/05/2022, 11/10/2020, 10/13/2020 Influenza Vaccine (#1) 2025 , 04/12/2023, 03/03/2021, Additional history exists DTaP,Tdap,and Td Vaccines (2 - Td or Tdap) 05/17/2027 05/17/2017 Cholesterol Screening (Lipid Panel) 03/06/2029 03/06/2024, 03/06/2024, 02/06/2022 HIV Screening Completed 02/06/2022 Hepatitis B Vaccines Completed 09/13/2023, 06/21/2023, 05/24/2023 HIB Vaccines Aged Out No longer eligi [...] age to complete this topic Meningococcal B Vaccine Aged Out No l onger eligible based on patient's age to complete this topic RSV Immunization Patients Under 20 months Aged Out No longer eligible based on patient's age to complete this topic Varicella Vaccines Aged Out No longer eligible based on patient's age to complete this topic Procedures Procedure Name Priority Date/Time Associated Diagnosis Comments LIPID PANEL Routine 03/06/2024 from Last 3 Months or Most Recently Relevant to Health Maintenance Results * Lipid panel (03/06/2024) LDL/HDL Ratio 2 0 - 4 Triglycerides 64 0 - 150 mg/dL Cholesterol 147 0 - 200 mg/dL HDL 65 >=40 mg/dL LDL Cholesterol 70 0 - 100 mg/dL Blood Venous blood specimen / Unknown us Historical Provider LAB BLOOD ORDERABLES Emili l Result from Last 3 Months or Most Recently Relevant to Health Maintenance Insurance MEDICAID - [place] Care Teams Pega Developer Relationship Specialty Start Date End Date Zeinab Carey MD [address] [place] [phone] PCP - General 07/29/21
--- OUTSIDE RECORDS SUMMARY | 2025-02-05 15:22 | XMS_ITS | Encounter Summary ---
Author Organization [employer] Address [address] [place] [address] [place] [address] Care Team Providers Care Section Gang Worker Name Role Phone Zeinab Carey MD Primary Care Provider [phone] Reason for Visit * Reason Onset Date Comments Nurse Triage 08/11/2024 Encounter Details Date Type Department Care Team ([facility] st Contact Info) Description 08/11/2024 Telephone [facility] 505 [place] [address] Zeinab Carey MD 505 [place] [address] Nurse Triage Social History Tobacco Use Types [...] RN - 08/11/2024 12:29 PM EDT No contract accountant 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 Call returned to Saundra Mayo to triage [...] monitor. Pt advised that referral sent to [facility]. Given contact number for [facility] Cards. Pt offered appt tomorrow with team provider. Pt states will call cardiology first. Pt advised of [facility] operating hours for today and tomorrow for [...] yesterday. No symptoms today. Contact pt at [phone] (sami) documented in this encounter Plan of Treatment Not on file documented as of this encounter Visit Diagnoses Not on filedocumented in this encounter Additional Health Concerns Assessment Noted Time PHQ-9 Depression Total Score: 8 05/15/20 23 11:18 AM EST documented as of this encounter Care Teams Section Gang Worker Relationship Specialty Start Date End Date Zeinab Carey MD [address] [place] [address] PCP - General Family Medicine 05/16/17 documented as of this encounter
--- OUTSIDE RECORDS SUMMARY | 2025-02-05 15:22 | XMS_ITS | Encounter Summary ---
Author Organization [employer] Address [address] [place] [address] Care Team Providers Care Columnist Name Role Phone Zeinab Carey MD Primary Care Provider [phone] Reason for Visit * Reason Onset Date Comments MR ORDER 10/23/2023 Encounter Details Date Type Department Care Team ([facility] st Contact Info) Description 10/23/2023 Telephone [facility] MEDICINE [address] [place] [address] Zeinab Carey MD [address] [place] [address] MR ORDER Social History Tobacco Use Types [...] documented as of this encounter Care Teams Columnist Relationship Specialty Start Date End Date Zeinab Carey MD [address] [place] [address] PCP - General Family Medicine 05/16/17 documented as of this encounter
--- OUTSIDE RECORDS SUMMARY | 2025-02-05 15:22 | XMS_ITS | Encounter Summary ---
Author Organization [employer] Address [address] [place] [address] Care Team Providers Care Director Of People Name Role Phone Zeinab Carey MD Primary Care Provider [phone] Reason for Visit * Reason Onset Date Comments Appointment Request 09/07/2023 Encounter Details Date Type Department Care Team ([facility] st Contact Info) Description 09/07/2023 Telephone [facility] MEDICINE [address] [place] [address] Zeinab Carey MD [address] [place] [address] Appointment Request Social History Tobacco Use Types [...] of this encounter Care Teams Director Of People Relationship Specialty Start Date End Date Zeinab Carey MD [address] [place] [address] PCP - General Family Medicine 05/16/17 documented as of this encounter
--- OUTSIDE RECORDS SUMMARY | 2025-02-05 15:22 | XMS_ITS | Encounter Summary ---
Author Organization [employer] Address [address] [place] [address] Care Team Providers Care Manager Test Name Role Phone Zeinab Carey MD Primary Care Provider [phone] Reason for Visit * Reason Onset Date Comments Referral 06/27/2023 Encounter Details Date Type Department Care Team ([facility] st Contact Info) Description 06/27/2023 Telephone [facility] MEDICINE [address] [place] [address] Zeinab Carey MD [address] [place] [address] Referral Social History Tobacco Use Types Packs/Day [...] advise. Pt is requesting a referral to [facility] for thyroid management. * Telephone Encounter - Catherine Fitch - 06/27/2023 3:34 PM EST Fax number [phone] * Telephone Encounter - Catherine Fitch - 06/27/2023 3:32 PM EST Tc from pt requesting a new referral for [facility] at [address] [place] [address]. documented in this encounter Plan of Treatment Not on file documented as of this encounter Visit Diagnoses Not on filedocumented in this encounter Additional Health Concerns Assessment Noted Time PHQ-9 Depression Total Score: 8 05/15/20 23 11:18 AM EST documented as of this encounter Care Teams Manager Test Relationship Specialty Start Date End Date Zeinab Carey MD [address] [place] [address] PCP - General Family Medicine 05/16/17 documented as of this encounter
--- OUTSIDE RECORDS SUMMARY | 2025-02-05 15:22 | XMS_ITS | Encounter Summary ---
Author Organization [employer] Address [address] [place] [address] Care Team Providers Care Quality Control Analyst Name Role Phone Zeinab Carey MD Primary Care Provider [phone] Reason for Visit * Reason Onset Date Comments Results 03/26/2024 Encounter Details Date Type Department Care Team ([facility] st Contact Info) Description 03/26/2024 Telephone [facility] MEDICINE [address] [place] [address] Zeinab Carey MD [address] [place] [address] Results Social History Tobacco Use Types Packs/Day [...] results: Labs Date when done: 03/15/24 Facility: [facility] Labs documented in this encounter Plan of Treatment Not on file documented as of this encounter Visit Diagnoses Not on filedocumented in this encounter Additional Health Concerns Assessment Noted Time PHQ-9 Depression Total Score: 8 05/15/20 23 11:18 AM EST documented as of this encounter Care Teams Quality Control Analyst Relationship Specialty Start Date End Date Zeinab Carey MD [address] [place] [address] PCP - General Family Medicine 05/16/17 documented as of this encounter
--- OUTSIDE RECORDS SUMMARY | 2025-02-05 15:22 | XMS_ITS | Encounter Summary ---
Author Organization [employer] Address [address] [place] [address] Care Team Providers Care Flatlock Sewing Machine Operator Name Role Phone Zeinab Carey MD Primary Care Provider [phone] Reason for Visit * Reason Onset Date Comments Medication Question 10/24/2023 Referral 10/24/2023 Encounter Details Date Type Department Care Team ([facility] st Contact Info) Description 10/24/2023 Telephone [facility] MEDICINE [address] [place] [address] Zeinab Carey MD 505 [place] [address] Medication Question; Referral Social History Tobacco Use [...] enough money to get more: Never True 10/ Transportation Answer Date Recorded In the past [...] and would like to be sent to [address] [place] [address] and is request for a stronger medication [...] documented as of this encounter Care Teams Flatlock Sewing Machine Operator Relationship Specialty Start Date End Date Zeinab Carey MD [address] [place] [address] PCP - General Family Medicine 05/16/17 documented as of this encounter
--- OUTSIDE RECORDS SUMMARY | 2025-02-05 15:22 | XMS_ITS | Encounter Summary ---
Author Organization [employer] Address [address] [place] [address] [place] [address] Care Team Providers Care Manager Social Work Name Role Phone Zeinab Carey MD Primary Care Provider [phone] Reason for Visit * Reason Onset Date Comments PA 08/12/2024 Encounter Details Date Type Department Care Team ([facility] st Contact Info) Description 08/12/2024 Telephone [facility] MED & PEDS [address] [place] [address] Zeinab Carey MD [address] [place] [address] PA Social History Tobacco Use Types Packs/Day Years Used Date Smoking Tobacco: Never Passive Smoke Exposure: Never Smokeless Tobacco: Never Depression Answer Date Recorded Patient Health Questionnaire-9 Score 8 05/15/2023 Patient Health Questionnaire-9 Score 8 05/15/2023 Last PHQ-9: Questionnaire Data Not on file 1 07/16/2022 Housing Stability Answer Date Recorded What is your housing situation today? I have ebnsonmanuel lee 02/12/[address] you [...] 08/13/2024 9:37 AM EDT No Pa needed principal technical writer spoke with [facility] who ran the medication and paid , principal technical writer informed pt, as pt request for medication to be changed to [facility] pharmacy. Tc from pt calling to inform [...] as of this encounter Care Teams Manager Social Work Relationship Specialty Start Date End Date Zeinab Carey MD [address] [place] [address] PCP - General Family Medicine 05/16/17 documented as of this encounter
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
--- OUTSIDE RECORDS SUMMARY | 2025-02-05 15:22 | XMS_ITS | Encounter Summary ---
Author Organization [employer] Address [address] [place] [address] [place] [address] Care Team Providers Care Bridge Gang Worker Name Role Phone Zeinab Carey MD Primary Care Provider [phone] Reason for Visit * Reason Onset Date Comments Med Refill 01/14/2025 Encounter Details Date Type Department Care Team ([facility] st Contact Info) Description 01/14/2025 Refill [facility] MED & PEDS [address] [place] [address] Zeinab Carey MD [address] [place] [address] Chronic superficial 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; Chronic migraine without aura without status migrainosus, not intractable Social History Tobacco Use Types Packs/Day Years [...] as of this encounter Visit Diagnoses Diagnosis Chronic superficial 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 Chronic migraine without aura without status migrainosus, not intractable documented in this encounter Additional Health Concerns Assessment Noted Time PHQ-9 Depression Total Score: 8 05/15/20 23 11:18 AM EST documented as of this encounter Care Teams Bridge Gang Worker Relationship Specialty Start Date End Date Zeinab Carey MD [address] [place] [address] PCP - General Family Medicine 05/16/17 documented as of this encounter
--- OUTSIDE RECORDS SUMMARY | 2025-02-05 15:22 | XMS_ITS | Encounter Summary ---
Author Organization [employer] Address [address] [place] [address] [place] [address] Care Team Providers Care Gas Usage Meter Clerk Name Role Phone Zeinab Carey MD Primary Care Provider Reason for Visit * Reason Onset Date Comments Request For Order(s) 10/30/2023 Encounter Details Date Type Department Care Team ([facility] st Contact Info) Description 10/30/2023 Telephone [facility] MED & PEDS [address] [place], [place] [phone] Zeinab Carey MD [address] [place] [address] Request For Order(s) Social History Tobacco Use [...] surgery. Please contact pt for questions/clarification at [phone] documented in this encounter Plan of Treatment Not on file documented as of this encounter Visit Diagnoses Not on filedocumented in this encounter Additional Health Concerns Assessment Noted Time PHQ-9 Depression Total Score: 8 05/15/20 23 11:18 AM EST documented as of this encounter Care Teams Gas Usage Meter Clerk Relationship Specialty Start Date End Date Zeinab Carey MD [address] [place] [address] PCP - General Family Medicine 05/16/17 documented as of this encounter
--- OUTSIDE RECORDS SUMMARY | 2025-02-05 15:22 | XMS_ITS | Encounter Summary ---
Author Organization [employer] Address [address] [place] [address] [facility] [place] [address] Care Team Providers Care Business Technology Architect Name Role Phone Zeinab Carey MD Primary Care Provider [phone] Reason for Referral * Imaging (Routine) - Closed Specialty Diagnoses / Procedures Referred By Contac t Referred To Contact Radiology Diagnoses Thyroid nodule Acquired hypothyroidism Procedures US Thyroid Zeinab Carey MD [address] [place] [address] Phone: tel: fax: [address] Phone: tel: fax: Referral ID Status Reason Start Date Expiration Date Visits Re quested Visits Authorized [id number] Closed 10/24/2023 10/23/2024 1 1 Encounter Details Date Type Department Care Team (Late st Contact Info) Description 10/24/2023 Orders Only [facility] MED & PEDS [address] [place] [address] Zeinab Carey MD [address] [place] [address] Thyroid nodule (Primary Dx); Acquired hypothyroidism Social [...] PM EDT Narrative 11/23/2023 12:26 PM EDT [place] [address] Ultrasound Report Signed Patient: Saundra Mayo MR#: [id number] [birth year] : 1975 Acct:[id number] Age/Sex: 48 / F ADM Date: 10/31/23 Loc: HO.US Attending Dr: Zeinab Carey MD Ordering Physician: Zeinab Carey MD Date of Service: 10/31/23 Procedure(s): US thyroid Accession Number(s): [id number] cc: Zeinab Carey MD EXAMINATION: US THYROID [...] in OV> 11/23/23 1222 DD/ 1238 TD/TT: Clock And Watch Assembler: TRUNG Procedure Note Donotuseinterpreter, Image - 11/23/2023 [place] [address] Ultrasound Report Signed Patient: Lesvia Mayo#: [id number] [birth year] : 1975Acct:[id number] Age/Sex: 48 / FADM Date: 10/31/23 Loc: HO.US Attending Dr: Zeinab Carey MD Ordering Physician: Zeinab Carey MD Date of Service: 10/31/23 Procedure(s): US thyroid Accession Number(s): [id number] cc: Zeinab Carey MD EXAMINATION: US THYROID [...] in OV> 11/23/23 1222 DD/ 1238 TD/TT: Clock And Watch Assembler: TRUNG us Zeinab Carey MD IMG US PROCEDURES Final Resul t documented in this encounter Visit Diagnoses Diagnosis Thyroid nodule- Primary Nontoxic uninodular goiter Acquired hypothyroidism Unspecified hypothyroidism documented in this encounter Additional Health Concerns Assessment Noted Time PHQ-9 Depression Total Score: 8 05/15/20 23 11:18 AM EST documented as of this encounter Care Teams Business Technology Architect Relationship Specialty Start Date End Date Zeinab Carey MD [address] [place] [address] PCP - General Family Medicine 05/16/17 documented as of this encounter
--- OUTSIDE RECORDS SUMMARY | 2025-02-05 15:22 | XMS_ITS | Clinical Summary ---
Author Organization [employer] Address [address] [facility] 7t [place] [address] Care Team Providers Care Felting Machine Operator Name Role Phone Zeinab Carey MD Primary Care Provider [phone] Allergies No known active allergies Medications hydrOXYzine pamoate (Vistaril) 25 MG capsule TAKE 1 CAPSULE BY MOUTH TWICE A DAY NEEDED SIG IN [place] 03/11/20 23 Active escitalopram (Lexapro) 20 MG tablet TAKE 1 1/2 TABLET BY MOUTH ONCE A DAY SIG IN [place] 01/16/20 23 Active buPROPion XL (Wellbutrin XL) 150 MG 24 hr tablet TAKE 1 TABLET BY MOUTH ONCE A DAY TAKE WITH 300MG XL DOSE TOTAL 450MG XL 02/02/20 23 Active buPROPion XL (Wellbutrin XL) 300 MG 24 hr tablet TAKE 1 TABLET BY MOUTH ONCE A DAY SIG IN [place] 03/21/20 23 Active lidocaine-prilo heath (Emla) 2.5-2.5 [...] pain 100 g 5 11/27/19 24 Active butalbital-acet aminophen-caffe ine 50-325-40 MG tablet TAKE 1 TAB ORALLY EVERY 6 HOURS NEEDED FOR HEADACHE 03/01/20 24 Active cyclobenzaprine (Flexeril) 10 MG tablet Take 1 tablet (10 mg) by mouth 3 times daily. 30 tablet 07/16/19 25 Active Diclofenac Sodium (Voltaren) 1 % gel Use topical BID 100 g 3 10/24/19 25 Active pantoprazole (ProtoNix) 40 MG EC tabletIndicatio ns:Chronic superficial 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,Chroni c migraine without aura without status migrainosus, not intractable TOME 1 TABLETA POR VIA ORAL TODOS [place]HA[place] 90 tablet 1 10/29/19 25 Active SUMAtriptan (Imitrex) 50 MG tabletIndicatio ns:Chronic superficial 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,Chroni c migraine without aura without status migrainosus, not intractable TAKE 1 TABLET BY MOUTH ONCE WITH FLUIDS EARLY POSSIBLE AFTER THE ONSET OF A MIGRAINE ATTACK MAY REPEAT AFTER 2 HOURS IF HEADACHE RETURNS, NOT TO EXCEED 200MG IN 24HRS NEEDED 9 tablet 3 11/05/19 25 Active levothyroxine (Synthroid) 150 MCG tablet TAKE 1 TABLET BY MOUTH BEFORE BREAKFAST 90 tablet 1 01/16/20 25 Active levothyroxine (Synthroid) 150 MCG tablet Take 1 tablet (150 mcg) by mouth before breakfast. 30 tablet 11 08/22/19 25 025 Discontinued(Re order (will not trigger notification to Pharmacy)) Active Problems Problem Noted Date Diagnosed Date Gastric bypass status for obesity 10/23/2024 Trigger finger of left thumb 09/18/2023 Lumbosacral radiculopathy 06/01/2022 Degeneration of lumbar intervertebral disc 05/31 Acquired hypothyroidism 05/31/2022 Thyroid nodule 05/31/2022 Class 2 obesity 05/31/2022 Obesity 05/31/2022 Tear of medial meniscus of knee 02/28/2018 Gastritis 06/29/2017 Recurrent anxiety 05/17/2017 Encounters Date Type Department Care Team Description 01/14/2025 Refill [facility] MED & PEDS [address] [place] [address] Zeinab Craey MD 01/14/2025 Refill [facility] MEDICINE [address] [place], [place] [id number] Rebecca Valdes MD Chronic superficial 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; Chronic migraine without aura without status migrainosus, not intractable 01/14/2025 Refill [facility] MED & PEDS [address] [place] [address] Zeinab Carey MD Chronic superficial 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; Chronic migraine without aura without status migrainosus, not intractable 01/13/2025 Orders Only [facility] [address] [place] [address] ProviderLou MD 11/14/2024 9:00 AM EDT Office Visit [facility] MED & PEDS [address] [place] [address] Zeinab Carey MD Recurrent anxiety (Primary Dx); Bradycardia; Exercise counseling; Dietary counseling; Bariatric surgery status; Acute pain of right knee; Acquired hypothyroidism 11/14/2024 Travel 11/12/2024 Telephone [facility] MED & PEDS [address] [place] [address] Zeinab Carey MD Chart Prep 11/06/2024 Telephone [facility] MED [facility] PED[facility] [address] [place] [address] Zeinab Carey MD Letter Request (The patient requested a letter for work, excusing her for being out from 11/05/24 until 11/09/24, due to migraines. I informed her, per the forms nurse, that a letter cannot be generated because she was not evaluated by a provider during the time that she has been out of work. She was advised to schedule a PCP appointment, and to request FMLA paperwork from her employer. She verbalized understanding, and stated that she will request the [place] paperwork, and will keep the appointment that is scheduled fo) from Last 3 Months Immunizations Immunization Administration Dates Next Due Hep B, adult [...] Sign Reading Time Taken Comments Blood Pressure 111/73 11/14/2024 8:39 AM EDT Pulse 64 11/14/2024 8:39 AM EDT Temperature 36.8 C (98.2 F) 11/14/2024 8:39 AM EDT Respiratory Rate 16 11/14/2024 8:39 AM EDT Oxygen Saturation 99% 11/14/2024 8:39 AM EDT Inhaled Oxygen Concentration - - Weight 73 kg (161 lb) 11/14/2024 8:39 AM EDT Height 167.6 cm (5' 6 ) 11/14/2024 8:39 AM EDT Body Mass Index 25.99 11/14/2024 8:39 AM EDT Plan of Treatment Health Maintenance Due Date Last Done Comments CT Colonography 1975 FIT DNA/Cologuard 1975 FIT 1975 FOBT 1975 Sigmoidoscopy 1975 Disability Screening 1975 Alcohol/Substance Use Screening 1985 Family Planning (PISQ) 1988 Pneumococcal Vaccine: 50+ Years (1 of 1 - PCV) 2023 Depression Screening 05/15/2024 05/15/2023, 05/15/20 23 Zoster Vaccines (2 of 2) 07/08/2024 05/13/2024 COVID-19 Vaccine ( season) 2025 07/05/2022, 11/10/2020, 10/13/2020 Influenza Vaccine (#1) 2025 , 04/12/2023, 03/03/2021, Additional history exists SDOH Screening 02/11/2025 02/12/2024 Tobacco Screening 05/13/2025 05/13/2024 Cervical Cancer Screening 07/21/2025 HPV/Cotest 07/21/2025 07/21/2020 Pap Smear 07/21/2025 07/21/2020 Mammogram 01/12/2027 01/12/2025, 10/0 01/2024, 02/27/2023, Additional history exists Lipid Panel 02/06/2027 02/06/2022 DTaP/Tdap/Td Vaccines (2 - Td or Tdap) 05/17/2027 05/17/2017 Colonoscopy 07/20/2032 07/20/2022 Colorectal Cancer Screening 07/20/2032 RSV Patients and Patients Aged 60 years [...] Procedure Name Priority Date/Time Associated Diagnosis Comments MAMMOGRAPHY Routine 01/12/2025 11:44 AM EDT HEPATITIS PANEL, GENERAL Routine 05/15/2023 11:12 AM EST Elevated liver enzymes COLONOSCOPY Routine 07/20/2022 HIV 1/2 ANTIGEN/ANTIBODY, FOURTH GENERATION W/RFL Routine 02/06/2022 9:57 AM EDT LIPID PANEL, STANDARD Routine 02/06/2022 9:57 AM EDT PAP/HPV Routine 07/21/2020 from Last 3 Months or Most Recently Relevant to Health Maintenance Results * Mammography (01/12/2025 11:44 AM EDT) Anatomical Region Laterality Modality Other us Historical Provider HEALTH MAINTENANCE Final Result * Hepatitis A,B,C Profile (05/15/2023 11:12 AM EST) Hepatitis A IgM Nonreactive Nonreactive [facility] Comment:IgM antibodies to ANDERSEN V not detected; does not exclude earlyacute or recovered HAV infection. ~Hepatitis B Surface Antibody NONREACTIVE Nonreactive [facility] Comment:Nonreactive: < 8.00 mIU/mL Hepatitis B Core Antibody Nonreactive Nonreactive [facility] Hepatitis C Antibody Nonreactive Nonreactive [facility] Comment:Antibodies to HCV no t detected; does not exclude early acuteHCV infection. Hepatitis B Surface Ag Negative Negative [facility] Blood Venous blood specimen / Unknown 05/15/2023 11:12 AM EST 05/15/2023 2:20 PM EST Zeinab Carey MD LAB BLOOD ORDERABLES Final Re sult [facility] [address] [place] [phone] * (ABNORMAL) Hm Colonoscopy (07/20/2022) Colonoscopy Normal Normal us Zeinab aCrey MD HEALTH MAINTENANCE Final Resu lt * HIV 1/2 ANTIGEN/ANTIBODY,FOURTH GENERATION W/RFL (02/06/2022 9:57 AM EDT) HIV-1/2 ANTIGEN AND ANTIBODIES, 4TH GENERATION W/ REFLEX NON-REACT HARRY NON-REACT HARRY [facility] Comment: HIV-1 antigen and HIV-1/HIV-2 antibodies were not detected. There is no laboratory evidence of HIV infection. PLEASE NOTE: This information has been disclosed to you from records whose confidentiality may be protected by state law. If your state requires such protection, then the state law prohibits you from making any further disclosure of the information without the specific written consent of the person to whom it pertains, or as otherwise permitted by law. A general authorization for the release of medical or other information is NOT sufficient for this purpose. For additional information please refer to http://education.[employer].com/faq/OTO927 (This link is being provided for informational/ educational purposes only.) The performance of this assay has not been clinically validated in patients less than 2 years old. 02/06/2022 9:57 AM EDT Tarik Sommers MD LAB BLOOD ORDERABL ES Final Result [facility] [address] * (ABNORMAL) LIPID PANEL, STANDARD (02/06/2022 9:57 AM EDT) Chol/HDLC Ratio 4.1 <5.0 (calc) [facility] Cholesterol, Total 165 <200 mg/dL [facility] HDL Cholesterol 40(L) > OR = 50 mg/dL [facility] LDL Cholesterol 98 mg/dL (calc) [facility] Comment: Reference range: <100 Desirable range <100 mg/dL for primary prevention; <70 mg/dL for patients with CHD or diabetic patients with > or = 2 CHD risk factors. LDL-C is now calculated using the Abimael-Charlton calculation, which is a validated novel method providing better accuracy than the Friedewald equation in the estimation of LDL-C. Abimael SS et al. JUAN. 2013;310(19): 3038-5006 (http://education.[employer].com/faq/NMY617) Non-HDL Cholesterol 125 <130 mg/dL (calc) [facility] Comment: For patients with diabetes plus 1 major ASCVD risk factor, treating to a non-HDL-C goal of <100 mg/dL (LDL-C of <70 mg/dL) is considered a therapeutic option. Triglycerides 178(H) <150 mg/dL [facility] 02/06/2022 9:57 AM EDT Tarik Sommers MD LAB BLOOD ORDERABL ES Final Result Performing Organization Address [facility] de Phone Number [facility] [address] [place] [address], * Hm Pap Smear (07/21/2020) Pap Negative for intraephithelial lesion or malignancy Negative for intraephithelial lesion or malignancy, Other HPV Undetected Undetected, Indeterminate, Quantitative, Not Detected Historical Provider HEALTH MAINTENANCE Final Result from Last 3 Months or Most Recently Relevant to Health Maintenance Insurance [facility] [employer] Care Teams Felting Machine Operator Relationship Specialty Start Date End Date Zeinab Carey MD [address] [place] [address] PCP - General Family Medicine 05/16/17
--- OUTSIDE RECORDS SUMMARY | 2025-02-05 15:22 | XMS_ITS | Encounter Summary ---
Author Organization [employer] Address [address] [place] [address] [place] [address] Care Team Providers Care Wine Sales Representative Name Role Phone Zeinab Carey MD Primary Care Provider [phone] Reason for Visit * Reason Onset Date Comments Nurse Triage 06/25/2024 Encounter Details Date Type Department Care Team ([facility] st Contact Info) Description 06/25/2024 Telephone C [facility] MED [facility] PEDS [address] [place] [address] Zeinab Carey MD [address] [place] [address] Nurse Triage Social History Tobacco Use Types [...] 06/25/2024 10:50 AM EST Triage call with [facility] [place] [id number] Jose. Called x2, unable to make connectiion. [...] documented as of this encounter Care Teams Wine Sales Representative Relationship Specialty Start Date End Date Zeinab Carey MD [address] [place] [address] PCP - General Family Medicine 05/16/17 documented as of this encounter
--- OUTSIDE RECORDS SUMMARY | 2025-02-05 15:22 | XMS_ITS | Encounter Summary ---
Author Organization [employer] Address [address] [place] [address] [place] [address] Care Team Providers Care Bsa/Aml Compliance Officer Name Role Phone Zeinab Carey MD Primary Care Provider [phone] Reason for Visit * Reason Onset Date Comments Referral 10/29/2023 Encounter Details Date Type Department Care Team ([facility] st Contact Info) Description 10/29/2023 Telephone [facility] [address] [place] [address] Zeinab Carey MD [address] [place] [address] Referral Social History Tobacco Use Types Packs/Day [...] regards to referral. Please contact pt at [phone] * Telephone Encounter - Sruthi Rodriguez - 10/29/2023 12:43 PM EDT Tc from pt requesting a referral to neurologist. Pt states forgetfulness is becoming more consistent and would like testing. Please contact pt at [phone] (Maori) documented in this encounter Plan of Treatment Not on file documented as of this encounter Visit Diagnoses Not on filedocumented in this encounter Additional Health Concerns Assessment Noted Time PHQ-9 Depression Total Score: 8 05/15/20 23 11:18 AM EST documented as of this encounter Care Teams Bsa/Aml Compliance Officer Relationship Specialty Start Date End Date Zeinab Carey MD [address] [place] [address] PCP - General Family Medicine 05/16/17 documented as of this encounter
--- OUTSIDE RECORDS SUMMARY | 2025-02-05 15:22 | XMS_ITS | Encounter Summary ---
Author Organization [employer] Address [address] [facility] 7 [place] [address] Care Team Providers Care Employment Educational Coord Name Role Phone Zeinab Carey MD Primary Care Provider [phone] Reason for Visit * Reason Onset Date Comments Med Refill 01/14/2025 Encounter Details Date Type Department Care Team (Late st Contact Info) Description 01/14/2025 Refill [facility] MEDICINE [address] [place] [address] Rebecca Valdes MD [address] [place] [address] Chronic superficial 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; Chronic migraine [...] documented as of this encounter Care Teams Employment Educational Coord Relationship Specialty Start Date End Date Zeinab Carey MD [address] [place] [address] PCP - General Family Medicine 05/16/17 documented as of this encounter
--- OUTSIDE RECORDS SUMMARY | 2025-02-05 15:22 | XMS_ITS | Encounter Summary ---
Author Organization [employer] Address [address] [facility] 7 [place] [address] Care Team Providers Care Dairy Husbandman Name Role Phone Zeinab Carey MD Primary Care Provider [phone] Encounter Details Date Type Department Care Team ([facility] st Contact Info) Description 06/30/[address] [facility] CHC MED & PEDS [address] [place] [address] Provider, MD Lou Social History Tobacco Use [...] documented as of this encounter Care Teams Dairy Husbandman Relationship Specialty Start Date End Date Zeinab Carey MD [address] [place] [address] PCP - General Family Medicine 05/16/17 documented as of this encounter
--- OUTSIDE RECORDS SUMMARY | 2025-02-05 15:22 | XMS_ITS | Encounter Summary ---
Author Organization [employer] Address [address] [place] [address] 7 [place] [address] Care Team Providers Care Sales Team Member Name Role Phone Zeinab Carey MD Primary Care Provider [phone] Encounter Details Date Type Department Care Team (Late st Contact Info) Description 01/13/2025 Orders Only [facility] [address] [place] [address] Provider, MD Lou Social History Tobacco Use [...] Procedure Name Priority Date/Time Associated Diagnosis Comments HM MAMMOGRAPHY Routine 01/12/2025 11:44 AM EDT documented in this encounter Results * Hm Mammography (01/12/2025 11:44 AM EDT) Anatomical Region Laterality Modality Other Historical Provider HEALTH MAINTENANCE Final Result documented in this encounter Visit Diagnoses Not on filedocumented in this encounter Additional Health Concerns Assessment Noted Time PHQ-9 Depression Total Score: 8 05/15/20 23 11:18 AM EST documented as of this encounter Care Teams Sales Team Member Relationship Specialty Start Date End Date Zeinab Carey MD [address] [place] [address] PCP - General Family Medicine 05/16/17 documented as of this encounter
--- OUTSIDE RECORDS SUMMARY | 2025-02-05 15:22 | XMS_ITS | Encounter Summary ---
Author Organization [employer] Address [address] [place] [address] Care Team Providers Care Taper/Finisher Name Role Phone Zeinab Carey MD Primary Care Provider [phone] Reason for Visit * Reason Onset Date Comments Results 06/26/2023 Encounter Details Date Type Department Care Team ([facility] st Contact Info) Description 06/26/[address] [facility] MEDICINE [address] [place] [address] Zeinab Carey MD [address] [place] [address] Results Social History Tobacco Use Types Packs/Day [...] Pt also informed of referral placement to [facility] but advised on wait list. Pt verbalized understanding and agrees with plan. * Telephone Encounter - Petra Pagan RN - 06/27/2023 4:13 PM EST Please review pt US results and advise. * Telephone Encounter - Allan Quiroz - 06/26/2023 10:28 AM EST TC from pt requesting call back regarding Results. Type of results: Sonogram Date when done: 06/15 Facility: [facility] documented in this encounter Plan of Treatment Not on file documented as of this encounter Visit Diagnoses Not on filedocumented in this encounter Additional Health Concerns Assessment Noted Time PHQ-9 Depression Total Score: 8 05/15/20 23 11:18 AM EST documented as of this encounter Care Teams Taper/Finisher Relationship Specialty Start Date End Date Zeinab Carey MD [address] [place] [address] PCP - General Family Medicine 05/16/17 documented as of this encounter
--- OUTSIDE RECORDS SUMMARY | 2025-02-05 15:22 | XMS_ITS | Encounter Summary ---
Author Organization [employer] Address [address] [place] [address] Care Team Providers Care Cook Larder Name Role Phone Zeinab Carey MD Primary Care Provider [phone] Reason for Visit * Reason Onset Date Comments Results 04/27/2023 Encounter Details Date Type Department Care Team ([facility] Contact Info) Description 04/27/[address] [facility] MEDICINE [address] [place] [address] Zeinab Carey MD [address] [place] [address] Results Social History Tobacco Use Types Packs/Day [...] documented as of this encounter Care Teams Cook Larder Relationship Specialty Start Date End Date Zeinab Carey MD [address] [place] [address] PCP - General Family Medicine 05/16/17 documented as of this encounter
--- OUTSIDE RECORDS SUMMARY | 2025-02-05 15:23 | XMS_ITS | Encounter Summary ---
Author Organization [employer] Address [address] [place] [address] Care Team Providers Care Slime Plant Operator Helper Name Role Phone Zeinab Carey MD Primary Care Provider [phone] Reason for Visit * Reason Onset Date Comments Results 01/18/2024 Encounter Details Date Type Department Care Team ([facility] Contact Info) Description 01/18/2024 Telephone [facility] MEDICINE [address] [place] [address] Zeinab Carey MD [address] [place] [address] Results Social History Tobacco Use Types Packs/Day [...] CT Scan Date when done: 12/05 [place] [facility] documented in this encounter Plan of Treatment Not on file documented as of this encounter Visit Diagnoses Not on filedocumented in this encounter Additional Health Concerns Assessment Noted Time PHQ-9 Depression Total Score: 8 05/15/20 11:18 AM EST documented as of this encounter Care Teams Slime Plant Operator Helper Relationship Specialty Start Date End Date Zeinab Carey MD [address] [place] [address] PCP - General Family Medicine 05/16/17 documented as of this encounter
--- OUTSIDE RECORDS SUMMARY | 2025-02-05 15:23 | XMS_ITS | Encounter Summary ---
Author Organization [employer] Address [address] [place] [address] 7 [place] [address] Care Team Providers Care Civil Attorney Name Role Phone Zeinab Carey MD Primary Care Provider [phone] Encounter Details Date Type Department Care Team (Late st Contact Info) Description 01/11/2024 Orders Only [facility] [address] [place] [address] Provider, MD Lou Social History Tobacco Use [...] EST) us Historical Provider AUDIOLOGY SERVICES ORDERA BLEArnold Final Result documented in this encounter Visit Diagnoses Not on filedocumented in this encounter Additional Health Concerns Assessment Noted Time PHQ-9 Depression Total Score: 8 05/15/20 23 11:18 AM EST documented as of this encounter Care Teams Civil Attorney Relationship Specialty Start Date End Date Zeinab Carey MD [address] [place] [address] PCP - General Family Medicine 05/16/17 documented as of this encounter
--- NOTE | 2025-02-05 16:35 | MHC.AU.HA3 ---
Hearing Instrument Follow-Up- Binaural Date of Visit: 02/05/25 Right Ear: Jose, Model, Color, Serial Number: Caitlyn Yang [id number] SN: [id number] Color: [place] Dental Surgery Doctor Repair Warranty: 05/07/2022 Dental Surgery Doctor Loss and Damage Warranty: 05/07/2022 Battery Size: 312 Community Product Specialist/Slim Tube: 1M Earmold/Dome/CShell/SlimTip:Small open dome with retention tail Type of Wax Guard: Cerushield Dispensed By: [facility] [place] Date of Fittin02/20/2019 Left Ear: Jose, Model, Color, Serial Number: Caitlyn Yang [id number] SN: [id number] Color: [place] Dental Surgery Doctor Repair Warranty: 03/04/2025 Dental Surgery Doctor Loss and Damage Warranty: 05/07/2022 Battery Size: 312 Community Product Specialist/Slim Tube: 1M Earmold/Dome/CShell/SlimTip: Small open dome with retention tail Type of Wax Guard: Cerushield Dispensed By: [facility] [place] Date of Fittin02/20/2019 Follow-Up Summary: Both HAs dropped off reporting intermittent and need retention tails replaced. Notable build up in microphones. Cleaned HAs (2). Replaced domes (2). Replaced wax guards (2). [id number] x6. Replaced retention tails. Brushed/vacuumed microphones. Ran through dehumidifier. Listening check demonstrated HAs amplifying clearly. To front office for fern picker. Recommendations: Hearing instrument follow-up or maintenance as needed. Please contact our clinic with any questions or concerns. Diagnosis Code(s): Primary Diagnosis: H90.3 Bilateral Sensorineural Hearing Loss Signature: Provider: Artie Banuelos, [facility]
== END 2025-02-05 11:04 | disposition home or self-care (01) ==
LOC: HO.HAP 11:03
PROVIDERS: Visit Provider Pediatrics
DX: Z13.89 Encounter for screening for other disorder (principal)

== ENCOUNTER 2025-02-11 10:30 | Outpatient (REF) | payer MEDICAID, SELFPAY ==
--- OUTSIDE RECORDS SUMMARY | 2025-02-11 12:55 | XMS_ITS | Encounter Summary ---
Author Organization [employer] Address [address] [place] [address] [place] [address] Care Team Providers Care Optical Effects Line Up Person Name Role Phone Zeinab Carey MD Primary Care Provider [phone] Reason for Visit * Reason Onset Date Comments Nurse Triage 08/11/2024 Encounter Details Date Type Department Care Team ([facility] st Contact Info) Description 08/11/2024 Telephone [facility] [address] [place] [address] Zeinab Carey MD 505 [place] [address] Nurse Triage Social History Tobacco Use Types [...] RN - 08/11/2024 12:29 PM EDT No child nutrition assistant needed as this television writer speaks Finnish. Call returned to Saundra Mayo to triage [...] monitor. Pt advised that referral sent to [facility]. Given contact number for [facility] Cards. Pt offered appt tomorrow with team provider. Pt states will call cardiology first. Pt advised of [facility] operating hours for today and tomorrow for [...] yesterday. No symptoms today. Contact pt at [phone] (persian) documented in this encounter Plan of Treatment Not on file documented as of this encounter Visit Diagnoses Not on filedocumented in this encounter Additional Health Concerns Assessment Noted Time PHQ-9 Depression Total Score: 8 05/15/20 23 11:18 AM EST documented as of this encounter Care Teams Optical Effects Line Up Person Relationship Specialty Start Date End Date Zeinab Carey MD [address] [place] [address] PCP - General Family Medicine 05/16/17 documented as of this encounter
--- OUTSIDE RECORDS SUMMARY | 2025-02-11 12:55 | XMS_ITS | Encounter Summary ---
Author Organization [employer] Address [address] [place] [address] [place] [address] Care Team Providers Care Spring Intern Name Role Phone Zeinab Carey MD Primary Care Provider [phone] Reason for Visit * Reason Onset Date Comments Referral 10/29/2023 Encounter Details Date Type Department Care Team ([facility] st Contact Info) Description 10/29/2023 Telephone [facility] MED & PEDS 505 [place] [address] Zeinab Carey MD 505 [place] [address] Referral Social History Tobacco Use Types Packs/Day [...] regards to referral. Please contact pt at [phone] * Telephone Encounter - Sruthi Rodriguez - 10/29/2023 12:43 PM EDT Tc from pt requesting a referral to neurologist. Pt states forgetfulness is becoming more consistent and would like testing. Please contact pt at [phone] (French) documented in this encounter Plan of Treatment Not on file documented as of this encounter Visit Diagnoses Not on filedocumented in this encounter Additional Health Concerns Assessment Noted Time PHQ-9 Depression Total Score: 8 05/15/20 23 11:18 AM EST documented as of this encounter Care Teams Spring Intern Relationship Specialty Start Date End Date Zeinab Carey MD [address] [place] [address] PCP - General Family Medicine 05/16/17 documented as of this encounter
--- OUTSIDE RECORDS SUMMARY | 2025-02-11 12:55 | XMS_ITS | Encounter Summary ---
Author Organization [employer] Address [address] [place] [address] Care Team Providers Care Barrel Loader And Cleaner Name Role Phone Zeinab Carey MD Primary Care Provider [phone] Reason for Visit * Reason Onset Date Comments Appointment Request 09/07/2023 Encounter Details Date Type Department Care Team ([facility] st Contact Info) Description 09/07/2023 Telephone [facility] MEDICINE [address] [place] [address] Zeinab Carey MD 505 [place] [address] Appointment Request Social History Tobacco Use Types [...] documented as of this encounter Care Teams Barrel Loader And Cleaner Relationship Specialty Start Date End Date Zeinab Carey MD 505 [place] [address] PCP - General Family Medicine 05/16/17 documented as of this encounter
--- OUTSIDE RECORDS SUMMARY | 2025-02-11 12:55 | XMS_ITS | Encounter Summary ---
Author Organization [employer] Address [address] [place] [address] 7 [place] [address] Care Team Providers Care Sausage Stringer Name Role Phone Zeinab Carey MD Primary Care Provider [phone] Encounter Details Date Type Department Care Team (Late st Contact Info) Description 01/13/2025 Orders Only [facility] 230 [place] [address] Provider, MD Lou Social History Tobacco Use [...] documented as of this encounter Care Teams Sausage Stringer Relationship Specialty Start Date End Date Zeinab Carey MD 505 [place] [address] PCP - General Family Medicine 05/16/17 documented as of this encounter
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
--- OUTSIDE RECORDS SUMMARY | 2025-02-11 12:55 | XMS_ITS | Encounter Summary ---
Author Organization [employer] Address [address] [place] [address] [place] [address] Care Team Providers Care Lamp Cleaner Street Light Name Role Phone Zeinab Carey MD Primary Care Provider Reason for Visit * Reason Onset Date Comments Nurse Triage 06/25/2024 Encounter Details Date Type Department Care Team ([facility] st Contact Info) Description 06/25/2024 Telephone [facility] 505 [place] [address] Zeinab Carey MD 505 [place] [address] Nurse Triage Social History Tobacco Use Types [...] 06/25/2024 10:50 AM EST Triage call with [facility] [id number] Jose. Called x2, unable to make connectiion. [...] documented as of this encounter Care Teams Lamp Cleaner Street Light Relationship Specialty Start Date End Date Zeinab Carey MD 505 [place] [address] PCP - General Family Medicine 05/16/17 documented as of this encounter
--- OUTSIDE RECORDS SUMMARY | 2025-02-11 12:55 | XMS_ITS | Encounter Summary ---
Author Organization [employer] Address [address] [place] [address] Care Team Providers Care Drivematic Machine Operator Name Role Phone Zeinab Carey MD Primary Care Provider [phone] Reason for Visit * Reason Onset Date Comments Results 04/27/2023 Encounter Details Date Type Department Care Team ([facility] Contact Info) Description 04/27/2023 Telephone [facility] MEDICINE [address] [place] [address] Zeinab Carey MD [address] [place] [address] Results Social History Tobacco Use Types Packs/Day [...] documented as of this encounter Care Teams Drivematic Machine Operator Relationship Specialty Start Date End Date Zeinab Carey MD [address] [place] [address] PCP - General Family Medicine 05/16/17 documented as of this encounter
--- OUTSIDE RECORDS SUMMARY | 2025-02-11 12:55 | XMS_ITS | Encounter Summary ---
Author Organization [employer] Address [address] [place] [address] [place] [address] Care Team Providers Care Preconstruction Manager Name Role Phone Zeinab Carey MD Primary Care Provider [phone] Reason for Visit * Reason Onset Date Comments PA 08/12/2024 Encounter Details Date Type Department Care Team ([facility] st Contact Info) Description 08/12/2024 Telephone [facility] MED & PEDS [address] [place] [address] Zeinab Carey MD 505 [place] [address] PA Social History Tobacco Use Types Packs/Day [...] 08/13/2024 9:37 AM EDT No Pa needed writer technical publications spoke with [facility] who ran the medication and paid , writer technical publications informed pt, as pt request for medication to be changed to [facility] pharmacy. Tc from pt calling to [...] documented as of this encounter Care Teams Preconstruction Manager Relationship Specialty Start Date End Date Zeinab Carey MD [address] [place] [address] PCP - General Family Medicine 05/16/17 documented as of this encounter
--- OUTSIDE RECORDS SUMMARY | 2025-02-11 12:55 | XMS_ITS | Encounter Summary ---
Author Organization [employer] Address [address] [place] [address] Care Team Providers Care Civil Engineering Professor Name Role Phone Zeinab Carey MD Primary Care Provider [phone] Reason for Visit * Reason Onset Date Comments MR ORDER 10/23/2023 Encounter Details Date Type Department Care Team ([facility] st Contact Info) Description 10/23/2023 Telephone [facility] MEDICINE [address] [place] [address] Zeinab Carey MD 505 [place] [address] MR ORDER Social History Tobacco Use Types [...] as of this encounter Care Teams Civil Engineering Professor Relationship Specialty Start Date End Date Zeinab Carey MD 505 [place] [address] PCP - General Family Medicine 05/16/17 documented as of this encounter
--- OUTSIDE RECORDS SUMMARY | 2025-02-11 12:55 | XMS_ITS | Encounter Summary ---
Author Organization [employer] Address [address] [place] [address] Care Team Providers Care Elevator Installer Name Role Phone Zeinab Carey MD Primary Care Provider [phone] Reason for Visit * Reason Onset Date Comments Results 03/26/2024 Encounter Details Date Type Department Care Team ([facility] st Contact Info) Description 03/26/2024 Telephone [facility] MEDICINE [address] [place] [address] Zeinab Carey MD 505 [place] [address] Results Social History Tobacco Use Types Packs/Day [...] results: Labs Date when done: 03/15/24 Facility: [facility] Labs documented in this encounter Plan of Treatment Not on file documented as of this encounter Visit Diagnoses Not on filedocumented in this encounter Additional Health Concerns Assessment Noted Time PHQ-9 Depression Total Score: 8 05/15/20 23 11:18 AM EST documented as of this encounter Care Teams Elevator Installer Relationship Specialty Start Date End Date Zeinab Carey MD [address] [place] [address] PCP - General Family Medicine 05/16/17 documented as of this encounter
--- OUTSIDE RECORDS SUMMARY | 2025-02-11 12:55 | XMS_ITS | Encounter Summary ---
Author Organization [employer] Address [address] [place] [address] Care Team Providers Care Field Map Editor Name Role Phone Zeinab Carey MD Primary Care Provider [phone] Reason for Visit * Reason Onset Date Comments Results 01/18/2024 Encounter Details Date Type Department Care Team ([facility] Contact Info) Description 01/18/2024 Telephone [facility] MEDICINE 230 [place] [address] Zeinab Carey MD 505 [place] [address] Results Social History Tobacco Use Types Packs/Day [...] Scan Date when done: 12/05 Facility: [facility] documented in this encounter Plan of Treatment Not on file documented as of this encounter Visit Diagnoses Not on filedocumented in this encounter Additional Health Concerns Assessment Noted Time PHQ-9 Depression Total Score: 8 05/15/20 11:18 AM EST documented as of this encounter Care Teams Field Map Editor Relationship Specialty Start Date End Date Zeinab Carey MD 505 [place] [address] PCP - General Family Medicine 05/16/17 documented as of this encounter
--- OUTSIDE RECORDS SUMMARY | 2025-02-11 12:55 | XMS_ITS | Encounter Summary ---
Author Organization [employer] Address 75 [facility] 7 [place] [address] Care Team Providers Care Human Resources Talent Manager Name Role Phone Zeinab Carey MD Primary Care Provider [phone] Reason for Visit * Reason Onset Date Comments Med Refill 01/14/2025 Encounter Details Date Type Department Care Team (Late st Contact Info) Description 01/14/2025 Refill [facility] MEDICINE 230 [place] [address] Rebecca Valdes MD 505 [place] [address] Chronic superficial 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; Chronic migraine [...] of this encounter Care Teams Human Resources Talent Manager Relationship Specialty Start Date End Date Zeinab Carey MD 505 [place] [address] PCP - General Family Medicine 05/16/17 documented as of this encounter
--- OUTSIDE RECORDS SUMMARY | 2025-02-11 12:55 | XMS_ITS | Encounter Summary ---
Author Organization [employer] Address [address] [facility] 7 [place] [address] Care Team Providers Care Lie Detector Operator Name Role Phone Zeinab Carey MD Primary Care Provider [phone] Encounter Details Date Type Department Care Team ([facility] st Contact Info) Description 06/30/2024 Orders Only [facility] MED & PEDS [address] [place] [address] Provider, MD Lou Social History Tobacco Use [...] documented as of this encounter Care Teams Lie Detector Operator Relationship Specialty Start Date End Date Zeinab Carey MD 505 [place] [address] PCP - General Family Medicine 05/16/17 documented as of this encounter
--- OUTSIDE RECORDS SUMMARY | 2025-02-11 12:55 | XMS_ITS | Encounter Summary ---
Author Organization [employer] Address [address] [place] [address] [place] [address] Care Team Providers Care Engineering Drawings Checker Name Role Phone Zeinab Carey MD Primary Care Provider [phone] Reason for Visit * Reason Onset Date Comments Request For Order(s) 10/30/2023 Encounter Details Date Type Department Care Team ([facility] st Contact Info) Description 10/30/2023 Telephone [facility] MED & PEDS 505 [place], [place] [id number] Zeinab Carey MD 505 [place] [address] Request For Order(s) Social History Tobacco Use [...] surgery. Please contact pt for questions/clarification at [phone] documented in this encounter Plan of Treatment Not on file documented as of this encounter Visit Diagnoses Not on filedocumented in this encounter Additional Health Concerns Assessment Noted Time PHQ-9 Depression Total Score: 8 05/15/20 23 11:18 AM EST documented as of this encounter Care Teams Engineering Drawings Checker Relationship Specialty Start Date End Date Zeinab Carey MD [address] [place] [address] PCP - General Family Medicine 05/16/17 documented as of this encounter
--- OUTSIDE RECORDS SUMMARY | 2025-02-11 12:55 | XMS_ITS | Encounter Summary ---
Author Organization [employer] Address [address] [place] [address] 7 [place] [address] Care Team Providers Care It Specialist Name Role Phone Zeinab Carey MD Primary Care Provider [phone] Encounter Details Date Type Department Care Team (Late st Contact Info) Description 01/11/2024 Orders Only [facility] [address] [place] [address] Provider, MD Lou Social History Tobacco Use [...] documented as of this encounter Care Teams It Specialist Relationship Specialty Start Date End Date Zeinab Carey MD [address] [place] [address] PCP - General Family Medicine 05/16/17 documented as of this encounter
--- OUTSIDE RECORDS SUMMARY | 2025-02-11 12:55 | XMS_ITS | Clinical Summary ---
Author Organization [employer] Address 75 [facility] 7t [place] [address] Care Team Providers Care Extract Mixer Name Role Phone Zeinab Carey MD Primary Care Provider [phone] Allergies No known active allergies Medications hydrOXYzine pamoate (Vistaril) 25 MG capsule TAKE 1 CAPSULE BY MOUTH TWICE A DAY NEEDED SIG IN [place] 03/11/20 23 Active escitalopram (Lexapro) 20 MG tablet TAKE 1 1/2 TABLET BY MOUTH ONCE A DAY SIG IN [place] 01/16/20 23 Active buPROPion XL (Wellbutrin XL) 150 MG 24 hr tablet TAKE 1 TABLET BY MOUTH ONCE A DAY TAKE WITH 300MG XL DOSE TOTAL 450MG XL 02/02/20 23 Active buPROPion XL (Wellbutrin XL) 300 MG 24 hr tablet TAKE 1 TABLET BY MOUTH ONCE A DAY SIG IN [place] 03/21/20 23 Active lidocaine-prilo heath (Emla) 2.5-2.5 [...] Refill [facility]EDS 505 [place] [address] Zeinab Carey MD 01/14/2025 Refill [facility] MED[facility] 230 [place], [place] [id number] Rebecca Valdes MD Chronic superficial 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; Chronic migraine without aura without status migrainosus, not intractable 01/14/2025 Refill [facility]EDS 505 [place] [address] Zeinab Carey MD Chronic superficial 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; Chronic migraine without aura without status migrainosus, not intractable 01/13/2025 Orders Only [facility] Information Management 230 [place] [address] ProviderLou MD 11/14/2024 9:00 AM EDT Office Visit [facility] MED & PEDS 505 [place] [address] Zeinab Carey MD Recurrent anxiety (Primary Dx); Bradycardia; Exercise counseling; Dietary counseling; Bariatric surgery status; Acute pain of right knee; Acquired hypothyroidism 11/14/2024 Travel 11/12/2024 Telephone [facility] MED & PEDS 505 [place] [address] Zeinab Carey MD Chart Prep from Last 3 Months Immunizations Immunization Administration [...] the past 12 months, has t he [employer], gas, oil or water company threatened to [...] PCV) 2023 Depression Screening 05/15/2024 05/15/2023, 05/15/20 Zoster Vaccines (2 of 2) 07/08/2024 05/13/2024 [...] AM EDT) Anatomical Region Laterality Modality Other [facility] Provider HEALTH MAINTENANCE Final Result * Hepatitis [...] Final Re sult [facility] [address] [place] [phone] * (ABNORMAL) Colonoscopy (07/20/2022) Colonoscopy Normal Normal us Zeinab Carey MD HEALTH MAINTENANCE Final Resu lt * HIV 1/2 ANTIGEN/ANTIBODY,FOURTH GENERATION W/RFL (02/06/2022 9:57 AM EDT) HIV-1/2 ANTIGEN AND ANTIBODIES, 4TH GENERATION W/ REFLEX NON-REACT HARRY NON-REACT HARRY [facility] Comment: HIV-1 antigen and HIV-1/HIV-2 [...] purpose. For additional information please refer to http://education.TagTagCity/faq/IYR941 (This link is being provided for informational/ educational purposes only.) The performance of this assay has not been clinically validated in patients less than 2 years old. 02/06/2022 9:57 AM EDT us Tarik Sommers MD LAB BLOOD ORDERABL ES Final Result [facility] [address] * (ABNORMAL) LIPID PANEL, STANDARD (02/06/2022 [...] factors. LDL-C is now calculated using the Sammi calculation, which is a validated novel method providing better accuracy than the Friedewald equation in the estimation of LDL-C. Abimael SS et al. JUAN. 2013;310(19): 0791-8615 (http://education.Flickme.[employer]/faq/SCB917) Non-HDL Cholesterol 125 <130 mg/dL (calc) [facility] Comment: For patients with diabetes plus 1 major ASCVD risk factor, treating to a non-HDL-C goal of <100 mg/dL (LDL-C of <70 mg/dL) is considered a therapeutic option. Triglycerides 178(H) <150 mg/dL [facility] 02/06/2022 9:57 AM EDT Tarik Sommers MD LAB BLOOD ORDERABL ES Final Result [facility] [address] * Pap Smear (07/21/2020) Pap Negative for intraephithelial lesion or malignancy Negative for intraephithelial lesion or malignancy, Other HPV Undetected Undetected, Indeterminate, Quantitative, Not Detected Historical Provider HEALTH MAINTENANCE Final Result from Last 3 Months or Most Recently Relevant to Health Maintenance Insurance [facility] [employer] Care Teams Extract Mixer Relationship Specialty Start Date End Date Zeinba Carey MD [address] [place] [address] [place] [id number] PCP - General Family Medicine 05/16/17
--- OUTSIDE RECORDS SUMMARY | 2025-02-11 12:55 | XMS_ITS | Encounter Summary ---
Author Organization [employer] Address [address] [place] [address] Care Team Providers Care Substation Inspector Name Role Phone Zeinab Carey MD Primary Care Provider [phone] Reason for Visit * Reason Onset Date Comments Medication Question 10/24/2023 Referral 10/24/2023 Encounter Details Date Type Department Care Team ([facility] st Contact Info) Description 10/24/2023 Telephone [facility] MEDICINE [address] [place] [address] Zeinab Carey MD 505 [place] [address] Medication Question; Referral Social History Tobacco Use [...] and would like to be sent to [address] [place] [address] and is request for a stronger medication [...] documented as of this encounter Care Teams Substation Inspector Relationship Specialty Start Date End Date Zeinab Carey MD [address] [place] [address] PCP - General Family Medicine 05/16/17 documented as of this encounter
--- OUTSIDE RECORDS SUMMARY | 2025-02-11 12:55 | XMS_ITS | Encounter Summary ---
Author Organization [employer] Address [address] [place] [address] [place] [address] Care Team Providers Care Mirror Polisher Name Role Phone Zeinab Carey MD Primary Care Provider [phone] Reason for Visit * Reason Onset Date Comments Med Refill 01/14/2025 Encounter Details Date Type Department Care Team ([facility] st Contact Info) Description 01/14/2025 Refill [facility] MED & PEDS [address] [place] [address] Zeinab Carey MD 505 [place] [address] Chronic superficial 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; Chronic migraine [...] documented as of this encounter Care Teams Mirror Polisher Relationship Specialty Start Date End Date Zeinab Carey MD 505 [place] [address] PCP - General Family Medicine 05/16/17 documented as of this encounter
--- OUTSIDE RECORDS SUMMARY | 2025-02-11 12:55 | XMS_ITS | Encounter Summary ---
Author Organization [employer] Address [address] [place] [address] [facility] [place] [address] Care Team Providers Care Piece Goods Packer Name Role Phone Zeinab Carey MD Primary Care Provider [phone] Reason for Referral * Imaging (Routine) - Closed Specialty Diagnoses / Procedures Referred By Contac t Referred To Contact Radiology Diagnoses Thyroid nodule Acquired hypothyroidism Procedures US Thyroid Zeinab Carey MD [address] [place] [address] Phone: tel: fax: [address] Phone: tel: fax: Referral ID Status Reason Start Date Expiration Date Visits Re quested Visits Authorized [id number] Closed 10/24/2023 10/23/2024 1 1 Encounter Details Date Type Department Care Team (Late st Contact Info) Description 10/24/2023 Orders Only [facility] CHC MED & PEDS [address] [place] [address] Zeinab Carey MD [address] [place] [address] Thyroid nodule (Primary Dx); Acquired hypothyroidism Social [...] PM EDT Narrative 11/23/2023 12:26 PM EDT [place] [address] Ultrasound Report Signed Patient: Saundra Mayo MR#: [id number] [birth year] : 1975 Acct:[id number] Age/Sex: 48 / F ADM Date: 10/31/23 Loc: HO.US Attending Dr: Zeinab Carey MD Ordering Physician: Zeinab Carey MD Date of Service: 10/31/23 Procedure(s): US thyroid Accession Number(s): [id number] cc: Zeinab Carey MD EXAMINATION: US THYROID [...] in OV> 11/23/23 1222 DD/ 1238 TD/TT: Briquette Operator: TRUNG Procedure Note Donotuseinterpreter, Image - 11/23/2023 [place] [address] Ultrasound Report Signed Patient: Lesvia Mayo#: [id number] 05 : 1975Acct:[id number] Age/Sex: 48 / FADM Date: 10/31/23 Loc: HO.US Attending Dr: Zeinab Carey MD Ordering Physician: Zeinab Carey MD Date of Service: 10/31/23 Procedure(s): US thyroid Accession Number(s): [id number] cc: Zeinab Carey MD EXAMINATION: US THYROID [...] in OV> 11/23/23 1222 DD/ 1238 TD/TT: Briquette Operator: TRUNG us Zeinab Carey MD IMG US PROCEDURES Final Resul t documented in this encounter Visit Diagnoses Diagnosis Thyroid nodule- Primary Nontoxic uninodular goiter Acquired hypothyroidism Unspecified hypothyroidism documented in this encounter Additional Health Concerns Assessment Noted Time PHQ-9 Depression Total Score: 8 05/15/20 23 11:18 AM EST documented as of this encounter Care Teams Piece Goods Packer Relationship Specialty Start Date End Date Zeinab Carey MD [address] [place] [address] PCP - General Family Medicine 05/16/17 documented as of this encounter
--- OUTSIDE RECORDS SUMMARY | 2025-02-11 12:55 | XMS_ITS | Clinical Summary ---
Author Organization [facility] Address [address] [place] [address] Phone Care Team Providers Care Command And Control Officer Name Role Phone Zeinab Carey MD Primary Care Provider [phone] Allergies No known active allergies Medications ondansetron [...] AM EST Office Visit Bariatric Surgery - [address] [place] [address] Omer Saha MD [address] [place] [phone] Health Maintenance Due Date Last Done [...] Maintenance Insurance MEDICAID - [place] Care Teams Command And Control Officer Relationship Specialty Start Date End Date Zeinab Carey MD [address] [place] [phone] PCP - General 07/29/21
--- OUTSIDE RECORDS SUMMARY | 2025-02-11 12:55 | XMS_ITS | Encounter Summary ---
Author Organization [employer] Address [address] [place] [address] Care Team Providers Care Liberal Arts Dean Name Role Phone Zeinab Carey MD Primary Care Provider [phone] Reason for Visit * Reason Onset Date Comments Referral 06/27/2023 Encounter Details Date Type Department Care Team ([facility] st Contact Info) Description 06/27/2023 Telephone [facility] MEDICINE [address] [place] [address] Zeinab Carey MD [address] [place] [address] Referral Social History Tobacco Use Types Packs/Day [...] advise. Pt is requesting a referral to [facility] for thyroid management. * Telephone Encounter - Catherine Fitch - 06/27/2023 3:34 PM EST Fax number [phone] * Telephone Encounter - Catherine Fitch - 06/27/2023 3:32 PM EST Tc from pt requesting a new referral for [facility] at [address] [place] [address]. documented in this encounter Plan of Treatment Not on file documented as of this encounter Visit Diagnoses Not on filedocumented in this encounter Additional Health Concerns Assessment Noted Time PHQ-9 Depression Total Score: 8 05/15/20 23 11:18 AM EST documented as of this encounter Care Teams Liberal Arts Dean Relationship Specialty Start Date End Date Zeinab Carey MD [address] [place] [address] PCP - General Family Medicine 05/16/17 documented as of this encounter
--- OUTSIDE RECORDS SUMMARY | 2025-02-11 12:55 | XMS_ITS | Encounter Summary ---
Author Organization [employer] Address [address] [place] [address] Care Team Providers Care Orderly Name Role Phone Zeinab Carey MD Primary Care Provider [phone] Reason for Visit * Reason Onset Date Comments Results 06/26/2023 Encounter Details Date Type Department Care Team ([facility] st Contact Info) Description 06/26/2023 Telephone [facility] MEDICINE [address] [place] [address] Zeinab Carey MD [address] [place] [address] Results Social History Tobacco Use Types Packs/Day [...] Pt also informed of referral placement to [facility] [place] but advised on wait list. Pt verbalized understanding and agrees with plan. * Telephone Encounter - Petra Pagan RN - 06/27/2023 4:13 PM EST Please review pt US results and advise. * Telephone Encounter - Allan Quiroz - 06/26/2023 10:28 AM EST TC from pt requesting call back regarding Results. Type of results: Sonogram Date when done: 06/15 Facility: [facility] documented in this encounter Plan of Treatment Not on file documented as of this encounter Visit Diagnoses Not on filedocumented in this encounter Additional Health Concerns Assessment Noted Time PHQ-9 Depression Total Score: 8 05/15/20 23 11:18 AM EST documented as of this encounter Care Teams Orderly Relationship Specialty Start Date End Date Zeinab Carey MD [address] [place] [address] PCP - General Family Medicine 05/16/17 documented as of this encounter
== END 2025-02-11 10:31 | disposition home or self-care (01) ==
LOC: HO.HAP 10:30
PROVIDERS: PCP Pediatrics; Visit Provider Pediatrics
DX: Z46.1 Encounter for fitting and adjustment of hearing aid (principal); H90.3 Sensorineural hearing loss, bilateral
CPT/HCPCS: 92593; 99499; V5266

== ENCOUNTER 2025-03-12 10:19 | Outpatient (REF) | payer MEDICAID, SELFPAY ==
--- OUTSIDE RECORDS SUMMARY | 2025-03-12 09:15 | XMS_ITS | Encounter Summary ---
Author Organization [employer] Address [address] [place] [address] Care Team Providers Care Child Psychologist Name Role Phone Zeinab Carey MD Primary Care Provider [phone] Reason for Referral * Consultation (Routine) - Pending Review Specialty Diagnoses / Procedures Referred By Contac t Referred To Contact Cardiology Diagnoses Dizziness Bradycardia Rubén Gonzalez MD [address] [place] [address] Phone: tel: fax: Referral ID Status Reason Start Date Expiration Date Visits Requested Visits Authorized [id number] Pending Review Specialty Services Required 03/12/2026 1 1 Reason for Visit * Reason Comments Dizziness Encounter Details Date Type Department Care Team ([facility] st Contact Info) Description 03/12/2025 9:15 AM EDT Office Visit [facility] CHC MED & PEDS [address] [place] [address] Rubén Gonzalez MD [address] [place] [address] Dizziness (Primary Dx); Bradycardia Social History Tobacco Use Types Packs/Day Years Used Date Smoking Tobacco: Never Passive Smoke Exposure: Never Smokeless Tobacco: Never Depression Answer Date Recorded Patient Health Questionnaire-9 Score 22 03/06/2025 Patient Health Questionnaire-9 Score 22 03/06/2025 Last PHQ-9: Questionnaire Data Not on file 1 Housing Stability Answer Date Recorded What is your housing situation today? I have housing today, but I am worried about losing housing in the future 03/06/[address] you li ve. Do you have problems with any of the following? I am not sure 03/06/2025 Food Insecurity Answer Date Recorded Within the past 12 months, y ou worried that your food would run out before you got money to buy more: Sometimes True 2024 Within the past 12 months,th e food you bought just didn't last and you didn't have enough money to get more: Sometimes True 03/06/2025 Transportation Answer Date Recorded In the past 12 months, has l ack of transportation kept you from medical appts, meetings, work or from getting things needed for daily living? Yes, it has kept me from medical appointments or getting medications. 03/06/2025 Utilities Answer Date Recorded In the past 12 months, has t he electric, gas, oil or water company threatened to shut off services in your home? No 03/06/2025 Depression Answer Date Recorded Patient Health Questionnaire-2 Score 5 03/06/2025 Internet Access Answer Date Recorded Internet Access Q1 No 03/06/2025 Internet Access Q2 I do not want or need it 02/25 Comments Unknown Sex and Gender Information Value Date Recorded Sex Assigned at Female 03/27/2022 10:32 AM EDT Legal Sex Female 10:32 AM EDT Gender Identity Female 03/27/2022 10:32 AM EDT Sexual Orientation Straight 03/27/2022 10 :32 AM EDT documented as of this encounter Last Filed Vital Signs Vital Sign Reading Time Taken Comments Blood Pressure 107/71 03/12/2025 9:23 AM EDT Pulse 67 03/12/2025 9:23 AM EDT Temperature - - Respiratory Rate 20 03/12/2025 9:23 AM EDT Oxygen Saturation 99% 03/12/2025 9:23 AM EDT Inhaled Oxygen Concentration - - Weight 75.3 kg (166 lb) 03/12/2025 9:23 AM EDT Height 167.6 cm (5' 6 ) 03/12/2025 9:23 AM EDT Body Mass Index 26.79 03/12/2025 9:23 AM EDT documented in this encounter Plan of Treatment Scheduled Orders Name Type Priority Associated Diagnoses Orde r Schedule TSH W/Reflex to FT4 Lab Routine Dizziness Bradycardia Expected: 03/12/2025 (Approximate), Expires: 03/12/2026 Basic Metabolic Panel Lab Routine Dizziness Bradycardia Expected: 03/12/2025 (Approximate), Expires: 03/12/2026 Magnesium Lab Routine Dizziness Bradycardia Expected: 03/12/2025, Expires: 03/12/2026 Scheduled Referrals Name Type Priority Associated Diagnoses Order Schedule Referral to Cardiology Outpatient Referral Routine Dizziness Bradycardia Expected: 03/12/2025 (Approximate), Expires: 03/12/2026 documented as of this encounter Procedures Procedure Name Priority Date/Time Associated Diagnosis Comments ECG 12-LEAD Routine 03/12/2025 10:16 AM EDT Dizziness Bradycardia documented in this encounter Results * ECG 12 lead (03/12/2025 10:16 AM EDT) Narrative Rubén Gonzalez MD - 03/12/2025 10:16 AM EDT Heart rate 56 bpm. [place] 16 degrees. Sinus rhythm. Bradycardia. No sign of left atrial enlargement or right atrial enlargement. No signs of hypertrophy. No ST elevation or ST depression. Normal ECG. us Rubén Gonzalez MD ECG ORDERABLES Final Resul t documented in this encounter Visit Diagnoses Diagnosis Dizziness- Primary Dizziness and giddiness Bradycardia Other specified cardiac dysrhythmias documented in this encounter Additional Health Concerns Assessment Noted Time PHQ-9 Depression Total Score: 22 025 9:43 AM EDT documented as of this encounter Care Teams Child Psychologist Relationship Specialty Start Date End Date Zeinab Carey MD [address] [place] [address] PCP - General Family Medicine 05/16/17 documented as of this encounter
--- OUTSIDE RECORDS SUMMARY | 2025-03-12 12:47 | XMS_ITS | Encounter Summary ---
Author Organization [employer] Address [address] [place] [address] 7 [place] [address] Care Team Providers Care Utility Clerk Name Role Phone Zeinab Carey MD Primary Care Provider Encounter Details Date Type Department Care Team (Late st Contact Info) Description 01/11/2024 Orders Only [facility] [address] [place] [address] Provider, MD Lou Social History Tobacco Use [...] documented as of this encounter Care Teams Utility Clerk Relationship Specialty Start Date End Date Zeinab Carey MD [address] [place] [address] PCP - General Family Medicine 05/16/17 documented as of this encounter
--- OUTSIDE RECORDS SUMMARY | 2025-03-12 12:47 | XMS_ITS | Encounter Summary ---
Author Organization [employer] Address [address] [place] [address] Care Team Providers Care Boulevard Glassware Replacer Name Role Phone Zeinab Carey MD Primary Care Provider [phone] Reason for Visit * Reason Onset Date Comments Results 06/26/2023 Encounter Details Date Type Department Care Team ([facility] st Contact Info) Description 06/26/2023 Telephone [facility] MEDICINE [address] [place] [address] Zeinab Carey MD [address] [place] [address] Results Social History Tobacco Use Types Packs/Day [...] Pt also informed of referral placement to [facility] but advised on wait list. Pt verbalized understanding and agrees with plan. * Telephone Encounter - Petra Pagan RN - 06/27/2023 4:13 PM EST Please review pt US results and advise. * Telephone Encounter - Allan Quiroz - 06/26/2023 10:28 AM EST TC from pt requesting call back regarding Results. Type of results: Sonogram Date when done: 06/15 Facility: [facility] documented in this encounter Plan of Treatment Not on file documented as of this encounter Visit Diagnoses Not on filedocumented in this encounter Additional Health Concerns Assessment Noted Time PHQ-9 Depression Total Score: 8 05/15/20 23 11:18 AM EST documented as of this encounter Care Teams Boulevard Glassware Replacer Relationship Specialty Start Date End Date Zeinab Carey MD [address] [place] [address] PCP - General Family Medicine 05/16/17 documented as of this encounter
--- OUTSIDE RECORDS SUMMARY | 2025-03-12 12:47 | XMS_ITS | Encounter Summary ---
Author Organization [employer] Address [address] [place] [address] [place] [address] Care Team Providers Care Animator Name Role Phone Zeinab Carey MD Primary Care Provider [phone] Reason for Referral * Imaging (Routine) - Closed Specialty Diagnoses / Procedures Referred By Contac t Referred To Contact Radiology Diagnoses Thyroid nodule Acquired hypothyroidism Procedures US Thyroid Zeinab Carey MD [address] [place] [address] Phone: tel: fax: [address] Phone: tel: fax: Referral ID Status Reason Start Date Expiration Date Visits Re quested Visits Authorized [id number] Closed 10/24/2023 10/23/2024 1 1 Encounter Details Date Type Department Care Team (Late st Contact Info) Description 10/24/2023 Orders Only [facility] CHC MED & PEDS [address] [place] [address] Zeinab Carey MD [address] [place] [address] Thyroid nodule (Primary Dx); Acquired hypothyroidism Social [...] PM EDT Narrative 11/23/2023 12:26 PM EDT [place] [address] Ultrasound Report Signed Patient: Saundra Mayo MR#: [id number] [birth year] : 1975 Acct:[id number] Age/Sex: 48 / F ADM Date: 10/31/23 Loc: HO.US Attending Dr: Zeinab Carey MD Ordering Physician: Zeinab Carey MD Date of Service: 10/31/23 Procedure(s): US thyroid Accession Number(s): [id number] cc: Zeinab Carey MD EXAMINATION: US THYROID [...] in OV> 11/23/23 1222 DD/ 1238 TD/TT: Poultry Farm Supervisor: TRUNG Procedure Note Donotuseinterpreter, Image - 11/23/2023 [place] [address] Ultrasound Report Signed Patient: Lesvia Mayo#: [id number] [birth year] : 1975Acct:[id number] Age/Sex: 48 / FADM Date: 10/31/23 Loc: HO.US Attending Dr: Zeinab Carey MD Ordering Physician: Zeinab Carey MD Date of Service: 10/31/23 Procedure(s): US thyroid Accession Number(s): [id number] cc: Zeinab Carey MD EXAMINATION: US THYROID [...] in OV> 11/23/23 1222 DD/ 1238 TD/TT: Poultry Farm Supervisor: TRUNG us Zeinab Carey MD IMG US PROCEDURES Final Resul t documented in this encounter Visit Diagnoses Diagnosis Thyroid nodule- Primary Nontoxic uninodular goiter Acquired hypothyroidism Unspecified hypothyroidism documented in this encounter Additional Health Concerns Assessment Noted Time PHQ-9 Depression Total Score: 8 05/15/20 23 11:18 AM EST documented as of this encounter Care Teams Animator Relationship Specialty Start Date End Date Zeinab Carey MD [address] [place] [address] PCP - General Family Medicine 05/16/17 documented as of this encounter
--- OUTSIDE RECORDS SUMMARY | 2025-03-12 12:47 | XMS_ITS | Encounter Summary ---
Author Organization [employer] Address [address] [place] [address] Care Team Providers Care Naval Gunfire Spotter Name Role Phone Zeinab Carey MD Primary Care Provider [phone] Reason for Visit * Reason Onset Date Comments Results 01/18/2024 Encounter Details Date Type Department Care Team ([facility] st Contact Info) Description 01/18/2024 Telephone [facility] MEDICINE [address] [place] [address] Zeinab Carey MD [address] [place] [address] Results Social History Tobacco Use Types Packs/Day [...] CT Scan Date when done: 12/05 Facility: [facility] documented in this encounter Plan of Treatment Not on file documented as of this encounter Visit Diagnoses Not on filedocumented in this encounter Additional Health Concerns Assessment Noted Time PHQ-9 Depression Total Score: 8 05/15/20 11:18 AM EST documented as of this encounter Care Teams Naval Gunfire Spotter Relationship Specialty Start Date End Date Zeinab Carey MD [address] [place] [address] PCP - General Family Medicine 05/16/17 documented as of this encounter
--- OUTSIDE RECORDS SUMMARY | 2025-03-12 12:47 | XMS_ITS | Encounter Summary ---
Author Organization [employer] Address [address] [place] [address] [place] [address] Care Team Providers Care Speedboat Driver Name Role Phone Zeinab Carey MD Primary Care Provider [phone] Reason for Visit * Reason Onset Date Comments Referral 10/29/2023 Encounter Details Date Type Department Care Team ([facility] st Contact Info) Description 10/29/2023 Telephone [facility] MED & PEDS [address] [place] [address] Zeinab Carey MD [address] [place] [address] Referral Social History Tobacco Use Types Packs/Day [...] regards to referral. Please contact pt at [phone] * Telephone Encounter - Sruthi Rodriguez - 10/29/2023 12:43 PM EDT Tc from pt requesting a referral to neurologist. Pt states forgetfulness is becoming more consistent and would like testing. Please contact pt at [phone] (Korean) documented in this encounter Plan of Treatment Not on file documented as of this encounter Visit Diagnoses Not on filedocumented in this encounter Additional Health Concerns Assessment Noted Time PHQ-9 Depression Total Score: 8 05/15/20 23 11:18 AM EST documented as of this encounter Care Teams Speedboat Driver Relationship Specialty Start Date End Date Zeinab Carey MD [address] [place] [address] PCP - General Family Medicine 05/16/17 documented as of this encounter
--- OUTSIDE RECORDS SUMMARY | 2025-03-12 12:47 | XMS_ITS | Encounter Summary ---
Author Organization [employer] Address [address] [facility] [address] [place] [address] Care Team Providers Care Forestry Scientist Name Role Phone Zeinab Carey MD Primary Care Provider [phone] Encounter Details Date Type Department Care Team (Latest Contact Info) Description 03/11/2025 Travel Social History Tobacco Use Types Packs/Day [...] documented as of this encounter Care Teams Forestry Scientist Relationship Specialty Start Date End Date Zeinab Carey MD [address] [place] [address] PCP - General Family Medicine 05/16/17 documented as of this encounter
--- OUTSIDE RECORDS SUMMARY | 2025-03-12 12:47 | XMS_ITS | Encounter Summary ---
Author Organization [employer] Address [address] [place] [address] Care Team Providers Care Cutter Plastics Rolls Name Role Phone Zeinab Carey MD Primary Care Provider [phone] Reason for Visit * Reason Onset Date Comments Appointment Request 09/07/2023 Encounter Details Date Type Department Care Team ([facility] st Contact Info) Description 09/07/2023 Telephone [facility] MEDICINE [address] [place] [address] Zeinab Carey MD [address] [place] [address] Appointment Request Social History Tobacco Use Types [...] documented as of this encounter Care Teams Cutter Plastics Rolls Relationship Specialty Start Date End Date Zeinab Carey MD [address] [place] [address] PCP - General Family Medicine 05/16/17 documented as of this encounter
--- OUTSIDE RECORDS SUMMARY | 2025-03-12 12:47 | XMS_ITS | Encounter Summary ---
Author Organization [employer] Address [address] [place] [address] [place] [address] Care Team Providers Care Carpentry Specialist Name Role Phone Zeinab Carey MD Primary Care Provider [phone] Reason for Visit * Reason Onset Date Comments Request For Order(s) 10/30/2023 Encounter Details Date Type Department Care Team ([facility] st Contact Info) Description 10/30/2023 Telephone [facility] CHC MED & PEDS [address] [place], [place] [id number] Zeinab Carey MD [address] [place] [address] Request For Order(s) Social History Tobacco Use [...] surgery. Please contact pt for questions/clarification at [phone] documented in this encounter Plan of Treatment Not on file documented as of this encounter Visit Diagnoses Not on filedocumented in this encounter Additional Health Concerns Assessment Noted Time PHQ-9 Depression Total Score: 8 05/15/20 23 11:18 AM EST documented as of this encounter Care Teams Carpentry Specialist Relationship Specialty Start Date End Date Zeinab Carey MD [address] [place] [address] PCP - General Family Medicine 05/16/17 documented as of this encounter
--- OUTSIDE RECORDS SUMMARY | 2025-03-12 12:47 | XMS_ITS | Encounter Summary ---
Author Organization [employer] Address [address] [place] [address] Care Team Providers Care Theater Manager Name Role Phone Zeinab Carey MD Primary Care Provider [phone] Reason for Visit * Reason Onset Date Comments Nurse Triage 03/11/2025 Encounter Details Date Type Department Care Team ([facility] st Contact Info) Description 03/11/2025 Telephone [facility] [address] [place] [address] Zeinab Carey MD [address] [place] [address] Nurse Triage Social History Tobacco Use Types [...] encounter Miscellaneous Notes * Telephone Encounter - Mckenna Rojo RN - 03/11/2025 10:40 AM EDT Telephone call x3 to pt who declines diplomatic interpreter/translator. Pt reports that she fainted yesterday and Sunday for a few minutes, maybe longer . States her was present and she did not strike her head.Per chart review, pt has fainted before, wore Holter monitor but has not seen cardiology. She said she felt dizzy and nauseous before she fainted but is unsure of the reason, states she had not been exercising. Today she reports headache but denies palpitations, heart beating fast, chest pain, abdominal pain, nausea, dizziness. She has tingling in her hands but states this is chronic problem. Shereports eating and drinking regularly. Her BP is 168/96 and HR is 65, she exercised today and reports feeling normal. Insecticide Maker advised pt to go to ED/urgent care today for immediate provider evaluationbut pt declines due to another appt at 12pm. Insecticide Maker advised her to go afterward but pt declined andsaid she has work. Advised pt of [facility] extended hours. Pt asked for appt tomorrow, scheduled for 9:15am with Dr. Gonzalez. Advised pt to call 911 if she faints again, or go to ED for sxs such as palpitations, chest pain, dizziness, weakness, new numbness/tingling. Pt verbalized understanding. Protocol Used: Fainting (Adult) Protocol-Based Disposition: Go to ED/[facility] Now (or to Office Now per Policy) Positive Triage Questions: * Age > 50 years * All other patients, and now alert and feels fine (Exception: SIMPLE FAINT due to stress, pain, prolonged standing, or suddenly standing.) * Simple fainting is a chronic symptom (has occurred multiple times) * All higher-acuity triage questions were negative Care Advice Discussed: * Treatment - Fainting * Prevention - Fainting * Reasons To Call Back - You pass out again on the same day - You become worse * Telephone Encounter - Jam Marina - 03/11/2025 10:07 AM EDT Tc from pt requesting a call back regarding prior message Contact pt at [phone] (nigerian) * Telephone Encounter - Mckenna Rojo RN - 03/11/2025 9:28 AM EDT Telephone call x2 to pt via [facility] #[id number], unable to leave VM as box not set up. Called without diplomatic interpreter/translator as well, phone rang, no answer, voicemail not set up. on HIPAA but no phone number listed. Will task to call 1 more time. * Telephone Encounter - Valdemar Rutherford - 03/11/2025 9:11 AM EDT Symptom: Fainted (Passed Out) Outcome: Talk to a nurse or provider within 15 minutes Reason: Trouble walking Please contact pt at [phone]. (Citizen [place] Speaker) documented in this encounter Plan of Treatment Not on file documented as of this encounter Visit Diagnoses Not on filedocumented in this encounter Additional Health Concerns Assessment Noted Time PHQ-9 Depression Total Score: 22 025 9:43 AM EDT documented as of this encounter Care Teams Theater Manager Relationship Specialty Start Date End Date Zeinab Carey MD [address] [place] [address] PCP - General Family Medicine 05/16/17 documented as of this encounter
--- OUTSIDE RECORDS SUMMARY | 2025-03-12 12:47 | XMS_ITS | Encounter Summary ---
Author Organization [employer] Address [address] 7 [place] [address] Care Team Providers Care Dining Car Waiter/Waitress Name Role Phone Zeinab Carey MD Primary Care Provider [phone] Encounter Details Date Type Department Care Team (Latest Contact Info) Description 03/12/2025 Travel Social History Tobacco Use Types Packs/Day [...] documented as of this encounter Care Teams Dining Car Waiter/Waitress Relationship Specialty Start Date End Date Zeinab Carey MD [address] [place] [address] PCP - General Family Medicine 05/16/17 documented as of this encounter
--- OUTSIDE RECORDS SUMMARY | 2025-03-12 12:47 | XMS_ITS | Clinical Summary ---
Author Organization [facility] Address [address] [place] [address] Phone Care Team Providers Care Drywall Hanger Name Role Phone Zeinab Carey MD Primary Care Provider [phone] Allergies No known active allergies Medications ondansetron [...] AM EST Office Visit Bariatric Surgery - [address] [place] [address] Omer Saha MD [address] [place] [phone] Health Maintenance Due Date Last Done Comments Breast Cancer Screening 1973 Colorectal Cancer Screening: Colonoscopy 1973 Cervical Cancer Screening: Pap Smear 1994 Hepatitis C Screening 05/07/2022 Social Influencers of [...] Screening (Lipid Panel) 03/06/2029 03/06/2024, 03/06/2024, 02/06/2022 RSV Immunization Adult Patients (1 - 1-dose 75+ series) 2048 HIV Screening Completed 02/06/2022 Hepatitis B Vaccines [...] us Historical Provider LAB BLOOD ORDERABLES Emili sheridan Result from Last 3 Months or Most Recently Relevant to Health Maintenance Insurance [place] Member Subscriber Plan / Payer (Ef fective 2024-Present) Name:NISHI BUSTOS Relation to Subscriber:Self Name:Nishi Bustos Payer ID:[id number] Group ID:Not on file Type:Not on file Address: [facility] ATTN:CLAIMS [address] [place] [address] Care Teams Drywall Hanger Relationship Specialty Start Date End Date Zeinab Carey MD [address] [place] [phone] PCP - General 07/29/21
--- OUTSIDE RECORDS SUMMARY | 2025-03-12 12:47 | XMS_ITS | Encounter Summary ---
Author Organization [employer] Address [address] [place] [address] Care Team Providers Care Gas Singer Name Role Phone Zeinab Carey MD Primary Care Provider [phone] Reason for Visit * Reason Onset Date Comments Results 04/27/2023 Encounter Details Date Type Department Care Team ([facility] Contact Info) Description 04/27/2023 Telephone [facility] [address] [place] [address] Zeinab Carey MD [address] [place] [address] Results Social History Tobacco Use Types Packs/Day [...] as of this encounter Care Teams Gas Singer Relationship Specialty Start Date End Date Zeinab Carey MD [address] [place] [address] PCP - General Family Medicine 05/16/17 documented as of this encounter
--- OUTSIDE RECORDS SUMMARY | 2025-03-12 12:47 | XMS_ITS | Encounter Summary ---
Author Organization [employer] Address [address] [place] [address] Care Team Providers Care Seafood Service Team Member Name Role Phone Zeinab Carey MD Primary Care Provider [phone] Reason for Visit * Reason Onset Date Comments Referral 06/27/2023 Encounter Details Date Type Department Care Team ([facility] st Contact Info) Description 06/27/2023 Telephone [facility] [address] [place] [address] Zeinab Carey MD [address] [place] [address] Referral Social History Tobacco Use Types Packs/Day [...] advise. Pt is requesting a referral to [facility] for thyroid management. * Telephone Encounter - Catherine Fitch - 06/27/2023 3:34 PM EST Fax number [phone] * Telephone Encounter - Catherine Fitch - 06/27/2023 3:32 PM EST Tc from pt requesting a new referral for [place] [facility] at [address] [place] [address]. documented in this encounter Plan of Treatment Not on file documented as of this encounter Visit Diagnoses Not on filedocumented in this encounter Additional Health Concerns Assessment Noted Time PHQ-9 Depression Total Score: 8 05/15/20 23 11:18 AM EST documented as of this encounter Care Teams Seafood Service Team Member Relationship Specialty Start Date End Date Zeinab Carey MD [address] [place] [address] PCP - General Family Medicine 05/16/17 documented as of this encounter
--- OUTSIDE RECORDS SUMMARY | 2025-03-12 12:47 | XMS_ITS | Encounter Summary ---
Author Organization [employer] Address [address] [place] [address] [place] [address] Care Team Providers Care Production Painter Name Role Phone Zeinab Carey MD Primary Care Provider [phone] Reason for Visit * Reason Onset Date Comments Appointment Request 03/02/2025 Encounter Details Date Type Department Care Team ([facility] Contact Info) Description 03/02/2025 Telephone [facility] [address] [place] [address] Zeinab Carey MD [address] [place] [address] Appointment Request Social History Tobacco Use Types [...] encounter Miscellaneous Notes * Telephone Encounter - Mireya Mayo - 03/04/2025 10:28 AM EDT Tc from pt retuning call * Telephone Encounter - Jam Marina - 03/02/2025 9:43 AM EDT Tc from pt requesting to reschedule s/o apt that was scheduled today Contact pt at [phone] (thai) documented in this encounter Plan of Treatment Not on file documented as of this encounter Visit Diagnoses Not on filedocumented in this encounter Additional Health Concerns Assessment Noted Time PHQ-9 Depression Total Score: 8 05/15/20 23 11:18 AM EST documented as of this encounter Care Teams Production Painter Relationship Specialty Start Date End Date Zeinab Carey MD [address] [place] [address] PCP - General Family Medicine 05/16/17 documented as of this encounter
--- OUTSIDE RECORDS SUMMARY | 2025-03-12 12:47 | XMS_ITS | Encounter Summary ---
Author Organization [employer] Address [address] [place] [address] Care Team Providers Care Senior Front End Web Developer Name Role Phone Zeinab Carey MD Primary Care Provider [phone] Reason for Visit * Reason Onset Date Comments Medication Question 10/24/2023 Referral 10/24/2023 Encounter Details Date Type Department Care Team ([facility] st Contact Info) Description 10/24/2023 Telephone [facility] [address] [place] [address] Zeinab Carey MD [address] [place] [address] Medication Question; Referral Social History Tobacco Use [...] and would like to be sent to [address] [place] [address] and is request for a stronger medication [...] as of this encounter Care Teams Senior Front End Web Developer Relationship Specialty Start Date End Date Zeinab Carey MD [address] [place] [address] PCP - General Family Medicine 05/16/17 documented as of this encounter
--- OUTSIDE RECORDS SUMMARY | 2025-03-12 12:47 | XMS_ITS | Encounter Summary ---
Author Organization [employer] Address [address] [place] [address] Care Team Providers Care Tunneling Machine Operator Name Role Phone Zeinab Carey MD Primary Care Provider [phone] Reason for Visit * Reason Onset Date Comments MR ORDER 10/23/2023 Encounter Details Date Type Department Care Team ([facility] st Contact Info) Description 10/23/2023 Telephone [facility] [address] [place] [address] Zeinab Carey MD [address] [place] [address] MR ORDER Social History Tobacco Use Types [...] documented as of this encounter Care Teams Tunneling Machine Operator Relationship Specialty Start Date End Date Zeinab Carey MD [address] [place] [address] PCP - General Family Medicine 05/16/17 documented as of this encounter
--- OUTSIDE RECORDS SUMMARY | 2025-03-12 12:48 | XMS_ITS | Clinical Summary ---
Author Organization [employer] Address [address] [place] [address] 7 [place] [address] Care Team Providers Care Deputy Jailer Name Role Phone Zeinab Carey MD Primary Care Provider [phone] Allergies No known active allergies Medications hydrOXYzine pamoate (Vistaril) 25 MG capsule TAKE 1 CAPSULE BY MOUTH TWICE A DAY NEEDED SIG IN NIGERIEN 3 Active escitalopram (Lexapro) 20 MG tablet TAKE 1 1/2 TABLET BY MOUTH ONCE A DAY SIG IN NIGERIEN 3 Active buPROPion XL (Wellbutrin XL) 150 MG 24 hr tablet TAKE 1 TABLET BY MOUTH ONCE A DAY TAKE WITH 300MG XL DOSE TOTAL 450MG XL 3 Active buPROPion XL (Wellbutrin XL) 300 MG 24 hr tablet TAKE 1 TABLET BY MOUTH ONCE A DAY SIG IN NIGERIEN 3 Active lidocaine-priloc west (Emla) 2.5-2.5 % cream Apply prn topically to affected area tid as needed 60 g 2 4 Active acetaminophen (Tylenol) 500 MG tablet Take 1 tablet (500 mg) by mouth every 6 (six) hours if needed for mild pain. 90 tablet 2 4 Active Diclofenac Sodium 1 % gel Apply topically to affected area bid prn pain 100 g 5 4 Active butalbital-aceta minophen-caffein e 50-325-40 MG tablet TAKE 1 TAB ORALLY EVERY 6 HOURS NEEDED FOR HEADACHE 4 Active cyclobenzaprine (Flexeril) 10 MG tablet Take 1 tablet (10 mg) by mouth 3 times daily. 30 tablet 5 Active Diclofenac Sodium (Voltaren) 1 % gel Use topical BID 100 g 3 5 Active pantoprazole (ProtoNix) 40 MG EC tabletIndication s:Chronic superficial 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,Chronic migraine without aura without status migrainosus, not intractable TOME 1 TABLETA POR VIA ORAL TODOS LOS ZHAO 90 tablet 1 5 Active SUMAtriptan (Imitrex) 50 MG tabletIndication s:Chronic superficial 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,Chronic migraine without aura without status migrainosus, not intractable TAKE 1 TABLET BY MOUTH ONCE WITH FLUIDS EARLY POSSIBLE AFTER THE ONSET OF A MIGRAINE ATTACK MAY REPEAT AFTER 2 HOURS IF HEADACHE RETURNS, NOT TO EXCEED 200MG IN 24HRS NEEDED 9 tablet 3 5 Active levothyroxine (Synthroid) 150 MCG tablet TAKE 1 TABLET BY MOUTH BEFORE BREAKFAST 90 tablet 1 5 Active buPROPion SR (Wellbutrin SR) 200 MG 12 hr tablet TOME 1 TABLETA POR V A ORAL DOS VECES AL D A 5 Active meloxicam (Mobic) 15 MG tablet Take 1 tablet (15 mg) by mouth Once per day. 30 tablet 2 5 02/20/20 26 Active Active Problems Problem Noted Date Diagnosed Date Acute flank pain 03/05/2025 Diverticulosis of colon 03/05/2025 Encounter for screening colonoscopy 03/05/2025 Family hx colonic polyps 03/05/2025 Fundic gland polyps of stomach, benign Hip flexor tendonitis 03/05/2025 IUD migration 03/05/2025 PMB (postmenopausal bleeding) 03/05/2025 S/P left knee arthroscopy 03/05/2025 Sciatica of left side 03/05/2025 Uterine fibroid 03/05/2025 GERD (gastroesophageal reflux disease) Gastric bypass status for obesity 10/23/2024 Trigger finger of left thumb 09/18/2023 Lumbosacral radiculopathy 06/01/2022 Degeneration of lumbar intervertebral disc 05/31 Acquired hypothyroidism 05/31/2022 Thyroid nodule 05/31/2022 Class 2 obesity 05/31/2022 Obesity 05/31/2022 Tear of medial meniscus of knee 02/28/2018 Gastritis 06/29/2017 Recurrent anxiety 05/17/2017 Encounters Date Type Department Care Team Description 03/12/2025 9:15 AM EDT Office Visit [facility] [address] [place] [address] Rubén Gonzalez MD Dizziness (Primary Dx); Bradycardia 03/12/2025 Travel 03/11/2025 Travel 03/11/[address] [address] Zeinab Carey MD Nurse Triage 03/06/2025 9:30 AM EDT Office Visit [facility] [address] [place] [address] Rebecca Valdes MD TendinitisSchmidt's (Primary Dx) 03/06/2025 Patient Outreach [address] [address] Zeinab Carey MD Care Coordination (W outreach for SDOH housing search-referral completed ) 03/06/2025 Telephone [facility] [address] [place] [address] Zeinab Carey MD 03/06/2025 Travel 03/05/2025 Telephone [facility] [address] [place] [address] Zeinab Carey MD chart prep 03/05/2025 Telephone [facility] [address] [place] [address] Zeinab Carey MD Nurse Triage 03/02/2025 Telephone [facility] [address] [place] [address] Zeinab Carey MD Appointment Request 03/02/[address] [address] Zeinab Carey MD 02/27/2025 11:15 AM EDT Clinical Support [facility] [address] [place] [address] Polly Burgos, JADA Encounter for immunization 02/27/2025 Telephone [facility] [address] [place] [address] Zeinab Carey MD Appointment Request 02/27/2025 Travel 02/23/2025 Orders Only [facility] [address] [place] [address] Zeinab Carey MD Memory deficit (Primary Dx); Hearing deficit, unspecified laterality 02/20/2025 Telephone [facility] [address] [place] [address] Zeinab Carey MD Referral 02/19/2025 10:15 AM EDT Office Visit [facility] [address] [place] [address] Zeinab Carey MD Bunion of left foot (Primary Dx); Acquired hypothyroidism; Chronic pain of right knee 02/19/2025 Travel 02/18/2025 Telephone [facility] [address] [place] [address] Zeinab Carey MD Chart Prep 02/17/2025 Telephone [facility] [address] [place] [address] Zeinab Carey MD Nurse Triage 01/14/2025 Refill [facility] [address] [place] [address] Zeinab Carey MD 01/14/2025 Refill [facility] [address] [place] [address] Rebecca Valdes MD Chronic superficial 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; Chronic migraine without aura without status migrainosus, not intractable 01/14/2025 Refill [facility] [address] [place] [address] Zeinab Carey MD Chronic superficial 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; Chronic migraine without aura without status migrainosus, not intractable 01/13/2025 Orders Only [facility] [address] [place] [address] ProviderLou MD from Last 3 Months Immunizations Immunization Administration Dates Next Due Hep B, adult 09/13/2023,06/21/2023,05/24/2023 Influenza injectable quadriv alent IIV4 with preservative 06/26/2019,05/17/2017 Influenza injectable quadriv alent preservative free 04/12/2023,03/03/2021 Influenza, seasonal, injecta ble, preservative free 02/27/2025,02/29/2024 Moderna Covid-19 Vaccine 6+ Bivalent 07/05/2022 Tdap [...] Pulse 67 03/12/2025 9:23 AM EDT Temperature 36.2 C (97.1 F) 03/06/2025 9:39 AM EDT Respiratory Rate 20 03/12/2025 9:23 AM EDT Oxygen Saturation 99% 03/12/2025 9:23 AM EDT Inhaled Oxygen Concentration - - Weight 75.3 kg (166 lb) 03/12/2025 9:23 AM EDT Height 167.6 cm (5' 6 ) 03/12/2025 9:23 AM EDT Body Mass Index 26.79 03/12/2025 9:23 AM EDT Plan of Treatment Health Maintenance Due Date Last Done Comments CT Colonography 1973 FIT DNA/Cologuard 1973 FIT 1973 FOBT 1973 Sigmoidoscopy 1973 Family Planning (PISQ) 1988 Pneumococcal Vaccine: 50+ Years (1 of 1 - PCV) 2023 Zoster Vaccines (2 of 2) 07/08/2024 05/13/2024 COVID-19 Vaccine ( season) 2025 07/05/2022, 11/10/2020, 10/13/2020 Cervical Cancer Screening 07/21/2025 HPV/Cotest 07/21/2025 07/21/2020 Pap Smear 07/21/2025 07/21/2020 Depression Monitoring 09/04/2025 03/06/2025, 025 Alcohol/Substance Use Screening 03/06/2026 03/06/2025 Disability Screening 03/06/2026 03/06/2025 SDOH Screening 03/06/2026 03/06/2025 Tobacco Screening 03/12/2026 03/12/2025 Mammogram 01/12/2027 01/12/2025, 1001/2024, 02/27/2023, Additional history exists Lipid Panel 02/06/2027 02/06/2022 DTaP/Tdap/Td Vaccines (2 - Td or Tdap) 05/17/2027 05/17/2017 Colonoscopy 07/20/2032 07/20/2022 Colorectal Cancer Screening 07/20/2032 RSV Patients and Patients Aged 60 years or older (1 - 1-dose 75+ series) 2048 HIV Screening Completed 02/06/2022 Hepatitis C Screening Completed 05/15/2023, 022 Hepatitis B Vaccines Completed 09/13/2023, 06/21/2023, 05/24/2023 Influenza Vaccine Completed 02/27/2025, , 04/12/2023, Additional history exists HIB Vaccines Aged Out [...] Routine 03/12/2025 10:16 AM EDT Dizziness Bradycardia MAMMOGRAPHY Routine 01/12/2025 11:44 AM EDT HEPATITIS PANEL, GENERAL Routine 05/15/2023 11:12 AM EST Elevated liver enzymes COLONOSCOPY Routine 07/20/2022 HIV 1/2 ANTIGEN/ANTIBODY, FOURTH GENERATION W/RFL Routine 02/06/2022 9:57 AM EDT LIPID PANEL, STANDARD Routine 02/06/2022 9:57 AM EDT PAP/HPV Routine 07/21/2020 from Last 3 Months or Most Recently Relevant to Health Maintenance Results * ECG 12 lead (03/12/2025 10:16 AM EDT) Narrative Rubén Gonzalez MD - 03/12/2025 10:16 AM EDT Heart rate 56 bpm. [place] 16 degrees. Sinus rhythm. Bradycardia. No sign of left atrial enlargement or right atrial enlargement. No signs of hypertrophy. No ST elevation or ST depression. Normal ECG. Rubén Gonzalez MD ECG ORDERABLES Final Resul t * Hm Mammography (01/12/2025 11:44 AM EDT) Anatomical Region Laterality Modality Other Lou Louis MD HEALTH MAINTENANCE Final Result * Hepatitis A,B,C Profile (05/15/2023 11:12 AM EST) Hepatitis A IgM Nonreactive Nonreactive [facility] Comment:IgM antibodies to ANDERSEN V not detected; does not exclude earlyacute or recovered HAV infection. ~Hepatitis B Surface Antibody NONREACTIVE Nonreactive [facility] Comment:Nonreactive: < 8.00 mIU/mL Hepatitis B Core Antibody Nonreactive Nonreactive [facility] Hepatitis C Antibody Nonreactive Nonreactive [facility] Comment:Antibodies to HCV no t detected; does not exclude early acuteHCV infection. Hepatitis B Surface Ag Negative Negative [facility] Blood Venous blood specimen / Unknown 05/15/2023 11:12 AM EST 05/15/2023 2:20 PM EST Zeinab Carey MD LAB BLOOD ORDERABLES Final Re sult [facility] [address] [place] [phone] * (ABNORMAL) Colonoscopy (07/20/2022) Colonoscopy Normal Normal Zeinab Carey MD HEALTH MAINTENANCE Final Resu lt * HIV 1/2 ANTIGEN/ANTIBODY,FOURTH GENERATION W/RFL (02/06/2022 9:57 AM EDT) Pathologist [facility] HIV-1/2 ANTIGEN AND ANTIBODIES, 4TH GENERATION W/ REFLEX NON-REACT HARRY NON-REACT HARRY [facility] Comment: HIV-1 antigen and HIV-1/HIV-2 [...] purpose. For additional information please refer to http://education.AppGyver/faq/EIB667 (This link is being provided for informational/ educational purposes only.) The performance of this assay has not been clinically validated in patients less than 2 years old. 02/06/2022 9:57 AM EDT Tarik Sommers MD LAB BLOOD ORDERABL ES Final Result [facility] [address] * (ABNORMAL) LIPID PANEL, STANDARD (02/06/2022 9:57 AM EDT) Pathologist [facility] Chol/HDLC Ratio 4.1 <5.0 (calc) [facility] [...] equation in the estimation of LDL-C. Abimael GONZALES et al. JUAN. 2013;310(19): 8535-5079 (http://education.Fashioholic.Vend/faq/OVX247) Non-HDL Cholesterol 125 <130 mg/dL (calc) [facility] Comment: For patients with diabetes plus 1 major ASCVD risk factor, treating to a non-HDL-C goal of <100 mg/dL (LDL-C of <70 mg/dL) is considered a therapeutic option. Triglycerides 178(H) <150 mg/dL [facility] 02/06/2022 9:57 AM EDT Tarik Sommers MD LAB BLOOD ORDERABL ES Final Result [facility] [address] * Pap Smear (07/21/2020) Pap Negative for intraephithelial lesion or malignancy Negative for intraephithelial lesion or malignancy, Other HPV Undetected Undetected, Indeterminate, Quantitative, Not Detected Historical Provider HEALTH MAINTENANCE Final Result from Last 3 Months or Most Recently Relevant to Health Maintenance Insurance [facility] [employer] Care Teams Deputy Jailer Relationship Specialty Start Date End Date Zeinab Carey MD [address] [place] [id number] PCP - General Family Medicine 05/16/17
--- OUTSIDE RECORDS SUMMARY | 2025-03-12 12:48 | XMS_ITS | Encounter Summary ---
Author Organization [employer] Address [address] [place] [address] [place] [address] Care Team Providers Care Forensic Dna Analyst Name Role Phone Zeinab Carey MD Primary Care Provider [phone] Reason for Visit * Reason Onset Date Comments Nurse Triage 06/25/2024 Encounter Details Date Type Department Care Team ([facility] st Contact Info) Description 06/25/2024 Telephone [facility] [address] [place] [address] Zeinab Carey MD 505 [place] [address] Nurse Triage Social History Tobacco Use Types [...] call with [facility] [place] [id number] Jose. Called x2, unable to make connectiion. [...] documented as of this encounter Care Teams Forensic Dna Analyst Relationship Specialty Start Date End Date Zeinab Carey MD [address] [place] [address] PCP - General Family Medicine 05/16/17 documented as of this encounter
--- OUTSIDE RECORDS SUMMARY | 2025-03-12 12:48 | XMS_ITS | Encounter Summary ---
Author Organization [employer] Address [address] [place] [address] [place] [address] Care Team Providers Care License Examiner Name Role Phone Zeinab Carey MD Primary Care Provider [phone] Reason for Visit * Reason Onset Date Comments PA 08/12/2024 Encounter Details Date Type Department Care Team ([facility] st Contact Info) Description 08/12/2024 Telephone [facility] MED & PEDS 505 [place] [address] Zeinab Carey MD 505 [place] [address] PA Social History Tobacco Use Types Packs/Day [...] 08/13/2024 9:37 AM EDT No Pa needed commercial loan underwriter spoke with [facility] who ran the medication and paid , commercial loan underwriter informed pt, as pt request for medication to be changed to [facility] pharmacy. Tc from pt calling to [...] documented as of this encounter Care Teams License Examiner Relationship Specialty Start Date End Date Zeinab Carey MD [address] [place] [address] PCP - General Family Medicine 05/16/17 documented as of this encounter
--- OUTSIDE RECORDS SUMMARY | 2025-03-12 12:48 | XMS_ITS | Encounter Summary ---
Author Organization [employer] Address [address] [place] [place] [address] Care Team Providers Care Paper Bag Press Operator Name Role Phone Zeinab Carey MD Primary Care Provider [phone] Reason for Visit * Reason Onset Date Comments Referral 02/20/2025 Encounter Details Date Type Department Care Team ([facility] st Contact Info) Description 02/20/[address] [facility] MEDICINE [address] [place] [address] Zeinab Carey MD [address] [place] [address] Referral Social History Tobacco Use Types Packs/Day [...] * Telephone Encounter - Mireya Mayo - 02/20/2025 2:25 PM EDT Tc from pt requesting new referral for speech and hearing. For a new exam - Speech & Hearing - [address] [place], [place] [id number] - documented in this encounter Plan of Treatment Not on file documented as of this encounter Visit Diagnoses Not on filedocumented in this encounter Additional Health Concerns Assessment Noted Time PHQ-9 Depression Total Score: 8 05/15/20 23 11:18 AM EST documented as of this encounter Care Teams Paper Bag Press Operator Relationship Specialty Start Date End Date Zeinab Carey MD 505 [place] [address] PCP - General Family Medicine 05/16/17 documented as of this encounter
--- OUTSIDE RECORDS SUMMARY | 2025-03-12 12:48 | XMS_ITS | Encounter Summary ---
Author Organization [employer] Address [address] [place] [address] [place] [address] Care Team Providers Care Transport Technician Name Role Phone Zeinab Carey MD Primary Care Provider [phone] Encounter Details Date Type Department Care Team (Late st Contact Info) Description 01/13/2025 Orders Only [facility] [address] [place] [address] Provider, MD Lou Social History Tobacco Use [...] documented as of this encounter Care Teams Transport Technician Relationship Specialty Start Date End Date Zeinab Carey MD 505 [place] [address] PCP - General Family Medicine 05/16/17 documented as of this encounter
--- OUTSIDE RECORDS SUMMARY | 2025-03-12 12:48 | XMS_ITS | Encounter Summary ---
Author Organization [employer] Address 75 [facility] 7 [place] [address] Care Team Providers Care Education Analyst Name Role Phone Zeinab Carey MD Primary Care Provider [phone] Reason for Visit * Reason Onset Date Comments Med Refill 01/14/2025 Encounter Details Date Type Department Care Team (Late st Contact Info) Description 01/14/2025 Refill [facility] MEDICINE 230 [place] [address] Rebecca Valdes MD 505 [place] [address] Chronic superficial 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; Chronic migraine [...] documented as of this encounter Care Teams Education Analyst Relationship Specialty Start Date End Date Zeinab Carey MD 505 [place] [address] PCP - General Family Medicine 05/16/17 documented as of this encounter
--- OUTSIDE RECORDS SUMMARY | 2025-03-12 12:48 | XMS_ITS | Encounter Summary ---
Author Organization [employer] Address [address] [place] [address] [place] [address] Care Team Providers Care Gas Dispenser Name Role Phone Zeinab Carey MD Primary Care Provider [phone] Reason for Visit * Reason Onset Date Comments Nurse Triage 08/11/2024 Encounter Details Date Type Department Care Team ([facility] st Contact Info) Description 08/11/2024 Telephone [facility] [address] [place] [address] Zeinab Carey MD 505 [place] [address] Nurse Triage Social History Tobacco Use Types [...] RN - 08/11/2024 12:29 PM EDT No manager beverage needed as this typewriter aligner speaks Paraguayan. Call returned to Saundra Mayo to triage [...] monitor. Pt advised that referral sent to [facility]. Given contact number for [facility] Cards. Pt offered appt tomorrow with team provider. Pt states will call cardiology first. Pt advised of [facility] operating hours for today and tomorrow for [...] yesterday. No symptoms today. Contact pt at [phone] (occitan) documented in this encounter Plan of Treatment Not on file documented as of this encounter Visit Diagnoses Not on filedocumented in this encounter Additional Health Concerns Assessment Noted Time PHQ-9 Depression Total Score: 8 05/15/20 23 11:18 AM EST documented as of this encounter Care Teams Gas Dispenser Relationship Specialty Start Date End Date Zeinab Carey MD [address] [place] [address] PCP - General Family Medicine 05/16/17 documented as of this encounter
--- OUTSIDE RECORDS SUMMARY | 2025-03-12 12:48 | XMS_ITS | Encounter Summary ---
Author Organization [employer] Address [address] [place] [address] [place] [address] Care Team Providers Care Homeworker Name Role Phone Zeinab Carey MD Primary Care Provider [phone] Reason for Visit * Reason Onset Date Comments Med Refill 01/14/2025 Encounter Details Date Type Department Care Team ([facility] st Contact Info) Description 01/14/2025 Refill [facility] MED & PEDS [address] [place] [address] Zeinab Carey MD 505 [place] [address] Chronic superficial 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; Chronic migraine [...] documented as of this encounter Care Teams Homeworker Relationship Specialty Start Date End Date Zeinab Carey MD 505 [place] [address] PCP - General Family Medicine 05/16/17 documented as of this encounter
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
--- OUTSIDE RECORDS SUMMARY | 2025-03-12 12:48 | XMS_ITS | Encounter Summary ---
Author Organization [employer] Address [address] [place] [address] Care Team Providers Care Jammer Operator Name Role Phone Zeinab Carey MD Primary Care Provider [phone] Reason for Visit * Reason Onset Date Comments Results 03/26/2024 Encounter Details Date Type Department Care Team ([facility] st Contact Info) Description 03/26/2024 Telephone [facility] MEDICINE 230 [place] [address] Zeinab Carey MD [address] [place] [address] Results Social History Tobacco Use Types Packs/Day [...] results: Labs Date when done: 03/15/24 Facility: [facility] documented in this encounter Plan of Treatment Not on file documented as of this encounter Visit Diagnoses Not on filedocumented in this encounter Additional Health Concerns Assessment Noted Time PHQ-9 Depression Total Score: 8 05/15/20 23 11:18 AM EST documented as of this encounter Care Teams Jammer Operator Relationship Specialty Start Date End Date Zeinab Carey MD [address] [place] [address] PCP - General Family Medicine 05/16/17 documented as of this encounter
--- OUTSIDE RECORDS SUMMARY | 2025-03-12 12:48 | XMS_ITS | Encounter Summary ---
Author Organization [employer] Address 75 [facility] 7 [place] [address] Care Team Providers Care Service Engine Repairer Name Role Phone Zeinab Carey MD Primary Care Provider [phone] Encounter Details Date Type Department Care Team ([facility] st Contact Info) Description 06/30/2024 Orders Only [facility] MED & PEDS [address] [place] [address] Provider, MD Lou Social History Tobacco Use [...] documented as of this encounter Care Teams Service Engine Repairer Relationship Specialty Start Date End Date Zeinab Carey MD 505 [place] [address] PCP - General Family Medicine 05/16/17 documented as of this encounter
[2025-03-12 14:55] LABS: Anion Gap 10 (12-20); Blood Urea Nitrogen 16 mg/dL (9-16); Calcium 9.1 mg/dL (8.4-10.2); Carbon Dioxide 30 mmol/L (22-29); Chloride 106 mmol/L (96-108); Estimated Glomerular Filt Rate > 60; Magnesium 1.9 mg/dL (1.6-2.6); Potassium 3.8 mmol/L (3.3-5.1); Sodium 142 mmol/L (135-145)
== END 2025-03-12 10:20 | disposition home or self-care (01) ==
LOC: HO.CHCLDS 10:19
PROVIDERS: Visit Provider Internal Medicine
DX: R42 Dizziness and giddiness (principal); R00.1 Bradycardia, unspecified
CPT/HCPCS: 36415; 80048; 83735; 84443

== ENCOUNTER 2025-04-03 12:07 | Outpatient (REF) | payer MEDICAID, SELFPAY ==
--- OUTSIDE RECORDS SUMMARY | 2025-04-03 14:26 | XMS_ITS | Encounter Summary ---
Author Organization [employer] Address [address] [place] [address] Care Team Providers Care Power Generation Equipment Repairer Name Role Phone Zeinab Carey MD Primary Care Provider [phone] Reason for Visit * Reason Onset Date Comments Medication Question 10/24/2023 Referral 10/24/2023 Encounter Details Date Type Department Care Team ([facility] st Contact Info) Description 10/24/2023 Telephone [facility] MEDICINE 230 [place] [address] Zeinab Carey MD 505 [place] [address] Medication Question; Referral Social History Tobacco Use [...] and would like to be sent to [address] [place] [address] and is request for a stronger medication [...] documented as of this encounter Care Teams Power Generation Equipment Repairer Relationship Specialty Start Date End Date Zeinab Carey MD [address] [place] [address] PCP - General Family Medicine 05/16/17 documented as of this encounter
--- OUTSIDE RECORDS SUMMARY | 2025-04-03 14:26 | XMS_ITS | Encounter Summary ---
Author Organization [employer] Address [address] [place] [address] Care Team Providers Care Rubber Insulator Name Role Phone Zeinab Carey MD Primary Care Provider [phone] Reason for Visit * Reason Onset Date Comments Results 04/27/2023 Encounter Details Date Type Department Care Team ([facility] Contact Info) Description 04/27/2023 Telephone [facility] MEDICINE [address] [place] [address] Zeinab Carey MD 505 [place] [address] Results Social History Tobacco Use Types Packs/Day [...] documented as of this encounter Care Teams Rubber Insulator Relationship Specialty Start Date End Date Zeinab Carey MD 505 [place] [address] PCP - General Family Medicine 05/16/17 documented as of this encounter
--- OUTSIDE RECORDS SUMMARY | 2025-04-03 14:26 | XMS_ITS | Encounter Summary ---
Author Organization [employer] Address [address] [place] [address] Care Team Providers Care Cash Processing Specialist Name Role Phone Zeinab Carey MD Primary Care Provider [phone] Reason for Visit * Reason Onset Date Comments Referral 04/02/2025 Encounter Details Date Type Department Care Team ([facility] st Contact Info) Description 04/02/2025 Telephone [facility] MEDICINE [address] [place] [address] Zeinab Carey MD 505 [place] [address] Referral Social History Tobacco Use Types Packs/Day [...] encounter Miscellaneous Notes * Telephone Encounter - Becky Denise RN - 04/02/2025 11:06 AM EST Called pt regarding request for endocrine, spoke to pt through [employer] Pile Hammer Operator #[id number]. Pt reports had an endocrine provider in [place] and now that she is living here needs to be referred to an endocrine provider here. Pt requesting referral as below. Will task to PCP as pt has been seen recently andhas updated labs in the chart. Pt understands and agrees with plan. - [address] [place] [address] Contact pt at [phone] vider here. Pt wants to be seen by * Telephone Encounter - Mireya Mayo - 04/02/2025 10:14 AM EST Tc from pt requesting an referral for Endocrinology - [address] [place] [address] Contact pt at [phone] documented in this encounter Plan of Treatment Not on file documented as of this encounter Visit Diagnoses Not on filedocumented in this encounter Additional Health Concerns Assessment Noted Time PHQ-9 Depression Total Score: 22 025 9:43 AM EDT documented as of this encounter Care Teams Cash Processing Specialist Relationship Specialty Start Date End Date Zeinab Carey MD [address] [place] [address] PCP - General Family Medicine 05/16/17 documented as of this encounter
--- OUTSIDE RECORDS SUMMARY | 2025-04-03 14:26 | XMS_ITS | Encounter Summary ---
Author Organization [employer] Address [address] [place] [address] Care Team Providers Care Junior Project Manager Name Role Phone Zeinab Carey MD Primary Care Provider [phone] Reason for Visit * Reason Onset Date Comments Referral 06/27/2023 Encounter Details Date Type Department Care Team ([facility] st Contact Info) Description 06/27/2023 Telephone [facility] MEDICINE [address] [place] [address] Zeinab Carey MD [address] [place] [address] Referral Social History Tobacco Use Types Packs/Day [...] advise. Pt is requesting a referral to [facility] for thyroid management. * Telephone Encounter - Catherine Fitch - 06/27/2023 3:34 PM EST Fax number [phone] * Telephone Encounter - Catherine Fitch - 06/27/2023 3:32 PM EST Tc from pt requesting a new referral for [facility] at [address] [place] [address]. documented in this encounter Plan of Treatment Not on file documented as of this encounter Visit Diagnoses Not on filedocumented in this encounter Additional Health Concerns Assessment Noted Time PHQ-9 Depression Total Score: 8 05/15/20 23 11:18 AM EST documented as of this encounter Care Teams Junior Project Manager Relationship Specialty Start Date End Date Zeinab Carey MD [address] [place] [address] PCP - General Family Medicine 05/16/17 documented as of this encounter
--- OUTSIDE RECORDS SUMMARY | 2025-04-03 14:26 | XMS_ITS | Encounter Summary ---
Author Organization [employer] Address [address] [place] [address] [place] [address] Care Team Providers Care Delivery Nurse Name Role Phone Zeinab Carey MD Primary Care Provider [phone] Reason for Visit * Reason Onset Date Comments Appointment Request 03/02/2025 Encounter Details Date Type Department Care Team ([facility] Contact Info) Description 03/02/2025 Telephone [facility] MED & PEDS [address] [place] [address] Zeinab Carey MD [address] [place] [address] Appointment Request Social History Tobacco Use Types [...] that was scheduled today Contact pt at [phone] (macedonian) documented in this encounter Plan of Treatment Not on file documented as of this encounter Visit Diagnoses Not on filedocumented in this encounter Additional Health Concerns Assessment Noted Time PHQ-9 Depression Total Score: 8 05/15/20 23 11:18 AM EST documented as of this encounter Care Teams Delivery Nurse Relationship Specialty Start Date End Date Zeinab Carey MD [address] [place] [address] PCP - General Family Medicine 05/16/17 documented as of this encounter
--- OUTSIDE RECORDS SUMMARY | 2025-04-03 14:26 | XMS_ITS | Encounter Summary ---
Author Organization [employer] Address [address] [place] [address] Care Team Providers Care Director E Learning Name Role Phone Zeinab Carey MD Primary Care Provider [phone] Reason for Visit * Reason Onset Date Comments Results 06/26/2023 Encounter Details Date Type Department Care Team ([facility] st Contact Info) Description 06/26/2023 Telephone [facility] MEDICINE [address] [place] [address] Zeinab Carey MD [address] [place] [address] Results Social History Tobacco Use Types Packs/Day [...] Pt also informed of referral placement to [facility] Endo but advised on wait list. Pt verbalized understanding and agrees with plan. * Telephone Encounter - Petra Pagan RN - 06/27/2023 4:13 PM EST Please review pt US results and advise. * Telephone Encounter - Allan Quiroz - 06/26/2023 10:28 AM EST TC from pt requesting call back regarding Results. Type of results: Sonogram Date when done: 06/15 Facility: [facility] documented in this encounter Plan of Treatment Not on file documented as of this encounter Visit Diagnoses Not on filedocumented in this encounter Additional Health Concerns Assessment Noted Time PHQ-9 Depression Total Score: 8 05/15/20 23 11:18 AM EST documented as of this encounter Care Teams Director E Learning Relationship Specialty Start Date End Date Zeinab Carey MD [address] [place] [address] PCP - General Family Medicine 05/16/17 documented as of this encounter
--- OUTSIDE RECORDS SUMMARY | 2025-04-03 14:26 | XMS_ITS | Clinical Summary ---
Author Organization [facility] Address [address] [place] [address] Phone Care Team Providers Care Telemarketing Manager Name Role Phone Zeinab Carey MD Primary Care Provider [phone] Allergies No known active allergies Medications ondansetron [...] AM EST Office Visit Bariatric Surgery - [address] [place] [address] Omer Saha MD [address] [place] [phone] Health Maintenance Due Date Last Done [...] Maintenance Insurance MEDICAID - [place] Care Teams Telemarketing Manager Relationship Specialty Start Date End Date Zeinab Carey MD [address] [place] [phone] PCP - General 07/29/21
--- OUTSIDE RECORDS SUMMARY | 2025-04-03 14:26 | XMS_ITS | Encounter Summary ---
Author Organization [employer] Address [address] [place] [address] Care Team Providers Care Spring Winder Name Role Phone Zeinab Carey MD Primary Care Provider [phone] Reason for Visit * Reason Onset Date Comments Nurse Triage 04/01/2025 Encounter Details Date Type Department Care Team ([facility] st Contact Info) Description 04/01/2025 Telephone [facility] MEDICINE [address] [place] [address] Zeinab Carey MD [address] [place] [address] Nurse Triage Social History Tobacco Use Types [...] Telephone Encounter - Becky Denise RN - 04/01/2025 11:42 AM EST Called pt back regarding status of referral to Ortho, spoke to pt through [employer]. Advised to pt that the referral to [facility] went through and an appointment was set. However, pt does not want to go there and wants referral to another MD which has been previously been requested. Awaiting referral and pt will get call with appointment after the referral is approved and accepted by that office. Pt understands and agrees with plan. * Telephone Encounter - Mckenna Rojo RN - 04/01/2025 11:08 AM EST Telephone call to pt via [employer] [address]. 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 [facility] but has had back & forth conversation via [employer] about preferred surgeon. Pt states she has previously seen [facility] Dr. Thomas, last seen 2023. She is asking about status of referral. Organ Recovery Coordinator explained that is it pending confirmation of the office she requested. Advised pt to come to [facility] if pain does not come down from 03/06 with ibuprofen, ice, voltaren gel as advised by Dr. Valdes on 03/16/25. Offered pt appt at [facility] this week, pt states she will think about it. Gave reasons to call back and advised pt RN will investigate referral. RN called [facility], pt did see this office for right hand surgery 10/2021 and had follow up appt in 2023. She needs an insurance authorization R#, demographics sheet, and referral sheet (with reason why she is being referred). Will work with referral dept on this. Protocol Used: Hand Pain (Adult) Protocol-Based Disposition: Go to Office or Video Visit Now Positive Triage Question: * Severe pain (e.g., excruciating, unable to use hand at all) * All higher-acuity triage questions were negative * Telephone Encounter - Billy Dupree - 04/01/2025 10:24 AM EST TC from pt reports worsening hand pain . Portuguese Speaking documented in this encounter Plan of Treatment Not on file documented as of this encounter Visit Diagnoses Not on filedocumented in this encounter Additional Health Concerns Assessment Noted Time PHQ-9 Depression Total Score: 22 025 9:43 AM EDT documented as of this encounter Care Teams Spring Winder Relationship Specialty Start Date End Date Zeinab Carey MD [address] [place] [address] PCP - General Family Medicine 05/16/17 documented as of this encounter
--- OUTSIDE RECORDS SUMMARY | 2025-04-03 14:26 | XMS_ITS | Encounter Summary ---
Author Organization [employer] Address [address] [place] [address] Care Team Providers Care Human Resources Benefits Coordinator Name Role Phone Zeinab Carey MD Primary Care Provider [phone] Reason for Visit * Reason Onset Date Comments Appointment Request 09/07/2023 Encounter Details Date Type Department Care Team ([facility] st Contact Info) Description 09/07/2023 Telephone [facility] MEDICINE [address] [place] [address] Zeinab Carey MD 505 [place] [address] Appointment Request Social History Tobacco Use Types [...] of this encounter Care Teams Human Resources Benefits Coordinator Relationship Specialty Start Date End Date Zeinab Carey MD [address] [place] [address] PCP - General Family Medicine 05/16/17 documented as of this encounter
--- OUTSIDE RECORDS SUMMARY | 2025-04-03 14:27 | XMS_ITS | Encounter Summary ---
Author Organization [employer] Address [address] [place] [address] 7 [place] [address] Care Team Providers Care Legal Project Manager Name Role Phone Zeinab Carey MD Primary Care Provider [phone] Encounter Details Date Type Department Care Team (Late st Contact Info) Description 01/11/2024 Orders Only [facility] [address] [place] [address] Provider, MD Lou Social History Tobacco Use [...] documented as of this encounter Care Teams Legal Project Manager Relationship Specialty Start Date End Date Zeinab Carey MD [address] [place] [address] PCP - General Family Medicine 05/16/17 documented as of this encounter
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
--- OUTSIDE RECORDS SUMMARY | 2025-04-03 14:27 | XMS_ITS | Encounter Summary ---
Author Organization [employer] Address [address] [place] [address] Care Team Providers Care Multifocal Lens Assembler Name Role Phone Zeinab Carey MD Primary Care Provider Reason for Visit * Reason Onset Date Comments Results 03/26/2024 Encounter Details Date Type Department Care Team ([facility] st Contact Info) Description 03/26/2024 Telephone [facility] [address] [place] [address] Zeinab Carey MD 505 [place] [address] Results Social History Tobacco Use Types Packs/Day [...] results: Labs Date when done: 03/15/24 Facility: [facility] Labs documented in this encounter Plan of Treatment Not on file documented as of this encounter Visit Diagnoses Not on filedocumented in this encounter Additional Health Concerns Assessment Noted Time PHQ-9 Depression Total Score: 8 05/15/20 23 11:18 AM EST documented as of this encounter Care Teams Multifocal Lens Assembler Relationship Specialty Start Date End Date Zeinab Carey MD 505 [place] [address] PCP - General Family Medicine 05/16/17 documented as of this encounter
--- OUTSIDE RECORDS SUMMARY | 2025-04-03 14:27 | XMS_ITS | Encounter Summary ---
Author Organization [employer] Address [address] [place] [address] [place] [address] Care Team Providers Care Diesel Engine Specialist Name Role Phone Zeinab Carey MD Primary Care Provider [phone] Reason for Visit * Reason Onset Date Comments Nurse Triage 06/25/2024 Encounter Details Date Type Department Care Team ([facility] st Contact Info) Description 06/25/2024 Telephone [facility] [address] [place] [address] Zeinab Carey MD 505 [place] [address] Nurse Triage Social History Tobacco Use Types [...] 06/25/2024 10:50 AM EST Triage call with [facility] [place] [id number] Jose. Called x2, unable to make connectiion. [...] documented as of this encounter Care Teams Diesel Engine Specialist Relationship Specialty Start Date End Date Zeinab Carey MD 505 [place] [address] PCP - General Family Medicine 05/16/17 documented as of this encounter
--- OUTSIDE RECORDS SUMMARY | 2025-04-03 14:27 | XMS_ITS | Encounter Summary ---
Author Organization [employer] Address [address] [place] [address] [place] [address] Care Team Providers Care Budget Director Name Role Phone Zeinab Carey MD Primary Care Provider [phone] Reason for Visit * Reason Onset Date Comments Nurse Triage 08/11/2024 Encounter Details Date Type Department Care Team ([facility] st Contact Info) Description 08/11/2024 Telephone [facility] 505 [place] [address] Zeinab Carey MD 505 [place] [address] Nurse Triage Social History Tobacco Use Types [...] RN - 08/11/2024 12:29 PM EDT No national investigative producer needed as this 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 Call returned to Saundra [place] [...] will call cardiology first. Pt advised of [facility] operating hours for today and tomorrow [...] yesterday. No symptoms today. Contact pt at [phone] (danish) documented in this encounter Plan of Treatment Not on file documented as of this encounter Visit Diagnoses Not on filedocumented in this encounter Additional Health Concerns Assessment Noted Time PHQ-9 Depression Total Score: 8 05/15/20 23 11:18 AM EST documented as of this encounter Care Teams Budget Director Relationship Specialty Start Date End Date Zeinab Carey MD [address] [place] [address] PCP - General Family Medicine 05/16/17 documented as of this encounter
--- OUTSIDE RECORDS SUMMARY | 2025-04-03 14:27 | XMS_ITS | Encounter Summary ---
Author Organization [employer] Address 75 [facility] 7 [place] [address] Care Team Providers Care Science Technicians Name Role Phone Zeinab Carey MD Primary Care Provider [phone] Encounter Details Date Type Department Care Team ([facility] st Contact Info) Description 06/30/2024 Orders Only [facility] MED & PEDS [address] [place] [address] Provider, MD Lou Social History Tobacco Use [...] documented as of this encounter Care Teams Science Technicians Relationship Specialty Start Date End Date Zeinab Carey MD 505 [place] [address] PCP - General Family Medicine 05/16/17 documented as of this encounter
--- OUTSIDE RECORDS SUMMARY | 2025-04-03 14:27 | XMS_ITS | Encounter Summary ---
Author Organization [employer] Address [address] [place] [address] Care Team Providers Care Grove Superintendent Name Role Phone Zeinab Carey MD Primary Care Provider [phone] Reason for Visit * Reason Onset Date Comments Referral 02/20/2025 Encounter Details Date Type Department Care Team ([facility] st Contact Info) Description 02/20/2025 Telephone [facility] [address] [place] [address] Zeinab Carey MD [address] [place] [address] Referral Social History Tobacco Use Types Packs/Day [...] exam - Speech & Hearing - [address] [place], [place] [phone] - documented in this encounter Plan of Treatment Not on file documented as of this encounter Visit Diagnoses Not on filedocumented in this encounter Additional Health Concerns Assessment Noted Time PHQ-9 Depression Total Score: 8 05/15/20 23 11:18 AM EST documented as of this encounter Care Teams Grove Superintendent Relationship Specialty Start Date End Date Zeinab Carey MD [address] [place] [address] PCP - General Family Medicine 05/16/17 documented as of this encounter
--- OUTSIDE RECORDS SUMMARY | 2025-04-03 14:27 | XMS_ITS | Encounter Summary ---
Author Organization [employer] Address [address] [place] [address] [place] [address] Care Team Providers Care Arc Cutter Name Role Phone Zeinab Carey MD Primary Care Provider [phone] Reason for Visit * Reason Onset Date Comments Referral 10/29/2023 Encounter Details Date Type Department Care Team ([facility] st Contact Info) Description 10/29/2023 Telephone [facility] MED & PEDS [address] [place] [address] Zeinab Carey MD 505 [place] [address] Referral Social History Tobacco Use Types Packs/Day [...] regards to referral. Please contact pt at [phone] * Telephone Encounter - Sruthi Rodriguez - 10/29/2023 12:43 PM EDT Tc from pt requesting a referral to neurologist. Pt states forgetfulness is becoming more consistent and would like testing. Please contact pt at [phone] (Hebrew) documented in this encounter Plan of Treatment Not on file documented as of this encounter Visit Diagnoses Not on filedocumented in this encounter Additional Health Concerns Assessment Noted Time PHQ-9 Depression Total Score: 8 05/15/20 23 11:18 AM EST documented as of this encounter Care Teams Arc Cutter Relationship Specialty Start Date End Date Zeinab Carey MD [address] [place] [address] PCP - General Family Medicine 05/16/17 documented as of this encounter
--- OUTSIDE RECORDS SUMMARY | 2025-04-03 14:27 | XMS_ITS | Clinical Summary ---
Author Organization [employer] Address 75 [facility] 7 [place] [address] Care Team Providers Care Box Office Clerk Name Role Phone Zeinab Carey MD Primary Care Provider [phone] Allergies No known active allergies Medications hydrOXYzine pamoate (Vistaril) 25 MG capsule TAKE 1 CAPSULE BY MOUTH TWICE A DAY NEEDED SIG IN FRENCH 3 Active escitalopram (Lexapro) 20 MG tablet TAKE 1 1/2 TABLET BY MOUTH ONCE A DAY SIG IN FRENCH 3 Active buPROPion XL (Wellbutrin XL) 150 MG 24 hr tablet TAKE 1 TABLET BY MOUTH ONCE A DAY TAKE WITH 300MG XL DOSE TOTAL 450MG XL 3 Active buPROPion XL (Wellbutrin XL) 300 MG 24 hr tablet TAKE 1 TABLET BY MOUTH ONCE A DAY SIG IN FRENCH 3 Active lidocaine-priloc west (Emla) 2.5-2.5 % [...] Encounters Date Type Department Care Team Description 04/02/[address] [address] Zeinab Carey MD Referral 04/01/[address] [address] Zeinab Carey MD Nurse Triage 03/16/[address] [address] Zeinab Carey MD status on referral 03/16/2025 Telephone [facility] PEDS [address] [place] [address] Zeinab Carey MD Nurse Triage 03/12/2025 9:15 AM EDT Office Visit [facility] [address] [place] [address] Rubén Gonzalez MD Dizziness (Primary Dx); Bradycardia 03/12/2025 Travel 03/11/2025 Travel 03/11/[address] [address] Zeinab Carey MD Nurse Triage 03/06/2025 9:30 AM EDT Office Visit [facility] [address] [place] [address] Rebecca Valdes MD Tendinitis, jean carlos Queraleta's (Primary Dx) 03/06/2025 Patient Outreach [address] [address] Zeinab Carey MD Care Coordination (CH[facility] outreach for SDOH housing search-referral completed ) 03/06/2025 Telephone [facility] [address] [place] [address] Zeinab Carey MD 03/06/2025 Travel 03/05/2025 Telephone [facility] [address] [place] [address] Zeinab Carey MD chart prep 03/05/2025 Telephone [facility] [address] [place] [address] Zeinab Carey MD Nurse Triage 03/02/2025 Telephone [facility] [address] [place] [address] Zeinab Carey MD Appointment Request 03/02/[address] [address] Zeinab Carey MD 02/27/2025 11:15 AM EDT Clinical Support [facility] [address] [place] [address] Polly Burgos, JADA Encounter for immunization 02/27/2025 Telephone [facility] [address] [place] [address] Zeinab Carey MD Appointment Request 02/27/2025 Travel 02/23/2025 Orders Only [facility] [address] [place] [address] Zeinab Carey MD Memory deficit (Primary Dx); Hearing deficit, unspecified laterality 02/20/[address] [address] Zeinab Carey MD Referral 02/19/2025 10:15 AM EDT Office Visit [facility] [address] [place] [address] Zeinab Carey MD Bunion of left foot (Primary Dx); Acquired hypothyroidism; Chronic pain of right knee 02/19/2025 Travel 02/18/2025 Telephone [facility] [address] [place] [address] Zeinab Carey MD Chart Prep 02/17/2025 Telephone [facility] [address] [place] [address] Zeinab Carey MD Nurse Triage 01/14/2025 Refill [facility] [address] [place] [address] Zeinab Carey MD 01/14/2025 Refill [facility] [address] [place] [address] Rebecca Valdes MD Chronic superficial 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; Chronic migraine without aura without status migrainosus, not intractable 01/14/2025 Refill [facility] PEDS [address] [place] [address] Zeinab Carey MD Chronic superficial 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; Chronic migraine without aura without status migrainosus, not intractable 01/13/2025 Orders Only [facility] [address] [place] [address] Provider, MD Lou from Last 3 Months Immunizations Immunization Administration [...] of 2) 07/08/2024 05/13/2024 COVID-19 Vaccine ( - season) 2025 07/05/2022, 11/10/2020, 10/13/2020 Cervical Cancer Screening 07/21/2025 HPV/Cotest 07/21/2025 07/21/2020 Pap Smear 07/21/2025 07/21/2020 Depression Monitoring 09/04/2025 03/06/2025, 025 Alcohol/Substance Use Screening 03/06/2026 03/06/2025 Disability Screening 03/06/2026 03/06/2025 SDOH Screening 03/06/2026 03/06/2025 Tobacco Screening 03/12/2026 03/12/2025 Mammogram 01/12/2027 01/12/2025, 10/01/2024, 02/27/2023, Additional history exists Lipid Panel 02/06/2027 [...] Priority Date/Time Associated Diagnosis Comments MAGNESIUM Routine 03/12/2025 10:27 AM EDT Dizziness Bradycardia BASIC METABOLIC PANEL Routine 03/12/2025 10:27 AM EDT Dizziness Bradycardia TSH W/REFLEX TO FT4 Routine 03/12/2025 1 0:27 AM EDT Dizziness Bradycardia ECG 12-LEAD Routine 03/12/2025 10:16 AM EDT Dizziness Bradycardia HM MAMMOGRAPHY Routine 01/12/2025 11:44 AM EDT HEPATITIS PANEL, GENERAL Routine 05/15/2023 11:12 AM EST Elevated liver enzymes COLONOSCOPY Routine 07/20/2022 HIV 1/2 ANTIGEN/ANTIBODY, FOURTH GENERATION W/RFL Routine 02/06/2022 9:57 AM EDT LIPID PANEL, STANDARD Routine 02/06/2022 9:57 AM EDT PAP/HPV Routine 07/21/2020 from Last 3 Months or Most Recently Relevant to Health Maintenance Results * TSH W/Reflex to FT4 (03/12/2025 10:27 AM EDT) TSH reflex Free T4 3.87 0.32 - 4.0 uIU/mL [facility] Blood Venous blood specimen / Unknown 03/12/2025 10:27 AM EDT 03/12/2025 1:48 PM EDT us Rubén Gonzalez MD LAB BLOOD ORDERABLES Final Result [facility] [address] [place] [phone] * Magnesium (03/12/2025 10:27 AM EDT) Magnesium 1.9 1.6 - 2.6 mg/dL [facility] Blood Venous blood specimen / Unknown 03/12/2025 10:27 AM EDT 03/12/2025 1:48 PM EDT us Rubén Gonzalez MD LAB BLOOD ORDERABLES Final Result Performing Organization Address [facility] de Phone Number [facility] [address] [place] [phone] * (ABNORMAL) Basic Metabolic Panel (03/12/2025 10:27 AM EDT) Sodium 142 135 - 145 mmol/L [facility] Potassium 3.8 3.3 - 5.1 mmol/L [facility] Chloride 106 96 - 108 mmol/L [facility] Carbon Dioxide 30(H) 22 - 29 mmol/L [facility] Anion Gap 10(L) 12 - 20 [facility] Urea Nitrogen (BUN) 16 9 - 16 mg/dL [facility] Creatinine, Serum 0.79 0.5 - 1.4 mg/dL [facility] Estimated Glomerular Filt Rate >60 [facility] Comment:Chronic Kidney Disea se: Estimated GFR < 60 mL/min/1.09j9Ebikmm Kidney Disease: Estimated GFR < 15 mL/min/1.73m2 Glucose 85 60 - 115 mg/dL [facility] Calcium 9.1 8.4 - 10.2 mg/dL [facility] Blood Venous blood specimen / Unknown 03/12/2025 10:27 AM EDT 03/12/2025 1:48 PM EDT us Rubén Gonzalez MD LAB BLOOD ORDERABLES Final Result Performing Organization Address [facility] Co de Phone Number [facility] [address] [place] [phone] * ECG 12 lead (03/12/2025 10:16 AM EDT) Narrative Rubén Gonzalez MD - 03/12/2025 10:16 AM EDT Heart rate 56 bpm. Venus 16 degrees. Sinus rhythm. Bradycardia. No sign [...] AM EST) Hepatitis A IgM Nonreactive Nonreactive [facility] Comment:IgM antibodies to ANDERSEN V not detected; does not exclude earlyacute or recovered HAV infection. ~Hepatitis B Surface Antibody NONREACTIVE Nonreactive [facility] Comment:Nonreactive: < 8.00 mIU/mL Hepatitis B Core Antibody Nonreactive Nonreactive [facility] Hepatitis C Antibody Nonreactive Nonreactive [facility] Comment:Antibodies to HCV no t detected; does not exclude early acuteHCV infection. Hepatitis B Surface Ag Negative Negative [facility] Blood Venous blood specimen / Unknown 05/15/2023 11:12 AM EST 05/15/2023 2:20 PM EST Result [facility] Zeinab Carey MD LAB BLOOD ORDERABLES Final Re sult [facility] [address] [place] [phone] * (ABNORMAL) Colonoscopy (07/20/2022) Colonoscopy Normal [...] purpose. For additional information please refer to http://[employer].PromiseUP/faq/OAD349 (This link is being provided for informational/ educational purposes only.) The performance of this assay has not been clinically validated in patients less than 2 years old. 02/06/2022 9:57 AM EDT Tarik Sommers MD LAB BLOOD ORDERABL ES Final Result [facility] [address] * (ABNORMAL) LIPID PANEL, STANDARD (02/06/2022 [...] factors. LDL-C is now calculated using the Abimael-Zoltan calculation, which is a validated novel method providing better accuracy than the Friedewald equation in the estimation of LDL-C. Abimael GONZALES et al. JUAN. 2013;310(19): 1418-7952 (http://[employer].InvestingNote/faq/FBF297) Non-HDL Cholesterol 125 <130 mg/dL (calc) [facility] Comment: For patients with diabetes plus 1 major ASCVD risk factor, treating to a non-HDL-C goal of <100 mg/dL (LDL-C of <70 mg/dL) is considered a therapeutic option. Triglycerides 178(H) <150 mg/dL [facility] 02/06/2022 9:57 AM EDT Tarik Sommers MD LAB BLOOD ORDERABL ES Final Result [facility] [address] * Pap Smear (07/21/2020) Pap Negative for intraephithelial lesion or malignancy Negative for intraephithelial lesion or malignancy, Other HPV Undetected Undetected, Indeterminate, Quantitative, Not Detected Historical Provider HEALTH MAINTENANCE Final Result from Last 3 Months or Most Recently Relevant to Health Maintenance Insurance [facility] [employer] Care Teams Box Office Clerk Relationship Specialty Start Date End Date Zeinab Carey MD [address] [place] [address] PCP - General Family Medicine 05/16/17
--- OUTSIDE RECORDS SUMMARY | 2025-04-03 14:27 | XMS_ITS | Encounter Summary ---
Author Organization [employer] Address [address] [place] [address] [place] [address] Care Team Providers Care Pcu Rn Name Role Phone Zeinab Carey MD Primary Care Provider [phone] Reason for Visit * Reason Onset Date Comments Request For Order(s) 10/30/2023 Encounter Details Date Type Department Care Team ([facility] st Contact Info) Description 10/30/2023 Telephone [facility] MED & PEDS [address] [place], [place] [phone] Zeinab Carey MD [address] [place] [address] Request For Order(s) Social History Tobacco Use [...] surgery. Please contact pt for questions/clarification at [phone] documented in this encounter Plan of Treatment Not on file documented as of this encounter Visit Diagnoses Not on filedocumented in this encounter Additional Health Concerns Assessment Noted Time PHQ-9 Depression Total Score: 8 05/15/20 23 11:18 AM EST documented as of this encounter Care Teams Pcu Rn Relationship Specialty Start Date End Date Zeinab Carey MD [address] [place] [address] PCP - General Family Medicine 05/16/17 documented as of this encounter
--- OUTSIDE RECORDS SUMMARY | 2025-04-03 14:27 | XMS_ITS | Encounter Summary ---
Author Organization [employer] Address [address] [place] [address] [place] [address] Care Team Providers Care Allied Health Professional Name Role Phone Zeinab Carey MD Primary Care Provider [phone] Reason for Visit * Reason Onset Date Comments Med Refill 01/14/2025 Encounter Details Date Type Department Care Team ([facility] st Contact Info) Description 01/14/2025 Refill [facility] MED & PEDS [address] [place] [address] Zeinab Carey MD [address] [place] [address] Chronic superficial 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; Chronic migraine [...] documented as of this encounter Care Teams Allied Health Professional Relationship Specialty Start Date End Date Zeinab Carey MD [address] [place] [address] PCP - General Family Medicine 05/16/17 documented as of this encounter
--- OUTSIDE RECORDS SUMMARY | 2025-04-03 14:27 | XMS_ITS | Encounter Summary ---
Author Organization [employer] Address [address] [place] [address] 7 [place] [address] Care Team Providers Care Form Layer Name Role Phone Zeinab Carey MD Primary Care Provider [phone] Encounter Details Date Type Department Care Team (Late st Contact Info) Description 01/13/2025 Orders Only [facility] [address] [place] [address] Provider, MD Lou Social History Tobacco Use [...] documented as of this encounter Care Teams Form Layer Relationship Specialty Start Date End Date Zeinab Carey MD [address] [place] [address] PCP - General Family Medicine 05/16/17 documented as of this encounter
--- OUTSIDE RECORDS SUMMARY | 2025-04-03 14:27 | XMS_ITS | Encounter Summary ---
Author Organization [employer] Address [address] [place] [address] [facility] [place] [address] Care Team Providers Care Senior Service Aide Name Role Phone Zeinab Carey MD Primary Care Provider [phone] Reason for Referral * Imaging (Routine) - Closed Specialty Diagnoses / Procedures Referred By Contac t Referred To Contact Radiology Diagnoses Thyroid nodule Acquired hypothyroidism Procedures US Thyroid Zeinab Carey MD [address] [place] [address] Phone: tel: fax: [address] Phone: tel: fax: Referral ID Status Reason Start Date Expiration Date Visits Re quested Visits Authorized [id number] Closed 10/24/2023 10/23/2024 1 1 Encounter Details Date Type Department Care Team (Late st Contact Info) Description 10/24/2023 Orders Only [facility] CHC MED & PEDS [address] [place] [address] Zeinab Carey MD [address] [place] [address] Thyroid nodule (Primary Dx); Acquired hypothyroidism Social [...] PM EDT Narrative 11/23/2023 12:26 PM EDT [place] [address] Ultrasound Report Signed Patient: Saundra Mayo MR#: [id number] [birth year] : 1975 Acct:[id number] Age/Sex: 48 / F ADM Date: 10/31/23 Loc: HO.US Attending Dr: Zeinab Carey MD Ordering Physician: Zeinab Carey MD Date of Service: 10/31/23 Procedure(s): US thyroid Accession Number(s): [id number] cc: Zeinab Carey MD EXAMINATION: US THYROID [...] in OV> 11/23/23 1222 DD/ 1238 TD/TT: 911 Emergency Services Dispatcher: TRUNG Procedure Note Donotuseinterpreter, Image - 11/23/2023 [place] [address] Ultrasound Report Signed Patient: Lesvia Mayo#: [id number] 05 : 1975Acct:[id number] Age/Sex: 48 / FADM Date: 10/31/23 Loc: HO.US Attending Dr: Zeinab Carey MD Ordering Physician: Zeinab Carey MD Date of Service: 10/31/23 Procedure(s): US thyroid Accession Number(s): [id number] cc: Zeinab Carey MD EXAMINATION: US THYROID [...] in OV> 11/23/23 1222 DD/ 1238 TD/TT: 911 Emergency Services Dispatcher: TRUNG us Zeinab Carey MD IMG US PROCEDURES Final Resul t documented in this encounter Visit Diagnoses Diagnosis Thyroid nodule- Primary Nontoxic uninodular goiter Acquired hypothyroidism Unspecified hypothyroidism documented in this encounter Additional Health Concerns Assessment Noted Time PHQ-9 Depression Total Score: 8 05/15/20 23 11:18 AM EST documented as of this encounter Care Teams Senior Service Aide Relationship Specialty Start Date End Date Zeinab Carey MD [address] [place] [address] PCP - General Family Medicine 05/16/17 documented as of this encounter
--- OUTSIDE RECORDS SUMMARY | 2025-04-03 14:27 | XMS_ITS | Encounter Summary ---
Author Organization [employer] Address [address] [place] [address] Care Team Providers Care Mud Cleaner Operator Name Role Phone Zeinab Carey MD Primary Care Provider [phone] Reason for Visit * Reason Onset Date Comments Results 01/18/2024 Encounter Details Date Type Department Care Team ([facility] Contact Info) Description 01/18/2024 Telephone [facility] MEDICINE [address] [place] [address] Zeinab Carey MD [address] [place] [address] Results Social History Tobacco Use Types Packs/Day [...] CT Scan Date when done: 12/05 [place] [facility] [place] documented in this encounter Plan of Treatment Not on file documented as of this encounter Visit Diagnoses Not on filedocumented in this encounter Additional Health Concerns Assessment Noted Time PHQ-9 Depression Total Score: 8 05/15/20 11:18 AM EST documented as of this encounter Care Teams Mud Cleaner Operator Relationship Specialty Start Date End Date Zeinab Carey MD [address] [place] [address] PCP - General Family Medicine 05/16/17 documented as of this encounter
--- OUTSIDE RECORDS SUMMARY | 2025-04-03 14:27 | XMS_ITS | Encounter Summary ---
Author Organization [employer] Address [address] [place] [address] Care Team Providers Care Chicken Handler Name Role Phone Zeinab Carey MD Primary Care Provider [phone] Reason for Visit * Reason Onset Date Comments MR ORDER 10/23/2023 Encounter Details Date Type Department Care Team ([facility] st Contact Info) Description 10/23/2023 Telephone [facility] MEDICINE [address] [place] [address] Zeinab Carey MD [address] [place] [address] MR ORDER Social History Tobacco Use Types [...] documented as of this encounter Care Teams Chicken Handler Relationship Specialty Start Date End Date Zeinab Carey MD 505 [place] [address] PCP - General Family Medicine 05/16/17 documented as of this encounter
--- OUTSIDE RECORDS SUMMARY | 2025-04-03 14:27 | XMS_ITS | Encounter Summary ---
Author Organization [employer] Address 75 [facility] 7 [place] [address] Care Team Providers Care Manager Mobility Name Role Phone Zeinab Carey MD Primary Care Provider [phone] Reason for Visit * Reason Onset Date Comments Med Refill 01/14/2025 Encounter Details Date Type Department Care Team (Late st Contact Info) Description 01/14/2025 Refill [facility] MEDICINE [address] [place] [address] Rebecca Valdes MD 505 [place] [address] Chronic superficial 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; Chronic migraine [...] as of this encounter Care Teams Manager Mobility Relationship Specialty Start Date End Date Zeinab Carey MD [address] [place] [address] PCP - General Family Medicine 05/16/17 documented as of this encounter
--- OUTSIDE RECORDS SUMMARY | 2025-04-03 14:27 | XMS_ITS | Encounter Summary ---
Author Organization [employer] Address [address] [place] [address] [place] [address] Care Team Providers Care International Trade Manager Name Role Phone Zeinab Carey MD Primary Care Provider [phone] Reason for Visit * Reason Onset Date Comments PA 08/12/2024 Encounter Details Date Type Department Care Team ([facility] st Contact Info) Description 08/12/2024 Telephone [facility] MED & PEDS [address] [place] [address] Zeinab Carey MD 505 [place] [address] PA Social History Tobacco Use Types Packs/Day [...] 08/13/2024 9:37 AM EDT No Pa needed singer songwriter spoke with [facility] who ran the medication and paid , singer songwriter informed pt, as pt request for medication to be changed to [facility]. Tc from pt calling to inform [...] documented as of this encounter Care Teams International Trade Manager Relationship Specialty Start Date End Date Zeinab Carey MD [address] [place] [address] PCP - General Family Medicine 05/16/17 documented as of this encounter
== END 2025-04-03 12:08 | disposition home or self-care (01) ==
LOC: HO.MAMMO 12:07
PROVIDERS: PCP Pediatrics; Visit Provider Pediatrics
DX: Z12.31 Encounter for screening mammogram for malignant neoplasm of breast (principal)
CPT/HCPCS: 77063; 77067

== ENCOUNTER → 2025-04-03 12:30 | Outpatient (BNV) | payer MEDICAID, SELFPAY | PROVIDERS: PCP Pediatrics; Visit Provider Internal Medicine | DX: Z12.31 Encounter for screening mammogram for malignant neoplasm of breast (principal) | CPT/HCPCS: 77063; 77067 ==

== ENCOUNTER 2025-04-21 18:18 | Emergency (ER) | payer MEDICAID, SELFPAY ==
--- NOTE | ~2025-04-21 | XR_ITS ---
CLINICAL HISTORY: cough 2 view chest x-ray. Comparison: None Findings: No consolidation or effusion. Cardiac and mediastinal contours are unremarkable. Bones unremarkable. Impression: 1. No acute pulmonary disease. This document has been electronically signed by: Jatin Gibbs MD on 04/21/2025 19:05:04
[2025-04-21 18:31] VITALS: BP 116/61; PULSE 68; RESP 18; TEMP 36.3; O2SAT 98; BMI 27.0
[2025-04-21 19:32] LABS: Resp Syncy Virus RNA Qual PCR NEGATIVE (Negative); SARS COV2 PCR INHOUSE NEGATIVE (Negative)
--- OUTSIDE RECORDS SUMMARY | 2025-04-21 19:45 | XMS_ITS | Encounter Summary ---
Author Organization [employer] Address [address] [place] [address] Care Team Providers Care Job Service Specialist Name Role Phone Zeinab Carey MD Primary Care Provider [phone] Reason for Referral * Imaging (Routine) - Closed Specialty Diagnoses / Procedures Referred By Contac t Referred To Contact Radiology Diagnoses Thyroid nodule Acquired hypothyroidism Procedures US Thyroid Zeinab Carey MD [address] [place] [address] Phone: tel: fax: [address] [address] Phone: tel: fax: Referral ID Status Reason Start Date Expiration Date Visits Re quested Visits Authorized [id number] Closed 10/24/2023 10/23/2024 1 1 Encounter Details Date Type Department Care Team (Late st Contact Info) Description 10/24/[address] [facility] CHC MED & PEDS [address] [place], [place] [id number] Zeinab Carey MD [address] [place], [place] [id number] Thyroid nodule (Primary Dx); Acquired hypothyroidism Social History Tobacco Use Types Packs/Day Years Used Date Smoking Tobacco: Never Passive Smoke Exposure: Never Smokeless Tobacco: Never Depression Answer Date Recorded Patient Health Questionnaire-9 Score 8 05/15/2023 Patient Health Questionnaire-9 Score 8 05/15/2023 Last PHQ-9: Questionnaire Data Not on file 1 07/16/2022 Housing Stability Answer Date Recorded What is your housing situation today? I have benosn lee 03/18/[address] you [...] Upcoming Encounters Date Type Department Care Team ([facility] st Contact Info) Description 05/06/2025 11:00 AM EST Office Visit [facility] MED & PEDS [address] [place] [address] Zeinab Carey MD [address] [place] [address] documented as of this encounter Procedures Procedure Name Priority Date/Time Associated Diagnosis Comments US THYROID Routine 10/31/2023 12:38 PM EDT Thyroid nodule Acquired hypothyroidism documented in this encounter Results * US Thyroid (10/31/2023 12:38 PM EDT) Anatomical Region Laterality Modality Head, Neck Ultrasound 10/31/2023 12:3 8 PM EDT Narrative 11/23/2023 12:26 PM EDT [address] [address] Ultrasound Report Signed Patient: Saundra Mayo MR#: [id number] [birth year] : 1975 Acct:[id number] Age/Sex: 48 / F ADM Date: 10/31/23 Loc: HO.US Attending Dr: Zeinab Carey MD Ordering Physician: Zeinab Carey MD Date of Service: 10/31/23 Procedure(s): US thyroid Accession Number(s): [id number] cc: Zeinab Carey MD EXAMINATION: US THYROID [...] in OV> 11/23/23 1222 DD/ 1238 TD/TT: Trimmer Machine Operator: TRUNG Procedure Note Donotuseinterpreter, Image - 11/23/2023 [place] [address] Ultrasound Report Signed Patient: Shayne MayonMSusi#: [id number] 05 : 1975Acct:[id number] Age/Sex: 48 / FADM Date: 10/31/23 Loc: HO.US Attending Dr: Zeinab Carey MD Ordering Physician: Zeinab Carey MD Date of Service: 10/31/23 Procedure(s): US thyroid Accession Number(s): [id number] cc: Zeinab Carey MD EXAMINATION: US THYROID [...] in OV> 11/23/23 1222 DD/ 1238 TD/TT: Trimmer Machine Operator: TRUNG Authorpreethi Provider Result Type Result Stat us Zeinab Carey MD IMG US PROCEDURES Final Resul t documented in this encounter Visit Diagnoses Diagnosis Thyroid nodule- Primary Nontoxic uninodular goiter Acquired hypothyroidism Unspecified hypothyroidism documented in this encounter Additional Health Concerns Assessment Noted Time PHQ-9 Depression Total Score: 8 05/15/20 23 11:18 AM EST documented as of this encounter Care Teams Job Service Specialist Relationship Specialty Start Date End Date Zeinab Carey MD [address] [place] [address] PCP - General Family Medicine 05/16/17 documented as of this encounter
--- OUTSIDE RECORDS SUMMARY | 2025-04-21 19:45 | XMS_ITS | Encounter Summary ---
Author Organization [employer] Address 75 [facility] 7 [place] [address] Care Team Providers Care Lighting Engineering Technician Name Role Phone Zeinab Carey MD Primary Care Provider [phone] Reason for Visit * Reason Onset Date Comments Med Refill 01/14/2025 Encounter Details Date Type Department Care Team (Late st Contact Info) Description 01/14/2025 Refill [facility] MEDICINE [address] [place] [address] Rebecca Valdes MD [address] [place] [address] Chronic superficial 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; Chronic migraine [...] Care Team (Late st Contact Info) Description 05/06/2025 11:00 AM EST Office Visit [facility] MED & PEDS 505 [place] [address] Zeinab Carey MD [address] [place] [address] documented as of this encounter Visit Diagnoses Diagnosis Chronic superficial 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 Chronic migraine without aura without status migrainosus, not intractable documented in this encounter Additional Health Concerns Assessment Noted Time PHQ-9 Depression Total Score: 8 05/15/20 23 11:18 AM EST documented as of this encounter Care Teams Lighting Engineering Technician Relationship Specialty Start Date End Date Zeinab Carey MD [address] [place] [address] PCP - General Family Medicine 05/16/17 documented as of this encounter
--- OUTSIDE RECORDS SUMMARY | 2025-04-21 19:45 | XMS_ITS | Encounter Summary ---
Author Organization [employer] Address [address] [place] [address] Care Team Providers Care Journalism Teacher Name Role Phone Zeinab Carey MD Primary Care Provider [phone] Reason for Visit * Reason Onset Date Comments Results 06/26/2023 Encounter Details Date Type Department Care Team ([facility] st Contact Info) Description 06/26/2023 Telephone [facility] MEDICINE [address] [place] [address] Zeinab Carey MD [address] [place] [address] Results Social History Tobacco Use Types Packs/Day [...] Pt also informed of referral placement to [facility] but advised on wait list. Pt verbalized understanding and agrees with plan. * Telephone Encounter - Petra Pagan RN - 06/27/2023 4:13 PM EST Please review pt US results and advise. * Telephone Encounter - Allan Quiroz - 06/26/2023 10:28 AM EST TC from pt requesting call back regarding Results. Type of results: Sonogram Date when done: 06/15 Facility[place] [facility] documented in this encounter Plan of Treatment Upcoming Encounters Date Type Department Care Team ([facility] st Contact Info) Description 05/06/2025 11:00 AM EST Office Visit [facility] CHC MED & PEDS [address] [place], [place] [phone] Zeinab Carey MD [address] [place], [place] [address] documented as of this encounter Visit Diagnoses Not on filedocumented in this encounter Additional Health Concerns Assessment Noted Time PHQ-9 Depression Total Score: 8 05/15/20 23 11:18 AM EST documented as of this encounter Care Teams Journalism Teacher Relationship Specialty Start Date End Date Zeinab Carey MD [address] [place] [address] PCP - General Family Medicine 05/16/17 documented as of this encounter
--- OUTSIDE RECORDS SUMMARY | 2025-04-21 19:45 | XMS_ITS | Encounter Summary ---
Author Organization [employer] Address [address] [place] [address] Care Team Providers Care Instrument And Control Technician Name Role Phone Zeinab Carey MD Primary Care Provider [phone] Reason for Visit * Reason Onset Date Comments Referral 04/02/2025 Encounter Details Date Type Department Care Team ([facility] st Contact Info) Description 04/02/2025 Telephone [facility] MEDICINE [address] [place] [address] Zeinab Carey MD [address] [place] [address] Referral Social History Tobacco Use Types Packs/Day [...] * Telephone Encounter - Mireya Mayo - 04/07/2025 12:25 PM EST Tc from pt requesting update on referral * Telephone Encounter - Becky Denise RN - 04/02/2025 11:06 AM EST Called pt regarding request for endocrine, spoke to pt through [employer] Manager #[id number]. Pt reports had an endocrine provider in [place] and now that she is living here needs to be referred to an endocrine provider here. Pt requesting referral as below. Will task to PCP as pt has been seen recently and has updated labs in the chart. Pt understands and agrees with plan. - [address] [place] [address] Contact pt at [phone] vider here. Pt wants to be seen by * Telephone Encounter - Mireya Mayo - 04/02/2025 10:14 AM EST Tc from pt requesting an referral for Endocrinology - [address] [place] [address] Contact pt at [phone] documented in this encounter Plan of Treatment Upcoming Encounters Date Type Department Care Team ([facility] st Contact Info) Description 05/06/2025 11:00 AM EST Office Visit [facility] MED & PEDS [address] [place] [address] Zeinab Carey MD [address] [place] [address] documented as of this encounter Visit Diagnoses Not on filedocumented in this encounter Additional Health Concerns Assessment Noted Time PHQ-9 Depression Total Score: 22 025 9:43 AM EDT documented as of this encounter Care Teams Instrument And Control Technician Relationship Specialty Start Date End Date Zeinab Carey MD [address] [place] [address] PCP - General Family Medicine 05/16/17 documented as of this encounter
--- OUTSIDE RECORDS SUMMARY | 2025-04-21 19:45 | XMS_ITS | Encounter Summary ---
Author Organization [employer] Address [address] [place] [address] Care Team Providers Care Staff Nurse Midwife Name Role Phone Zeinab Carey MD Primary Care Provider [phone] Reason for Visit * Reason Onset Date Comments Results 01/18/2024 Encounter Details Date Type Department Care Team ([facility] Contact Info) Description 01/18/2024 Telephone [facility] MEDICINE [address] [place] [address] Zeinab Carey MD [address] [place] [address] Results Social History Tobacco Use Types Packs/Day [...] CT Scan Date when done: 12/05 Facility: [facility] [place] [place] documented in this encounter Plan of Treatment Upcoming Encounters Date Type Department Care Team (Late st Contact Info) Description 05/06/2025 11:00 AM EST Office Visit [facility] CHC MED & PEDS [address] [place] [address] Zeinab Carey MD [address] [place] [address] documented as of this encounter Visit Diagnoses Not on filedocumented in this encounter Additional Health Concerns Assessment Noted Time PHQ-9 Depression Total Score: 8 05/15/20 11:18 AM EST documented as of this encounter Care Teams Staff Nurse Midwife Relationship Specialty Start Date End Date Zeinab Carey MD [address] [place] [address] PCP - General Family Medicine 05/16/17 documented as of this encounter
--- OUTSIDE RECORDS SUMMARY | 2025-04-21 19:45 | XMS_ITS | Encounter Summary ---
Author Organization [employer] Address [address] [place] [address] Care Team Providers Care Electrical Products Sales Engineer Name Role Phone Zeinab Carey MD Primary Care Provider [phone] Reason for Visit * Reason Onset Date Comments Appointment Request 09/07/2023 Encounter Details Date Type Department Care Team ([facility] st Contact Info) Description 09/07/2023 Telephone [facility] MEDICINE [address] [place] [address] Zeinab Carey MD [address] [place] [address] Appointment Request Social History Tobacco Use Types [...] 11:00 AM EST Office Visit [facility] CHC MED & PEDS [address] [place] [address] Zeinab Carey MD [address] [place] [address] documented as of this encounter Visit Diagnoses Not on filedocumented in this encounter Additional Health Concerns Assessment Noted Time PHQ-9 Depression Total Score: 8 05/15/20 23 11:18 AM EST documented as of this encounter Care Teams Electrical Products Sales Engineer Relationship Specialty Start Date End Date Zeinab Carey MD [address] [place] [address] PCP - General Family Medicine 05/16/17 documented as of this encounter
--- OUTSIDE RECORDS SUMMARY | 2025-04-21 19:45 | XMS_ITS | Encounter Summary ---
Author Organization [employer] Address [address] [place] [address] 7 [place] [address] Care Team Providers Care Adjuster And Inspector Name Role Phone Zeinab Carey MD Primary Care Provider [phone] Encounter Details Date Type Department Care Team (Late st Contact Info) Description 01/11/2024 Orders Only [facility] [address] [place] [address] Provider, MD Lou Social History Tobacco Use [...] Description 05/06/2025 11:00 AM EST Office Visit [facility] MED & PEDS [address] [place] [address] Zeinab Carey MD [address] [place] [address] documented as of this encounter Procedures Procedure [...] documented as of this encounter Care Teams Adjuster And Inspector Relationship Specialty Start Date End Date Zeinab Carey MD [address] [place] [address] PCP - General Family Medicine 05/16/17 documented as of this encounter
--- OUTSIDE RECORDS SUMMARY | 2025-04-21 19:45 | XMS_ITS | Encounter Summary ---
Author Organization [employer] Address [address] [place] [address] Care Team Providers Care Account Services Representative Name Role Phone Zeinab Carey MD Primary Care Provider [phone] Reason for Visit * Reason Onset Date Comments MR ORDER 10/23/2023 Encounter Details Date Type Department Care Team ([facility] st Contact Info) Description 10/23/2023 Telephone [facility] MEDICINE [address] [place] [address] Zeinab Carey MD [address] [place] [address] MR ORDER Social History Tobacco Use Types [...] Description 05/06/2025 11:00 AM EST Office Visit [facility] CHC MED & PEDS [address] [place] [address] Zeinab Carey MD [address] [place] [address] documented as of this encounter Visit Diagnoses Not on filedocumented in this encounter Additional Health Concerns Assessment Noted Time PHQ-9 Depression Total Score: 8 05/15/20 23 11:18 AM EST documented as of this encounter Care Teams Account Services Representative Relationship Specialty Start Date End Date Zeinab Carey MD [address] [place] [address] PCP - General Family Medicine 05/16/17 documented as of this encounter
--- OUTSIDE RECORDS SUMMARY | 2025-04-21 19:45 | XMS_ITS | Encounter Summary ---
Author Organization [employer] Address 75 [facility] 7 [place] [address] Care Team Providers Care Business Education Instructor Name Role Phone Zeinab Carey MD Primary Care Provider [phone] Encounter Details Date Type Department Care Team ([facility] st Contact Info) Description 06/30/2024 Orders Only [facility] CHC MED & PEDS [address] [place] [address] Provider, MD Lou Social History Tobacco Use [...] Description 05/06/2025 11:00 AM EST Office [facility] MED & PEDS [address] [place] [address] Zeinab Carey MD [address] [place] [address] documented as of this encounter Procedures Procedure [...] as of this encounter Care Teams Business Education Instructor Relationship Specialty Start Date End Date Zeinab Carey MD [address] [place] [address] PCP - General Family Medicine 05/16/17 documented as of this encounter
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
--- OUTSIDE RECORDS SUMMARY | 2025-04-21 19:45 | XMS_ITS | Encounter Summary ---
Author Organization [employer] Address [address] [facility] 7 [place] [address] Care Team Providers Care Branch Service Leader Name Role Phone Zeniab Carey MD Primary Care Provider [phone] Encounter Details Date Type Department Care Team (Late st Contact Info) Description 04/21/2025 Orders Only GENERIC EXTERNAL DATA DEPARTMENT Provider, [...] Upcoming Encounters Date Type Department Care Team ([facility] st Contact Info) Description 05/06/2025 11:00 AM EST Office Visit [facility] CHC MED & PEDS [address] [place], [place] [phone] Zeinab Carey MD 505 [place], [place] [phone] documented as of this encounter Procedures Procedure Name Priority Date/Time Associated Diagnosis Comments XR CHEST 2 VIEWS Routine 04/21/2025 7:05 PM EST SARS COV2/INFLUENZA A/B AND RSV RNA QL NAAT Routine 04/21/2025 6:52 PM EST documented in this encounter Results * XR Chest 2 Views (04/21/2025 7:05 PM EST) Anatomical Region Laterality Modality Chest Radiographic Tania ging 04/21/2025 7:05 PM EST Narrative 04/21/2025 7:06 PM EST [address] [address] XRay Report Signed Patient: Saundra Mayo MR#: [id number] : 1975 Acct:[id number] Age/Sex: 49 / F ADM Date: 04/21/25 Loc: .ED Attending Dr: Ordering Physician: Generic ED Physician Date of Service: 04/21/25 Procedure(s): XR chest 2V Accession Number(s): [id number] cc: Zeinab Carey MD; Generic ED Physician Reason for Exam: cough CLINICAL HISTORY: cough 2 view chest x-ray. Comparison: None Findings: No consolidation or effusion. Cardiac and mediastinal contours are unremarkable. Bones unremarkable. Impression: 1. No acute pulmonary disease. This document has been electronically signed by: Jatin Gibbs MD on 04/21/2025 19:05:04 Dictated By: Jatin Gibbs MD Signed By: <Electronically signed by Jatin Gibbs MD in OV> 04/21/251905 DD/ 04 TD/TT: 04/21/251904 Bowling Alley Operator: Procedure Note Donotuseinterpreter, Image - 04/21/2025 [place] [address] XRay Report Signed Patient: Saundra Mayo EMR#: [id number] : 1975Acct:[id number] Age/Sex: 49 / FADM Date: 04/21/25 Loc: .ED Attending Dr: Ordering Physician: Generic ED Physician Date of Service: 04/21/25 Procedure(s): XR chest 2V Accession Number(s): [id number] cc: Zeinab Carey MD; Generic ED Physician Reason for Exam: cough CLINICAL HISTORY: cough 2 view chest x-ray. Comparison: None Findings: No consolidation or effusion. Cardiac and mediastinal contours are unremarkable. Bones unremarkable. Impression: 1. No acute pulmonary disease. This document has been electronically signed by: Jatin Gibbs MD on 04/21/2025 19:05:04 Dictated By: Jatin Gibbs MD Signed By: <Electronically signed by Jatin Gibbs MD in OV> 04/21/251905 DD/ 04 TD/TT: 04/21/251904 [place] Operator: [facility] External Provider IMG XR PROCEDURES Edited Result - Final * SARS-CoV-2 RNA, Influenza A/B, and RSV RNA, Ql NAAT (04/21/2025 6:52 PM EST) Influenza A PCR NEGATIVE Negative [facility] Influenza B PCR NEGATIVE Negative [facility] Resp Syncy Virus RNA Qual PCR NEGATIVE Negative [facility] SARS COV2 PCR NEGATIVE Negative [facility] Comment:All test results mus t be correlated with clinical findings.Negative results do not preclude SARS-CoV2, influenza Avirus, influenza B virus and/or RSV infectionand should not be used as the sole basis for treatment orother patient management decisions. Negative results must becombined with clinical observations, patient history, andepidemiological information.This test has not been evaluated for monitoring treatment ofinfection.This test has been authorized by the FDA under an EmergencyUse Authorization (EUA) for use by authorized laboratories.Testing performed on the [employer] GeneXpert utilizingreal-time RT-PCR.All SARS CoV2 and positive influenza A/B results arereported to [facility]. 04/21/2025 6:52 PM EST 04/21/2025 6:54 PM EST us Generic External Data Provider LAB MICROBIOLOGY - GENERAL ORDERABLES Final Result [facility] [address] [place] [address] [phone] documented in this encounter Visit Diagnoses Not on filedocumented in this encounter Additional Health Concerns Assessment Noted Time PHQ-9 Depression Total Score: 22 025 9:43 AM EDT documented as of this encounter Care Teams Branch Service Leader Relationship Specialty Start Date End Date Zeinab Carey MD 505 [place] [address] PCP - General Family Medicine 05/16/17 documented as of this encounter
--- OUTSIDE RECORDS SUMMARY | 2025-04-21 19:45 | XMS_ITS | Encounter Summary ---
Author Organization [employer] Address [address] [place] [address] [place] [address] Care Team Providers Care Litigation Support Analyst Name Role Phone Zeinab Carey MD Primary Care Provider [phone] Reason for Visit * Reason Onset Date Comments Nurse Triage 06/25/2024 Encounter Details Date Type Department Care Team ([facility] st Contact Info) Description 06/25/2024 Telephone C [facility] [address] [place] [address] Zeinab Carey MD [address] [place] [address] Nurse Triage Social History Tobacco Use Types [...] AM EST Triage call with [facility] [place] [id number] Jose. Called x2, unable to make connectiion. [...] Description 05/06/2025 11:00 AM EST Office [facility] MED & PEDS [address] [place] [address] Zeinab Carey MD [address] [place], [place] [phone] documented as of this encounter Visit Diagnoses Not on filedocumented in this encounter Additional Health Concerns Assessment Noted Time PHQ-9 Depression Total Score: 8 05/15/20 23 11:18 AM EST documented as of this encounter Care Teams Litigation Support Analyst Relationship Specialty Start Date End Date Zeinab Carey MD [address] [place] [address] PCP - General Family Medicine 05/16/17 documented as of this encounter
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
--- OUTSIDE RECORDS SUMMARY | 2025-04-21 19:45 | XMS_ITS | Encounter Summary ---
Author Organization [employer] Address [address] [place] [address] Care Team Providers Care Component Prep Operator Name Role Phone Zeinab Carey MD Primary Care Provider [phone] Reason for Visit * Reason Onset Date Comments Results 03/26/2024 Encounter Details Date Type Department Care Team ([facility] st Contact Info) Description 03/26/2024 Telephone [facility] MEDICINE [address] [place] [address] Zeinab Carey MD [address] [place] [address] Results Social History Tobacco Use Types Packs/Day [...] results: Labs Date when done: 03/15/24 Facility: [facility] Labs documented in this encounter Plan of Treatment Upcoming Encounters Date Type Department Care Team (Late st Contact Info) Description 05/06/2025 11:00 AM EST Office Visit [facility] CHC MED & PEDS [address] [place] [address] Zeinab Carey MD [address] [place] [address] documented as of this encounter Visit Diagnoses Not on filedocumented in this encounter Additional Health Concerns Assessment Noted Time PHQ-9 Depression Total Score: 8 05/15/20 23 11:18 AM EST documented as of this encounter Care Teams Component Prep Operator Relationship Specialty Start Date End Date Zeinab Carey MD [address] [place] [address] PCP - General Family Medicine 05/16/17 documented as of this encounter
--- OUTSIDE RECORDS SUMMARY | 2025-04-21 19:45 | XMS_ITS | Encounter Summary ---
Author Organization [employer] Address [address] [place] [address] [place] [address] Care Team Providers Care Ichthyologist Name Role Phone Zeinab Carey MD Primary Care Provider [phone] Reason for Visit * Reason Onset Date Comments Request For Order(s) 10/30/2023 Encounter Details Date Type Department Care Team ([facility] st Contact Info) Description 10/30/2023 Telephone [facility] CHC MED & PEDS [address] [place], [place] [phone] Zeinab Carey MD [address] [place] [address] Request For Order(s) Social History Tobacco Use [...] surgery. Please contact pt for questions/clarification at [phone] documented in this encounter Plan of Treatment Upcoming Encounters Date Type Department Care Team ([facility] st Contact Info) Description 05/06/2025 11:00 AM EST Office Visit [facility] MED & PEDS [address] [place] [address] Zeinab Carey MD [address] [place] [address] documented as of this encounter Visit Diagnoses Not on filedocumented in this encounter Additional Health Concerns Assessment Noted Time PHQ-9 Depression Total Score: 8 05/15/20 23 11:18 AM EST documented as of this encounter Care Teams Ichthyologist Relationship Specialty Start Date End Date Zeinab Carey MD [address] [place] [address] PCP - General Family Medicine 05/16/17 documented as of this encounter
--- OUTSIDE RECORDS SUMMARY | 2025-04-21 19:45 | XMS_ITS | Encounter Summary ---
Author Organization [employer] Address [address] [place] [address] Care Team Providers Care Family Caseworker Name Role Phone Zeinab Carey MD Primary Care Provider Reason for Visit * Reason Onset Date Comments Referral 02/20/2025 Encounter Details Date Type Department Care Team ([facility] st Contact Info) Description 02/20/2025 Telephone [facility] MEDICINE [address] [place] [address] Zeinab Carey MD [address] [place] [address] Referral Social History Tobacco Use Types Packs/Day [...] exam - Speech & Hearing - [address] [place] [address] - documented in this encounter Plan of Treatment Upcoming Encounters Date Type Department Care Team (Late st Contact Info) Description 05/06/2025 11:00 AM EST Office Visit [facility] CHC MED & PEDS [address] [place] [address] Zeinab Carey MD [address] [place] [address] documented as of this encounter Visit Diagnoses Not on filedocumented in this encounter Additional Health Concerns Assessment Noted Time PHQ-9 Depression Total Score: 8 05/15/20 23 11:18 AM EST documented as of this encounter Care Teams Family Caseworker Relationship Specialty Start Date End Date Zeinab Carey MD [address] [place] [address] PCP - General Family Medicine 05/16/17 documented as of this encounter
--- OUTSIDE RECORDS SUMMARY | 2025-04-21 19:45 | XMS_ITS | Encounter Summary ---
Author Organization [employer] Address [address] [place] [address] [place] [address] Care Team Providers Care Program Architect Name Role Phone Zeinab Carey MD Primary Care Provider [phone] Reason for Visit * Reason Onset Date Comments Appointment Request 03/02/2025 Encounter Details Date Type Department Care Team ([facility] Contact Info) Description 03/02/2025 Telephone [facility] CHC MED & PEDS [address] [place] [address] Zeinab Carey MD [address] [place] [address] Appointment Request Social History Tobacco Use Types [...] that was scheduled today Contact pt at [phone] (azeri) documented in this encounter Plan of Treatment Upcoming Encounters Date Type Department Care Team ([facility] st Contact Info) Description 05/06/2025 11:00 AM EST Office Visit [facility] MED & PEDS [address] [place] [address] Zeinab Carey MD [address] [place] [address] documented as of this encounter Visit Diagnoses Not on filedocumented in this encounter Additional Health Concerns Assessment Noted Time PHQ-9 Depression Total Score: 8 05/15/20 23 11:18 AM EST documented as of this encounter Care Teams Program Architect Relationship Specialty Start Date End Date Zeinab Carey MD [address] [place] [address] PCP - General Family Medicine 05/16/17 documented as of this encounter
--- OUTSIDE RECORDS SUMMARY | 2025-04-21 19:45 | XMS_ITS | Encounter Summary ---
Author Organization [employer] Address [address] [place] [address] Care Team Providers Care Broom Worker Name Role Phone Zeinab Carey MD Primary Care Provider Reason for Visit * Reason Onset Date Comments Results 04/27/2023 Encounter Details Date Type Department Care Team ([facility] Contact Info) Description 04/27/2023 Telephone [facility] MEDICINE [address] [place] [address] Zeinab Carey MD [address] [place] [address] Results Social History Tobacco Use Types Packs/Day [...] Description 05/06/2025 11:00 AM EST Office Visit [facility] CHC MED & PEDS [address] [place], [place] [phone] Zeinab Carey MD [address] [place] [address] documented as of this encounter Visit Diagnoses Not on filedocumented in this encounter Additional Health Concerns Assessment Noted Time PHQ-9 Depression Total Score: 17 023 10:03 AM EST documented as of this encounter Care Teams Broom Worker Relationship Specialty Start Date End Date Zeinab Carey MD [address] [place] [address] PCP - General Family Medicine 05/16/17 documented as of this encounter
--- OUTSIDE RECORDS SUMMARY | 2025-04-21 19:45 | XMS_ITS | Clinical Summary ---
Author Organization [facility] Address [address] [place] [address] Phone Care Team Providers Care Gas Fitter Name Role Phone Zeinab Carey MD Primary Care Provider [phone] Allergies No known active allergies Medications ondansetron [...] AM EST Office Visit Bariatric Surgery - [address] [place] [address] Omer Saha MD [address] [place] [phone] Health Maintenance Due Date Last Done [...] Maintenance Insurance MEDICAID - [place] Care Teams Gas Fitter Relationship Specialty Start Date End Date Zeinab Carey MD [address] [place] [phone] PCP - General 07/29/21
--- OUTSIDE RECORDS SUMMARY | 2025-04-21 19:45 | XMS_ITS | Encounter Summary ---
Author Organization [employer] Address [address] [place] [address] [place] [address] Care Team Providers Care [employer] Technical Lead Senior Developer Name Role Phone Zeinab Carey MD Primary Care Provider [phone] Reason for Visit * Reason Onset Date Comments PA 08/12/2024 Encounter Details Date Type Department Care Team ([facility] st Contact Info) Description 08/12/2024 Telephone [facility] MED & PEDS [address] [place] [address] Zeinba Carey MD [address] [place] [address] PA Social History Tobacco Use Types Packs/Day [...] 08/13/2024 9:37 AM EDT No Pa needed typewriter operator automatic spoke with [facility] who ran the medication and paid , typewriter operator automatic informed pt, as pt request for medication to be changed to [facility]. Tc from pt calling to inform a PA is needed for medication Tirosint 125 MCG capsule. * Telephone Encounter - Светлана Murray - 08/12/2024 11:07 AM EDT Tc from pt calling to inform a PA is needed for medication Tirosint 125 MCG capsule. documented in this encounter Plan of Treatment Upcoming Encounters Date Type Department Care Team ([facility] st Contact Info) Description 05/06/2025 11:00 AM EST Office Visit [facility] MED & PEDS [address] [place] [address] Zeinab Carey MD [address] [place] [address] documented as of this encounter Visit Diagnoses Not on filedocumented in this encounter Additional Health Concerns Assessment Noted Time PHQ-9 Depression Total Score: 8 05/15/20 23 11:18 AM EST documented as of this encounter Care Teams [employer] Technical Lead Senior Developer Relationship Specialty Start Date End Date Zeinab Carey MD [address] [place] [address] PCP - General Family Medicine 05/16/17 documented as of this encounter
--- OUTSIDE RECORDS SUMMARY | 2025-04-21 19:45 | XMS_ITS | Encounter Summary ---
Author Organization [employer] Address [address] [place] [address] [place] [address] Care Team Providers Care Stone Driller Name Role Phone Zeinab Carey MD Primary Care Provider [phone] Encounter Details Date Type Department Care Team (Late st Contact Info) Description 01/13/2025 Orders Only [facility] [address] [place] [address] Provider, MD Lou Social History Tobacco Use [...] Upcoming Encounters Date Type Department Care Team ([facility] st Contact Info) Description 05/06/2025 11:00 AM EST Office Visit [facility] MED & PEDS [address] [place] [address] Zeinab Carey MD [address] [place] [address] documented as of this encounter Procedures Procedure [...] documented as of this encounter Care Teams Stone Driller Relationship Specialty Start Date End Date Zeinab Carey MD [address] [place] [address] PCP - General Family Medicine 05/16/17 documented as of this encounter
--- OUTSIDE RECORDS SUMMARY | 2025-04-21 19:45 | XMS_ITS | Encounter Summary ---
Author Organization [employer] Address [address] [place] [address] Care Team Providers Care Forest Fire Equipment Operator Name Role Phone Zeinab Carey MD Primary Care Provider [phone] Reason for Visit * Reason Onset Date Comments Medication Question 10/24/2023 Referral 10/24/2023 Encounter Details Date Type Department Care Team ([facility] st Contact Info) Description 10/24/2023 Telephone [facility] MEDICINE [address] [place] [address] Zeinab Carey MD [address] [place] [address] Medication Question; Referral Social History Tobacco Use [...] and would like to be sent to [address] [place] [address] and is request for a stronger medication than the cyclobenzaprine (Flexeril) 10 MG tablet patient stated this medication is not helping with pain documented in this encounter Plan of Treatment Upcoming Encounters Date Type Department Care Team (Late st Contact Info) Description 05/06/2025 11:00 AM EST Office Visit [facility] MED & PEDS [address] [place] [address] Zeinab Carey MD [address] [place] [address] documented as of this encounter Visit Diagnoses Not on filedocumented in this encounter Additional Health Concerns Assessment Noted Time PHQ-9 Depression Total Score: 8 05/15/20 23 11:18 AM EST documented as of this encounter Care Teams Forest Fire Equipment Operator Relationship Specialty Start Date End Date Zeinab Carey MD [address] [place] [address] PCP - General Family Medicine 05/16/17 documented as of this encounter
--- OUTSIDE RECORDS SUMMARY | 2025-04-21 19:45 | XMS_ITS | Encounter Summary ---
Author Organization [employer] Address [address] [place] [address] [place] [address] Care Team Providers Care Battery Stacker Name Role Phone Zeinab Carey MD Primary Care Provider [phone] Reason for Visit * Reason Onset Date Comments Nurse Triage 08/11/2024 Encounter Details Date Type Department Care Team ([facility] st Contact Info) Description 08/11/2024 Telephone C [facility] [address] [place] [address] Zeinab Carey MD [address] [place] [address] Nurse Triage Social History Tobacco Use Types [...] RN - 08/11/2024 12:29 PM EDT No umbrella tipper hand needed as this advertising writer speaks Belgian. Call returned to Saundra Mayo to triage [...] monitor. Pt advised that referral sent to [facility]. Given contact number for [facility]. Pt offered appt tomorrow with team provider. Pt states will call cardiology first. Pt advised of [facility] operating hours for today and tomorrow for [...] yesterday. No symptoms today. Contact pt at [phone] (irish) documented in this encounter Plan of Treatment Upcoming Encounters Date Type Department Care Team (Late st Contact Info) Description 05/06/2025 11:00 AM EST Office Visit [facility] MED & PEDS [address] [place] [address] Zeinab Carey MD [address] [place] [address] documented as of this encounter Visit Diagnoses Not on filedocumented in this encounter Additional Health Concerns Assessment Noted Time PHQ-9 Depression Total Score: 8 05/15/20 23 11:18 AM EST documented as of this encounter Care Teams Battery Stacker Relationship Specialty Start Date End Date Zeinab Carey MD [address] [place] [address] PCP - General Family Medicine 05/16/17 documented as of this encounter
--- OUTSIDE RECORDS SUMMARY | 2025-04-21 19:45 | XMS_ITS | Clinical Summary ---
Author Organization [employer] Address [address] [place] [address] 7 [place] [address] Care Team Providers Care Senior Information Security Engineer Name Role Phone Zeinab Carey MD Primary Care Provider [phone] Allergies No known active allergies Medications hydrOXYzine pamoate (Vistaril) 25 MG capsule TAKE 1 CAPSULE BY MOUTH TWICE A DAY NEEDED SIG IN [place] 3 Active escitalopram (Lexapro) 20 MG tablet TAKE 1 1/2 TABLET BY MOUTH ONCE A DAY SIG IN [place] 3 Active buPROPion XL (Wellbutrin XL) 150 MG 24 hr tablet TAKE 1 TABLET BY MOUTH ONCE A DAY TAKE WITH 300MG XL DOSE TOTAL 450MG XL 3 Active buPROPion XL (Wellbutrin XL) 300 MG 24 hr tablet TAKE 1 TABLET BY MOUTH ONCE A DAY SIG IN [place] 3 Active lidocaine-priloc west (Emla) 2.5-2.5 % [...] Encounters Date Type Department Care Team Description 04/21/2025 Orders Only GENERIC EXTERNAL DATA DEPARTMENT Provider, Generic External Data 04/16/[address] [address] Zeinab Carey MD Nurse Triage 04/10/2025 Orders Only [facility] [address] [place] [address] Zeinab Carey MD Acquired hypothyroidism (Primary Dx); Thyroid nodule 04/08/2025 Results Follow-Up [facility] [address] [place] [address] Zeinab Carey MD BI Mammogram Screening Tomosynthesis Bilateral 04/03/2025 Orders Only [facility] [address] [place] [address] Zeinab Carey MD 04/02/[address] [address] Zeinab Carey MD Referral 04/01/[address] [address] Zeinab Carey MD Nurse Triage 03/16/[address] [address] Zeinab Carey MD status on referral 03/16/2025 Telephone [facility] [address] [place] [address] Zeinab Carey MD Nurse Triage 03/12/2025 9:15 AM EDT Office Visit [facility] [address] [place] [address] Rubén Gonzalez MD Dizziness (Primary Dx); Bradycardia 03/12/2025 Travel 03/11/2025 Travel 03/11/[address] [place] [address] [address] Zeinab Carey MD Nurse Triage 03/06/2025 9:30 AM EDT Office Visit [facility] [address] [place] [address] Rebecca Valdes MD TendiniOhara's (Primary Dx) 03/06/2025 Patient Outreach [address] [address] Zeinab Carey MD Care Coordination (CHW outreach for SDOH housing search-referral completed ) 03/06/2025 Telephone [facility] [address] [place] [address] Zeinab Carey MD 03/06/2025 Travel 03/05/2025 Telephone [facility] [address] [place] [address] Zeinab Carey MD chart prep 03/05/2025 Telephone [facility] [address] [place] [address] Zeinab Carey MD Nurse Triage 03/02/2025 Telephone [facility] [address] [place] [address] Zeinab Carey MD Appointment Request 03/02/[address] [address] Zeinab Carey MD 02/27/2025 11:15 AM EDT Clinical Support [facility] [address] [place] [address] Polly Burgos RN Encounter for immunization 02/27/2025 Telephone [facility] [address] [place] [address] Zeinab Carey MD Appointment Request 02/27/2025 Travel 02/23/2025 Orders Only [facility] [address] [place] [address] Zeinab Craey MD Memory deficit (Primary Dx); Hearing deficit, unspecified laterality 02/20/[address] [address] Zeinab Carey MD Referral 02/19/2025 10:15 AM EDT Office Visit [facility] [address] [place] [address] Zeinab Carey MD Bunion of left foot (Primary Dx); Acquired hypothyroidism; Chronic pain of right knee 02/19/2025 Travel 02/18/2025 Telephone [facility] [address] [place] [address] Zeinab Carey MD Chart Prep 02/17/2025 Telephone [facility] [address] [place] [address] Zeinab Carey MD Nurse Triage from Last 3 Months Immunizations Immunization Administration [...] 03/12/2025 9:23 AM EDT Plan of Treatment Upcoming Encounters Date Type Department Care Team (Late st Contact Info) Description 05/06/2025 11:00 AM EST Office Visit [facility] [address] [place] [address] Zeinab Carey MD [address] [place] [address] Health Maintenance Due Date Last Done Comments [...] Screening 03/06/2026 03/06/2025 Tobacco Screening 03/12/2026 03/12/2025 Lipid Panel 02/06/2027 02/06/2022 Mammogram 04/03/2027 04/03/2025, 0812/2024, 03/05/2024, Additional history exists DTaP/Tdap/Td Vaccines (2 - Td or Tdap) 05/17/2027 05/17/2017 Colonoscopy 07/21/2032 07/21/2022, 07/20/2022 Colorectal Cancer Screening 07/21/2032 RSV Patients and Patients Aged 60 years [...] QL NAAT Routine 04/21/2025 6:52 PM EST BI MAMMOGRAM SCREENING TOMOSYNTHESIS BILATERAL Routine 04/03/2025 12:10 PM EST MAGNESIUM Routine 03/12/2025 10:27 AM EDT Dizziness Bradycardia BASIC METABOLIC PANEL Routine 03/12/2025 10:27 AM EDT Dizziness Bradycardia TSH W/REFLEX TO FT4 Routine 03/12/2025 1 0:27 AM EDT Dizziness Bradycardia ECG 12-LEAD Routine 03/12/2025 10:16 AM EDT Dizziness Bradycardia HEPATITIS PANEL, GENERAL Routine 05/15/2023 11:12 AM EST Elevated liver enzymes HM COLONOSCOPY Routine 07/20/2022 HIV 1/2 ANTIGEN/ANTIBODY, FOURTH GENERATION W/RFL Routine 02/06/2022 9:57 AM EDT LIPID PANEL, STANDARD Routine 02/06/2022 9:57 AM EDT HM PAP/HPV Routine 07/21/2020 from Last 3 Months or Most Recently Relevant to Health Maintenance Results * XR Chest 2 Views (04/21/2025 7:05 PM EST) Anatomical Region Laterality Modality Chest Radiographic Tania ging 04/21/2025 7:05 PM EST Narrative 04/21/2025 7:06 PM EST [address] [address] XRay Report Signed Patient: Saundra Mayo MR#: [id number] : 1975 Acct:[id number] Age/Sex: 49 / F ADM Date: 04/21/25 Loc: HO.ED Attending Dr: Ordering Physician: Generic ED Physician Date of Service: 04/21/25 Procedure(s): XR chest 2V Accession Number(s): [id number] cc: Zeinab Carey MD; Generic ED Physician [...] in OV> 04/21/251905 DD/ 04 TD/TT: 04/21/251904 Addresser: Procedure Note Donotuseinterpreter, Image - 04/21/[address] [address] XRay Report Signed Patient: Saundra Mayo EMR#: [id number] : 1975Acct:[id number] Age/Sex: 49 / FADM Date: 04/21/25 Loc: HO.ED Attending Dr: Ordering Physician: Generic ED Physician Date of Service: 04/21/25 Procedure(s): XR chest 2V Accession Number(s): [id number] cc: Zeinab Carey MD; Generic ED Physician [...] in OV> 04/21/251905 DD/ 04 TD/TT: 04/21/251904 Addresser: [facility] External Provider IMG XR PROCEDURES Edited Result - Final * SARS-CoV-2 RNA, Influenza A/B, and RSV RNA, Ql NAAT (04/21/2025 6:52 PM EST) Influenza A PCR NEGATIVE Negative [facility] Influenza B PCR NEGATIVE Negative [facility] Resp Syncy Virus RNA Qual PCR NEGATIVE Negative [facility] SARS COV2 PCR NEGATIVE Negative [facility] Comment:All test results mus t [...] use by authorized laboratories.Testing performed on the [employer] GeneXpert utilizingreal-time RT-PCR.All SARS CoV2 and positive influenza A/B results arereported to [facility]. 04/21/2025 6:52 PM EST 04/21/2025 6:54 PM EST Generic External Data Provider LAB MICROBIOLOGY - GENERAL ORDERABLES Final Result [facility] [address] [place] [phone] * BI Mammogram Screening Tomosynthesis Bilateral (04/03/2025 12:10 PM EST) Anatomical Region Laterality Modality Breast Bilateral Mammography 04/03/2025 12:1 0 PM EST Narrative 04/07/2025 5:36 PM EST [address] [place], [place] [address] Mammography Report Signed Patient: Saundra Mayo MR#: [id number] : 1975 Acct:[id number] Age/Sex: 49 / F ADM Date: 04/03/25 Loc: HO.MAMMO Attending Dr: Zeinab Carey MD Ordering Physician: Zeinab Carey MD Results: 1Ne gative Date of Service: 04/03/25 Follow Up: 1 Year From Orig inal Mammogram Procedure(s): MM tomosynthesis screening BI Accession Number(s): [id number] cc: Zeinab Carey MD Reason For Exam: Z12.31 EXAMINATION: MM SCREENING DIGITAL BREAST TOMOSYNTHESIS, BILATERAL CLINICAL INFORMATION: Screening. Asymptomatic. COMPARISON: Mammography: Comparison is made with available priors TECHNIQUE: Digital breast mammography with tomosynthesis is performed in both the craniocaudal and mediolateral oblique views along with computer-aided detection (CAD). FINDINGS: The breasts are heterogeneously dense, which may obscure small masses. There are no significant masses, abnormal calcifications, or other abnormalities. MM/MM tomosynthesis screening BI IMPRESSION: No mammographic evidence of malignancy. ASSESSMENT: BI-RADS Category 1: Negative RECOMMENDATION: Routine annual mammography screening. 1 year F/U This examination should not preclude the clinical evaluation of a suspicious palpable abnormality. This patient's information was entered into a reminder system with a target due date for their next mammogram. Electronically signed by: Lenore Daniels DO 04/07/2025 05:33 PM EST Dictated By: Lenore Daniels DO Signed By: <Electronically signed by Lenore Daniels DO in OV> 04/07/25 1733 DD/ 1210 TD/TT: 04/03/25 1241 Addresser: Procedure Note Donotuseinterpreter, Image - [facility]/07/[facility] [address] [place] [address] Mammography Report Signed Patient: Saundra Mayo EMR#: [id number] : 1975Acct:[id number] Age/Sex: 49 / FADM Date: 04/03/25 Loc: HO.MAMMO Attending Dr: Zeinab Carey MD Ordering Physician: Zeinab Carey MDResults: 1Ne gative Date of Service: 04/03/25Follow Up: 1 Year From Orig inal Mammogram Procedure(s): MM tomosynthesis screening BI Accession Number(s): [id number] cc: Zeinab Carey MD Reason For Exam: Z12.31 EXAMINATION: MM SCREENING DIGITAL BREAST TOMOSYNTHESIS, BILATERAL CLINICAL INFORMATION: Screening. Asymptomatic. COMPARISON: Mammography: Comparison is made with available priors TECHNIQUE: Digital breast mammography with tomosynthesis is performed in both the craniocaudal and mediolateral oblique views along with computer-aided detection (CAD). FINDINGS: The breasts are heterogeneously dense, which may obscure small masses. There are no significant masses, abnormal calcifications, or other abnormalities. MM/MM tomosynthesis screening BI IMPRESSION: No mammographic evidence of malignancy. ASSESSMENT: BI-RADS Category 1: Negative RECOMMENDATION: Routine annual mammography screening. 1 year F/U This examination should not preclude the clinical evaluation of a suspicious palpable abnormality. This patient's information was entered into a reminder system with a target due date for their next mammogram. Electronically signed by: Lenore Daniels DO 04/07/2025 05:33 PM EST Dictated By: Lenore Daniels DO Signed By: <Electronically signed by Lenore Daniels DO in OV> 04/07/25 1733 DD/ 1210 TD/TT: 04/03/25 1241 Addresser: us Zeinab Carey MD IMG BI PROCEDURES Final Resul t * TSH W/Reflex to FT4 (03/12/2025 10:27 AM EDT) TSH reflex Free T4 3.87 0.32 - 4.0 uIU/mL [facility] Blood Venous blood specimen / Unknown 03/12/2025 10:27 AM EDT 03/12/2025 1:48 PM EDT Rubén Gonzalez MD LAB BLOOD ORDERABLES Final Result Performing Organization Address [facility] de Phone Number [facility] [address] [place] [phone] * Magnesium (03/12/2025 10:27 AM EDT) Pathologist [facility] Magnesium 1.9 1.6 - 2.6 mg/dL [facility] Blood Venous blood specimen / Unknown 03/12/2025 10:27 AM EDT 03/12/2025 1:48 PM EDT Rubén Gonzalez MD LAB BLOOD ORDERABLES Final Result Performing Organization Address [facility] Phone Number [facility] [address] [place] [phone] * (ABNORMAL) Basic Metabolic Panel (03/12/2025 10:27 AM EDT) Pathologist [facility] Sodium 142 135 - 145 mmol/L [facility] Potassium 3.8 3.3 - 5.1 mmol/L [facility] Chloride 106 96 - 108 mmol/L [facility] Carbon Dioxide 30(H) 22 - 29 mmol/L [facility] Anion Gap 10(L) 12 - 20 [facility] Urea Nitrogen (BUN) 16 9 - 16 mg/dL [facility] Creatinine, Serum 0.79 0.5 - 1.4 mg/dL [facility] Estimated Glomerular Filt Rate >60 [facility] Comment:Chronic Kidney Disea se: Estimated GFR < 60 mL/min/1.79h3Qsrisx Kidney Disease: Estimated GFR < 15 mL/min/1.73m2 Glucose 85 60 - 115 mg/dL [facility] Calcium 9.1 8.4 - 10.2 mg/dL [facility] Blood Venous blood specimen / Unknown 03/12/2025 10:27 AM EDT 03/12/2025 1:48 PM EDT us Rubén Gonzalez MD LAB BLOOD ORDERABLES Final Result Performing Organization Address [facility] Co de Phone Number [facility] [address] [place] [phone] * ECG 12 lead (03/12/2025 10:16 AM EDT) Narrative Rubén Gonzalez MD - 03/12/2025 10:16 AM EDT Heart rate 56 bpm. Valders 16 degrees. Sinus rhythm. Bradycardia. No sign of left atrial enlargement or right atrial enlargement. No signs of hypertrophy. No ST elevation or ST depression. Normal ECG. us Rubén Gonzalez MD ECG ORDERABLES Final Resul t * Hepatitis A,B,C Profile (05/15/2023 11:12 AM EST) Hepatitis A IgM Nonreactive Nonreactive [facility] Comment:IgM antibodies to ANDERSEN V not detected; does not exclude earlyacute or recovered HAV infection. ~Hepatitis B Surface Antibody NONREACTIVE Nonreactive [facility] Comment:Nonreactive: < 8.00 mIU/mL Hepatitis B Core Antibody Nonreactive Nonreactive [facility] Hepatitis C Antibody Nonreactive Nonreactive [facility] Comment:Antibodies to HCV no t detected; does not exclude early acuteHCV infection. Hepatitis B Surface Ag Negative Negative [facility] Blood Venous blood specimen / Unknown 05/15/2023 11:12 AM EST 05/15/2023 2:20 PM EST us Zeinab Carey MD LAB BLOOD ORDERABLES Final Re sult Performing Organization Address [facility]/ZIP Co de Phone Number [facility] [address] [place] [phone] * (ABNORMAL) Colonoscopy (07/20/2022) Colonoscopy Normal [...] purpose. For additional information please refer to http://education.Topadmit.AdaptiveMobile/faq/EIZ256 (This link is being provided for informational/ educational purposes only.) The performance of this assay has not been clinically validated in patients less than 2 years old. 02/06/2022 9:57 AM EDT Tarik Sommers MD LAB BLOOD ORDERABL ES Final Result Performing Organization Address City/State/[facility] Co de Phone Number [facility] [address] * (ABNORMAL) LIPID PANEL, STANDARD (02/06/2022 [...] LDL-C. Abimael GONZALES et al. JUAN. 2013;310(19): 4941-1358 (http://education.KarmaHire/faq/QOG127) Non-HDL Cholesterol 125 <130 mg/dL (calc) [facility] Comment: For patients with diabetes plus 1 major ASCVD risk factor, treating to a non-HDL-C goal of <100 mg/dL (LDL-C of <70 mg/dL) is considered a therapeutic option. Triglycerides 178(H) <150 mg/dL [facility] 02/06/2022 9:57 AM EDT Tarki Sommers MD LAB BLOOD ORDERABL ES Final Result [facility] [address] * Pap Smear (07/21/2020) Pap Negative for intraephithelial lesion or malignancy Negative for intraephithelial lesion or malignancy, Other HPV Undetected Undetected, Indeterminate, Quantitative, Not Detected Historical Provider HEALTH MAINTENANCE Final Result from Last 3 Months or Most Recently Relevant to Health Maintenance Insurance [facility] [employer] Care Teams Senior Information Security Engineer Relationship Specialty Start Date End Date Zeinab Carey MD [address] [place] [phone] PCP - General Family Medicine 05/16/17
--- OUTSIDE RECORDS SUMMARY | 2025-04-21 19:45 | XMS_ITS | Encounter Summary ---
Author Organization [employer] Address [address] [place] [address] Care Team Providers Care Vision Teacher Name Role Phone Zeinab Carey MD Primary Care Provider [phone] Reason for Visit * Reason Onset Date Comments Referral 06/27/2023 Encounter Details Date Type Department Care Team ([facility] st Contact Info) Description 06/27/2023 Telephone [facility] [address] [place] [address] Zeinab Carey MD [address] [place] [address] Referral Social History Tobacco Use Types Packs/Day [...] encounter Miscellaneous Notes * Telephone Encounter - ePtra Pagan RN - 06/27/2023 4:14 PM EST Please review and advise. Pt is requesting a referral to [facility] for thyroid management. * Telephone Encounter - Catherine Fitch - 06/27/2023 3:34 PM EST Fax number [phone] * Telephone Encounter - Catherine Fitch - 06/27/2023 3:32 PM EST Tc from pt requesting a new referral for [facility] [place] [address] [place] [address]. documented in this encounter Plan of Treatment Upcoming Encounters Date Type Department Care Team (Late st Contact Info) Description 05/06/2025 11:00 AM EST Office Visit [facility] [address] [place], [place] [phone] Zeinab Carey MD [address] [place] [address] documented as of this encounter Visit Diagnoses Not on filedocumented in this encounter Additional Health Concerns Assessment Noted Time PHQ-9 Depression Total Score: 8 05/15/20 23 11:18 AM EST documented as of this encounter Care Teams Vision Teacher Relationship Specialty Start Date End Date Zeinab Carey MD [address] [place] [phone] PCP - General Family Medicine 05/16/17 documented as of this encounter
--- OUTSIDE RECORDS SUMMARY | 2025-04-21 19:45 | XMS_ITS | Encounter Summary ---
Author Organization [employer] Address [address] [place] [address] [place] [address] Care Team Providers Care Airline Lounge Receptionist Name Role Phone Zeinab Carey MD Primary Care Provider [phone] Reason for Visit * Reason Onset Date Comments Referral 10/29/2023 Encounter Details Date Type Department Care Team ([facility] st Contact Info) Description 10/29/2023 Telephone [facility] [address] [place] [address] Zeinab Carey MD [address] [place] [address] Referral Social History Tobacco Use Types Packs/Day [...] regards to referral. Please contact pt at [phone] * Telephone Encounter - Sruthi Rodriguez - 10/29/2023 12:43 PM EDT Tc from pt requesting a referral to neurologist. Pt states forgetfulness is becoming more consistent and would like testing. Please contact pt at [phone] (Salvadorean) documented in this encounter Plan of Treatment Upcoming Encounters Date Type Department Care Team ([facility] st Contact Info) Description 05/06/2025 11:00 AM EST Office Visit [facility] [address] [place], [place] [phone] Zeinab Carey MD [address] [place], [place] [phone] documented as of this encounter Visit Diagnoses Not on filedocumented in this encounter Additional Health Concerns Assessment Noted Time PHQ-9 Depression Total Score: 8 05/15/20 23 11:18 AM EST documented as of this encounter Care Teams Airline Lounge Receptionist Relationship Specialty Start Date End Date Zeinab Carey MD [address] [place] [address] PCP - General Family Medicine 05/16/17 documented as of this encounter
--- OUTSIDE RECORDS SUMMARY | 2025-04-21 19:45 | XMS_ITS | Encounter Summary ---
Author Organization [employer] Address [address] [place] [address] [place] [address] Care Team Providers Care Mental Health Program Specialist Name Role Phone Zeinab Carey MD Primary Care Provider [phone] Reason for Visit * Reason Onset Date Comments Med Refill 01/14/2025 Encounter Details Date Type Department Care Team ([facility] st Contact Info) Description 01/14/2025 Refill [facility] [address] [place] [address] Zeinab Carey MD [address] [place] [address] Chronic superficial 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; Chronic migraine [...] Description 05/06/2025 11:00 AM EST Office Visit [facility] [address] [place] [address] Zeinab Carey MD [address] [place] [address] documented as of this encounter Visit Diagnoses Diagnosis Chronic superficial 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 Chronic migraine without aura without status migrainosus, not intractable documented in this encounter Additional Health Concerns Assessment Noted Time PHQ-9 Depression Total Score: 8 05/15/20 23 11:18 AM EST documented as of this encounter Care Teams Mental Health Program Specialist Relationship Specialty Start Date End Date Zeinab Carey MD [address] [place] [address] PCP - General Family Medicine 05/16/17 documented as of this encounter
--- NOTE | 2025-04-21 20:01 | ED_ITS ---
HPI - General Adult General Chief complaint: Upper Respiratory Symptoms Stated complaint: ?URI Time Seen by Provider: 04/21/25 20:00 Source: patient Mode of arrival: ambulatory Limitations: no limitations History of Present Illness ED Provider: Dr. Romo [facility] narrative: 49-year-old female presented hospital today for 3 weeks of nasal congestion, sinus pain, headaches nasal discharge. And productive coughing. Patient stated that she has been having green productive sputum. She stated that she has been trying ntew-jlo-rzgdoua medicine however it has not been improving therefore she presents to the ER for further evaluation. Related Data Home Medications ?Medication ?Instructions ?Recorded ?Confirmed pantoprazole 40 mg tablet,delayed 40 mg PO DAILY 04/1607/07/24 release (Protonix) hydroxyzine pamoate 25 mg capsule 25 mg PO BID PRN Anx iety 07/27/21 07/07/24 escitalopram oxalate 20 mg tablet 20 mg PO DAILY 09/2107/07/24 bupropion HCl 200 mg tablet,12 hr 200 mg PO BID 07/07/24 sustained-release (Wellbutrin SR) levothyroxine 125 mcg tablet 125 mcg PO DAILY 07/07/24 07/07/24 Previous Rx's ?Medication ?Instructions ?Recorded dcipmesodi-kctkggimjacyu-zvumdtqt 1 tab PO Q6H PRN hae adace #20 tabs 03/01/24 50 mg-325 mg-40 mg tablet sumatriptan succinate 50 mg tablet 50 mg PO Q2H PRN mi graine headache 03/01/24 (Imitrex) #10 tabs amoxicillin 875 mg-potassium 1 tab PO BID 7 days #14 t abs 04/21/25 clavulanate 125 mg tablet azithromycin 250 mg tablet See Rx Instructions PO .COM PLEX #6 04/21/25 tabs benzonatate 200 mg capsule 200 mg PO BID PRN cough #20 caps 04/21/25 prednisone 20 mg tablet 20 mg PO DAILY 5 days #5 tab s 04/21/25 Allergies Allergy/AdvReac Type Severity Reaction Status Date / Time No Known Allergies Allergy Verified 04/21/25 18:33 Review of Systems Review of Systems: Pertinent review of systems as mentioned in HPI. All other system otherwise negative. [facility] Past Medical History [facility] Narrative: Medical history as mentioned in [facility] Medical History PMB (postmenopausal bleeding) History of COVID-19 Obesity with body mass index (BMI) of 30.0 to 39.9 Depression Arthritis GERD (gastroesophageal reflux disease) Hypothyroidism Surgical History Hx of gastric bypass History of meniscectomy of left knee History of endoscopy History of carpal tunnel release Hx of section Family History Family History Father TIA (transient ischemic attack) Maternal Aunt Stomach cancer Vaginal cancer Maternal Aunt Vaginal cancer Mother Vaginal cancer Social History Social History Household Members: Family Alcohol intake: never Patient Tobacco Use Status: Former Tobacco user Advance Directives: No Advance Directives Information Provided: No Current occupational status: disabled Current occupation: Left Handed Gender identity: Female Physical Exam ED Exam Exam: General: Pleasant, no distress, interacting appropriately Head: Normacephalic, atraumatic ENT: oral mucosa moist, neck supple, no tracheal deviation Cardiovascular: regular rate, regular rhythm, no murmurs, rubbing, gallops Respiratory: CTAB, no wheeze, rales, rhonchi Neurological: Awake and alert, no facial droop noted Skin: Warm and dry Psychiatric: Appropriate mood and thoughts Vital Signs: Vital Signs - 24 hr 04/21/25 18:31 04/21/25 20:28 Temperature 97.3 F 97.5 F Pulse Rate 68 56 Respiratory Rate 18 18 Blood Pressure 116/61 124/70 Pulse Oximetry 98 100 Oxygen Delivery Method Room Air Room Air BMI result Body Mass Index 27.0 Medical Decision Making Medical Decision Making MDM Narrative: This is a 49-year-old female presented hospital today for evaluation for persistent coughing and sinus pain. Also having some nasal drainage and productive cough. We will plan to give patient a dose of Augmentin here. Azithromycin will be given to the patient. Prednisone will be given the patient as well. We will plan to give patient a dose of Tessalon Perles. Patient will be discharged with the same medicine. Encouraged her to follow up with the primary care doctor. She agrees and understands this plan. interpreter was used for this encounter. Differential Diagnosis Differential Diagnoses: The differential diagnosis associated with the presentation includes Sinusitis, bronchitis Lab Data MDM Lab Attestation statement: I reviewed the patient's lab results. Labs: Lab Results 04/21/25 Range/Units 18:52 Influenza Type A (PCR) NEGATIVE (Negative) Influenza Type B (PCR) NEGATIVE (Negative) RSV RNA Qual (PCR) NEGATIVE (Negative) SARS-CoV-2 RNA (RT-PCR) NEGATIVE (Negative) Prescription Management I considered prescription management with: Antibiotic Discharge Plan Discharge Clinical Impression: Bronchitis, Sinusitis Patient Disposition: Home, Self-Care Instructions: Acute Bronchitis (ED) Prescriptions: New amoxicillin-pot clavulanate 875-125 mg tablet 1 tab PO BID 7 Days Qty: 14 0RF azithromycin 250 mg tablet See Rx Instructions .ROUTE .COMPLEX Qty: 6 0RF Rx Instructions: For 250 mg dose pack: take 500 mg today (day 1), then 250 mg for 4 days (days 2-5) benzonatate 200 mg capsule 200 mg PO BID PRN (Reason: cough) Qty: 20 0RF prednisone 20 mg tablet 20 mg PO DAILY 5 Days Qty: 5 0RF No Action sumatriptan succinate [Imitrex] 50 mg tablet 50 mg PO Q2H PRN (Reason: migraine headache) Qty: 10 0RF Rx Instructions: do not exceed 2 doses per 24 hrs cuywsfkrss-fdnamubxolasj-lhaa 50-325-40 mg tablet 1 tab PO Q6H PRN (Reason: haeadace) Qty: 20 0RF pantoprazole [Protonix] 40 mg tablet,delayed release (DR/EC) 40 mg PO DAILY hydroxyzine pamoate 25 mg capsule 25 mg PO BID PRN (Reason: Anxiety) escitalopram oxalate 20 mg tablet 20 mg PO DAILY levothyroxine 125 mcg tablet 125 mcg PO DAILY bupropion HCl [Wellbutrin SR] 200 mg tablet sustained-release 12 hr 200 mg PO BID Print Language: Vincentian
[2025-04-21 20:28] VITALS: BP 124/70; PULSE 56; RESP 18; TEMP 36.4; O2SAT 100
[2025-04-21 21:02] VITALS: BP 124/70; PULSE 56; RESP 18; TEMP 36.4; O2SAT 100
== END 2025-04-21 21:02 | disposition home or self-care (01) ==
PROVIDERS: Emergency Provider Student in an Organized Health Care Education/Training Program; PCP Pediatrics
DX: J32.9 Chronic sinusitis, unspecified (principal); J40 Bronchitis, not specified as acute or chronic; R05.9 Cough, unspecified; R09.81 Nasal congestion; J34.89 Other specified disorders of nose and nasal sinuses; R51.9 Headache, unspecified; Z79.899 Other long term (current) drug therapy; Z03.818 Encounter for observation for suspected exposure to other biological agents ruled out
CPT/HCPCS: 71046; 87637; 99283

== ENCOUNTER → 2025-04-21 18:34 | Outpatient (BNV) | payer MEDICAID, SELFPAY | PROVIDERS: Emergency Provider Student in an Organized Health Care Education/Training Program; PCP Pediatrics; Visit Provider Radiology Diagnostic Radiology | DX: R05.9 Cough, unspecified (principal) | CPT/HCPCS: 71046 ==

== ENCOUNTER 2025-05-15 11:19 | Outpatient (REF) | payer MEDICAID, SELFPAY ==
--- OUTSIDE RECORDS SUMMARY | 2025-05-15 13:22 | XMS_ITS | Encounter Summary ---
Author Organization [employer] Address [address] [address] Care Team Providers Care Inspector Plug Seam Name Role Phone Zeinab Carey MD Primary Care Provider [phone] Reason for Visit * Reason Onset Date Comments PA 08/12/2024 Encounter Details Date Type Department Care Team ([facility] st Contact Info) Description 08/12/2024 Telephone [facility] CH[facility] MED & PEDS [address] [place], [place] [phone] Zeinab Carey MD [address] [place] [address] PA Social History Tobacco Use Types Packs/Day [...] encounter Miscellaneous Notes * Telephone Encounter - Nacny Feliciano LPN - 08/13/2024 9:37 AM EDT No Pa needed handbook writer spoke with [facility] who ran the medication and MH paid , handbook writer informed pt, as pt request for medication to be changed to [facility] pharmacy. Tc from pt calling to inform [...] as of this encounter Care Teams Inspector Plug Seam Relationship Specialty Start Date End Date Zeinab Carey MD [address] [place] [address] PCP - General Family Medicine 05/16/17 documented as of this encounter
--- OUTSIDE RECORDS SUMMARY | 2025-05-15 13:22 | XMS_ITS | Encounter Summary ---
Author Organization [employer] Address [address] [place] [address] Care Team Providers Care Blindstitch Machine Operator Name Role Phone Zeinab Carey MD Primary Care Provider [phone] Reason for Visit * Reason Onset Date Comments Results 03/26/2024 Encounter Details Date Type Department Care Team ([facility] st Contact Info) Description 03/26/2024 Telephone [facility] MEDICINE [address] [place] [address] Zeinab Carey MD [address] [place] [address] Results Social History Tobacco Use Types Packs/Day [...] results: Labs Date when done: 03/15/24 Facility: [facility] Labs documented in this encounter Plan of Treatment Not on file documented as of this encounter Visit Diagnoses Not on filedocumented in this encounter Additional Health Concerns Assessment Noted Time PHQ-9 Depression Total Score: 8 05/15/20 23 11:18 AM EST documented as of this encounter Care Teams Blindstitch Machine Operator Relationship Specialty Start Date End Date Zeinab Carey MD [address] [place] [address] PCP - General Family Medicine 05/16/17 documented as of this encounter
--- OUTSIDE RECORDS SUMMARY | 2025-05-15 13:22 | XMS_ITS | Encounter Summary ---
Author Organization [employer] Address [address] [address] Care Team Providers Care Press Offbearer Name Role Phone Zeinab Carey MD Primary Care Provider [phone] Reason for Visit * Reason Onset Date Comments Results 06/26/2023 Encounter Details Date Type Department Care Team ([facility] st Contact Info) Description 06/26/2023 Telephone [facility] MEDICINE [address] [place] [address] Zeinab Carey MD [address] [place] [address] Results Social History Tobacco Use Types Packs/Day [...] Pt also informed of referral placement to [facility] Endo but advised [...] Sonogram Date when done: 06/15 Facility: [facility] documented in this encounter Plan of Treatment Not on file documented as of this encounter Visit Diagnoses Not on filedocumented in this encounter Additional Health Concerns Assessment Noted Time PHQ-9 Depression Total Score: 8 05/15/20 23 11:18 AM EST documented as of this encounter Care Teams Press Offbearer Relationship Specialty Start Date End Date Zeinab Carey MD [address] [place] [address] PCP - General Family Medicine 05/16/17 documented as of this encounter
--- OUTSIDE RECORDS SUMMARY | 2025-05-15 13:22 | XMS_ITS | Encounter Summary ---
Author Organization [employer] Address [address] [address] Care Team Providers Care Computer Information Science Professor Name Role Phone Zeinab Carey MD Primary Care Provider [phone] Reason for Visit * Reason Onset Date Comments Results 01/18/2024 Encounter Details Date Type Department Care Team ([facility] st Contact Info) Description 01/18/2024 Telephone [facility] MEDICINE [address] [place] [address] Zeinab Carey MD [address] [place] [address] Results Social History Tobacco Use Types Packs/Day [...] CT Scan Date when done: 12/05 Facility: [facility] documented in this encounter Plan of Treatment Not on file documented as of this encounter Visit Diagnoses Not on filedocumented in this encounter Additional Health Concerns Assessment Noted Time PHQ-9 Depression Total Score: 8 05/15/20 11:18 AM EST documented as of this encounter Care Teams Computer Information Science Professor Relationship Specialty Start Date End Date Zeinab Carey MD [address] [place] [address] PCP - General Family Medicine 05/16/17 documented as of this encounter
--- OUTSIDE RECORDS SUMMARY | 2025-05-15 13:22 | XMS_ITS | Encounter Summary ---
Author Organization [employer] Address [address] [address] Care Team Providers Care Nursing Unit Coordinator Name Role Phone Zeinab Carey MD Primary Care Provider [phone] Reason for Visit * Reason Onset Date Comments Results 04/27/2023 Encounter Details Date Type Department Care Team ([facility] st Contact Info) Description 04/27/2023 Telephone [facility] MEDICINE [address] [place] [address] Zeinab Carey MD [address] [place] [address] Results Social History Tobacco Use Types Packs/Day [...] t he electric, gas, oil or water [employer] threatened to shut off services in your [...] as of this encounter Care Teams Nursing Unit Coordinator Relationship Specialty Start Date End Date Zeinab Carey MD [address] [place] [address] PCP - General Family Medicine 05/16/17 documented as of this encounter
--- OUTSIDE RECORDS SUMMARY | 2025-05-15 13:22 | XMS_ITS | Encounter Summary ---
Author Organization [employer] Address [address] [address] Care Team Providers Care Microsoft Systems Engineer Name Role Phone Zeinab Carey MD Primary Care Provider [phone] Reason for Visit * Reason Onset Date Comments Medication Question 10/24/2023 Referral 10/24/2023 Encounter Details Date Type Department Care Team ([facility] st Contact Info) Description 10/24/2023 Telephone [facility] MEDICINE [address] [place] [address] Zeinab Carey MD [address] [place] [address] Medication Question; Referral Social History Tobacco Use [...] and would like to be sent to [address] [place] [address] and is request for a stronger medication [...] documented as of this encounter Care Teams Microsoft Systems Engineer Relationship Specialty Start Date End Date Zeinab Carey MD [address] [place] [address] PCP - General Family Medicine 05/16/17 documented as of this encounter
--- OUTSIDE RECORDS SUMMARY | 2025-05-15 13:22 | XMS_ITS | Encounter Summary ---
Author Organization [employer] Address [address] [address] Care Team Providers Care Manganese Heater Name Role Phone Zeinab Carey MD Primary Care Provider [phone] Reason for Visit * Reason Onset Date Comments Nurse Triage 08/11/2024 Encounter Details Date Type Department Care Team ([facility] st Contact Info) Description 08/11/2024 Telephone [facility] CHC MED & PEDS [address] [place], [place] [phone] Zeinab Carey MD [address] [place] [address] Nurse Triage Social History Tobacco Use Types [...] RN - 08/11/2024 12:29 PM EDT No historic interpreter needed as this conventional underwriter speaks French. Call returned to Saundra Mayo to triage [...] monitor. Pt advised that referral sent to [facility]. Given contact number for [facility] Cards. Pt offered appt tomorrow with team provider. Pt states will call cardiology first. Pt advised of [facility] operating hours for today and [...] You become worse * Telephone Encounter - Taryncleopatra Sepulveda - 08/11/2024 12:16 PM EDT Symptoms: Heartbeat Symptoms (Fast, Slow, or Irregular), Dizziness Outcome: Schedule a same-day appointment or talk to a nurse or provider today Reason: Caller denied all higher acuity questions The caller accepted this outcome. Pt reported this happened yesterday. No symptoms today. Contact pt at [phone] (kosovan) documented in this encounter Plan of Treatment Not on file documented as of this encounter Visit Diagnoses Not on filedocumented in this encounter Additional Health Concerns Assessment Noted Time PHQ-9 Depression Total Score: 8 05/15/20 23 11:18 AM EST documented as of this encounter Care Teams Manganese Heater Relationship Specialty Start Date End Date Zeinab Carey MD [address] [place] [address] PCP - General Family Medicine 05/16/17 documented as of this encounter
--- OUTSIDE RECORDS SUMMARY | 2025-05-15 13:22 | XMS_ITS | Encounter Summary ---
Author Organization [employer] Address [address] [address] Care Team Providers Care Digital Strategist Name Role Phone Zeinab Carey MD Primary Care Provider [phone] Reason for Visit * Reason Onset Date Comments Referral 05/08/2025 Encounter Details Date Type Department Care Team ([facility] Contact Info) Description 05/08/2025 Telephone [facility] CHC MED & PEDS [address] [place], [place] [phone] Zeinab Carey MD [address] [place] [address] Referral Social History Tobacco Use Types Packs/Day [...] encounter Miscellaneous Notes * Telephone Encounter - Jam Marina - 05/08/2025 9:01 AM EST Tc from pt requesting a referral to a air value tester that will take her insurance Contact pt at [phone] (czech) documented in this encounter Plan of Treatment Not on file documented as of this encounter Visit Diagnoses Not on filedocumented in this encounter Additional Health Concerns Assessment Noted Time PHQ-9 Depression Total Score: 22 025 9:43 AM EDT documented as of this encounter Care Teams Digital Strategist Relationship Specialty Start Date End Date Zeinab Carey MD [address] [place] [address] PCP - General Family Medicine 05/16/17 documented as of this encounter
--- OUTSIDE RECORDS SUMMARY | 2025-05-15 13:22 | XMS_ITS | Encounter Summary ---
Author Organization [employer] Address [address] [address] Care Team Providers Care Coat Hanger Shaper Machine Operator Name Role Phone Zeinab Carey MD Primary Care Provider [phone] Reason for Visit * Reason Onset Date Comments Referral 06/27/2023 Encounter Details Date Type Department Care Team ([facility] st Contact Info) Description 06/27/2023 Telephone [facility] MEDICINE [address] [place] [address] Zeinab Carey MD [address] [place] [address] Referral Social History Tobacco Use Types Packs/Day [...] advise. Pt is requesting a referral to [facility] for thyroid management. * Telephone Encounter - Catherine Fitch - 06/27/2023 3:34 PM EST Fax number [phone] * Telephone Encounter - Catherine Fitch - 06/27/2023 3:32 PM EST Tc from pt requesting a new referral for [facility] at [address] [place] [address]. documented in this encounter Plan of Treatment Not on file documented as of this encounter Visit Diagnoses Not on filedocumented in this encounter Additional Health Concerns Assessment Noted Time PHQ-9 Depression Total Score: 8 05/15/20 23 11:18 AM EST documented as of this encounter Care Teams Coat Hanger Shaper Machine Operator Relationship Specialty Start Date End Date Zeinab Carey MD [address] [place] [address] PCP - General Family Medicine 05/16/17 documented as of this encounter
--- OUTSIDE RECORDS SUMMARY | 2025-05-15 13:22 | XMS_ITS | Encounter Summary ---
Author Organization [employer] Address [address] [place] [address] Care Team Providers Care Thread Singer Name Role Phone Zeinab Carey MD Primary Care Provider [phone] Reason for Visit * Reason Onset Date Comments MR ORDER 10/23/2023 Encounter Details Date Type Department Care Team ([facility] st Contact Info) Description 10/23/2023 Telephone [facility] MEDICINE [address] [place] [address] Zeinab Carey MD [address] [place] [address] MR ORDER Social History Tobacco Use Types [...] documented as of this encounter Care Teams Thread Singer Relationship Specialty Start Date End Date Zeinab Carey MD [address] [place] [address] PCP - General Family Medicine 05/16/17 documented as of this encounter
--- OUTSIDE RECORDS SUMMARY | 2025-05-15 13:22 | XMS_ITS | Clinical Summary ---
Author Organization [facility] Address [address] [place] [address] Phone Care Team Providers Care Night Coordinator Name Role Phone Zeinab Carey MD Primary Care Provider [phone] Allergies No known active allergies Medications ondansetron [...] on file Sexual Orientation Not on file Last Filed Vital Signs Vital Sign Reading [...] 8:15 AM EST Office Visit Bariatric Surgery [facility] 175 [facility] 120 [place] [phone] Omer Saha MD [address] [place] [phone] 06/30/2025 11:00 AM EST Consult Orthopedic Surgery - [place] [address] [facility] 250 [place] [phone] Constantino Elias DPM 175 [facility] 250 [place] [address] Health Maintenance Due Date Last Done Comments [...] mg/dL Blood Venous blood specimen / Unknown [facility] Provider LAB BLOOD ORDERABLES Emili l Result from Last 3 Months or Most Recently Relevant to Health Maintenance Insurance MEDICAID - [place] Care Teams Night Coordinator Relationship Specialty Start Date End Date Zeinab Carey MD [address] [place] [phone] PCP - General 07/29/21
--- OUTSIDE RECORDS SUMMARY | 2025-05-15 13:22 | XMS_ITS | Encounter Summary ---
Author Organization [employer] Address [address] [address] Care Team Providers Care Newspaper Editor Name Role Phone Zeinab Carey MD Primary Care Provider [phone] Reason for Visit * Reason Onset Date Comments Request For Order(s) 10/30/2023 Encounter Details Date Type Department Care Team ([facility] Contact Info) Description 10/30/[address] [facility] MED & PEDS [address] [place], [place] [phone] Zeinab Carey MD [address] [place] [address] Request For Order(s) Social History Tobacco Use [...] surgery. Please contact pt for questions/clarification at [phone] documented in this encounter Plan of Treatment Not on file documented as of this encounter Visit Diagnoses Not on filedocumented in this encounter Additional Health Concerns Assessment Noted Time PHQ-9 Depression Total Score: 8 05/15/20 23 11:18 AM EST documented as of this encounter Care Teams Newspaper Editor Relationship Specialty Start Date End Date Zeinab Carey MD [address] [place] [address] PCP - General Family Medicine 05/16/17 documented as of this encounter
--- OUTSIDE RECORDS SUMMARY | 2025-05-15 13:22 | XMS_ITS | Encounter Summary ---
Author Organization [employer] Address [address] [address] Care Team Providers Care Recycling Sorter Name Role Phone Zeinab Carey MD Primary Care Provider [phone] Reason for Visit * Reason Onset Date Comments Referral 04/02/2025 Encounter Details Date Type Department Care Team ([facility] st Contact Info) Description 04/02/2025 Telephone [facility] MEDICINE [address] [place] [address] Zeinab Carey MD [address] [place] [address] Referral Social History Tobacco Use Types Packs/Day [...] request for endocrine, spoke to pt through [employer] [facility][id number]. Pt reports had an endocrine provider in [place] and now that she is living here needs to be referred to an endocrine provider here. Pt requesting referral as below. Will task to PCP as pt has been seen recently andhas updated labs in the chart. Pt understands and agrees with plan. - [address] [place] [address] Contact pt at [phone] vider here. Pt wants to be seen by * Telephone Encounter - Mireya Mayo - 04/02/2025 10:14 AM EST Tc from pt requesting an referral for Endocrinology - [address] [place] [address] Contact pt at [phone] documented in this encounter Plan of Treatment Not on file documented as of this encounter Visit Diagnoses Not on filedocumented in this encounter Additional Health Concerns Assessment Noted Time PHQ-9 Depression Total Score: 22 025 9:43 AM EDT documented as of this encounter Care Teams Recycling Sorter Relationship Specialty Start Date End Date Zeinab Carey MD [address] [place] [address] PCP - General Family Medicine 05/16/17 documented as of this encounter
--- OUTSIDE RECORDS SUMMARY | 2025-05-15 13:22 | XMS_ITS | Encounter Summary ---
Author Organization [employer] Address [address] [place] [address] Care Team Providers Care Field Artillery Officer Name Role Phone Zeinab Carey MD Primary Care Provider [phone] Reason for Visit * Reason Onset Date Comments Appointment Request 09/07/2023 Encounter Details Date Type Department Care Team ([facility] st Contact Info) Description 09/07/2023 Telephone [facility] MEDICINE [address] [place] [address] Zeinab Carey MD [address] [place] [address] Appointment Request Social History Tobacco Use Types [...] as of this encounter Care Teams Field Artillery Officer Relationship Specialty Start Date End Date Zeinab Carey MD [address] [place] [address] PCP - General Family Medicine 05/16/17 documented as of this encounter
--- OUTSIDE RECORDS SUMMARY | 2025-05-15 13:22 | XMS_ITS | Encounter Summary ---
Author Organization [employer] Address [address] [place] [address] Care Team Providers Care Academic Success Coordinator Name Role Phone Zeinab Carey MD Primary Care Provider [phone] Reason for Referral * Imaging (Routine) - Closed Specialty Diagnoses / Procedures Referred By Luis mehta Referred To Contact Radiology Diagnoses Thyroid nodule Acquired hypothyroidism Procedures US Thyroid Zeinab Carey MD [address] [place] [address] Phone: tel: fax: [address] [address] Phone: tel: fax: Referral ID Status Reason Start Date Expiration Date Visits Re quested Visits Authorized [id number] Closed 10/24/2023 10/23/2024 1 1 Encounter Details Date Type Department Care Team (Late st Contact Info) Description 10/24/2023 Orders Only [facility]S [address] [place], [place] [phone] Zeinab Carey MD [address] [place], [place] [phone] Thyroid nodule (Primary Dx); Acquired hypothyroidism Social [...] PM EDT Narrative 11/23/2023 12:26 PM EDT [address] [address] Ultrasound Report Signed Patient: Saundra Mayo MR#: [id number] [birth year] : 1975 Acct:[id number] Age/Sex: 48 / F ADM Date: 10/31/23 Loc: HO.US Attending Dr: Zeinab Carey MD Ordering Physician: Zeinab Carey MD Date of Service: 10/31/23 Procedure(s): US thyroid Accession Number(s): [id number] cc: Zeinab Carey MD EXAMINATION: US THYROID [...] in OV> 11/23/23 1222 DD/ 1238 TD/TT: Boiler Welder: TRUNG Procedure Note Donotuseinterpreter, Image - 11/23/2023 [place] [address] Ultrasound Report Signed Patient: Shayne MayonMR#: [id number] 05 : 1975Acct:[id number] Age/Sex: 48 / FADM Date: 10/31/23 Loc: HO.US Attending Dr: Zeinab Carey MD Ordering Physician: Zeniab Carey MD Date of Service: 10/31/23 Procedure(s): US thyroid Accession Number(s): [id number] cc: Zeinab Carey MD EXAMINATION: US THYROID [...] in OV> 11/23/23 1222 DD/ 1238 TD/TT: Boiler Welder: TRUNG Authorpreethi Provider Result Type Result Stat us Zeinab Carey MD IMG US PROCEDURES Final Resul t documented in this encounter Visit Diagnoses Diagnosis Thyroid nodule- Primary Nontoxic uninodular goiter Acquired hypothyroidism Unspecified hypothyroidism documented in this encounter Additional Health Concerns Assessment Noted Time PHQ-9 Depression Total Score: 8 05/15/20 23 11:18 AM EST documented as of this encounter Care Teams Academic Success Coordinator Relationship Specialty Start Date End Date Zeinab Carey MD [address] [place] [address] PCP - General Family Medicine 05/16/17 documented as of this encounter
--- OUTSIDE RECORDS SUMMARY | 2025-05-15 13:22 | XMS_ITS | Encounter Summary ---
Author Organization [employer] Address [address] [address] Care Team Providers Care Coil Cutter Name Role Phone Zeinab Carey MD Primary Care Provider [phone] Reason for Visit * Reason Onset Date Comments Nurse Triage 06/25/2024 Encounter Details Date Type Department Care Team ([facility] st Contact Info) Description 06/25/2024 Telephone [facility] MED & PEDS [address] [place], [place] [phone] Zeinab Carey MD [address] [place] [address] Nurse Triage Social History Tobacco Use Types [...] 06/25/2024 10:50 AM EST Triage call with [facility] [place] [id number] Jose. Called x2, unable to make connectiion. [...] documented as of this encounter Care Teams Coil Cutter Relationship Specialty Start Date End Date Zeinab Carey MD [address] [place] [address] PCP - General Family Medicine 05/16/17 documented as of this encounter
--- OUTSIDE RECORDS SUMMARY | 2025-05-15 13:22 | XMS_ITS | Encounter Summary ---
Author Organization [employer] Address [address] [address] Care Team Providers Care Over Hauler Helper Name Role Phone Zeinab Carey MD Primary Care Provider [phone] Reason for Visit * Reason Onset Date Comments Referral 10/29/2023 Encounter Details Date Type Department Care Team ([facility] st Contact Info) Description 10/29/2023 Telephone [facility] MED & PEDS [address] [place], [place] [phone] Zeinab Carey MD [address] [place] [address] Referral Social History Tobacco Use Types Packs/Day [...] regards to referral. Please contact pt at [phone] * Telephone Encounter - Sruthi Rodriguez - 10/29/2023 12:43 PM EDT Tc from pt requesting a referral to neurologist. Pt states forgetfulness is becoming more consistent and would like testing. Please contact pt at [phone] ([place]i) documented in this encounter Plan of Treatment Not on file documented as of this encounter Visit Diagnoses Not on filedocumented in this encounter Additional Health Concerns Assessment Noted Time PHQ-9 Depression Total Score: 8 05/15/20 23 11:18 AM EST documented as of this encounter Care Teams Over Hauler Helper Relationship Specialty Start Date End Date Zeinab Carey MD [address] [place] [address] PCP - General Family Medicine 05/16/17 documented as of this encounter
--- OUTSIDE RECORDS SUMMARY | 2025-05-15 13:22 | XMS_ITS | Encounter Summary ---
Author Organization [employer] Address 75 [facility] [address] [place] [address] Care Team Providers Care Stereo Equipment Salesperson Name Role Phone Zeinab Carey MD Primary Care Provider [phone] Encounter Details Date Type Department Care Team (Late st Contact Info) Description 01/11/2024 Orders Only [facility] [address] [place] [address] ProviderLou MD Social History Tobacco Use Types [...] documented as of this encounter Care Teams Stereo Equipment Salesperson Relationship Specialty Start Date End Date Zeinab Carey MD [address] [place] [address] PCP - General Family Medicine 05/16/17 documented as of this encounter
--- OUTSIDE RECORDS SUMMARY | 2025-05-15 13:22 | XMS_ITS | Encounter Summary ---
Author Organization [employer] Address 75 [facility] [address] [place] [address] Care Team Providers Care Carpenter/Labor Name Role Phone Zeinab Carey MD Primary Care Provider [phone] Encounter Details Date Type Department Care Team ([facility] st Contact Info) Description 06/30/2024 Orders Only [facility] CH[facility] MED & PEDS [address] [place] [address] ProviderLou MD Social History Tobacco Use Types [...] documented as of this encounter Care Teams Carpenter/Labor Relationship Specialty Start Date End Date Zeinab Carey MD [address] [place] [address] PCP - General Family Medicine 05/16/17 documented as of this encounter
--- OUTSIDE RECORDS SUMMARY | 2025-05-15 13:23 | XMS_ITS | Encounter Summary ---
Author Organization [employer] Address 75 [facility] [address] [place] [address] Care Team Providers Care Engine Test Cell Technician Name Role Phone Zeinab Carey MD Primary Care Provider [phone] Encounter Details Date Type Department Care Team (Late st Contact Info) Description 01/13/2025 Orders Only [facility] [address] [place] [address] ProviderLou MD Social History Tobacco Use Types [...] as of this encounter Care Teams Engine Test Cell Technician Relationship Specialty Start Date End Date Zeinab Carey MD [address] [place] [address] PCP - General Family Medicine 05/16/17 documented as of this encounter
--- OUTSIDE RECORDS SUMMARY | 2025-05-15 13:23 | XMS_ITS | Data Portability ---
Author Organization [place] [facility] Address [address] [facility] [address] [place] [address] Care Team Providers Care Border Patrol Agent Name Role Phone MALENA TOMLIN Referring Provider [phone] LINDA [address] LUNA Primary Care Provider Assessment [...] booked for the same. She needs a mobile lounge driver or operator on the day of the procedure. I [...] . The risks and benefits of the procedure [...] . The risks and benefits of the procedure were discussed in detail. She wishes to proceed. She needs to follow up in four weeks. hitesh Not available 01/19/2021 14:58:37 02/28/2021 02/28/2021 Saudnra Mayo i s a 45 year old [...] booked for the same. She needs a mobile lounge driver or operator on the day of the procedure. I [...] Lyrica 75 mg capsule 2020 021 [email or web address] [facility] #[id number], [address] [place], [address], 11:06:49 Patient TargetsNo targets recorded. Patient Instructions Encounter Date Encounter Id Patient Instructions Last Modified By Organization Details Last Modified Time 08/05/2020 [id number] She was advised against bed rest lasting longer than four days and to continue activities as tolerated. hitesh Not available 08/05/2020 15:56:57 Reason for Referral Physical Therapist Referral for Lumbosacral radiculopathy Referring Physician: [facility], Encounter Date: 02/28/2021 Problems Name Problem SNOMED Code Status Onset Date Resolution Date Notes Provider Name and Address Organization Details Recorded Time Degeneration of lumbar intervertebral disc 21672675 Active Alba manjarrez MD [address] [facility] , [address], [place], [address], [place] [facility] 13:04:51 Lumbosacral radiculopathy 4162066 Active Alba manjarrez MD [address] , [address], [place], [address], [place] [facility] 16:34:00 Problem Notes None recorded. Procedures Surgical History Date Name Laterality Status Provider Name and Address Organization Details Recorded Time 01/20/20 21 Lumbar Epidural steroid injection under fluoroscopic guidance completed Alba Fermin MD [address] , [address], [place], [address], [place] [facility] 01/19/2021 14:57:24 08/12/19 21 Lumbar Epidural steroid injection under fluoroscopic guidance completed Alba Fermin MD [address] [facility] , [address], [place], [address], [place] [facility] 08/11/2020 11:32:05 classical section completed Alba Fermin MD [address] [facility] , [address], [place], [address], [place] [facility] 05/31/2020 13:23:56 Carpal tunnel surgery completed Alba Fermin MD [address] [facility] , [address], [place], [address], [place] [facility] 05/31/2020 [...] No t Available Vitals Date Recorded Body mass index (BMI) Body weight Provider Name and Address Organization Details Last Updated DateTime 08/05/2020 35.5 kg/m2 48396.32 g Alba Fermin MD [address] [facility] [address], [place], [address], [place] [facility] 08/05/2020 10:28:17 Date Recorded Body height Heart rate Oxygen saturation Systolic And Diastolic Provider Name and Address Organization Details Last Updated DateTime 08/05/2020 167.64 cm 77 /min 95 % 128/68 mm[Hg] Lina Andrade [place] [facility] 08/05/2020 09:56:11 Date Recorded Body height Heart rate Oxygen saturation Pain severity - 0-10 verbal numeric rating [Score] - Reported Systolic And Diastolic Provider Name and Address Organization Details Last Updated DateTime 08/11/2020 167.64 cm 82 /min 98 % 5 141/92 mm[Hg] Taco manjarrez [place] [facility] 11:01:26 Date Recorded Body height Heart rate Oxygen saturation Systolic And Diastolic Provider Name and Address Organization Details Last Updated DateTime 09/06/2020 167.64 cm 70 /min 99 % 138/77 mm[Hg] Lina Andrade [place] [facility] 09/06/2020 11:13:32 Date Recorded Body height Heart rate Oxygen saturation Pain severity - 0-10 verbal numeric rating [Score] - Reported Systolic And Diastolic Provider Name and Address Organization Details Last Updated DateTime 01/19/2021 167.64 cm 68 /min 99 % 10 138/83 mm[Hg] Taco manjarrez [place] [facility] 13:03:51 Date Recorded Body height Body mass index (BMI) Body weight Heart rate Oxygen saturation Pain severity - 0-10 verbal numeric rating [Score] - Reported Systolic And Diastolic Provider Name and Address Organization Details Last Updated DateTime 167.64 cm 35.5 kg/m2 18998.3 2 g 65 /min 99 % 7 126/81 mm[Hg] Alba manjarrez MD [address] , [address], [place], [address], [place] [facility] 09:51:59 Social History Question Answer Notes LastModified by Organizat ion Details LastModified Time Tobacco Smoking Status Never Smoker Alba Fermin MD [address] , [address], [place], [address], [place] [facility] 05/31/2020 13:22:16 Which Illicit Or Recreational Drugs Have You Used? None Information not available 05/31/2020 Education 4 Year [employer] Information not available 05/31/2020 Live Alone Or With Others? With Others With Children Information not available 05/31/2020 Marital Status Single hitesh Informati on not available 05/31/2020 Sex: Unknown Functional Status Question Answer Note LastModified by Organizat ion Details LastModified Time What is your level of alcohol consumption? None Information not available 05/31/2020 What is your occupation? 0 not working Information not available 05/31/2020 Mental Status None recorded. Family History Relationship Description Onset Age of this Age Resolved Age Notes LastModified by Organization Details LastModified Time Mother Arthritis tmanikantan Not avail able 05/31/2020 13:20:31 Mother Endometrial carcinoma tmanikantan Not available 08/2020 13:21:32 Mother Malignant neoplasm of colon tmanikantan Not available 08/2020 13:22:01 Maternal Aunt Malignant neoplasm of skin tmanikantan Not available 08/2020 13:20:59 Medical History Condition Response Fibromyalgia Y Arthritis Y Hypothyroidism Y Depression Y Gynecological HistoryNo gynecological history recorded. Obstetrics History GPAL:G 0 P 0 0 0 0 Past Encounters Encounter ID Performer Location Encounter Start Date Encounter Closed Date Diagnosis/Indication Diagnosis SNOMED-CT Code Diagnosis ICD10 Code Diagnosis IMO Codes Diagnosis Note [id number] Alba Fermin MD PAIN OFFICE [address] [place] [address] 05/31/2020 13:00:06 06/09/2020 14:01:06 Degeneration of lumbar intervertebral disc 28695933 M51.36 Lumbosacra l radiculopathy 1990908 M54.17 [id number] Alba Fermin MD PAIN OFFICE [address] [place] [address] 08/05/2020 09:46:02 08/05/2020 16:06:45 Lumbosacral radiculopathy 4915714 M54.17 Degenerati on of lumbar intervertebral disc 15786808 M51.36 [id number] Alba Fermin MD PAIN OFFICE [address] [place] [address] 08/11/2020 10:53:36 08/11/2020 15:31:14 Lumbosacral radiculopathy 8664228 M54.17 Degenerati on of lumbar intervertebral disc 91871349 M51.36 [id number] Alba Fermin MD PAIN OFFICE [address] [place] [address] 09/06/2020 11:00:03 09/06/2020 11:22:45 Lumbosacral radiculopathy 0427589 M54.17 Degenerati on of lumbar intervertebral disc 39383381 M51.36 [id number] Alba Fermin MD PAIN OFFICE [address] [place] [address] 01/19/2021 13:00:43 01/19/2021 15:00:32 Lumbosacral radiculopathy 5724406 M54.17 Degenerati on of lumbar intervertebral disc 72561608 M51.36 [id number] Alba Fermin MD PAIN OFFICE [address] [place] [address] 02/28/2021 09:18:31 02/28/2021 10:35:25 Lumbosacral radiculopathy 8987173 M54.17 Degenerati on of lumbar intervertebral disc 93595540 M51.36 Health Concerns Section Related Observation LastModified by Organization Detai ls LastModified Time None Recorded Concern Status LastModified by Organization Details LastModified Time None Recorded Advance Directives Directive None Recorded Payers Insurance Date Sequence Insurance Name Policy Number Policy Cardenas Covered Member ID Cardenas Member ID Guarantor Name 02/25/2021 1 [place] [facility] Saundra Mayo [id number] Saundra Mayo Notes Date Note Type Note [...] She has seen Dr. Bravo, neurosurgeon at [facility] and had a MRI cervical spine which shows C6-C7: Concentric disc osteophyte complex with left paracentral protrusion, along with right greater than left uncovertebral spurring. Moderate central stenosis. Mild right and no significant left neural foraminal narrowing. She has had physical therapy with no pain benefit. Alba Fermin MD [address] [facility] , [address], [place], [address], [place] [facility] 08/06/2020 08:36:35 08/11/2020 text/html She is here for a trial of lumbar epidural steroid injection under fluoroscopic guidance. Alab Fermin MD [address] [facility] , [address], [place], [address], [place] [facility] 08/12/2020 08:42:07 09/06/2020 text/html She [...] Bravo on 09/09/2020. Alba Fermin MD [address] , [address], [place], [address], [place] [facility] 09/07/2020 10:03:30 01/19/2021 text/html She is here for a lumbar epidural steroid injection under fluoroscopic guidance. Alba Fermin MD [address] , [address], [place], [address], [place] [facility] 01/20/2021 08:54:35 02/28/2021 text/html She [...] no arm pain. Alba Fermin MD [address] [facility] [address], [place], [address], [facility] 03/01/2021 08:55:58 OBGyn Episode No OBEpisode recorded.
--- OUTSIDE RECORDS SUMMARY | 2025-05-15 13:23 | XMS_ITS | Encounter Summary ---
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
--- OUTSIDE RECORDS SUMMARY | 2025-05-15 13:23 | XMS_ITS | Encounter Summary ---
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
== END 2025-05-15 11:20 | disposition home or self-care (01) ==
LOC: HO.HAP 11:19
PROVIDERS: Visit Provider Pediatrics
DX: Z46.1 Encounter for fitting and adjustment of hearing aid (principal); H90.3 Sensorineural hearing loss, bilateral
CPT/HCPCS: V5266; V5299

== ENCOUNTER 2025-05-17 08:06 | Emergency (ER) | payer MEDICAID, SELFPAY ==
--- OUTSIDE RECORDS SUMMARY | 2025-05-16 23:59 | XMS_ITS | Continuity of Care Document ---
Author Organization [facility] [employer] Address [address] [place] [address] [address] [place] [address]- Care Team Providers Care Ibm [employer] Commerce Consultant Name Role Phone Aurelio LAUGHLIN, Zeinab Mosquera Primary Care Physician [phone] [place] [facility] [place]): 04/16/25 - 05/16/25 [facility] [address] [address] Attending Physician: Linda Chambers Admitting Physician: Linda Chambers Referring Physician: Admtr ArShelli Encounter Type: Triage Allergies, Adverse Reactions, Alerts No Known Allergies Medications escitalopram 10 mg oral tablet 1 tablet = 10 mg, By Mouth, Daily, # 30 tablet, 5 Refills, Maintenance, 05/18/21 1:54:00 PM EST, Tablet, Partial fill upon patient request if the prescription is for a schedule II opioid drug. Start Date: 05/18/21 Status: Ordered Medication Dispense Status: Completed Quantity: 30.0 Unit: tablet Total Allowed Fills: 1 Fills Dispensed: 0 ibuprofen 600 mg oral tablet 600 mg, 1, tablet, By Mouth, Every 6 hours, PRN, not to exceed 3200 mg/day with food or milk, # 40 tablet, Refills 0, Tot. Refills 0, Maintenance, for pain, 04/08/25 6:55:00 PM EST, Route to PharmacyElectronically, [id number], Partial fill upon patient request if the prescription is for a schedule II opioid drug., 168, cm, 05/12/24 9:43:00 EST, Height, 68.5, kg, 05/12/24 9:43:00 EST, DryWeight Start Date: 04/08/25 Stop Date: 04/18/25 Status: Ordered Medication Dispense Status: Completed Quantity: 40.0 Unit: tablet Total Allowed Fills: 1 Fills Dispensed: 0 levothyroxine 125 mcg (0.125 mg) oral tablet 1 tablet = 125 mcg, By Mouth, Daily, # 90 tablet, 4 Refills, Maintenance, 08/18/20 2:40:00 PM EDT, Tablet, Partial fill upon patient request if the prescription is for a schedule II opioid drug. Start Date: 08/18/20 Status: Ordered Medication Dispense Status: Completed Quantity: 90.0 Unit: tablet Total Allowed Fills: 5 Fills Dispensed: 0 pantoprazole 40 mg oral delayed release tablet 0 Refills, Maintenance, 01/15/19 11:03:40 AM EDT Start Date: 01/15/19 Status: Ordered Medication Dispense Status: Completed Total Allowed Fills: 1 Fills Dispensed: 0 SUMAtriptan 50 mg oral tablet 1 tablet = 50 mg, By Mouth, Daily, PRN for migraine headache, may repeat dose after 2 hours up to amaximum of 2, # 9 tablet, 0 Refills, Maintenance, 05/18/21 1:54:00 PM EST, Tablet, Partial fill upon patient request if the prescription is for a schedule II opioid drug. Start Date: 05/18/21 Status: Ordered Medication Dispense Status: Completed Quantity: 9.0 Unit: tablet Total Allowed Fills: 1 Fills Dispensed: 0 Vistaril pamoate 25 mg oral capsule 1 capsule = 25 mg, By Mouth, Daily, 0 Refills, Maintenance, 05/18/21 1:57:00 PM EST, Partial fill upon patient request if the prescription is for a schedule II opioid drug. Start Date: 05/18/21 Status: Ordered Medication Dispense Status: Completed Total Allowed Fills: 1 Fills Dispensed: 0 Wellbutrin = 300 mg, By Mouth, Daily in AM, 0 Refills, Maintenance, 07/28/19 12:54:00 PM EST Start Date: 07/28/19 Status: Ordered Medication Dispense Status: Completed Total Allowed Fills: 1 Fills Dispensed: 0 Problem List Condition Confirmation Course Effective Dates Status H ealth Status Informant Acquired hypothyroidism Confirmed Active Obesity Confirmed Active thyroid nodule Confirmed Active Social History Social History Type Response Smoking Status Never (less than 100 in lifetime) entered on: 11/15/23 Sex Sex Representation Female (finding) Patient Care team information Care Team Personnel Name: Gilmar Gooden Position: [facility] Outreach Member Role: Lifetime Consulting Physician Name: Aurelio LAUGHLIN , Zeianb Mosquera Position: [facility] Outreach Member Role: PCP Address: [address] [place] [address] Telecom: Care Team Related Persons Name: JADON HUGGINS Name: JADON ISAAC Name: NISHI GONZALEZ Name: VIVIANE BUSTOS Insurance Providers Guarantor name: NISHI BUSTOS Health Plan Information #: 1 Payer: [employer] Payer Identifier: MIKE Member Number: [id number] Group Number: [id number] Subscriber Identifier: MIKE Relationship to Subscriber: self Coverage Type: MEDICAID Coverage Verification Date: NA Telecom: NA Address:
--- NOTE | 2025-05-17 08:09 | ECG_ITS ---
Test Reason : CP Blood Pressure : */* mmHG Vent. Rate : 65 BPM Atrial Rate : 65 BPM P-R Int : 118 ms QRS Dur : 70 ms QT Int : 396 ms P-R-T Axes : 62 20 40 degrees QTcB Int : 411 ms Normal sinus rhythm Normal ECG No previous ECGs available Referred By: Generic ED Physician Electronically Signed By: Germán Valentino
[2025-05-17 08:17] VITALS: BP 108/71; PULSE 67; RESP 16; TEMP 36.8; O2SAT 99; BMI 23.7
--- OUTSIDE RECORDS SUMMARY | 2025-05-17 08:31 | XMS_ITS | Encounter Summary ---
Author Organization [employer] Address [address] [address] Care Team Providers Care Felting Machine Operator Name Role Phone Zeinab Carey MD Primary Care Provider [phone] Reason for Visit * Reason Onset Date Comments Referral 05/08/2025 Encounter Details Date Type Department Care Team ([facility] Contact Info) Description 05/08/2025 Telephone [facility] & PEDS [address] [place], [place] [phone] Zeinab Carey MD [address] [place] [address] Referral Social History Tobacco Use Types Packs/Day [...] from pt requesting a referral to a railway switch operator that will take her insurance Contact pt at [phone] (armenian) documented in this encounter Plan of Treatment Not on file documented as of this encounter Visit Diagnoses Not on filedocumented in this encounter Additional Health Concerns Assessment Noted Time PHQ-9 Depression Total Score: 22 025 9:43 AM EDT documented as of this encounter Care Teams Felting Machine Operator Relationship Specialty Start Date End Date Zeinab Carey MD [address] [place] [address] PCP - General Family Medicine 05/16/17 documented as of this encounter
--- OUTSIDE RECORDS SUMMARY | 2025-05-17 08:31 | XMS_ITS | Encounter Summary ---
Author Organization [employer] Address [address] [facility] [address] [place] [address] Care Team Providers Care Cad Application Support Specialist Name Role Phone Zeinab Carey MD Primary Care Provider [phone] Encounter Details Date Type Department Care Team (Late st Contact Info) Description 01/11/2024 Orders Only [facility] [address] [place] [address] ProviderLou MD Social History Tobacco Use Types [...] documented as of this encounter Care Teams Cad Application Support Specialist Relationship Specialty Start Date End Date Zeinab Carey MD [address] [place] [address] PCP - General Family Medicine 05/16/17 documented as of this encounter
--- OUTSIDE RECORDS SUMMARY | 2025-05-17 08:31 | XMS_ITS | Clinical Summary ---
Author Organization [facility] Address [address] [place] [address] Phone Care Team Providers Care Client Resource Specialist Name Role Phone Zeinab Carey MD Primary Care Provider [phone] Allergies No known active allergies Medications ondansetron [...] 8:15 AM EST Office Visit Bariatric Surgery [facility] 120 [place] [phone] Omer Saha MD [address] [place] [phone] 06/30/2025 11:00 AM EST Consult Orthopedic Surgery - [place] [address] [facility] 250 [place] [phone] Constantino Elias DPM 175 [facility] 250 [place] [address] Health Maintenance Due Date Last Done Comments [...] mg/dL Blood Venous blood specimen / Unknown [facility] Provider LAB BLOOD ORDERABLES Emili l Result from Last 3 Months or Most Recently Relevant to Health Maintenance Insurance MEDICAID - [place] Care Teams Client Resource Specialist Relationship Specialty Start Date End Date Zeinab Carey MD [address] [place] [phone] PCP - General 07/29/21
--- OUTSIDE RECORDS SUMMARY | 2025-05-17 08:31 | XMS_ITS | Encounter Summary ---
Author Organization [employer] Address [address] [address] Care Team Providers Care Cargo Service Agent Name Role Phone Zeinab Carey MD Primary Care Provider [phone] Reason for Visit * Reason Onset Date Comments Referral 10/29/2023 Encounter Details Date Type Department Care Team ([facility] st Contact Info) Description 10/29/2023 Telephone [facility] MED & PEDS 505 [place], [place] [phone] Zeinab Carey MD 505 [place] [address] Referral Social History Tobacco Use Types Packs/Day [...] regards to referral. Please contact pt at [phone] * Telephone Encounter - Sruthi Rodriguez - 10/29/2023 12:43 PM EDT Tc from pt requesting a referral to neurologist. Pt states forgetfulness is becoming more consistent and would like testing. Please contact pt at [phone] (Greek) documented in this encounter Plan of Treatment Not on file documented as of this encounter Visit Diagnoses Not on filedocumented in this encounter Additional Health Concerns Assessment Noted Time PHQ-9 Depression Total Score: 8 05/15/20 23 11:18 AM EST documented as of this encounter Care Teams Cargo Service Agent Relationship Specialty Start Date End Date Zeinab Carey MD [address] [place] [address] PCP - General Family Medicine 05/16/17 documented as of this encounter
--- OUTSIDE RECORDS SUMMARY | 2025-05-17 08:31 | XMS_ITS | Encounter Summary ---
Author Organization [employer] Address [address] [address] Care Team Providers Care Logging Engineer Name Role Phone Zeinab Carey MD Primary Care Provider [phone] Reason for Visit * Reason Onset Date Comments Results 04/27/2023 Encounter Details Date Type Department Care Team ([facility] st Contact Info) Description 04/27/2023 Telephone [facility] MEDICINE 230 [place] [address] Zeinab Carey MD [address] [place] [address] Results Social History Tobacco Use Types Packs/Day [...] t he electric, gas, oil or water [employer] threatened to shut off services in your [...] documented as of this encounter Care Teams Logging Engineer Relationship Specialty Start Date End Date Zeinab Carey MD 505 [place] [address] PCP - General Family Medicine 05/16/17 documented as of this encounter
--- OUTSIDE RECORDS SUMMARY | 2025-05-17 08:31 | XMS_ITS | Encounter Summary ---
Author Organization [employer] Address [address] [address] Care Team Providers Care Mime Artist Name Role Phone Zeinab Carey MD Primary Care Provider [phone] Reason for Visit * Reason Onset Date Comments Medication Question 10/24/2023 Referral 10/24/2023 Encounter Details Date Type Department Care Team ([facility] st Contact Info) Description 10/24/2023 Telephone [facility] MEDICINE 230 [place] [address] Zeinab Carey MD [address] [place] [address] Medication Question; Referral Social History Tobacco Use [...] and would like to be sent to [address] [place] [address] and is request for a stronger medication [...] documented as of this encounter Care Teams Mime Artist Relationship Specialty Start Date End Date Zeinab Carey MD [address] [place] [address] PCP - General Family Medicine 05/16/17 documented as of this encounter
--- OUTSIDE RECORDS SUMMARY | 2025-05-17 08:31 | XMS_ITS | Encounter Summary ---
Author Organization [employer] Address [address] [address] Care Team Providers Care Plunket Nurse Name Role Phone Zeinab Carey MD Primary Care Provider [phone] Reason for Visit * Reason Onset Date Comments Referral 06/27/2023 Encounter Details Date Type Department Care Team ([facility] st Contact Info) Description 06/27/2023 Telephone [facility] MEDICINE 230 [place] [address] Zeinab Carey MD [address] [place] [address] Referral Social History Tobacco Use Types Packs/Day [...] advise. Pt is requesting a referral to [facility] for thyroid management. * Telephone Encounter - Catherine Fitch - 06/27/2023 3:34 PM EST Fax number [phone] * Telephone Encounter - Catherine Fitch - 06/27/2023 3:32 PM EST Tc from pt requesting a new referral for [facility] at [address] [place] [address]. documented in this encounter Plan of Treatment Not on file documented as of this encounter Visit Diagnoses Not on filedocumented in this encounter Additional Health Concerns Assessment Noted Time PHQ-9 Depression Total Score: 8 05/15/20 23 11:18 AM EST documented as of this encounter Care Teams Plunket Nurse Relationship Specialty Start Date End Date Zeinab Carey MD [address] [place] [address] PCP - General Family Medicine 05/16/17 documented as of this encounter
--- OUTSIDE RECORDS SUMMARY | 2025-05-17 08:31 | XMS_ITS | Encounter Summary ---
Author Organization [employer] Address [address] [address] Care Team Providers Care Hourly Caregiver Name Role Phone Zeinab Carey MD Primary Care Provider Reason for Visit * Reason Onset Date Comments Results 01/18/2024 Encounter Details Date Type Department Care Team ([facility] st Contact Info) Description 01/18/2024 Telephone [facility] MEDICINE 230 [place] [address] Zeinab Carey MD [address] [place] [address] Results Social History Tobacco Use Types Packs/Day [...] CT Scan Date when done: 12/05 [place] [facility] documented in this encounter Plan of Treatment Not on file documented as of this encounter Visit Diagnoses Not on filedocumented in this encounter Additional Health Concerns Assessment Noted Time PHQ-9 Depression Total Score: 8 05/15/20 11:18 AM EST documented as of this encounter Care Teams Hourly Caregiver Relationship Specialty Start Date End Date Zeinab Carey MD 505 [place] [address] PCP - General Family Medicine 05/16/17 documented as of this encounter
--- OUTSIDE RECORDS SUMMARY | 2025-05-17 08:31 | XMS_ITS | Encounter Summary ---
Author Organization [employer] Address [address] [address] Care Team Providers Care Information Clerk Brokerage Name Role Phone Zeinab Carey MD Primary Care Provider [phone] Reason for Visit * Reason Onset Date Comments Nurse Triage 08/11/2024 Encounter Details Date Type Department Care Team ([facility] st Contact Info) Description 08/11/2024 Telephone [facility] MED & PEDS 505 [place], [place] [phone] Zeinab Carey MD 505 [place] [address] Nurse Triage Social History Tobacco Use Types [...] RN - 08/11/2024 12:29 PM EDT No hr receptionist needed as this literary writer speaks Swedish. Call returned to Saundra Mayo to triage [...] monitor. Pt advised that referral sent to [facility]. Given contact number for [facility] Cards. Pt offered appt tomorrow with team provider. Pt states will call cardiology first. Pt advised of [facility] operating hours for today and [...] yesterday. No symptoms today. Contact pt at [phone] (malaysian) documented in this encounter Plan of Treatment Not on file documented as of this encounter Visit Diagnoses Not on filedocumented in this encounter Additional Health Concerns Assessment Noted Time PHQ-9 Depression Total Score: 8 05/15/20 23 11:18 AM EST documented as of this encounter Care Teams Information Clerk Brokerage Relationship Specialty Start Date End Date Zeinab Carey MD [address] [place] [address] PCP - General Family Medicine 05/16/17 documented as of this encounter
--- OUTSIDE RECORDS SUMMARY | 2025-05-17 08:31 | XMS_ITS | Encounter Summary ---
Author Organization [employer] Address 75 [facility] [address] [place] [address] Care Team Providers Care Vacuum Pan Tender Name Role Phone Zeinab Carey MD Primary Care Provider [phone] Reason for Visit * Reason Onset Date Comments Med Refill 01/14/2025 Encounter Details Date Type Department Care Team (Late st Contact Info) Description 01/14/2025 Refill [facility] MEDICINE 230 [place] [address] Rebecca Valdes MD 505 [place] [address] Chronic superficial 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; Chronic migraine [...] documented as of this encounter Care Teams Vacuum Pan Tender Relationship Specialty Start Date End Date Zeinab Caery MD [address] [place] [address] PCP - General Family Medicine 05/16/17 documented as of this encounter
--- OUTSIDE RECORDS SUMMARY | 2025-05-17 08:31 | XMS_ITS | Encounter Summary ---
Author Organization [employer] Address [address] [place] [address] Care Team Providers Care Director Home Name Role Phone Zeinab Carey MD Primary Care Provider [phone] Reason for Visit * Reason Onset Date Comments Results 06/26/2023 Encounter Details Date Type Department Care Team ([facility] st Contact Info) Description 06/26/2023 Telephone [facility] MEDICINE 230 [place] [address] Zeinab Carey MD [address] [place] [address] Results Social History Tobacco Use Types Packs/Day [...] Pt also informed of referral placement to [facility] Endo but advised [...] Sonogram Date when done: 06/15 Facility: [facility] documented in this encounter Plan of Treatment Not on file documented as of this encounter Visit Diagnoses Not on filedocumented in this encounter Additional Health Concerns Assessment Noted Time PHQ-9 Depression Total Score: 8 05/15/20 23 11:18 AM EST documented as of this encounter Care Teams Director Home Relationship Specialty Start Date End Date Zeinab Carey MD [address] [place] [address] PCP - General Family Medicine 05/16/17 documented as of this encounter
--- OUTSIDE RECORDS SUMMARY | 2025-05-17 08:31 | XMS_ITS | Encounter Summary ---
Author Organization [employer] Address [address] [address] Care Team Providers Care Industrial Engineering Name Role Phone Zeinab Carey MD Primary Care Provider [phone] Reason for Visit * Reason Onset Date Comments Med Refill 01/14/2025 Encounter Details Date Type Department Care Team ([facility] st Contact Info) Description 01/14/2025 Refill [facility]EDS 505 [place], [place] [phone] Zeinab Carey MD 505 [place] [address] Chronic superficial 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; Chronic migraine [...] as of this encounter Care Teams Industrial Engineering Relationship Specialty Start Date End Date Zeinab Carey MD [address] [place] [address] PCP - General Family Medicine 05/16/17 documented as of this encounter
--- OUTSIDE RECORDS SUMMARY | 2025-05-17 08:31 | XMS_ITS | Encounter Summary ---
Author Organization [employer] Address [address] [place] [address] Care Team Providers Care Webbing Seamer Pound Net Name Role Phone Zeinab Carey MD Primary Care Provider Reason for Visit * Reason Onset Date Comments Results 03/26/2024 Encounter Details Date Type Department Care Team ([facility] st Contact Info) Description 03/26/2024 Telephone [facility] MEDICINE 230 [place] [address] Zeinab Carey MD [address] [place] [address] Results Social History Tobacco Use Types Packs/Day [...] results: Labs Date when done: 03/15/24 [place] [facility] documented in this encounter Plan of Treatment Not on file documented as of this encounter Visit Diagnoses Not on filedocumented in this encounter Additional Health Concerns Assessment Noted Time PHQ-9 Depression Total Score: 8 05/15/20 23 11:18 AM EST documented as of this encounter Care Teams Webbing Seamer Pound Net Relationship Specialty Start Date End Date Zeinab Carey MD [address] [place] [address] PCP - General Family Medicine 05/16/17 documented as of this encounter
--- OUTSIDE RECORDS SUMMARY | 2025-05-17 08:31 | XMS_ITS | Encounter Summary ---
Author Organization [employer] Address [address] [address] Care Team Providers Care Hairspring Setter Name Role Phone Zeinab Carey MD Primary Care Provider [phone] Reason for Visit * Reason Onset Date Comments PA 08/12/2024 Encounter Details Date Type Department Care Team ([facility] st Contact Info) Description 08/12/2024 Telephone [facility] CHC MED & PEDS 505 [place], [place] [phone] Zeinab Carey MD 505 [place] [address] PA Social History Tobacco Use Types Packs/Day [...] 08/13/2024 9:37 AM EDT No Pa needed technical writer and editor spoke with [facility] who ran the medication and MH paid , technical writer and editor informed pt, as pt request for medication to be changed to [facility] pharmacy. Tc from pt calling to inform [...] documented as of this encounter Care Teams Hairspring Setter Relationship Specialty Start Date End Date Zeinab Carey MD 505 [place] [address] PCP - General Family Medicine 05/16/17 documented as of this encounter
--- OUTSIDE RECORDS SUMMARY | 2025-05-17 08:31 | XMS_ITS | Encounter Summary ---
Author Organization [employer] Address [address] [place] [address] Care Team Providers Care Assembler Metal Building Name Role Phone Zeinab Carey MD Primary Care Provider [phone] Reason for Referral * Imaging (Routine) - Closed Specialty Diagnoses / Procedures Referred By Luis mehta Referred To Contact Radiology Diagnoses Thyroid nodule Acquired hypothyroidism Procedures US Thyroid Zeinab Carey MD 505 [place] [address] Phone: tel: fax: [address] [address] Phone: tel: fax: Referral ID Status Reason Start Date Expiration Date Visits Re quested Visits Authorized [id number] Closed 10/24/2023 10/23/2024 1 1 Encounter Details Date Type Department Care Team (Late st Contact Info) Description 10/24/2023 Orders Only [facility] CHC MED & PEDS 505 [place], [place] [phone] Zeinab Carey MD 505 [place], [place] [phone] Thyroid nodule (Primary Dx); Acquired hypothyroidism Social [...] PM EDT Narrative 11/23/2023 12:26 PM EDT [address] [address] Ultrasound Report Signed Patient: Saundra Mayo MR#: [id number] [birth year] : 1975 Acct:[id number] Age/Sex: 48 / F ADM Date: 10/31/23 Loc: HO.US Attending Dr: Zeinab Carey MD Ordering Physician: Zeinab Carey MD Date of Service: 10/31/23 Procedure(s): US thyroid Accession Number(s): [id number] cc: Zeinab Carey MD EXAMINATION: US THYROID [...] in OV> 11/23/23 1222 DD/ 1238 TD/TT: [employer] Systems Sales Representative: TRUNG Procedure Note Donotuseinterpreter, Image - 11/23/2023 [place] [address] Ultrasound Report Signed Patient: Shayne MayonMR#: [id number] 05 : 1975Acct:[id number] Age/Sex: 48 / FADM Date: 10/31/23 Loc: HO.US Attending Dr: Zeinab Carey MD Ordering Physician: Zeinab Carey MD Date of Service: 10/31/23 Procedure(s): US thyroid Accession Number(s): [id number] cc: Zeinab Carey MD EXAMINATION: US THYROID [...] in OV> 11/23/23 1222 DD/ 1238 TD/TT: [employer] Systems Sales Representative: TRUNG Authorpreethi Provider Result Type Result Stat us Zeinab Carey MD IMG US PROCEDURES Final Resul t documented in this encounter Visit Diagnoses Diagnosis Thyroid nodule- Primary Nontoxic uninodular goiter Acquired hypothyroidism Unspecified hypothyroidism documented in this encounter Additional Health Concerns Assessment Noted Time PHQ-9 Depression Total Score: 8 05/15/20 23 11:18 AM EST documented as of this encounter Care Teams Assembler Metal Building Relationship Specialty Start Date End Date Zeinab Carey MD 505 [place] [address] PCP - General Family Medicine 05/16/17 documented as of this encounter
--- OUTSIDE RECORDS SUMMARY | 2025-05-17 08:31 | XMS_ITS | Encounter Summary ---
Author Organization [employer] Address 75 [facility] 7t [place] [address] Care Team Providers Care Indoor Plant Technician Name Role Phone Zeinab Carey MD Primary Care Provider [phone] Encounter Details Date Type Department Care Team (Late st Contact Info) Description 01/13/2025 Orders Only [facility] 230 [place] [address] ProviderLou MD Social History Tobacco Use Types [...] documented as of this encounter Care Teams Indoor Plant Technician Relationship Specialty Start Date End Date Zeinab Carey MD [address] [place] [address] PCP - General Family Medicine 05/16/17 documented as of this encounter
--- OUTSIDE RECORDS SUMMARY | 2025-05-17 08:31 | XMS_ITS | Encounter Summary ---
Author Organization [employer] Address 75 [facility] 7t [place] [address] Care Team Providers Care Dormitory Supervisor Name Role Phone Zeinab Carey MD Primary Care Provider Encounter Details Date Type Department Care Team ([facility] st Contact Info) Description 06/30/2024 Orders Only [facility] CHC MED & PEDS [address] [place] [address] ProviderLou MD Social History Tobacco Use Types [...] documented as of this encounter Care Teams Dormitory Supervisor Relationship Specialty Start Date End Date Zeinab Carey MD [address] [place] [address] PCP - General Family Medicine 05/16/17 documented as of this encounter
--- OUTSIDE RECORDS SUMMARY | 2025-05-17 08:31 | XMS_ITS | Encounter Summary ---
Author Organization [employer] Address [address] [place] [address] Care Team Providers Care Cement Production Plant Operator Name Role Phone Zeinab Carey MD Primary Care Provider [phone] Reason for Visit * Reason Onset Date Comments MR ORDER 10/23/2023 Encounter Details Date Type Department Care Team ([facility] st Contact Info) Description 10/23/2023 Telephone [facility] MEDICINE 230 [place] [address] Zeinab Carey MD [address] [place] [address] MR ORDER Social History Tobacco Use Types [...] documented as of this encounter Care Teams Cement Production Plant Operator Relationship Specialty Start Date End Date Zeinab Carey MD 505 [place] [address] PCP - General Family Medicine 05/16/17 documented as of this encounter
--- OUTSIDE RECORDS SUMMARY | 2025-05-17 08:31 | XMS_ITS | Encounter Summary ---
Author Organization [employer] Address [address] [place] [address] Care Team Providers Care Financial Assistance Specialist Name Role Phone Zeinab Carey MD Primary Care Provider [phone] Reason for Visit * Reason Onset Date Comments Appointment Request 09/07/2023 Encounter Details Date Type Department Care Team ([facility] st Contact Info) Description 09/07/2023 Telephone [facility] MEDICINE 230 [place] [address] Zeinab Carey MD [address] [place] [address] Appointment Request Social History Tobacco Use Types [...] documented as of this encounter Care Teams Financial Assistance Specialist Relationship Specialty Start Date End Date Zeinab Carey MD 505 [place] [address] PCP - General Family Medicine 05/16/17 documented as of this encounter
--- OUTSIDE RECORDS SUMMARY | 2025-05-17 08:31 | XMS_ITS | Encounter Summary ---
Author Organization [employer] Address [address] [address] Care Team Providers Care Sales Department Clerk Name Role Phone Zeinab Carey MD Primary Care Provider [phone] Reason for Visit * Reason Onset Date Comments Request For Order(s) 10/30/2023 Encounter Details Date Type Department Care Team ([facility] [address] Contact Info) Description 10/30/2023 Telephone [facility] MED & PEDS 505 [place], [place] [phone] Zeinab Carey MD 505 [place] [address] Request For Order(s) Social History Tobacco Use [...] surgery. Please contact pt for questions/clarification at [phone] documented in this encounter Plan of Treatment Not on file documented as of this encounter Visit Diagnoses Not on filedocumented in this encounter Additional Health Concerns Assessment Noted Time PHQ-9 Depression Total Score: 8 05/15/20 23 11:18 AM EST documented as of this encounter Care Teams Sales Department Clerk Relationship Specialty Start Date End Date Zeinab Carey MD [address] [place] [address] PCP - General Family Medicine 05/16/17 documented as of this encounter
--- OUTSIDE RECORDS SUMMARY | 2025-05-17 08:31 | XMS_ITS | Encounter Summary ---
Author Organization [employer] Address [address] [address] Care Team Providers Care Fire Marshal Name Role Phone Zeinab Carey MD Primary Care Provider [phone] Reason for Visit * Reason Onset Date Comments Referral 04/02/2025 Encounter Details Date Type Department Care Team ([facility] st Contact Info) Description 04/02/[address] [facility] MEDICINE [address] [place] [address] Zeinab Carey MD [address] [place] [address] Referral Social History Tobacco Use Types Packs/Day [...] request for endocrine, spoke to pt through [employer] Review Scheduling Coordinator #[id number]. Pt reports had an endocrine provider in [place] and now that she is living here needs to be referred to an endocrine provider here. Pt requesting referral as below. Will task to PCP as pt has been seen recently andhas updated labs in the chart. Pt understands and agrees with plan. - [address] [place] [address] Contact pt at [phone] vider here. Pt wants to be seen by * Telephone Encounter - Mireya Mayo - 04/02/2025 10:14 AM EST Tc from pt requesting an referral for Endocrinology - [address] [place] [address] Contact pt at [phone] documented in this encounter Plan of Treatment Not on file documented as of this encounter Visit Diagnoses Not on filedocumented in this encounter Additional Health Concerns Assessment Noted Time PHQ-9 Depression Total Score: 22 025 9:43 AM EDT documented as of this encounter Care Teams Fire Marshal Relationship Specialty Start Date End Date Zeinab Carey MD [address] [place] [address] PCP - General Family Medicine 05/16/17 documented as of this encounter
--- OUTSIDE RECORDS SUMMARY | 2025-05-17 08:31 | XMS_ITS | Data Portability ---
Author Organization [place] [facility] Address [address] [place] [address] Care Team Providers Care Newspaper Writer Name Role Phone MALENA TOMLIN Referring Provider [...] the same. 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 I [...] the same. 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 I [...] Lyrica 75 mg capsule 2020 021 [email or web address] [facility]/Pharmacy #[id number], [address] [facility] [place], [address], 11:06:49 Patient TargetsNo targets recorded. Patient Instructions Encounter Date Encounter Id Patient Instructions Last Modified By Organization Details Last Modified Time 08/05/2020 [id number] She was advised against bed rest lasting [...] Recorded Time Degeneration of lumbar intervertebral disc 66695164 Active Alba manjarrez MD [address] [facility] , [address], [place], [address], [place] [facility] 13:04:51 Lumbosacral radiculopathy 7960011 Active Alba manjarrez MD [address] , [address], [place], [address], [place] [facility] 16:34:00 Problem Notes None recorded. Procedures Surgical History Date Name Laterality Status Provider Name and Address Organization Details Recorded Time 01/20/20 21 Lumbar Epidural steroid injection under fluoroscopic guidance completed Alba Fermin MD [address] , [address], [place], [address], [place] [facility] 01/19/2021 14:57:24 08/12/19 21 Lumbar Epidural steroid injection under fluoroscopic guidance completed Alba Fermin MD [address] [facility] , [address], [place], [address], [place] [facility] 08/11/2020 11:32:05 classical section completed Alba Fermin MD [address] [facility] , [address], [place], [address], [place] [facility] 05/31/2020 13:23:56 Carpal tunnel surgery completed Alba Fermin MD [address] [facility] , [address], [place], [address], [place] [facility] 05/31/2020 [...] Details Last Updated DateTime 08/05/2020 35.5 kg/m2 08930.32 g Alba Fermin MD [address] [facility] [address], [place], [address], [place] [facility] 08/05/2020 10:28:17 Date Recorded Body height Heart rate Oxygen saturation Systolic And Diastolic Provider Name and Address Organization Details Last Updated DateTime 08/05/2020 167.64 cm 77 /min 95 % 128/68 mm[Hg] Lina Andrade [place] [facility] 08/05/2020 09:56:11 Date [...] Last Updated DateTime 167.64 cm 35.5 kg/m2 94975.3 2 g 65 /min 99 % 7 126/81 mm[Hg] Alba manjarrez MD [address] , [address], [place], [address], [place] [facility] 09:51:59 Social History Question Answer Notes LastModified by Organizat ion Details LastModified Time Tobacco Smoking Status Never Smoker Alba Fermin MD [address] , [address], [place], [address], [place] [facility] 05/31/2020 13:22:16 [...] ICD10 Code Diagnosis IMO Codes Diagnosis Note [id number] Alba Fermin MD PAIN OFFICE [address] [place] [address] 05/31/2020 13:00:06 06/09/2020 14:01:06 Degeneration of lumbar intervertebral disc 85901168 M51.36 Lumbosacra l radiculopathy 3061480 M54.17 89184 Alba Fermin MD PAIN OFFICE [address] [place] [address] 08/05/2020 09:46:02 08/05/2020 16:06:45 Lumbosacral radiculopathy 3443614 M54.17 Degenerati on of lumbar intervertebral disc 13476008 M51.36 70761 Alba Fermin MD PAIN OFFICE [address] [place] [address] 08/11/2020 10:53:36 08/11/2020 15:31:14 Lumbosacral radiculopathy 9395478 M54.17 Degenerati on of lumbar intervertebral disc 69816638 M51.36 57877 Alba Fermin MD PAIN OFFICE [address] [place] [address] 09/06/2020 11:00:03 09/06/2020 11:22:45 Lumbosacral radiculopathy 1882065 M54.17 Degenerati on of lumbar intervertebral disc 20966925 M51.36 17947 Alba Fermin MD PAIN OFFICE [address] [place] [address] 01/19/2021 13:00:43 01/19/2021 15:00:32 Lumbosacral radiculopathy 7902872 M54.17 Degenerati on of lumbar intervertebral disc 96297440 M51.36 63240 Alba Fermin MD PAIN OFFICE [address] [place] [address] 02/28/2021 09:18:31 02/28/2021 10:35:25 Lumbosacral radiculopathy 7342238 M54.17 Degenerati on of lumbar intervertebral disc 34683866 M51.36 Health Concerns Section Related Observation LastModified by Organization Detai ls LastModified Time None Recorded Concern Status LastModified by Organization Details LastModified Time None Recorded Advance Directives Directive None Recorded Payers Insurance Date Sequence Insurance Name Policy Number Policy Cardenas Covered Member ID Cardenas Member ID Guarantor Name 02/25/2021 1 [place] [facility] Saundra Mayo [id number] Saundra Mayo Notes Date Note Type Note [...] She has seen Dr. Bravo, neurosurgeon at [facility] and had a MRI cervical spine which shows C6-C7: Concentric disc osteophyte complex with left paracentral protrusion, along with right greater than left uncovertebral spurring. Moderate central stenosis. Mild right and no significant left neural foraminal narrowing. She has had physical therapy with no pain benefit. Alba Fermin MD [address] [facility] , [address], [place], [address], [place] [facility] 08/06/2020 08:36:35 08/11/2020 text/html She is here for a trial of lumbar epidural steroid injection under fluoroscopic guidance. Alba Fermin MD [address] [facility] , [address], [place], [address], [place] [facility] 08/12/2020 08:42:07 [...] Bravo on 09/09/2020. Alba Fermin MD [address] , [address], [place], [address], [place] [facility] 09/07/2020 10:03:30 01/19/2021 text/html She is here for a lumbar epidural steroid injection under fluoroscopic guidance. Alba Fermin MD [address] , [address], [place], [address], [place] [facility] 01/20/2021 08:54:35 [...] no arm pain. Alba Fermin MD [address] [facility] [address], [place], [address], [place] [facility] 03/01/2021 08:55:58 OBGyn Episode No OBEpisode recorded.
--- OUTSIDE RECORDS SUMMARY | 2025-05-17 08:31 | XMS_ITS | Encounter Summary ---
Author Organization [employer] Address [address] [address] Care Team Providers Care Integrated Pest Management Technician Name Role Phone Zeinab Carey MD Primary Care Provider [phone] Reason for Visit * Reason Onset Date Comments Nurse Triage 06/25/2024 Encounter Details Date Type Department Care Team ([facility] st Contact Info) Description 06/25/2024 Telephone [facility] CH[facility] MED & PEDS [address] [place], [place] [phone] Zeinab Carey MD [address] [place] [address] Nurse Triage Social History Tobacco Use Types [...] 06/25/2024 10:50 AM EST Triage call with [facility] [place] [id number] Jose. Called x2, unable to make connectiion. [...] documented as of this encounter Care Teams Integrated Pest Management Technician Relationship Specialty Start Date End Date Zeinab Carey MD [address] [place] [address] PCP - General Family Medicine 05/16/17 documented as of this encounter
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
--- NOTE | 2025-05-17 08:34 | ED.URI ---
HPI - URI/Sore Throat General Chief Complaint: Upper Respiratory Symptoms Stated Complaint: Bronchitis, eye/ chest pressure Time Seen by Provider: 05/17/25 08:26 Source: patient Limitations: language barrier History of Present Illness ED Provider: Dr. Tucker Maldonado HPI Narrative: 49-year-old female with a history of depression, GERD, hypothyroidism, who presents emergency department for evaluation of cough, congestion, headache, bilateral burning eye pain and discomfort x3 days. Patient states the cough is productive of thick green phlegm with no blood in the sputum. She states she has been coughing frequently. She has been using her albuterol inhaler with no relief. She states that she has a pain behind her eyes , forehead and her eyes are itchy. she states that the pain in her forehead is constant, moderate to severe in intensity, worse with movement and bending over. She states she does feel like her sinuses are congested she is concerned that she may have a sinus infection.She denied fever but did have chills. She has occasional chest pain with coughing. She denied shortness of breath or dyspnea on exertion. She denied nausea, vomiting, diarrhea. She states that she does have both myalgias and arthralgias. Patient was seen in the emergency department on 05/10/2025 diagnosed with a acute bronchitis and treated with Augmentin p.o. b.i.d. x7 days, azithromycin Z-Melo, Tessalon Perles, prednisone 20 mg daily x5 days Related Data Home Medications ?Medication ?Instructions ?Recorded ?Confirmed pantoprazole 40 mg tablet,delayed 40 mg PO DAILY 04/16/20 07/07/24 release (Protonix) hydroxyzine pamoate 25 mg capsule 25 mg PO BID PRN Anxiety 07/27/21 07/07/24 escitalopram oxalate 20 mg tablet 20 mg PO DAILY 09/21/21 07/07/24 bupropion HCl 200 mg tablet,12 hr 200 mg PO BID 07/07/24 07/07/24 sustained-release (Wellbutrin SR) levothyroxine 125 mcg tablet 125 mcg PO DAILY 07/07/24 07/07/24 Previous Rx's ?Medication ?Instructions ?Recorded [id number]-[id number] 1 tab PO Q6H PRN haeadace #20 tabs 03/01/24 50 mg-325 mg-40 mg tablet sumatriptan succinate 50 mg tablet 50 mg PO Q2H PRN migraine headache 03/01/24 (Imitrex) #10 tabs amoxicillin 875 mg-potassium 1 tab PO BID 7 days #14 tabs 04/21/25 clavulanate 125 mg tablet azithromycin 250 mg tablet See Rx Instructions PO .COMPLEX #6 04/21/25 tabs benzonatate 200 mg capsule 200 mg PO BID PRN cough #20 caps 04/21/25 prednisone 20 mg tablet 20 mg PO DAILY 5 days #5 tabs 04/21/25 amoxicillin 875 mg-potassium 1 tab PO Q12H 7 days #14 tabs 05/17/25 clavulanate 125 mg tablet prednisone 20 mg tablet 60 mg (3 x 20 mg) PO DAILY 5 days 05/17/25 #15 tabs Allergies Allergy/AdvReac Type Severity Reaction Status Date / Time No Known Allergies Allergy Verified 05/17/25 08:18 Review of Systems Review of Systems: Yes all other systems are reviewed and are negative [facility] Past Medical History [facility] Narrative: Social history: She denies tobacco and alcohol use. She denies injection drug use. Medical History PMB (postmenopausal bleeding) History of COVID-19 Obesity with body mass index (BMI) of 30.0 to 39.9 Depression Arthritis GERD (gastroesophageal reflux disease) Hypothyroidism Surgical History Hx of gastric bypass History of meniscectomy of left knee History of endoscopy History of carpal tunnel release Hx of section Family History Family History Father TIA (transient ischemic attack) Maternal Aunt Stomach cancer Vaginal cancer Maternal Aunt Vaginal cancer Mother Vaginal cancer Social History Social History Household Members: Family Alcohol intake: never Patient Tobacco Use Status: Former Tobacco user Smoked in Last 30 Days: No Use of substances other than those prescribed or required for medical reasons: No Advance Directives: No Advance Directives Information Provided: No Do you have a plan to hurt others: No Plan Patient : No Current occupational status: disabled Current occupation: Left Handed Gender identity: Female Physical Exam Vital Signs: Vital Signs: Last Vital Signs Temp 98.6 F 05/17/25 09:45 Pulse 60 05/17/25 09:45 Resp 18 05/17/25 09:45 BP 110/68 05/17/25 09:45 Pulse Ox 99 05/17/25 09:45 O2 Del Method Room Air 05/17/25 09:45 BMI result Body Mass Index 23.7 Vital signs were normal Exam: General: Awake, alert in no distress Head: Normocephalic, atraumatic, patient does have tenderness palpation over her maxillary sinuses bilaterally in over her frontal sinuses, there is no erythema or swelling over the sinuses noted. Patient does experience increased pressure and pain in her sinus areas when she bends forward EENT: PERRL, sclera and conjunctiva are normal, mouth with no erythema or exudates Neck: Supple, no adenopathy Lung: breath sounds symmetric, no wheezing, no rales and no rhonchi Chest: symmetric movement, nontender Heart: regular rate and rhythm, normal S1, S2 no murmurs or rubs Abdomen: soft, non-tender, nondistended, normal bowel sounds Back: no vertebral tenderness, no CVAT Extremities: no deformities, moves all extremities symmetrically, no edema Neuro: Awake, alert, oriented, normal speech, cranial nerves 2-12 intact, moves all extremities symmetrically Psych: Pleasant, cooperative Medical Decision Making Medical Decision Making MDM Narrative: 49-year-old female with a history of depression, GERD, hypothyroidism, who presents emergency department for evaluation of cough, congestion, headache /sinus pain, bilateral burning eye pain, myalgias, arthralgias, chills, occasional chest pain with coughing with no shortness of breath or dyspnea on exertion. She has had these symptoms x3 days. she was seen in the emergency department 7 days prior completed a 7 day course of Augmentin and prednisone. Vital signs were stable. Examination is concerning for tenderness palpation over the frontal maxillary sinuses bilaterally. Differential diagnosis: Includes but is not limited to viral syndrome, COVID-19, influenza, RSV sinusitis, bronchitis, pneumonia Course: my independent interpretation patient's laboratory evaluation is as follows: COVID-19, influenza and RSV tests were negative. Patient's symptoms and physical findings arm most consistent with acute sinusitis and I did discuss this with the patient. I did tell the patient that sometimes sinusitis is difficult to tree and you do need gdfa-op-[id number] courses of antibiotics. After discussion, patient agreed to the treatment plan. Patient was given prescription for Augmentin 875/125, 1 pill every 12 hours x7 days and prednisone 60 mg daily for 5 days. She was also advised to take Tylenol 1000 mg every 6 hours as needed for pain or fever. She was given printed and verbal instructions Differential Diagnosis Differential Diagnoses: The differential diagnosis associated with the presentation includes ( see above) Admission/Observation Consideration of admission/observation: Escalation of care including admission/observation considered ( no) Lab Data MDM Lab Attestation statement: I reviewed the patient's lab results. Labs: Lab Results 05/17/25 Range/Units 08:23 Influenza Type A (PCR) NEGATIVE (Negative) Influenza Type B (PCR) NEGATIVE (Negative) RSV RNA Qual (PCR) NEGATIVE (Negative) SARS-CoV-2 RNA (RT-PCR) NEGATIVE (Negative) Independent Interpretation I performed an independent interpretation of an: EKG Interpretation: my independent interpretation of the patient's 12 EKG done on 05/17/2025 at 08:11 hours is as follows: Normal sinus rhythm with a rate of 65, normal ND interval, QRS duration QTC interval, no ST segment elevation, no ST segment depression, inverted T-waves V1 and V2, no PACs, no PVCs -this is a normal EKG. External Record Review External record reviewed: Other ( Previous ED record) Prescription Management I considered prescription management with: Antibiotic ( I prescribed Augmentin) and Other ( I prescribed anti-inflammatory steroid, prednisone) Discharge Plan Discharge Clinical Impression: Acute maxillary sinusitis, Sinusitis Patient Disposition: Home, Self-Care Additional Instructions: Take Augmentin (amoxicillin/clavulanate) 875/125 1 pill every 12 hours for 7 days. Take prednisone 20 mg pills,3 pills once a day for 5 days. While you ?are taking prednisone, do not take any NSAIDs (Motrin, Advil, ibuprofen, Aleve, naproxen). Take Tylenol (acetaminophen) 500 mg pills, 2 pills every 6 hours as needed for pain or fever. Follow-up with your doctor in 2 days. Please return to the emergency department if your symptoms get worse or if you develop any symptoms that are concerning to you. Please see the return to work note Prescriptions: New amoxicillin-pot clavulanate 875-125 mg tablet 1 tab PO Q12H 7 Days Qty: 14 0RF prednisone 20 mg tablet 60 mg PO DAILY 5 Days Qty: 15 0RF No Action sumatriptan succinate [Imitrex] 50 mg tablet 50 mg PO Q2H PRN (Reason: migraine headache) Qty: 10 0RF Rx Instructions: do not exceed 2 doses per 24 hrs [id number]-qsmupngiwsykz-ioil 50-325-40 mg tablet 1 tab PO Q6H PRN (Reason: haeadace) Qty: 20 0RF amoxicillin-pot clavulanate 875-125 mg tablet 1 tab PO BID 7 Days Qty: 14 0RF azithromycin 250 mg tablet See Rx Instructions .ROUTE .COMPLEX Qty: 6 0RF Rx Instructions: For 250 mg dose pack: take 500 mg today (day 1), then 250 mg for 4 days (days 2-5) benzonatate 200 mg capsule 200 mg PO BID PRN (Reason: cough) Qty: 20 0RF prednisone 20 mg tablet 20 mg PO DAILY 5 Days Qty: 5 0RF pantoprazole [Protonix] 40 mg tablet,delayed release (DR/EC) 40 mg PO DAILY hydroxyzine pamoate 25 mg capsule 25 mg PO BID PRN (Reason: Anxiety) escitalopram oxalate 20 mg tablet 20 mg PO DAILY levothyroxine 125 mcg tablet 125 mcg PO DAILY bupropion HCl [Wellbutrin SR] 200 mg tablet sustained-release 12 hr 200 mg PO BID Stand Alone Forms: Work/School Release Interventions: ED Discharge Assessment Last Done: 05/17/25 09:45 Discharge Date/Time: 05/17/25 09:45 Print Language: Niue[place]
[2025-05-17 09:11] LABS: Resp Syncy Virus RNA Qual PCR NEGATIVE (Negative); SARS COV2 PCR INHOUSE NEGATIVE (Negative)
[2025-05-17 09:42] VITALS: O2SAT 99
[2025-05-17 09:44] VITALS: BP 110/68; PULSE 60; RESP 18; TEMP 37; O2SAT 99
[2025-05-17 09:45] VITALS: BP 110/68; PULSE 60; RESP 18; TEMP 37; O2SAT 99
== END 2025-05-17 09:45 | disposition home or self-care (01) ==
PROVIDERS: Emergency Provider Emergency Medicine Emergency Medical Services; PCP Pediatrics
DX: J01.10 Acute frontal sinusitis, unspecified (principal); R05.9 Cough, unspecified; Z03.818 Encounter for observation for suspected exposure to other biological agents ruled out; Z79.899 Other long term (current) drug therapy
CPT/HCPCS: 87637; 93005; 99283; 99285

== ENCOUNTER → 2025-05-17 08:09 | Outpatient (BNV) | payer MEDICAID, SELFPAY | PROVIDERS: Emergency Provider Emergency Medicine Emergency Medical Services; PCP Pediatrics; Visit Provider Internal Medicine Cardiovascular Disease | DX: R07.9 Chest pain, unspecified (principal) | CPT/HCPCS: 93010 ==